=== PATIENT | female | born 1975 | race Caucasian/White ===

== ENCOUNTER 2016-07-18 14:07 | Inpatient (IN) | payer OTHER ==
[2016-07-18] VITALS (21 sets, daily range): BP systolic 71–108; BP diastolic 41–75; PULSE 66–87; TEMP 36.4–36.7; O2SAT 87–97; Ht 154.9 cm; Wt 89.9 kg
[~2016-07-18] VITALS: Ht 154.9 cm; Wt 89.9 kg
[~2016-07-18 14:07] MED LIST: FENTANYL CITRATE INJ 50 MCG/1 ML 2 ML VIAL IV ONE; SODIUM CHLORIDE 0.9% 10ML FLUSH IV ONE; SODIUM CHLORIDE 0.9% 2.5 ML FLUSH IV ONE; SODIUM CHLORIDE 0.9% INJ 10 ML VIAL IV ONE; SUCCINYLCHOLINE CHLORIDE 20 MG/ML 10 ML VIAL IV ONE
[2016-07-18] MEDS ORDERED: FLUP5TAB PO (14:56)
[2016-07-18] MEDS ORDERED: DOCU100C31 PO (14:56)
[2016-07-18] MEDS ORDERED: FURO-85 PO (14:56)
[2016-07-18] MEDS ORDERED: PIPERACILLIN/TAZOBACTAM 4.5 GM/100ML D5W IV STA (14:56)
[2016-07-18] MEDS ORDERED: FLUT1AER5 INH (14:56)
[2016-07-18] MEDS ORDERED: GLC/500 PO (14:56)
[2016-07-18] MEDS ORDERED: LEVO25TA5 PO (14:56)
[2016-07-18] MEDS ORDERED: ATOR-22 PO (14:56)
[2016-07-18] MEDS ORDERED: SODIUM CHLORIDE 0.9% 1000ML 1,000 ML IV ONE ×2 (14:56→17:30)
[2016-07-18] MEDS ORDERED: MELO7.5T5 PO (14:56)
[2016-07-18] MEDS ORDERED: EMOL-19 TOP (14:57)
[2016-07-18] MEDS ORDERED: LORA-741 PO (14:57)
[2016-07-18] MEDS ORDERED: PROP10TA7 PO (14:57)
[2016-07-18] MEDS ORDERED: ALUM-30 PO (14:57)
[2016-07-18] MEDS ORDERED: BNDIS50 IM (14:57)
[2016-07-18] MEDS ORDERED: TRAZ100T29 PO (14:57)
[2016-07-18] MEDS ORDERED: VALP250S16 PO (14:57)
[2016-07-18] MEDS ORDERED: ACET325T96 PO (14:57)
[2016-07-18] MEDS ORDERED: HALO5INJ IM (14:57)
[2016-07-18] MEDS ORDERED: MOML PO (14:57)
[2016-07-18] MEDS ORDERED: ALBUT/IPRATROP 3MG/0.5MG NEB 3 ML VIAL INH ONE (15:15)
[2016-07-18] MEDS ORDERED: PATIENT'S ALLERGY INFO NEEDS ENTERED SCH (15:15)
[2016-07-18 15:17] LABS: URINE APPEARANCE CLOUDY (CLEAR); URINE BILIRUBIN NEG (NEG); URINE COLOR DK YELLOW; URINE EPITHELIAL CELL AUTO >30 /lpf (0-5); URINE NITRITE NEG (NEG); URINE SPECIFIC GRAVITY 1.019 (1.000-1.030); UROBILINOGEN NEG (NEG); ZZURINE CULT IF INDIC CATH NO
[2016-07-18 15:17] LABS: CALCIUM 8.5 mg/dl (8.5-10.1); CREATININE 2.3 mg/dl (0.60-1.20); INR 1.1 (0.9-1.1); PARTIAL THROMBOPLASTIN RATIO 1.1; POTASSIUM 4.8 mmol/L (3.5-5.1); PROTHROMBIN TIME (PATIENT) 11.9 SECONDS (9.0-12.0)
[2016-07-18 15:19] LABS: MANUAL MICROSCOPIC REQUIRED? NO; REVIEW REQ? YES
[2016-07-18 15:27] LABS: URINE MUCUS PRESENT (NONE PRSENT)
[2016-07-18] MEDS ORDERED: SODIUM CHLORIDE 0.9% IV ONE (15:30)
[2016-07-18] MEDS ORDERED: DAPTOMYCIN IV ONE (15:30)
--- NOTE | 2016-07-18 15:31 | DIAGNOSTIC IMAGING REPORT ---
CHEST ONE VIEW PORTABLE CLINICAL HISTORY: Sepsis FEVER SHORTNESS OF BREATH COMPARISON STUDY: No previous studies for comparison. FINDINGS: The heart is enlarged. There are bilateral pulmonary airspace opacities. Diagnostic considerations include a bilateral pneumonia versus asymmetric pulmonary edema. There is no cystic or pleural fluid.[ IMPRESSION: Bilateral pulmonary airspace opacities, consistent with a bilateral pneumonia or asymmetric pulmonary edema. Clinical and radiographic follow-up is recommended. Electronically signed by: Igor Anderson M.D. 07/18/2016 3:30 PM Dictated Date/Time: 07/18/2016 3:28 PM
[2016-07-18 15:55] LABS: HEMATOCRIT 39.7 % (37-47); MEAN CELL VOLUME 93.2 fL (80-100); MEAN CORPUSCULAR HEMOGLOBIN 30.8 pg (25-34); MEAN PLATELET VOLUME 12.2 fL (7.4-10.4); PLATELET COUNT 120 K/uL (130-400); RED BLOOD COUNT 4.26 M/uL (4.2-5.4); WHITE BLOOD COUNT 7.82 K/uL (4.8-10.8)
[2016-07-18 15:57] LABS: BASO % 0.1 %; BASO ABS # 0.01 K/uL (0-0.2); COMPLETE YES; IG% 0.5 %; LYMPH ABS # 1.33 K/uL (1.2-3.4); MONO % 5.9 %; NEUT % 76.5 %; PLT ESTIMATE DECREASED
[2016-07-18] MEDS ORDERED: NOREPINEPHRINE BITARTRATE 1 MG/ML 4 ML VIAL ONE (16:18)
[2016-07-18] MEDS ORDERED: VANCOMYCIN 1GM/270ML NSS IV STA (16:20)
[2016-07-18] MEDS ORDERED: NOREPINEPHRINE BIT INJ 8 MG in DEXTROSE 5% 500ML 500 ML IV STA (16:20)
[2016-07-18] MEDS ORDERED: METHYLPREDNISOLONE 125 MG VIAL IV STA (17:08)
[2016-07-18] MEDS ORDERED: ONDANSETRON INJ 2 MG/ML 2 ML VIAL IV PRN (17:15)
[2016-07-18] MEDS ORDERED: SODIUM CHLORIDE 0.9% 1000ML 1,000 ML IV SCH (17:15)
[2016-07-18] MEDS ORDERED: ACETAMINOPHEN 325 MG TAB PO PRN (17:15)
[2016-07-18] MEDS ORDERED: VANCOMYCIN CONSULT ACTIVE PRN (17:45)
[2016-07-18] MEDS ORDERED: PIPERACILL/TAZOBAC CONSULT ACTIVE PRN (17:45)
[2016-07-18 18:06] LABS: ALLEN TEST POS (POS); ARTERIAL BLD GAS O2 SATURATION 92.4 % (90-95); ARTERIAL BLOOD GAS BASE EXCESS -0.8 mEq/L (-9-1.8); ARTERIAL BLOOD GAS HCO3 28 mmol/L (19-24); ARTERIAL BLOOD GAS PO2 80 mm/Hg (80-95); ARTERIAL BLOOD GAS pH 7.24 (7.35-7.45)
--- NOTE | 2016-07-18 18:21 | Medical Student: [facility] ---
Med Student History & Physical Date & Time of Service: Jul 18, 2016 at 16:43 Chief Complaint: Shortness of breath Primary Care Physician: Griselda, [facility] History of Present Illness Source: clinic records, hospital records 41y/o female, currently at the [facility] on a 304, was brought to the emergency department today from the [facility] due to respiratory distress. The patient was having respiratory problems at the [facility], with sats as low as the 70s. Her temperature was measured at 101.7 and she was given 650mg Tylenol prior to arrival. She was also given a Duoneb treatment prior to arrival. The patient was hypotensive prior to arrival. She is reported to have a history of COPD. Per HPI from the [facility], the patient has a history of schizophrenia, delusions , psychosis, and suicidal thoughts with two previous attempts. She believes that she is with twins and stopped taking her psych meds because of this. Prior to the [facility], she was living by herself in an apartment. Past Medical/Surgical History 1. COPD 2. Diabetes Mellitus 3. Schizophrenia 4. High cholesterol 5. HTN 6. Hypothyroid Surgical History: 1. Appendectomy 2. Family History Unable to obtain due to respiratory distress Social History Smoking Status: Unknown if Ever Smoked Housing status: other (currently lives at the [facility]) Allergies Coded Allergies: No Known Allergies (Unverified , 07/18/16) Medications Acetaminophen Tab (Tylenol), 650 MG PO Q4H Alum & Mag Hydrox-Simethicone (Mylanta), 30 ML PO QID PRN for Constipation Atorvastatin (Lipitor), 20 MG PO HS Diphenhydramine Hcl (Diphenhydramine Hcl), 100 MG IM UD Docusate Sodium (Docusate Sodium), 100 MG PO HS Emollient (Lubriderm), 1 APPLN TOP BID Fluphenazine Hcl (Prolixin), 15 MG PO HS Fluticasone Propionate (Inhala (Flovent Diskus), 1 PUFFS INH BID Furosemide (Lasix), 20 MG PO QAM Haloperidol Lactate (Haldol), 10 MG IM UD Levothyroxine Sodium (Levothyroxine Sodium), 25 MCG PO QAM Lorazepam (Ativan), 0.5 MG PO BID PRN for Anxiety Magnesium Hydroxide (Milk Of Magnesia), 30 ML PO UD PRN for Constipation Meloxicam (Mobic), 15 MG PO QAM Metformin Hcl (Glucophage), 1,000 MG PO BID Propranolol (Inderal), 10 MG PO BID Trazodone Hcl (Trazodone), 100 MG PO HS Valproic Acid Syrup (Depakene), 1,000 MG PO BID Review of Systems Unable to obtain due to respiratory distress Physical Exam Vital Signs (24 Hours) Date Time Temp Pulse Resp B/P Pulse Ox O2 Delivery O2 Flow Rate FiO2 07/18/16 16:32 96 07/18/16 15:14 87/57 07/18/16 15:07 91/49 07/18/16 14:55 79 26 76/48 95 Non-Rebreather 15.0 07/18/16 14:53 76/48 07/18/16 14:29 81 16 69/41 95 Non-Rebreather 15.0 07/18/16 14:25 37.0 83 23 76/46 96 Room Air 07/18/16 14:23 82 07/18/16 14:11 82 22 76/46 95 07/18/16 14:10 96 Non-Rebreather 15.0 General Appearance: + moderate distress, + obese, + pertinent finding (ill- appearing) Head: normocephalic, atraumatic Eyes: normal inspection, EOMI Neck: supple, no adenopathy, trachea midline Cardiovascular: regular rate, rhythm, no edema, no gallop, no murmur Abdomen/GI: normal bowel sounds, non tender, soft Neurologic/Psych: + pertinent finding (eyes open, will respond to some questions, pulling rebreather mask off face) Skin: normal color, warm/dry, no rash Lymphatic: no adenopathy Diagnostics Laboratory Results Results Past 24 Hours Test 07/18/16 14:16 07/18/16 14:27 07/18/16 14:45 07/18/16 15:09 Range/Units Bedside Glucose 119 70-90 mg/dl White Blood Count 7.82 4.8-10.8 K/uL Red Blood Count 4.26 4.2-5.4 M/uL Hemoglobin 13.1 12.0-16.0 g/dL Hematocrit 39.7 37-47 % Mean Corpuscular Volume 93.2 80-100 fL Mean Corpuscular Hemoglobin 30.8 25-34 pg Mean Corpuscular Hemoglobin Concent 33.0 32-36 g/dl Platelet Count 120 130-400 K/uL Mean Platelet Volume 12.2 7.4-10.4 fL Neutrophils (%) (Auto) 76.5 % Lymphocytes (%) (Auto) 17.0 % Monocytes (%) (Auto) 5.9 % Eosinophils (%) (Auto) 0.0 % Basophils (%) (Auto) 0.1 % Neutrophils # (Auto) 5.98 1.4-6.5 K/uL Lymphocytes # (Auto) 1.33 1.2-3.4 K/uL Monocytes # (Auto) 0.46 0.11-0.59 K/uL Eosinophils # (Auto) 0.00 0-0.5 K/uL Basophils # (Auto) 0.01 0-0.2 K/uL RDW Standard Deviation 48.7 36.4-46.3 fL RDW Coefficient of Variation 14.5 11.5-14.5 % Immature Granulocyte % (Auto) 0.5 % Immature Granulocyte # (Auto) 0.04 0.00-0.02 K/uL Platelet Estimate DECREASED Red Blood Cell Morphology Unremarkable Prothrombin Time 11.9 9.0-12.0 SECONDS Prothromb Time International Ratio 1.1 0.9-1.1 Activated Partial Thromboplast Time 28.5 21.0-31.0 SECONDS Partial Thromboplastin Ratio 1.1 Sodium Level 138 136-145 mmol/L Potassium Level 4.8 3.5-5.1 mmol/L Chloride Level 96 98-107 mmol/L Carbon Dioxide Level 29 21-32 mmol/L Anion Gap 13.0 3-11 mmol/L Blood Urea Nitrogen 46 7-18 mg/dl Creatinine 2.30 0.60-1.20 mg/dl Est Creatinine Clear Calc Drug Dose 34.7 ml/min Estimated GFR () 30.0 Estimated GFR (Non- 25.9 BUN/Creatinine Ratio 20.0 10-20 Random Glucose 116 70-99 mg/dl Calcium Level 8.5 8.5-10.1 mg/dl Total Bilirubin 0.4 0.2-1 mg/dl Aspartate Amino Transf (AST/SGOT) 15 15-37 U/L Alanine Aminotransferase (ALT/SGPT) 13 12-78 U/L Alkaline Phosphatase 33 45-117 U/L Total Protein 6.5 6.4-8.2 gm/dl Albumin 3.2 3.4-5.0 gm/dl Globulin 3.3 2.5-4.0 gm/dl Albumin/Globulin Ratio 1.0 0.9-2 Urine Color DK YELLOW Urine Appearance CLOUDY CLEAR Urine pH 5.0 4.5-7.5 Urine Specific [place] 1.019 1.000-1.030 Urine Protein 1+ NEG Urine Glucose (UA) NEG NEG Urine Ketones TRACE NEG Urine Occult Blood NEG NEG Urine Nitrite NEG NEG Urine Bilirubin NEG NEG Urine Urobilinogen NEG NEG Urine Leukocyte Esterase NEG NEG Urine WBC (Auto) 0 0-5 /hpf Urine RBC (Auto) 0-4 0-4 /hpf Urine Hyaline Casts (Auto) >30 0-5 /lpf Urine Epithelial Cells (Auto) >30 0-5 /lpf Urine Bacteria (Auto) NEG NEG Urine Renal Epithelial Cells 0-5 /lpf Urine Crystals AMORPHOUS SEDIMENT NONE PRSENT Urine Pathogenic Casts 0 /lpf Urine Mucus PRESENT NONE PRSENT Bedside Lactic Acid Venous 3.06 0.90-1.70 mmol/L Microbiology Results 07/18/16 Blood Culture, Received Pending 07/18/16 Blood Culture, Received Pending Diagnostic Radiology CXR: IMPRESSION: Bilateral pulmonary airspace opacities, consistent with a bilateral pneumonia or asymmetric pulmonary edema. Clinical and radiographic follow-up is recommended. EKG Left atrial enlargement, Borderline ecg Impression Assessment and Plan 41y/o female with a psych history and a history of COPD presents with respiratory distress from the [facility]. The patient's CXR shows airspace opacities consistent with bilateral PNA. Given this finding, it is likely that the source of the patient's sepsis is from the lung infection. Sepsis/PNA- The patient is currently in acute kidney failure with a BUN of 46 and a creatinine 2.30. On 06/29/16, her creatinine was 0.56. The patient has also been hypotensive, but current BP readings have now reached the normal range following the administration of Norepinephrine. The patient has received 1L of fluid to this point. Will administer another 1L of normal saline to attempt to fluid resuscitate. Continue to monitor vital signs as well as kidney function and other labs. Administer Vancomycin HCl 1000mg IV Q12 and Piperacillin Sod/ Tazobactam Sodium 3.375gm Q8 IV. Blood cultures pending. Obtain MRSA swab in an attempt to rule out MRSA as bacteria involved in infection. Continue to trend lactic acid. Continue with O2 supplementation on a nonbreather. COPD- Continue with Albuterol/Ipratropium 1 puffs INH as needed. Schizophrenia/Psych history- Administer Fluphenazine HCl 15mg PO HS, Haloperidol 10mg IM UD, Trazadone HCl 100mg PO HS, and Valproic Acid 1000mg PO BID. Hypertension- Hold Propranolol HCl 10mg PO BID. Diabetes Mellitus- Hold Metformin. Check BSG and administer as needed. Hypothyroid- Hold Levothyroxine for 48 hours. Consider restarting home dose following 48 hours at 25mcg PO QAM. Edema- Hold Furosemide. High cholesterol- Hold Atorvastatin Calcium. DVT prophylaxis- Administer Heparin 5000 Units SQ12H. Level of Care Med/Surg
[2016-07-18] MEDS: SODIUM CHLORIDE 0.9% 1000ML 1,000 ML IV SCH (19:45)
[2016-07-18] MEDS ORDERED: SODIUM CHLORIDE 0.45% 1000ML 1,000 ML IV SCH (19:45)
[2016-07-18] MEDS ORDERED: VANCOMYCIN INJ 1,400 MG in SODIUM CHLORIDE 0.9% 500ML 500 ML IV ONE (19:45)
[2016-07-18] MEDS ORDERED: SODIUM CHLORIDE 0.9% 500ML 500 ML IV SCH (19:45)
[2016-07-18] MEDS ORDERED: ALBUTEROL 0.5% NEB SOLN 2.5 MG/0.5 ML VIAL INH PRN (19:45)
[2016-07-18] MEDS ORDERED: OSELTAMIVIR PHOSPHATE SUSP 30 MG/5 ML UDP PO SCH (20:00)
[2016-07-18] MEDS ORDERED: AZITHROMYCIN IV 250 MG in DEXTROSE 5% 250ML 250 ML IV ONE (20:00)
[2016-07-18] MEDS ORDERED: GLUCOSE 40% GEL 15 GM TUBE PO PRN (20:00)
[2016-07-18] MEDS ORDERED: GLUCAGON FOR INJ 1 MG VIAL SQ PRN (20:00)
[2016-07-18] MEDS ORDERED: DEXTROSE 50% 50 ML SYR IV PRN (20:00)
[2016-07-18] MEDS ORDERED: GLUCOSE 10 TABS/TUBE PO PRN (20:00)
--- NOTE | 2016-07-18 20:12 | EMERGENCY ROOM VISIT NOTE ---
History Report prepared by Douglasibjensen: Janice Jones Under the Supervision of: Dr. Cecilio Perea M.D. First contact with patient: 14:45 Chief Complaint: RESPIRATORY PROBLEMS Stated Complaint: FEVER, SOB History of Present Illness The patient is a 41 year old female who presents to the Emergency Room via ambulance to be evaluated for respiratory problems that began today. Per nursing staff, the patient is at the [facility] on a 304 and seemed lethargic this morning to staff. Her temperature was 101.7 at that time and she was given 650 mg Tylenol. Her sats were in the 70s on room air. She was put on a nonrebreather at the [facility] and her sats improved by the time EMS arrived. She was noted to be hypotensive. She was given a Duoneb en route to the ED. Currently, the patient states that she is better than she did earlier today. Past medical history includes COPD. History is limited secondary to respiratory distress. Source of History: patient, nursing staff History Limited By: other (respiratory distress) Onset: today Symptom Intensity: sats in 70s on room air Timing: constant Modifying Factors (Relieving): other (NRB) Associated Symptoms: + fevers Review of Systems Limited secondary to respiratory distress. Past Medical & Surgical Medical Problems: (1) COPD (chronic obstructive pulmonary disease) (2) Sepsis Family History Unobtainable secondary to respiratory distress. Social History Marital Status: single Housing Status: other ([place]) Occupation Status: unemployed Current/Historical Medications Scheduled Acetaminophen Tab (Tylenol), 650 MG PO Q4H Atorvastatin (Lipitor), 20 MG PO HS Diphenhydramine Hcl (Diphenhydramine Hcl), 100 MG IM UD Docusate Sodium (Docusate Sodium), 100 MG PO HS Emollient (Lubriderm), 1 APPLN TOP BID Fluphenazine Hcl (Prolixin), 15 MG PO HS Fluticasone Propionate (Inhala (Flovent Diskus), 1 PUFFS INH BID Furosemide (Lasix), 20 MG PO QAM Haloperidol Lactate (Haldol), 10 MG IM UD Levothyroxine Sodium (Levothyroxine Sodium), 25 MCG PO QAM Meloxicam (Mobic), 15 MG PO QAM Metformin Hcl (Glucophage), 1,000 MG PO BID Propranolol (Inderal), 10 MG PO BID Trazodone Hcl (Trazodone), 100 MG PO HS Valproic Acid Syrup (Depakene), 1,000 MG PO BID Scheduled PRN Alum & Mag Hydrox-Simethicone (Mylanta), 30 ML PO QID PRN for Constipation Lorazepam (Ativan), 0.5 MG PO BID PRN for Anxiety Magnesium Hydroxide (Milk Of Magnesia), 30 ML PO UD PRN for Constipation Allergies Coded Allergies: No Known Allergies (Unverified , 07/18/16) Physical Exam Vital Signs Date Time Temp Pulse Resp B/P Pulse Ox O2 Delivery O2 Flow Rate FiO2 07/18/16 17:19 82 90 07/18/16 17:14 84 92 07/18/16 17:13 112/74 07/18/16 17:09 85 91 07/18/16 17:08 116/67 07/18/16 17:04 84 90 07/18/16 16:59 84 98/49 94 07/18/16 16:54 82 94 07/18/16 16:49 80 95 07/18/16 16:45 80 20 112/63 95 Non-Rebreather 07/18/16 16:44 79 93 07/18/16 16:43 112/63 07/18/16 16:39 81 92 07/18/16 16:38 92/62 07/18/16 16:34 80 91 07/18/16 16:32 96 07/18/16 16:30 81 22 97/63 92 Non-Rebreather 07/18/16 16:29 78 90 07/18/16 16:28 97/63 07/18/16 16:24 82 91 07/18/16 16:19 82 94 07/18/16 16:15 81 22 84/55 92 Non-Rebreather 07/18/16 16:14 80 88 07/18/16 16:13 84/55 07/18/16 16:09 81 88 07/18/16 16:04 81 93 07/18/16 16:02 90 Non-Rebreather 15.0 07/18/16 15:59 80 98 07/18/16 15:54 82 89 07/18/16 15:50 89/55 07/18/16 15:49 82 98 07/18/16 15:45 74 22 80/47 Non-Rebreather 07/18/16 15:44 81 93 07/18/16 15:43 80/47 07/18/16 15:39 77 97 07/18/16 15:39 77 24 92/52 97 Non-Rebreather 07/18/16 15:37 92/52 07/18/16 15:34 76 94 07/18/16 15:30 75/58 07/18/16 15:29 78 95 07/18/16 15:27 79/ 07/18/16 15:26 78 22 72/38 90 Non-Rebreather 07/18/16 15:24 79 72/38 88 07/18/16 15:20 76 18 97 Non-Rebreather 15.0 07/18/16 15:19 79 97 07/18/16 15:16 78 22 87/57 96 Non-Rebreather 07/18/16 15:14 87/57 07/18/16 15:08 79 24 91/49 95 Non-Rebreather 07/18/16 15:07 91/49 07/18/16 14:55 79 26 76/48 95 Non-Rebreather 15.0 07/18/16 14:53 76/48 07/18/16 14:30 79 22 69/41 91 Non-Rebreather 07/18/16 14:29 81 16 69/41 95 Non-Rebreather 15.0 07/18/16 14:25 37.0 83 23 76/46 96 Room Air 07/18/16 14:23 82 07/18/16 14:11 82 22 76/46 95 07/18/16 14:10 96 Non-Rebreather 15.0 Physical Exam The patient is in respiratory distress. Constitutional: Vital signs reviewed. She is hypotensive Eyes: Pupils are equal round reactive to light. Conjunctiva are noninjected. ENT: Pharynx is clear without erythema or exudate. Mucous membranes are moist. Neck supple without meningeal signs. Respiratory: Diffuse expiratory wheezing with rhonchi and poor air entry to auscultation bilaterally. Breath sounds are equal bilaterally. Cardiovascular: Regular rate and rhythm. No rubs or gallops. GI: Soft, nondistended and nontender. Bowel sounds are present. Musculoskeletal: No peripheral edema. No lower extremity tenderness. No CVA tenderness. Integumentary: No cyanosis. Neurological: Confused, answers some questions. Psychiatric: Unable to assess. Medical Decision & Procedures ER Provider Diagnostic Interpretation: Radiology results as stated below per my review and the radiologist's interpretation: CHEST ONE VIEW PORTABLE CLINICAL HISTORY: Sepsis FEVER SHORTNESS OF BREATH COMPARISON STUDY: No previous studies for comparison. FINDINGS: The heart is enlarged. There are bilateral pulmonary airspace opacities. Diagnostic considerations include a bilateral pneumonia versus asymmetric pulmonary edema. There is no cystic or pleural fluid.[ IMPRESSION: Bilateral pulmonary airspace opacities, consistent with a bilateral pneumonia or asymmetric pulmonary edema. Clinical and radiographic follow-up is recommended. Electronically signed by: Igor Anderson M.D. 07/18/2016 3:30 PM Dictated Date/Time: 07/18/2016 3:28 PM Laboratory Results 07/18/16 14:27 Red Blood Count 4.26, Mean Corpuscular Volume 93.2, Mean Corpuscular Hemoglobin 30.8, Mean Corpuscular Hemoglobin Concent 33.0, Mean Platelet Volume 12.2, Neutrophils (%) (Auto) 76.5, Lymphocytes (%) (Auto) 17.0, Monocytes (%) (Auto) 5.9, Eosinophils (%) (Auto) 0.0, Basophils (%) (Auto) 0.1, Neutrophils # (Auto) 5.98, Lymphocytes # (Auto) 1.33, Monocytes # (Auto) 0.46, Eosinophils # (Auto) 0.00, Basophils # (Auto) 0.01 Test 07/18/16 14:16 07/18/16 14:27 07/18/16 14:45 07/18/16 15:09 Bedside Glucose 119 mg/dl (70-90) White Blood Count 7.82 K/uL (4.8-10.8) Red Blood Count 4.26 M/uL (4.2-5.4) Hemoglobin 13.1 g/dL (12.0-16.0) Hematocrit 39.7 % (37-47) Mean Corpuscular Volume 93.2 fL (80-100) Mean Corpuscular Hemoglobin 30.8 pg (25-34) Mean Corpuscular Hemoglobin Concent 33.0 g/dl (32-36) Platelet Count 120 K/uL (130-400) Mean Platelet Volume 12.2 fL (7.4-10.4) Neutrophils (%) (Auto) 76.5 % Lymphocytes (%) (Auto) 17.0 % Monocytes (%) (Auto) 5.9 % Eosinophils (%) (Auto) 0.0 % Basophils (%) (Auto) 0.1 % Neutrophils # (Auto) 5.98 K/uL (1.4-6.5) Lymphocytes # (Auto) 1.33 K/uL (1.2-3.4) Monocytes # (Auto) 0.46 K/uL (0.11-0.59) Eosinophils # (Auto) 0.00 K/uL (0-0.5) Basophils # (Auto) 0.01 K/uL (0-0.2) RDW Standard Deviation 48.7 fL (36.4-46.3) RDW Coefficient of Variation 14.5 % (11.5-14.5) Immature Granulocyte % (Auto) 0.5 % Immature Granulocyte # (Auto) 0.04 K/uL (0.00-0.02) Platelet Estimate DECREASED Red Blood Cell Morphology Unremarkable Prothrombin Time 11.9 SECONDS (9.0-12.0) Prothromb Time International Ratio 1.1 (0.9-1.1) Activated Partial Thromboplast Time 28.5 SECONDS (21.0-31.0) Partial Thromboplastin Ratio 1.1 Est Creatinine Clear Calc Drug Dose 34.7 ml/min Total Bilirubin 0.4 mg/dl (0.2-1) Aspartate Amino Transf (AST/SGOT) 15 U/L (15-37) Alanine Aminotransferase (ALT/SGPT) 13 U/L (12-78) Alkaline Phosphatase 33 U/L (45-117) Total Protein 6.5 gm/dl (6.4-8.2) Albumin 3.2 gm/dl (3.4-5.0) Globulin 3.3 gm/dl (2.5-4.0) Albumin/Globulin Ratio 1.0 (0.9-2) Procalcitonin 0.19 ng/mL (0-0.5) Urine Color DK YELLOW Urine Appearance CLOUDY (CLEAR) Urine pH 5.0 (4.5-7.5) Urine Specific [place] 1.019 (1.000-1.030) Urine Protein 1+ (NEG) Urine Glucose (UA) NEG (NEG) Urine Ketones TRACE (NEG) Urine Occult Blood NEG (NEG) Urine Nitrite NEG (NEG) Urine Bilirubin NEG (NEG) Urine Urobilinogen NEG (NEG) Urine Leukocyte Esterase NEG (NEG) Urine WBC (Auto) 0 /hpf (0-5) Urine RBC (Auto) 0-4 /hpf (0-4) Urine Hyaline Casts (Auto) >30 /lpf (0-5) Urine Epithelial Cells (Auto) >30 /lpf (0-5) Urine Bacteria (Auto) NEG (NEG) Urine Renal Epithelial Cells /lpf (0-5) Urine Crystals AMORPHOUS SEDIMENT (NONE Urine Pathogenic Casts /lpf (0) Urine Mucus PRESENT (NONE PRSENT) Bedside Lactic Acid Venous 3.06 mmol/L (0.90-1.70) Test 07/18/16 16:40 Influenza Type A Antigen Neg for Influ A (NEG) Influenza Type B Antigen Neg for Influ B (NEG) Laboratory results as reviewed by me. Medications Administered Medications (Trade) Dose Ordered Sig/Racquel Route Start Time Stop Time Status Last Admin Dose Admin Sodium Chloride (Nss 1000ml) 1,000 ml @ 999 mls/hr Q1H1M ONCE IV 07/18/16 14:56 07/18/16 15:56 DC 07/18/16 15:17 999 MLS/HR Piperacillin Sod/ Tazobactam Sod (Zosyn Iv) 4.5 gm ONE STAT IV 07/18/16 14:56 07/18/16 14:58 DC 07/18/16 15:17 4.5 GM Albuterol/ Ipratropium (Duoneb) 12 ml ONE ONCE INH 07/18/16 15:15 07/18/16 15:16 DC 07/18/16 15:15 12 ML Norepinephrine Bitartrate (Levophed Inj) 4 mg STK-MED ONCE .ROUTE 07/18/16 16:18 07/18/16 16:20 DC 07/18/16 16:28 4 MG Vancomycin HCl (Vancomycin 1gm/ 270ml Nss) 1 gm NOW STAT IV 07/18/16 16:20 07/18/16 16:21 DC 07/18/16 16:57 1 GM Methylprednisolone Sodium Succinate (Solu-Medrol IV) 125 mg NOW STAT IV 07/18/16 17:08 07/18/16 17:09 DC 07/18/16 17:21 125 MG Procedure Central Venous Catheter Indication: Hypotension, need for pressors Catheter type: Triple lumen Location: Right femoral Verbal consent was obtained after the risks and benefits were explained, including but not limited to pneumothorax, hemothorax, vessel injury, bleeding, scarring, infection, pain, and bone/joint/nerve damage. At this time, the risks of the procedure are less than the risks of NOT performing the procedure. A time out was taken and the correct patient and site identified. The patient was placed in the supine position and the skin was prepped in the standard fashion with chlorhexidine and full sterile drapes applied. The proper landmarks were identified with ultrasound, anesthetized with 1% lidocaine without epinephrine, and the needle was inserted through the skin in the standard fashion. The needle was carefully advanced into blood vessel lumen under ultrasound guidance. The artery was initially punctured, verified by ultrasound. A second attempt was successful and verified in the femoral vein. The vessel is dilated and the catheter was placed. It was sutured into position. There was good blood return from all ports. The patient tolerated the procedure well and there were no complications. Direct pressure was held over the femoral artery puncture for 25 minutes by the medical student. No hematoma developed subsequently during her emergency room stay. ECG Indication: SOB/dyspnea Rate (beats per minute): 81 Rhythm: normal sinus Findings: no acute ischemic change, no ectopy ED Course 1447: The patient was evaluated in room A7. A complete history and physical exam was performed. 1456: Ordered Daptomycin/NSS 50 ml @ 100 mls/hr IV, NSS 1000 ml @ 999 mls/hr IV. 1506: A code sepsis was called and the patient was moved to room B1. 1510: I reassessed the patient. Her blood pressure was 91/49. 1515: Ordered Duoneb 12 ml INH. 1518: I discussed the case with Dr. López - [facility] Hospitalist. The patient will be evaluated for further management. 1520: I reassessed the patient. She is getting an hour long nebulizer treatment and fluids are infusing. She is still hypotensive. 1530:Ordered Daptomycin 575 mg/NSS 61.5 ml @ 100 mls/hr IV. 1532: I talked to the patient about the risks of a central line and she consented to the procedure. Her systolic pressure was 75. 1537: I placed a central line - see procedure note above for details. 1620: Ordered Norepinephrine Bitartrate 8 mg/Dextrose 508 ml IV, Vancomycin HCl 1 gm IV. 1700: I reassessed the patient. She is still wheezing significantly. She will be put on Bipap. 170: Ordered Solu-Medrol 125 mg IV. 1740: I reassessed the patient. Her blood pressure was 104/64. She was on Bipap and Levophed. 1816: I reassessed the patient. Her wheezing significantly improved. She was feeling much better and was awake and alert. Her blood pressure was stable. Groin shows no evidence of expanding hematoma. The femoral pulse was strong. Medical Decision This is a 41-year-old female in respiratory distress with fever. Differential diagnosis includes septic shock, pneumonia, pulmonary edema, COPD exacerbation, UTI, ARDS. I did perform a limited focused review of portions of the patient's old chart on the electronic medical record. The patient has had no prior visits to this hospital. I did evaluate the patient as noted above. 3 IVs access was established. The patient was placed on a continuous quality assurance monitor chassis. She was given 3 IV boluses of normal saline 1 L each. She was transferred to the trauma resuscitation bay. She was given an hour-long DuoNeb. A urine specimen was obtained which was extremely malodorous according to the nurse. I did empirically treat the patient with IV daptomycin and Zosyn. I did order and personally review the patient's 12-lead EKG and chest x-ray as described above. Chest x-ray demonstrates bilateral pneumonia. The daptomycin was canceled as the urine analysis was negative. She was given vancomycin IV instead. Blood cultures were obtained. I did order and review the patient's blood work as noted in the electronic medical record. Creatinine and lactic acid are elevated. I did obtain consent for central venous catheter placement. I did place the central line triple-lumen catheter as noted above. She was started on Levophed as she remained hypotensive. Her blood pressure did improve with the IV Levophed drip. She was also placed on BiPAP and given Solu-Medrol IV which improved her breathing significantly. I did discuss the case with the hospitalist. She was admitted to the ICU. I did reassess the patient multiple times as described above. Consults Time Called: 1022 Consulting Physician: Dr. López - [facility] Hospitalist Returned Call: [phone] I discussed the case with him. The patient will be evaluated for further management. Impression Primary Impression: Septic shock Additional Impressions: Bilateral pneumonia COPD exacerbation Acute kidney injury Schizophrenia Critical Care I have personally spent greater than 80 minutes of critical care time in the direct management of this patient. This includes bedside care, interpretation of diagnostic studies, and testing, discussion with consultants, patient, and family members, and other required patient management activities. This 80 minutes is in excess of all separately billable procedures. Scribe Attestation The scribe's documentation has been prepared under my direct and personally reviewed by me in its entirety. I confirm that the note above accurately reflects all work, treatment, procedures, and medical decision making performed by me. Departure Information Dispostion Being Evaluated By Hospitalist Patient Instructions My [facility] Health Problem Qualifiers
[2016-07-18] MEDS: HEPARIN SOD 5000 UNIT/0.5 ML CARP SQ SCH (20:27)
[2016-07-18] MEDS: INSULIN ASPART 100 UNITS/ML 3 ML PEN SC SCH (20:28)
[2016-07-18 20:37] LABS: IPAP 22; ISTAT ALLEN TEST Pass; ISTAT ARTERIAL BLOOD GAS HCO3 26 meq/L (19-24); ISTAT ARTERIAL BLOOD GAS PCO2 57 mmHg (35-46); ISTAT ARTERIAL BLOOD GAS PO2 79 mmHg (80-95); ISTAT ARTERIAL BLOOD GAS pH 7.26 (7.35-7.45); ISTAT CARBON DIOXIDE 28 mEq/l (24-31); ISTAT DELIVERY SYSTEM BIPAP; ISTAT FIO2 55 %; ISTAT RATE 12; ISTAT SITE R Radial
[2016-07-18 20:49] LABS: BUN/CREATININE RATIO 23.7 (10-20); CALCIUM 7.4 mg/dl (8.5-10.1); MAGNESIUM 1.3 mg/dl (1.8-2.4); POTASSIUM 4.7 mmol/L (3.5-5.1)
[2016-07-18 20:53] LABS: PHOSPHORUS 4.9 mg/dl (2.5-4.9)
[2016-07-18] MEDS ORDERED: VANCOMYCIN INJ 1,000 MG in SODIUM CHLORIDE 0.9% 250ML 250 ML IV SCH (21:00)
--- NOTE | 2016-07-18 21:14 | Pharmacy Progress Note ---
Pharmacy Antibiotic Consult Date of Service: Jul 18, 2016. Pharmacy Dosing Scope Pharmacy is consulted to initiate vancomycin and zosyn IV dosing therapy, order appropriate labs and adjust drug dose/frequency. Subjective The patient is a 41 year old female admitted on Jul 18, 2016 at 17:19. Objective Height (Feet): 5 Height (Inches): 1.00 Weight (Kilograms): 95.900 Lab Results (24hrs): Laboratory Tests Test 07/18/16 14:27 07/18/16 20:15 BUN/Creatinine Ratio 20.0 23.7 Blood Urea Nitrogen 46 mg/dl 47 mg/dl Creatinine 2.30 mg/dl 2.00 mg/dl White Blood Count 7.82 K/uL Red Blood Count 4.26 M/uL Hemoglobin 13.1 g/dL Hematocrit 39.7 % Mean Corpuscular Volume 93.2 fL Mean Corpuscular Hemoglobin 30.8 pg Mean Corpuscular Hemoglobin Concent 33.0 g/dl Platelet Count 120 K/uL Mean Platelet Volume 12.2 fL Neutrophils (%) (Auto) 76.5 % Lymphocytes (%) (Auto) 17.0 % Monocytes (%) (Auto) 5.9 % Eosinophils (%) (Auto) 0.0 % Basophils (%) (Auto) 0.1 % Neutrophils # (Auto) 5.98 K/uL Lymphocytes # (Auto) 1.33 K/uL Monocytes # (Auto) 0.46 K/uL Eosinophils # (Auto) 0.00 K/uL Basophils # (Auto) 0.01 K/uL Assessment & Plan Patient started on vancomycin, zosyn and azithromycin (not consult) for possible pneumonia. BC x 2 ordered, MRSA nasal swab pending. Vancomycin: * LD: 1 gm (10mg/kg) given in ED; will give an additional 1400 mg (~15mg/kg) for full loading dose * Patient with DILLON on admission, unsure of baseline Scr at this time * Based on current Scr: estimated t1/2~18 hrs, ke~0.038 hr-1, CrCl~40 ml/min * Will dose by level due to increase in Scr ; will order a random level in the am to assist with further dosing, estimated level tomorrow am still>15 mcg/ml ( goal 15-20 mcg/ml for PNA) Zosyn: * 4.5 gm iv x 1 given; will dose with 4.5 gm iv q 8 hr which is appropriate for CrCl> 20 ml/min; BMI>40 kg/m2 Pharmacy will continue to follow and will adjust dose/frequency as necessary. Thank you
[2016-07-18] MEDS: NOREPINEPHRINE BIT INJ 8 MG in DEXTROSE 5% 500ML 500 ML IV PRN (21:24)
[2016-07-18] MEDS ORDERED: DiphenhydrAMINE INJ 25 MG in SYRINGE 0 ML IV PRN (21:45)
[2016-07-18] MEDS: MAGNESIUM SULFATE 1GM / D5W 1 GM in PREMIXED IN D5W 100 ML IV SCH ×2 (21:53→23:11)
[2016-07-18] MEDS: PIPERACILL/TAZOBAC IV 4.5 GM in DEXTROSE 5% 100ML IV SCH (21:53)
[2016-07-18] MEDS ORDERED: PIPERACILL/TAZOBAC IV 3.375 GM in DEXTROSE 5% 100ML 100 ML IV SCH (22:00)
[2016-07-18 22:26] LABS: THYROID STIMULATING HORMONE 0.506 uIu/ml (0.300-4.500)
[2016-07-18 22:34] LABS: INFLUENZA A PCR Neg for Influ A (NEG)
[2016-07-18 22:35] LABS: INFLUENZA B PCR Neg for Influ B (NEG)
--- NOTE | 2016-07-18 23:24 | CRITICAL CARE CONSULTATION ---
DATE OF CONSULTATION: 07/18/2016 CHIEF COMPLAINT: Shortness of breath. HISTORY OF PRESENT ILLNESS: The patient is a 41-year-old woman, who presented to the Emergency Department today from [facility], where, it appears, she has been residing since April of 2016 when she was 302'd for delusions, psychosis and suicidal ideation. She has a history of schizophrenia and is on multiple psychiatric medications. She was noted to have a temperature of 101.7 at the facility and was given 650 mg Tylenol. Her oxygen saturation is reported to have been in the 70s and she had an altered mental status. EMS was summoned and she received albuterol nebulizer x2, secondary to wheezing. She was brought to the Emergency Department, where she was found to be hypotensive. She was given 3 liters of IV fluid as well as daptomycin, a 1-hour DuoNeb and 125 mg of Solu-Medrol. A right femoral triple lumen catheter was placed and she was started on Levophed for hypotension. She was also placed on BiPAP 18/5 and an arterial blood gas showed hypercapnic respiratory failure. It is exceedingly difficult to get a history from her, as it is very difficult to understand her through the BiPAP mask. She says she has been coughing, but not coughing up any sputum. She reports feeling chilled, but no nausea or vomiting. She denies sore throat or nasal congestion. She denies abdominal pain as well. She denies that she smokes; however, in her records, it appears that she does have a history of smoking. She denies chest pain and overall, feels better than when she came in to the Emergency Department. PAST MEDICAL HISTORY: Hypothyroidism, diabetes mellitus, hypertension, schizophrenia, suicidal thoughts and attempt x2. PAST SURGICAL HISTORY: Appendectomy and section. ALLERGIES: No known drug allergies, but she reports weight gain with DEPAKOTE. SOCIAL HISTORY: She has a history of smoking in the past, unclear if she still smokes. She lives in [place] and she may have 2 sons. FAMILY HISTORY: Noncontributory and there is none listed in our documentation. REVIEW OF SYSTEMS: She denies fevers, diarrhea, abdominal pain. Additional review of systems was not obtainable or questionable due to difficulty with communicating through the BiPAP mask. PHYSICAL EXAMINATION: GENERAL: This is an obese woman looking older than her stated age with BiPAP in place and in no distress. VITAL SIGNS: Temperature 36.4, heart rate 84, respiratory rate 20, blood pressure 108/58, oxygen saturation 96%, BiPAP 22/5, 55%. HEENT: Pupils are equally round and reactive to light. The oral mucosa is difficult to examine through BiPAP. Her tongue appears dry. NECK: Large with a lot of adipose tissue. No adenopathy, trachea midline. LUNGS: With decreased breath sounds throughout, some rales in the left base. No rhonchi or wheezes. HEART: Regular rate and rhythm, distant. ABDOMEN: Obese, soft, nondistended, nontender. Active bowel sounds. EXTREMITIES: Slightly cool with 1+ radial and dorsalis pedis pulses. There is a right femoral triple lumen catheter without hematoma. SKIN: Shows a tattoo over her back and her right leg. LABORATORIES: Sodium 138, potassium 4.8, chloride 96, CO2 29, BUN 46, creatinine 2.3, blood sugar 116, alkaline phosphatase 33, albumin 3.2, AST, ALT and total bilirubin within normal limits. Procalcitonin 0.19. Lactic acid 1.9, magnesium 1.3. White blood cell count 7.82, hemoglobin 13.1, hematocrit 39.7, platelet count 120, PT, PTT, INR within normal limits; pH 7.26, pCO2 of 57, pO2 79 and HCO3 26. Urinalysis with trace ketones. Rapid influenza testing negative for influenza A and B. Blood cultures pending. PRESENT ORDERED MEDICATIONS: Acetaminophen, albuterol, DuoNeb, azithromycin, norepinephrine, Zofran, Tamiflu, Protonix, Zosyn, normal saline, vancomycin, subcutaneous heparin. OUTPATIENT MEDICATIONS: Acetaminophen, Mylanta, Lipitor, Benadryl given with Haldol injection, Colace, Lubriderm, Prolixin, Flovent, Lasix, Haldol, levothyroxine, Ativan p.r.n., milk of magnesia, Mobic, metformin, propranolol, trazodone, valproic acid. IMAGING: Portable chest x-ray was reviewed and shows bilateral interstitial infiltrates, left greater than right. EKG, normal sinus rhythm with nonspecific ST-T wave changes. IMPRESSION: 1. Acute hypoxemic hypercapnic respiratory failure in the setting of fever and hypotension, concerning for pneumonia and septic shock. 2. Acute kidney injury. 3. Altered mental status, which I suspect is multifactorial. 4. History of schizophrenia, on multiple psychiatric medications. 5. History of diabetes mellitus with hyperglycemia. 6. History of hypothyroidism. PLAN: NEUROLOGIC: Due to her altered mental status, I am going to hold her psychiatric medications overnight. Should she need something, I suggest Haldol preceded or given with Benadryl. Presently, she is calm and, from what I can tell, is not having any delusions. PULMONARY: Continue BiPAP and follow her clinical status. Although her CO2 is a bit elevated, it is improved compared to earlier in the day. She awakens very easily and has been getting acceptable tidal volumes on higher inspiratory pressures. Treat broadly for pneumonia and provide bronchodilators, both scheduled and p.r.n. CARDIOVASCULAR: Rule out myocardial infarction with serial troponins. Initial CPK was not elevated. Wean the Levophed and check echocardiogram. RENAL: I suspect she is intravascularly volume depleted and may have acute tubular necrosis, both from her hypotension and dehydration. Continue volume resuscitation. Her creatinine is already beginning to decrease. Consider renal ultrasound tomorrow. INFECTIOUS DISEASE: I have added Tamiflu as well as atypical coverage for pneumonia. Check a legionella urinary antigen. Await blood cultures and try to obtain a sputum culture. Her Procalcitonin is low, follow that up tomorrow. HEMATOLOGY: No acute active issues. ENDOCRINE: Sliding scale insulin and hold metformin. GASTROINTESTINAL: Maintain n.p.o. for now. She certainly does run the risk of needing to be intubated. She is on gastrointestinal prophylaxis. Thank you for asking me to see this patient. Please call me with any questions or concerns. Critical care time, 60 minutes.
--- NOTE | 2016-07-18 23:34 | History and Physical ---
History & Physical Date of Service Jul 18, 2016. History & Physical #[id number]
[2016-07-19] VITALS (94 sets, daily range): BP systolic 43–156; BP diastolic 25–105; PULSE 70–242; TEMP 36.5–39.6; O2SAT 85–99
--- NOTE | 2016-07-19 00:18 | HISTORY & PHYSICAL EXAMINATION ---
DATE OF ADMISSION: 07/18/2016 CHIEF COMPLAINT: Shortness of breath and hypotension. HISTORY OF PRESENT ILLNESS: The patient offers no history; it is hard to tell how much she is not wanting to talk because of her baseline mentation versus how much she is able to talk due to her severity of illness, but in discussion with the ER as well as on review of records, she was at the [facility] on a 304, apparently due to suicidal ideation, where she was found to be in respiratory distress. She was hypoxic with pulse oximetries in the low 70s. Her temperature was up to 101.7 and then she was found to be hypotensive. She was sent urgently to the ER. Here, she was found to have an appearance of septic shock due to an extensive pneumonia. Treatment was initiated and we were asked to further evaluate. HPI and review of systems otherwise unobtainable from the patient. Based on review from the [facility], she apparently has schizophrenia with delusions and psychosis as well as suicidal thoughts. PAST MEDICAL HISTORY: Unable to be verified with the patient, but is listed as COPD, diabetes, schizophrenia, hypertension, hyperlipidemia and hypothyroidism. PAST SURGICAL HISTORY: Appendectomy and a . FAMILY HISTORY: Unobtainable. SOCIAL HISTORY: Uncertain if she is a smoker. She is currently inpatient at the [facility]. ALLERGIES: No known drug allergies. MEDICATIONS: Tylenol 650 q. 4h. p.r.n. pain, Mylanta 30 mL q.i.d. p.r.n. constipation, Lipitor 20 mg at bedtime, Benadryl 100 mg IM as directed, Colace 100 mg at bedtime. Lubriderm b.i.d., Prolixin 15 mg at bedtime, Flovent 1 puff inhaled b.i.d., Lasix 20 mg daily, Haldol 10 mg IM as directed, Synthroid 25 mcg daily, Ativan 0.5 mg b.i.d. p.r.n. anxiety, milk of mag 30 mL as directed p.r.n. constipation, Mobic 15 mg daily, Glucophage 1000 mg b.i.d., propranolol 10 mg b.i.d., trazodone 100 mg at bedtime, Depakote 1000 mg p.o. b.i.d. PHYSICAL EXAMINATION: VITAL SIGNS: Her initial vitals showed a pulse of 82, respiration rate 22, blood pressure of 76/46, 96% on a non-rebreather, her temperature here initially was 37 degrees Celsius, but as noted, she was up to almost 102 degrees Fahrenheit at the [facility]. GENERAL: She awakens to voice, makes some eye contact, but does not really respond much and appears to be in moderate degree of respiratory distress. HEENT: Normocephalic, atraumatic. Mucous membranes are slightly dry. CARDIAC: Distant, but regular without rubs, murmurs, or gallops. LUNGS: Coarse rhonchi and maybe questionable rales and diminished air entry, right is somewhat coarse, but more clear than the left. No accessory muscle use. She is on BiPAP. ABDOMEN: Soft, nondistended, nontender, no masses or organomegaly. EXTREMITIES: Without cyanosis, clubbing or edema. No calf tenderness. SKIN: Shows no rashes, no pallor or icterus. NEUROLOGIC: Shows cranial nerves II-XII to be grossly intact. Gross motor, as best can be assessed, is intact without focal deficits. Sensory appears to be intact, as best can be assessed. SKIN: Shows no rashes, no pallor or icterus. MENTAL STATE: Difficult to assess due to above. LABOATORIES AND DIAGNOSTICS: CBC shows a white count of 7.82, hemoglobin 13.1, platelets 120. ABG shows a pH of 7.24, pCO2 of 68, pO2 80. Complete metabolic panel with sodium 138, potassium 4.8, chloride 96, CO2 29, BUN 46, creatinine 2.3, calcium 8.5, glucose 116, total bili 0.4 with an AST of 15, ALT 13, alkaline phosphatase 33, total protein 6.5, albumin 3.2. Procalcitonin 0.19. PT of 11.9, PTT 28.5. Urinalysis, dark yellow, cloudy, specific gravity 1.019, trace ketones, 1+ protein, greater than 30 hyaline casts, greater than 30 epithelial cells, valproic acid level of 74. Flu is negative. Blood cultures are pending. MRSA nares is negative, done after we initially admitted her. Chest x-ray reviewed by me showed extensive silhouetting, left base, obscuring the left heart border and left hemidiaphragm. Radiology reads it, actually, as bilateral pulmonary airspace opacities, consistent with a bilateral pneumonia versus asymmetric pulmonary edema. EKG was sinus without ischemic changes. ASSESSMENT AND PLAN: 1. Severe sepsis, septic shock related to pneumonia. This appears most consistent with the clinical presentation with fevers, hypoxia, short of breath, hypotension, renal failure. Interestingly, she does not have a white count and does not have a markedly elevated Procalcitonin level, but the rest of her clinical picture certainly fits with this. She was initiated on Zosyn and vancomycin, coming from a healthcare facility, now that the MRSA nares is negative, we should be able to discontinue the vancomycin. In regards to her septic shock, she has been given 3 liters of IV fluids and was still hypotensive and was started on a norepinephrine drip, which we will continue to maintain adequate perfusing pressure. She has central lines as well as peripheral IVs and we will have ongoing supportive care. I discussed the case personally with the legal transcriber as well. 2. Acute renal failure. This appears to be due to septic shock. We will maintain perfusion and follow her creatinine. 3. Hypoxic respiratory failure, appears to be predominantly due to her pneumonia, but the hypercapnic portion of the respiratory failure appears to be due to chronic obstructive pulmonary disease. We will maintain her on the BiPAP as well as utilize nebulizers. She was given a dose of methylprednisolone in the ER and we will follow to see if it needs to be continued. 4. Altered mental status. It is hard to tell how much this relates to her psychosis versus a septic encephalopathy. We will need to continue to follow. 5. Deep venous thrombosis prophylaxis, heparin subQ. 6. Diabetes. Fingersticks and supplemental insulin. Obviously, hold off on the metformin while she is in renal failure. 7. Lasix therapy at home. It is uncertain exactly why she is on this. We will need to follow closely for any evidence of cardiac decompensation. However, I suspect she does not have congestive heart failure. 8. Possible history of chronic obstructive pulmonary disease. See above. 9. Mild thrombocytopenia. Follow. Fortunately, her coags are, otherwise, okay and she is not showing any other signs or symptoms of disseminated intravascular coagulation. 10. Schizophrenia with suicidality. Obviously, after medically she is stable, she will need ongoing psychiatric treatment. 11. Hypothyroidism. Continue Synthroid. 12. Hypertension. Home meds on hold for now. 13. Hyperlipidemia. Continue atorvastatin as possible.
[2016-07-19] MEDS: ALBUT/IPRATROP 3MG/0.5MG NEB 3 ML VIAL INH SCH ×4 (01:50→14:29)
[2016-07-19] MEDS: SODIUM CHLORIDE 0.9% 1000ML 1,000 ML IV SCH ×2 (03:54→16:09)
[2016-07-19] MEDS: PIPERACILL/TAZOBAC IV 4.5 GM in DEXTROSE 5% 100ML IV SCH ×3 (05:30→20:37)
[2016-07-19] MEDS: NOREPINEPHRINE BIT INJ 8 MG in DEXTROSE 5% 500ML 500 ML IV PRN (05:33)
[2016-07-19] MEDS: LEVOTHYROXINE 25 MCG TAB PO SCH ×2 (06:00→06:36)
[2016-07-19 06:40] LABS: BASO % 0.2 %; BASO ABS # 0.02 K/uL (0-0.2); COMPLETE YES; HEMATOCRIT 37.3 % (37-47); LYMPH % 6.8 %; LYMPH ABS # 0.74 K/uL (1.2-3.4); MEAN CELL VOLUME 91.9 fL (80-100); MEAN CORPUSCULAR HEMOGLOBIN 30.3 pg (25-34); MONO % 2.5 %; NEUT % 88.5 %; PLATELET COUNT 101 K/uL (130-400); RED BLOOD COUNT 4.06 M/uL (4.2-5.4); WHITE BLOOD COUNT 10.82 K/uL (4.8-10.8)
[2016-07-19 07:14] LABS: BLOOD UREA NITROGEN 31 mg/dl (7-18); BUN/CREATININE RATIO 28.5 (10-20); C-REACTIVE PROTEIN 2.71 mg/dl (0-0.29); CALCIUM 7.5 mg/dl (8.5-10.1); CARBON DIOXIDE 30 mmol/L (21-32); CHLORIDE 105 mmol/L (98-107); GLUCOSE 174 mg/dl (70-99); MAGNESIUM 2.3 mg/dl (1.8-2.4); POTASSIUM 4.7 mmol/L (3.5-5.1); SODIUM 143 mmol/L (136-145)
[2016-07-19] MEDS: INSULIN ASPART 100 UNITS/ML 3 ML PEN SC SCH ×4 (07:15→20:48)
[2016-07-19] MEDS ORDERED: PERFLUTREN LIPID MICROSPHERE (DEFINITY) IV ONE (07:17)
[2016-07-19 07:20] LABS: PHOSPHORUS 3.9 mg/dl (2.5-4.9)
--- NOTE | 2016-07-19 07:47 | Progress Note ---
Subjective Date of Service: Jul 19, 2016. Subjective pt had variable lethargy, eventually did not ventilate well and required intubation, no phone contacts listed to call Problem List Medical Problems: (1) Acute kidney injury Status: Acute (2) Bilateral pneumonia Status: Acute (3) COPD exacerbation Status: Acute (4) Schizophrenia Status: Acute (5) Septic shock Status: Acute Review of Systems Too ill to perform ROS Objective Vital Signs Date Time Temp Pulse Resp B/P Pulse Ox O2 Delivery O2 Flow Rate FiO2 07/19/16 06:14 78 20 74/46 91 BiPAP 55 07/19/16 04:13 36.5 87 18 110/68 91 BiPAP 55 07/19/16 04:00 92 BiPAP 55 07/19/16 02:45 70 93 55 07/19/16 02:13 88 20 102/65 93 BiPAP 55 07/18/16 23:59 36.7 74 18 108/75 95 BiPAP 55 07/18/16 23:59 92 BiPAP 55 07/18/16 23:17 66 95 55 07/18/16 22:39 85/47 07/18/16 22:36 80 90/52 92 07/18/16 22:30 78 93 07/18/16 22:28 75 87/52 93 07/18/16 22:18 81 78/42 94 07/18/16 22:15 83 93 07/18/16 22:13 82 78/41 94 07/18/16 22:13 82 78/41 94 07/18/16 22:08 84 71/52 93 07/18/16 22:08 84 93 07/18/16 22:00 83 94 07/18/16 22:00 83 94 07/18/16 21:58 82 86/61 96 07/18/16 21:00 86 95 07/18/16 20:58 80 94/63 97 07/18/16 20:20 78 97 55 07/18/16 20:00 36.4 84 20 104/68 96 07/18/16 20:00 36.4 82 20 94/63 96 BiPAP 55 07/18/16 20:00 96 BiPAP 55 07/18/16 20:00 83 90 07/18/16 19:58 81 97/63 94 07/18/16 19:19 36.4 84 20 108/58 96 BiPAP 15.0 55 2/21/17 19:06 82 108/58 87 07/18/16 18:40 37.0 78 20 104/68 92 07/18/16 18:40 78 104/68 92 BiPAP 55 07/18/16 18:17 78 07/18/16 17:40 104/64 07/18/16 17:40 87 94 55 07/18/16 17:37 95/69 BiPAP 07/18/16 17:34 79 95 07/18/16 17:29 80 93 07/18/16 17:24 81 104/70 92 07/18/16 17:19 82 90 07/18/16 17:14 84 92 07/18/16 17:13 112/74 07/18/16 17:09 85 91 07/18/16 17:08 116/67 07/18/16 17:04 84 90 07/18/16 16:59 84 98/49 94 07/18/16 16:54 82 94 07/18/16 16:49 80 95 07/18/16 16:45 80 20 112/63 95 Non-Rebreather 07/18/16 16:44 79 93 07/18/16 16:43 112/63 07/18/16 16:39 81 92 07/18/16 16:38 92/62 07/18/16 16:34 80 91 07/18/16 16:32 96 07/18/16 16:30 81 22 97/63 92 Non-Rebreather 07/18/16 16:29 78 90 07/18/16 16:28 97/63 07/18/16 16:24 82 91 07/18/16 16:19 82 94 07/18/16 16:15 81 22 84/55 92 Non-Rebreather 07/18/16 16:14 80 88 07/18/16 16:13 84/55 07/18/16 16:09 81 88 07/18/16 16:04 81 93 07/18/16 16:02 90 Non-Rebreather 15.0 07/18/16 15:59 80 98 07/18/16 15:54 82 89 07/18/16 15:50 89/55 07/18/16 15:49 82 98 07/18/16 15:45 74 22 80/47 Non-Rebreather 07/18/16 15:44 81 93 07/18/16 15:43 80/47 07/18/16 15:39 77 97 07/18/16 15:39 77 24 92/52 97 Non-Rebreather 07/18/16 15:37 92/52 07/18/16 15:34 76 94 07/18/16 15:30 75/58 07/18/16 15:29 78 95 07/18/16 15:27 79/ 07/18/16 15:26 78 22 72/38 90 Non-Rebreather 07/18/16 15:24 79 72/38 88 07/18/16 15:20 76 18 97 Non-Rebreather 15.0 07/18/16 15:19 79 97 07/18/16 15:16 78 22 87/57 96 Non-Rebreather 07/18/16 15:14 87/57 07/18/16 15:08 79 24 91/49 95 Non-Rebreather 07/18/16 15:07 91/49 07/18/16 14:55 79 26 76/48 95 Non-Rebreather 15.0 07/18/16 14:53 76/48 07/18/16 14:30 79 22 69/41 91 Non-Rebreather 07/18/16 14:29 81 16 69/41 95 Non-Rebreather 15.0 07/18/16 14:25 37.0 83 23 76/46 96 Room Air 07/18/16 14:23 82 07/18/16 14:11 82 22 76/46 95 07/18/16 14:10 96 Non-Rebreather 15.0 Physical Exam General Appearance: + moderate distress, + obese Respiratory/Chest: + decreased breath sounds, + accessory muscle use, + rhonchi Cardiovascular: regular rate, rhythm, no murmur Abdomen: soft, + abnormal bowel sounds, + distended Extremities: normal inspection, no pedal edema Neurologic/Psychiatric: + depressed affect, + disoriented Laboratory Results Last 24 Hours Test 07/18/16 14:16 07/18/16 14:27 07/18/16 14:45 07/18/16 15:09 Bedside Glucose 119 mg/dl White Blood Count 7.82 K/uL Red Blood Count 4.26 M/uL Hemoglobin 13.1 g/dL Hematocrit 39.7 % Mean Corpuscular Volume 93.2 fL Mean Corpuscular Hemoglobin 30.8 pg Mean Corpuscular Hemoglobin Concent 33.0 g/dl Platelet Count 120 K/uL Mean Platelet Volume 12.2 fL Neutrophils (%) (Auto) 76.5 % Lymphocytes (%) (Auto) 17.0 % Monocytes (%) (Auto) 5.9 % Eosinophils (%) (Auto) 0.0 % Basophils (%) (Auto) 0.1 % Neutrophils # (Auto) 5.98 K/uL Lymphocytes # (Auto) 1.33 K/uL Monocytes # (Auto) 0.46 K/uL Eosinophils # (Auto) 0.00 K/uL Basophils # (Auto) 0.01 K/uL RDW Standard Deviation 48.7 fL RDW Coefficient of Variation 14.5 % Immature Granulocyte % (Auto) 0.5 % Immature Granulocyte # (Auto) 0.04 K/uL Platelet Estimate DECREASED Red Blood Cell Morphology Unremarkable Prothrombin Time 11.9 SECONDS Prothromb Time International Ratio 1.1 Activated Partial Thromboplast Time 28.5 SECONDS Partial Thromboplastin Ratio 1.1 Sodium Level 138 mmol/L Potassium Level 4.8 mmol/L Chloride Level 96 mmol/L Carbon Dioxide Level 29 mmol/L Anion Gap 13.0 mmol/L Blood Urea Nitrogen 46 mg/dl Creatinine 2.30 mg/dl Est Creatinine Clear Calc Drug Dose 34.7 ml/min Estimated GFR () 30.0 Estimated GFR (Non- 25.9 BUN/Creatinine Ratio 20.0 Random Glucose 116 mg/dl Calcium Level 8.5 mg/dl Total Bilirubin 0.4 mg/dl Aspartate Amino Transf (AST/SGOT) 15 U/L Alanine Aminotransferase (ALT/SGPT) 13 U/L Alkaline Phosphatase 33 U/L Total Protein 6.5 gm/dl Albumin 3.2 gm/dl Globulin 3.3 gm/dl Albumin/Globulin Ratio 1.0 Procalcitonin 0.19 ng/mL Urine Color DK YELLOW Urine Appearance CLOUDY Urine pH 5.0 Urine Specific [place] 1.019 Urine Protein 1+ Urine Glucose (UA) NEG Urine Ketones TRACE Urine Occult Blood NEG Urine Nitrite NEG Urine Bilirubin NEG Urine Urobilinogen NEG Urine Leukocyte Esterase NEG Urine WBC (Auto) 0 /hpf Urine RBC (Auto) 0-4 /hpf Urine Hyaline Casts (Auto) >30 /lpf Urine Epithelial Cells (Auto) >30 /lpf Urine Bacteria (Auto) NEG Urine Renal Epithelial Cells /lpf Urine Crystals AMORPHOUS SEDIMENT Urine Pathogenic Casts /lpf Urine Mucus PRESENT Bedside Lactic Acid Venous 3.06 mmol/L Test 07/18/16 16:40 07/18/16 17:36 07/18/16 18:26 07/18/16 20:15 Influenza Type A Antigen Neg for Influ A Influenza Type B Antigen Neg for Influ B Arterial Blood pH 7.24 Arterial Blood Partial Pressure CO2 68 mmHg Arterial Blood Partial Pressure O2 80 mm/Hg Arterial Blood HCO3 28 mmol/L Arterial Blood Oxygen Saturation 92.4 % Arterial Blood Base Excess -0.8 mEq/L Arterial Blood Gas Delivery 55% [place] Test POS Lactic Acid Level 1.9 mmol/L Sodium Level 140 mmol/L Potassium Level 4.7 mmol/L Chloride Level 101 mmol/L Carbon Dioxide Level 27 mmol/L Anion Gap 12.0 mmol/L Blood Urea Nitrogen 47 mg/dl Creatinine 2.00 mg/dl Est Creatinine Clear Calc Drug Dose 40.0 ml/min Estimated GFR () 35.6 Estimated GFR (Non- 30.7 BUN/Creatinine Ratio 23.7 Random Glucose 167 mg/dl Calcium Level 7.4 mg/dl Phosphorus Level 4.9 mg/dl Magnesium Level 1.3 mg/dl Total Creatine Kinase 137 U/L Test 07/18/16 20:18 07/18/16 21:51 07/19/16 06:12 Blood Gas Sample Site R Radial Bedside Blood Gas pH (LAB) 7.26 Bedside Blood Gas pCO2 (LAB) 57 mmHg Bedside Blood Gas pO2 (LAB) 79 mmHg Bedside Blood Gas HCO3 (LAB) 26 meq/L Bedside Blood Gas Total CO2 28 mEq/l Bedside Blood Gas Base Excess (LAB) -1.0 meq/L Bedside Blood Gas O2 Saturation 94.0 % [place] Test Pass Oxygen Delivery Device BIPAP Bedside Oxygen Rate (breaths/min) 12 Bedside FiO2 55 % Blood Gas IPAP 22 Bedside Glucose 200 mg/dl 175 mg/dl Troponin I 0.018 ng/ml < 0.015 ng/ml Thyroid Stimulating Hormone (TSH) 0.506 uIu/ml Random Cortisol 29.99 mcg/dl Valproic Acid (Depakene) Level 74 mcg/ml White Blood Count 10.82 K/uL Red Blood Count 4.06 M/uL Hemoglobin 12.3 g/dL Hematocrit 37.3 % Mean Corpuscular Volume 91.9 fL Mean Corpuscular Hemoglobin 30.3 pg Mean Corpuscular Hemoglobin Concent 33.0 g/dl Platelet Count 101 K/uL Mean Platelet Volume 11.0 fL Neutrophils (%) (Auto) 88.5 % Lymphocytes (%) (Auto) 6.8 % Monocytes (%) (Auto) 2.5 % Eosinophils (%) (Auto) 0.0 % Basophils (%) (Auto) 0.2 % Neutrophils # (Auto) 9.57 K/uL Lymphocytes # (Auto) 0.74 K/uL Monocytes # (Auto) 0.27 K/uL Eosinophils # (Auto) 0.00 K/uL Basophils # (Auto) 0.02 K/uL RDW Standard Deviation 48.2 fL RDW Coefficient of Variation 14.3 % Immature Granulocyte % (Auto) 2.0 % Immature Granulocyte # (Auto) 0.22 K/uL Nucleated RBC Absolute Count (auto) 0.02 K/uL Nucleated Red Blood Cells % 0.2 % Sodium Level 143 mmol/L Potassium Level 4.7 mmol/L Chloride Level 105 mmol/L Carbon Dioxide Level 30 mmol/L Anion Gap 8.0 mmol/L Blood Urea Nitrogen 31 mg/dl Creatinine 1.10 mg/dl Est Creatinine Clear Calc Drug Dose 72.6 ml/min Estimated GFR () 73.2 Estimated GFR (Non- 63.2 BUN/Creatinine Ratio 28.5 Random Glucose 174 mg/dl Calcium Level 7.5 mg/dl Phosphorus Level 3.9 mg/dl Magnesium Level 2.3 mg/dl C-Reactive Protein 2.71 mg/dl Procalcitonin 0.05 ng/mL Random Vancomycin Level 14.6 mcg/ml Assessment and Plan 41 F Severe sepsis, septic shock related to pneumonia. SEvere sepsis from pneumonia Vancomycin azithromycin Zosyn norepinephrine drip , Acute renal failure. secondary to to septic shock. fluids and support MAP Acute Hypoxic respiratory failure, chronic obstructive pulmonary disease. BiPAP failed to provide adequate support and endotracheal intubation was performed and nebulizers. methylprednisolone metabolic encephalopathy with baseline psychologic illness of schizophrenia with suicidality, she will need ongoing psychiatric treatment. Deep venous thrombosis prophylaxis, heparin subQ Diabetes. SSI. Hypothyroidism. Continue Synthroid.
--- NOTE | 2016-07-19 08:18 | DIAGNOSTIC IMAGING REPORT ---
CHEST ONE VIEW PORTABLE CLINICAL HISTORY: hypoxia COMPARISON STUDY: 07/18/2016 FINDINGS: The heart is at the upper limits of normal in size. There are persistent bilateral pulmonary airspace opacities, with slight improvement involving the left upper lobe, but slight progression with the right upper lobe. Diagnostic considerations again include a bilateral pneumonia or asymmetric pulmonary edema.[ IMPRESSION: Persistent bilateral pulmonary airspace opacities Electronically signed by: Igor Anderson M.D. 07/19/2016 8:16 AM Dictated Date/Time: 07/19/2016 8:15 AM
[2016-07-19] MEDS ORDERED: PHARMACY GLYCEMIC MGMT CONSULT PRN (08:53)
[2016-07-19] MEDS ORDERED: PANTOprazole SOD 40 MG TAB PO SCH (09:00)
[2016-07-19] MEDS ORDERED: VALPROIC ACID SYRUP 250 MG/5 ML PO SCH (09:00)
[2016-07-19] MEDS: VANCOMYCIN INJ 1,250 MG in SODIUM CHLORIDE 0.9% 250ML 250 ML IV SCH ×2 (09:39→20:37)
[2016-07-19] MEDS ORDERED: FUROSEMIDE 40 MG/4 ML VIAL ONE (11:03)
[2016-07-19] MEDS: CHLORHEXIDINE GLUCONATE 0.12% 480 ML MT SCH ×2 (11:18→20:37)
--- NOTE | 2016-07-19 11:18 | Critical Care Progress Note ---
Critical Care Progress Note Date of Service Jul 19, 2016. Attending Dr Lazo Subjective Unable to talk to me today as she cannot come off BiPAP due to desaturating. She shakes and nods her head to questions. Denies any pain or difficulty in breath. Objective VITAL SIGNS: were reviewed as below GENERAL:no acute distress SKIN: Warm dry and pink HEAD: Normocephalic and atraumatic EYES: extraocular muscles intact, pupils equal and reactive to light NECK: Large circumference, no JVD seen but difficult to assess due to neck size LUNGS: B/l reduced breath sounds with some coarseness, no crackles, rhonchi or wheezing, Using accessory muscles, on BiPAP HEART: Regular rhythm, tachycardia, inaudible heart sounds ABDOMEN: Soft, distended, nontender, bowel sounds normal BACK: no CVA tenderness EXTREMITIES: Warm and well perfused, peripheral cap refill < 2 s, no calf tenderness, Left calf circumference > right calf, trace pedal edema. NEUROLOGICALLY: Awake alert, moving all 4 limbs equally, no apparent sensory deficit. There is no facial droop. Assessment & Plan 41 year old female admission from the [facility] for acute hypoxia and hypotension. 1. Acute hypoxemic hypercapnic respiratory failure 2. Septic shock requiring vasopressor support - chest source 3. Bilateral pneumonia 4. Left leg swelling 5. Acute kidney injury. 6. Altered mental status - multifactorial 7. History of schizophrenia, on multiple psychiatric medications. 8. History of diabetes mellitus with hyperglycemia. 9. History of hypothyroidism. PLAN: Neuro: Altered mental state - sepsis vs. psychiatric disorders. Holding home medications Fluphenazine 15mg HS, Lorazepam 0.5mg BID PRN, Haldol 10 mg IM AR due to altered mental state. Continue Valproic acid 1000mg PO BID. Haldol 5mg IV PRN for psychosis preceded or given with Benadryl. Currently thinks she is which may be a delusion - urine test ordered. Pulmonology: Due to left leg circumference > right leg, negative procalcitonin and not improving despite broad spectrum antibiotics I am concerned she may have a PE however she currently is not stable enough to go to the CT scan. Stat left leg Doppler to rule out DVT. Continue BiPAP 22/5 FiO2 55%. O2 Saturations 88-90%. Will repeat ABG as retaining CO2. Increase FiO2 to 80%. Acetylcysteine 20% INH QID to help with coughing Stop Tamiflu - influenza PCR negative Cardiovascular: Serial troponin negative. Echo report pending Continue to wean the Levophed. Gastrointestinal: Continue NPO Status due to possible need for intubation. Pantoprazole 40 mg IV daily GI prophylaxis /electrolytes: DILLON resolved, Cr 1.1, prerenal Continue NSS 50 MLS/HR Infectious Disease: Stop tamiflu as above Urine legionella pending Blood cultures pending Try to get a sputum culture Continue broad spectrum Abx: Vancomycin + Zosyn + azithromycin. MRSA swab negative however will continue vancomycin until some clinical improvement Heme/Onc: Leukocytosis likely related to steroids +/- pneumonia No acute active issues. Mild thrombocytopenia: likely related to sepsis Endocrine: T2DM, hold metformin due to acute illness. Sliding scale insulin. Glycemic consult. On small dose of levothyroxine, ok to temporarily hold if she cannot come off BiPAP to take this. VTE/GI Prophylaxis - Pantoprazole 40 mg IV daily - Heparin 5000 units Q12H SC - SCDs + TEDs Code - Full Disposition - continue ICU stay due to hypoxia not improving and possible need for intubation Resident Physician Supervision Note: I interviewed and examined the patient. Discussed with Dr. Estes and agree with findings and plan as documented in the note. Any exceptions or clarifications are listed in my dictated note. Documented By: Cecilia Lazo Data Medications: Current Inpatient Medications Medications (Trade) Dose Ordered Sig/Racquel Route Start Time Stop Time Status Last Admin Dose Admin Heparin Sodium (Porcine) (Heparin Sq 5000 Unit/0.5ml) 5,000 unit Q12 SQ 07/18/16 21:00 08/17/16 20:59 07/18/16 20:27 5,000 UNIT Acetaminophen (Tylenol Tab) 650 mg Q4H PRN PO 07/18/16 17:15 08/17/16 17:14 Ondansetron HCl (Zofran Inj) 4 mg Q6H PRN IV 07/18/16 17:15 08/17/16 17:14 Pantoprazole Sodium (Protonix Tab) 40 mg DAILY PO 07/19/16 09:00 08/18/16 08:59 Albuterol/ Ipratropium (Duoneb) 3 ml QIDR INH 07/18/16 20:00 08/17/16 19:59 07/19/16 08:27 3 ML Vancomycin HCl (Consult) 1 ea UD PRN N/A 07/18/16 17:45 08/17/16 17:44 Piperacillin Sod/ Tazobactam Sod (Consult) 1 ea UD PRN N/A 07/18/16 17:45 08/17/16 17:44 Insulin Aspart (novoLOG ASPART) SLIDING SCALE G... ACHS SC 07/18/16 21:00 08/17/16 20:59 07/19/16 07:15 1 UNITS Albuterol Sulfate 2.5 mg 2.5 mg Q2H PRN INH 07/18/16 19:45 08/17/16 19:44 Sodium Chloride 1,000 ml @ 50 mls/hr Q20H IV 07/18/16 19:45 08/17/16 19:44 07/19/16 03:54 125 MLS/HR Azithromycin/ Dextrose (Zithromax IV/D5 250ml) 252.5 ml @ 125 mls/hr Q24H IV 07/19/16 20:00 07/26/16 19:59 Glucose (Glucose 40% Gel) 15-30 GRAMS 15 GRAMS... UD PRN PO 07/18/16 20:00 08/17/16 19:59 Glucose (Glucose Chew Tab) 4-8 Tablets 4 Tabl... UD PRN PO 07/18/16 20:00 08/17/16 19:59 Dextrose (Dextrose 50% 50ML Syringe) 25-50ML OF 50% DW IV FOR... UD PRN IV 07/18/16 20:00 08/17/16 19:59 Glucagon 1 mg 1 mg UD PRN SQ 07/18/16 20:00 08/17/16 19:59 Piperacillin Sod/ Tazobactam Sod 4.5 gm/Dextrose 120 ml @ 30 mls/hr Q8H IV 07/18/16 21:00 07/25/16 20:59 07/19/16 05:30 30 MLS/HR Norepinephrine Bitartrate/ Dextrose (Levophed Inj/ D5W 500ml) 508 ml @ 0 mls/hr Q0M PRN IV 07/18/16 21:05 08/17/16 21:04 07/19/16 05:33 54 MLS/HR Haloperidol Lactate (Haldol Inj) 5 mg Q4H PRN IV 07/18/16 21:45 08/17/16 21:44 Diphenhydramine HCl (Benadryl Inj) 25 mg Q4H PRN IV 07/18/16 21:45 08/17/16 21:44 Fluphenazine HCl (Prolixin Tab) 15 mg HS PO 07/19/16 21:00 08/18/16 20:59 Levothyroxine Sodium (Synthroid Tab) 25 mcg DAILYBB PO 07/19/16 06:00 08/18/16 05:59 Valproic Acid (Depakene Syrup) 1,000 mg BID PO 07/19/16 09:00 08/18/16 08:59 Miscellaneous Information (Order Awaiting Action) 1 ea QS N/A 07/19/16 00:00 08/18/16 00:00 Miscellaneous Information 1 ea 1 ea UD PRN N/A 07/19/16 08:53 08/18/16 08:52 Vancomycin HCl/ Sodium Chloride (Vancomycin Inj/ Nss 250ml) 275 ml @ 125 mls/hr Q12H IV 07/19/16 09:00 07/26/16 08:59 07/19/16 09:39 125 MLS/HR Chlorhexidine Gluconate (Peridex Oral Soln) 15 ml BID MT 07/19/16 09:00 08/18/16 08:59 Acetylcysteine (Mucomyst 20% Inh Soln) 3 ml QIDR INH 07/19/16 12:00 08/18/16 11:59 I & O: 24-Hour Column 07/19/16 07:59 Intake Total 2214 ml Output Total 2175 ml Balance 39 ml Vital Signs: Date Time Temp Pulse Resp B/P Pulse Ox O2 Delivery O2 Flow Rate FiO2 07/19/16 06:14 78 20 74/46 91 BiPAP 55 07/19/16 04:13 36.5 87 18 110/68 91 BiPAP 55 07/19/16 04:00 92 BiPAP 55 07/19/16 02:45 70 93 55 07/19/16 02:13 88 20 102/65 93 BiPAP 55 07/18/16 23:59 36.7 74 18 108/75 95 BiPAP 55 07/18/16 23:59 92 BiPAP 55 07/18/16 23:17 66 95 55 07/18/16 22:39 85/47 07/18/16 22:36 80 90/52 92 07/18/16 22:30 78 93 07/18/16 22:28 75 87/52 93 07/18/16 22:18 81 78/42 94 07/18/16 22:15 83 93 07/18/16 22:13 82 78/41 94 07/18/16 22:13 82 78/41 94 07/18/16 22:08 84 71/52 93 07/18/16 22:08 84 93 07/18/16 22:00 83 94 07/18/16 22:00 83 94 07/18/16 21:58 82 86/61 96 07/18/16 21:00 86 95 07/18/16 20:58 80 94/63 97 07/18/16 20:20 78 97 55 07/18/16 20:00 36.4 84 20 104/68 96 07/18/16 20:00 36.4 82 20 94/63 96 BiPAP 55 07/18/16 20:00 96 BiPAP 55 07/18/16 20:00 83 90 07/18/16 19:58 81 97/63 94 07/18/16 19:19 36.4 84 20 108/58 96 BiPAP 15.0 55 07/18/16 19:06 82 108/58 87 07/18/16 18:40 37.0 78 20 104/68 92 07/18/16 18:40 78 104/68 92 BiPAP 55 07/18/16 18:17 78 07/18/16 17:40 104/64 07/18/16 17:40 87 94 55 07/18/16 17:37 95/69 BiPAP 07/18/16 17:34 79 95 07/18/16 17:29 80 93 07/18/16 17:24 81 104/70 92 07/18/16 17:19 82 90 07/18/16 17:14 84 92 07/18/16 17:13 112/74 07/18/16 17:09 85 91 07/18/16 17:08 116/67 07/18/16 17:04 84 90 07/18/16 16:59 84 98/49 94 07/18/16 16:54 82 94 07/18/16 16:49 80 95 07/18/16 16:45 80 20 112/63 95 Non-Rebreather 07/18/16 16:44 79 93 07/18/16 16:43 112/63 07/18/16 16:39 81 92 07/18/16 16:38 92/62 07/18/16 16:34 80 91 07/18/16 16:32 96 07/18/16 16:30 81 22 97/63 92 Non-Rebreather 07/18/16 16:29 78 90 07/18/16 16:28 97/63 07/18/16 16:24 82 91 07/18/16 16:19 82 94 07/18/16 16:15 81 22 84/55 92 Non-Rebreather 07/18/16 16:14 80 88 07/18/16 16:13 84/55 07/18/16 16:09 81 88 07/18/16 16:04 81 93 07/18/16 16:02 90 Non-Rebreather 15.0 07/18/16 15:59 80 98 07/18/16 15:54 82 89 07/18/16 15:50 89/55 07/18/16 15:49 82 98 07/18/16 15:45 74 22 80/47 Non-Rebreather 07/18/16 15:44 81 93 07/18/16 15:43 80/47 07/18/16 15:39 77 97 07/18/16 15:39 77 24 92/52 97 Non-Rebreather 07/18/16 15:37 92/52 07/18/16 15:34 76 94 07/18/16 15:30 75/58 07/18/16 15:29 78 95 07/18/16 15:27 79/ 07/18/16 15:26 78 22 72/38 90 Non-Rebreather 07/18/16 15:24 79 72/38 88 07/18/16 15:20 76 18 97 Non-Rebreather 15.0 07/18/16 15:19 79 97 07/18/16 15:16 78 22 87/57 96 Non-Rebreather 07/18/16 15:14 87/57 07/18/16 15:08 79 24 91/49 95 Non-Rebreather 07/18/16 15:07 91/49 07/18/16 14:55 79 26 76/48 95 Non-Rebreather 15.0 07/18/16 14:53 76/48 07/18/16 14:30 79 22 69/41 91 Non-Rebreather 07/18/16 14:29 81 16 69/41 95 Non-Rebreather 15.0 07/18/16 14:25 37.0 83 23 76/46 96 Room Air 07/18/16 14:23 82 07/18/16 14:11 82 22 76/46 95 07/18/16 14:10 96 Non-Rebreather 15.0 Laboratory Results: Last 24 Hours Test 07/18/16 14:16 07/18/16 14:27 07/18/16 14:45 07/18/16 15:09 Bedside Glucose 119 mg/dl White Blood Count 7.82 K/uL Red Blood Count 4.26 M/uL Hemoglobin 13.1 g/dL Hematocrit 39.7 % Mean Corpuscular Volume 93.2 fL Mean Corpuscular Hemoglobin 30.8 pg Mean Corpuscular Hemoglobin Concent 33.0 g/dl Platelet Count 120 K/uL Mean Platelet Volume 12.2 fL Neutrophils (%) (Auto) 76.5 % Lymphocytes (%) (Auto) 17.0 % Monocytes (%) (Auto) 5.9 % Eosinophils (%) (Auto) 0.0 % Basophils (%) (Auto) 0.1 % Neutrophils # (Auto) 5.98 K/uL Lymphocytes # (Auto) 1.33 K/uL Monocytes # (Auto) 0.46 K/uL Eosinophils # (Auto) 0.00 K/uL Basophils # (Auto) 0.01 K/uL RDW Standard Deviation 48.7 fL RDW Coefficient of Variation 14.5 % Immature Granulocyte % (Auto) 0.5 % Immature Granulocyte # (Auto) 0.04 K/uL Platelet Estimate DECREASED Red Blood Cell Morphology Unremarkable Prothrombin Time 11.9 SECONDS Prothromb Time International Ratio 1.1 Activated Partial Thromboplast Time 28.5 SECONDS Partial Thromboplastin Ratio 1.1 Sodium Level 138 mmol/L Potassium Level 4.8 mmol/L Chloride Level 96 mmol/L Carbon Dioxide Level 29 mmol/L Anion Gap 13.0 mmol/L Blood Urea Nitrogen 46 mg/dl Creatinine 2.30 mg/dl Est Creatinine Clear Calc Drug Dose 34.7 ml/min Estimated GFR () 30.0 Estimated GFR (Non- 25.9 BUN/Creatinine Ratio 20.0 Random Glucose 116 mg/dl Calcium Level 8.5 mg/dl Total Bilirubin 0.4 mg/dl Aspartate Amino Transf (AST/SGOT) 15 U/L Alanine Aminotransferase (ALT/SGPT) 13 U/L Alkaline Phosphatase 33 U/L Total Protein 6.5 gm/dl Albumin 3.2 gm/dl Globulin 3.3 gm/dl Albumin/Globulin Ratio 1.0 Procalcitonin 0.19 ng/mL Urine Color DK YELLOW Urine Appearance CLOUDY Urine pH 5.0 Urine Specific [place] 1.019 Urine Protein 1+ Urine Glucose (UA) NEG Urine Ketones TRACE Urine Occult Blood NEG Urine Nitrite NEG Urine Bilirubin NEG Urine Urobilinogen NEG Urine Leukocyte Esterase NEG Urine WBC (Auto) 0 /hpf Urine RBC (Auto) 0-4 /hpf Urine Hyaline Casts (Auto) >30 /lpf Urine Epithelial Cells (Auto) >30 /lpf Urine Bacteria (Auto) NEG Urine Renal Epithelial Cells /lpf Urine Crystals AMORPHOUS SEDIMENT Urine Pathogenic Casts /lpf Urine Mucus PRESENT Bedside Lactic Acid Venous 3.06 mmol/L Test 07/18/16 16:40 07/18/16 17:36 07/18/16 18:26 07/18/16 20:15 Influenza Type A Antigen Neg for Influ A Influenza Type B Antigen Neg for Influ B Arterial Blood pH 7.24 Arterial Blood Partial Pressure CO2 68 mmHg Arterial Blood Partial Pressure O2 80 mm/Hg Arterial Blood HCO3 28 mmol/L Arterial Blood Oxygen Saturation 92.4 % Arterial Blood Base Excess -0.8 mEq/L Arterial Blood Gas Delivery 55% Kaiden Test POS Lactic Acid Level 1.9 mmol/L Sodium Level 140 mmol/L Potassium Level 4.7 mmol/L Chloride Level 101 mmol/L Carbon Dioxide Level 27 mmol/L Anion Gap 12.0 mmol/L Blood Urea Nitrogen 47 mg/dl Creatinine 2.00 mg/dl Est Creatinine Clear Calc Drug Dose 40.0 ml/min Estimated GFR () 35.6 Estimated GFR (Non- 30.7 BUN/Creatinine Ratio 23.7 Random Glucose 167 mg/dl Calcium Level 7.4 mg/dl Phosphorus Level 4.9 mg/dl Magnesium Level 1.3 mg/dl Total Creatine Kinase 137 U/L Test 07/18/16 20:18 2/21/17 21:51 07/19/16 06:12 Blood Gas Sample Site R Radial Bedside Blood Gas pH (LAB) 7.26 Bedside Blood Gas pCO2 (LAB) 57 mmHg Bedside Blood Gas pO2 (LAB) 79 mmHg Bedside Blood Gas HCO3 (LAB) 26 meq/L Bedside Blood Gas Total CO2 28 mEq/l Bedside Blood Gas Base Excess (LAB) -1.0 meq/L Bedside Blood Gas O2 Saturation 94.0 % Kaiden Test Pass Oxygen Delivery Device BIPAP Bedside Oxygen Rate (breaths/min) 12 Bedside FiO2 55 % Blood Gas IPAP 22 Bedside Glucose 200 mg/dl 175 mg/dl Troponin I 0.018 ng/ml < 0.015 ng/ml Thyroid Stimulating Hormone (TSH) 0.506 uIu/ml Random Cortisol 29.99 mcg/dl Valproic Acid (Depakene) Level 74 mcg/ml White Blood Count 10.82 K/uL Red Blood Count 4.06 M/uL Hemoglobin 12.3 g/dL Hematocrit 37.3 % Mean Corpuscular Volume 91.9 fL Mean Corpuscular Hemoglobin 30.3 pg Mean Corpuscular Hemoglobin Concent 33.0 g/dl Platelet Count 101 K/uL Mean Platelet Volume 11.0 fL Neutrophils (%) (Auto) 88.5 % Lymphocytes (%) (Auto) 6.8 % Monocytes (%) (Auto) 2.5 % Eosinophils (%) (Auto) 0.0 % Basophils (%) (Auto) 0.2 % Neutrophils # (Auto) 9.57 K/uL Lymphocytes # (Auto) 0.74 K/uL Monocytes # (Auto) 0.27 K/uL Eosinophils # (Auto) 0.00 K/uL Basophils # (Auto) 0.02 K/uL RDW Standard Deviation 48.2 fL RDW Coefficient of Variation 14.3 % Immature Granulocyte % (Auto) 2.0 % Immature Granulocyte # (Auto) 0.22 K/uL Nucleated RBC Absolute Count (auto) 0.02 K/uL Nucleated Red Blood Cells % 0.2 % Sodium Level 143 mmol/L Potassium Level 4.7 mmol/L Chloride Level 105 mmol/L Carbon Dioxide Level 30 mmol/L Anion Gap 8.0 mmol/L Blood Urea Nitrogen 31 mg/dl Creatinine 1.10 mg/dl Est Creatinine Clear Calc Drug Dose 72.6 ml/min Estimated GFR () 73.2 Estimated GFR (Non- 63.2 BUN/Creatinine Ratio 28.5 Random Glucose 174 mg/dl Calcium Level 7.5 mg/dl Phosphorus Level 3.9 mg/dl Magnesium Level 2.3 mg/dl C-Reactive Protein 2.71 mg/dl Procalcitonin 0.05 ng/mL Random Vancomycin Level 14.6 mcg/ml Resident Tracking Resident Involvement: Resident Care Provided Care Provided: Adult Hospital Medicine (ICU)
[2016-07-19] MEDS: HEPARIN SOD 5000 UNIT/0.5 ML CARP SQ SCH ×2 (11:19→21:31)
[2016-07-19] MEDS ORDERED: FUROSEMIDE INJ 20 MG in SYRINGE 0 ML IV ONE (11:30)
[2016-07-19] MEDS ORDERED: PANTOprazole INJ 40 MG in SYRINGE 0 ML IV SCH (11:30)
[2016-07-19] MEDS: ACETYLCYSTEINE 20% INHAL SOLN ***DISPENSED BY RESP. INH SCH ×3 (11:34→23:04)
--- NOTE | 2016-07-19 11:46 | ECHOCARDIOGRAM REPORT ---
*NOTICE TO RECEIVING CONSTITUTION PARTY AGENCY This information is strictly Confidential and protected under [place] law. [place] law prohibits you from making any further disclosure of this information unless further disclosure is expressly permitted by the written consent of the person to whom it pertains or is authorized by law. A general authorization for the release of medical or other information is not sufficient for this purpose. Hospital accepts no responsibility if the information is made available to any other person, INCLUDING THE PATIENT. Interpretation Summary * Name: MALA GENAO Study Date: 07/19/2016 06:36 AM BP: 110/68 mmHg * Patient Location: .MSICU\S\E105\S\1 HR: 87 * : 1975 (M/d/yyyy) Gender: Female Height: 61 in * Age: 41 yrs Ethnicity: CA Weight: 211 lb * Ordering Physician: Cecilia Lazo * Referring Physician: Griselda, [facility] * Performed By: Jossie Benavides * * Reason For Study: hypoxia, sepsis * BSA: 1.9 m2 * -- Conclusions -- * 1. Grossly normal left ventricular size with normal systolic function. EF 60-65%. No regional wall motion abnormalities. No significant left ventricular hypertrophy visualized. No significant diastolic dysfunction. * 2. Right ventricle not well visualized but appears mildly dilated with normal systolic function. * 3. No significant valvular abnormalities visualized, however valves were not well seen. * 4. Poor image quality. * 5. Technically difficult study, enhanced with IV Definity. * 6. No prior study available for comparison. Procedure Details * A complete two-dimensional transthoracic echocardiogram was performed (2D, M-mode, Doppler and color flow Doppler). * The study was technically difficult. * The study was technically limited. * Limited views were obtained. * There were technical limitations due to poor positining, patient laying supine/ leaning to the right side and on bipap and patient's inability to cooperate. * A contrast injection of Definity was performed to improve assessment of LV function. * Contrast was injected into an intravenous site in the left arm. * One vial of Definity ultrasound contrast was diluted in normal saline to a total volume of 10 ml. A total of '3' ml of solution was administered during imaging. * Lot # [id number] of Definity utilized for procedure. * Expiration date 07/15. Left Ventricle * Grossly normal left ventricular size with normal systolic function. EF 60-65%. No regional wall motion abnormalities. No significant left ventricular hypertrophy visualized. No significant diastolic dysfunction. Right Ventricle * Right ventricle not well visualized but appears mildly dilated with normal systolic function. * The right ventricular systolic function is normal as assessed by tricuspid annular plane systolic excursion (TAPSE) (normal >1.5 cm). Atria * The left atrium is not well visualized. * Right atrium not well visualized. * Inter atrial septum not well visualized. Mitral Valve * The mitral valve is not well visualized. * There is no mitral valve stenosis. * Significant mitral regurgitation is absent. Tricuspid Valve * The tricuspid valve is not well visualized. Aortic Valve * The aortic valve is not well visualized. * No hemodynamically significant valvular aortic stenosis. Pulmonic Valve * The pulmonic valve is not well visualized. Great Vessels * The aortic root is not well visualized. * Ascending aorta of normal dimension Pericardium/Pleural * No hemodynamically significant pericardial effusion visualized. Great Vessels * Normal inferior vena cava size and collapsability with sniff indicates a normal right atrial pressure of 3 mmHg MMode 2D Measurements and Calculations ACS 1.1 cm asc Aorta Diam 2.8 cm LVOT diam 2.1 cm LVOT area 3.4 cm\S\2 LVAd ap4 25.6 cm\S\2 LVLd ap4 6.4 cm EDV(MOD-sp4) 83.2 ml EDV(sp4-el) 95.5 ml LVAs ap4 13.3 cm\S\2 LVLs ap4 5.1 cm ESV(MOD-sp4) 28.7 ml ESV(sp4-el) 30.9 ml EF(MOD-sp4) 65.5 % EF(sp4-el) 67.7 % LVAd ap2 20.1 cm\S\2 LVLd ap2 6.2 cm EDV(MOD-sp2) 55.4 ml LVAs ap2 11.1 cm\S\2 LVLs ap2 5.3 cm ESV(MOD-sp2) 19.4 ml EF(MOD-sp2) 65.0 % CO(MOD-sp4) 4.5 l/min CI(MOD-sp4) 2.3 l/min/m\S\2 SV(MOD-sp4) 54.5 ml SI(MOD-sp4) 28.2 ml/m\S\2 CO(MOD-sp2) 3.0 l/min CI(MOD-sp2) 1.5 l/min/m\S\2 SV(MOD-sp2) 36.0 ml SI(MOD-sp2) 18.6 ml/m\S\2 CO(sp4-el) 5.4 l/min CI(sp4-el) 2.8 l/min/m\S\2 SV(sp4-el) 64.6 ml SI(sp4-el) 33.4 ml/m\S\2 Doppler Measurements and Calculations MV E max chasidy 102.3 cm/sec MV A max chasidy 60.1 cm/sec MV E/A 1.7 MV dec time 0.21 sec Ao V2 max 153.4 cm/sec Ao max PG 9.4 mmHg Ao max PG (full) 2.0 mmHg ERLIN(V,A) 3.0 cm\S\2 ERLIN(V,D) 3.0 cm\S\2 LV V1 max PG 7.5 mmHg LV V1 mean PG 3.5 mmHg LV V1 max 136.5 cm/sec LV V1 mean 85.8 cm/sec LV V1 VTI 26.3 cm SV(LVOT) 89.5 ml SI(LVOT) 46.3 ml/m\S\2 TV E max chasidy 74.2 cm/sec PA V2 max 79.5 cm/sec PA max PG 2.5 mmHg RAP systole 3.0 mmHg
[2016-07-19] MEDS ORDERED: PROPOFOL IV EMULSION 10 MG/ML 100 ML VIAL IV ONE (11:48)
[2016-07-19] MEDS ORDERED: PHENYLEPHRINE HCL INJ 10 MG/ML VIAL ONE (11:48)
[2016-07-19] MEDS ORDERED: RAPID SEQUENCE INDUCTION BAG ONE (11:49)
[2016-07-19 12:23] LABS: PREG INTERNAL NEGATIVE QC NEG CLEAR BACKGROUND; PREG INTERNAL POSITIVE QC POS CONTROL LINE
[2016-07-19] MEDS ORDERED: FENTANYL 1250MCG/250ML NSS 250 ML IV PRN (12:45)
[2016-07-19] MEDS ORDERED: NURSING VERBAL MED ORDER ONE (12:45)
[2016-07-19] MEDS: PROPOFOL IV EMULSION 10 MG/ML 100 ML VIAL IV PRN ×3 (12:46→20:26)
--- NOTE | 2016-07-19 12:48 | Procedure Note ---
Procedure Note Date of Service Jul 19, 2016. Procedure Note Rayon Tester: Intubation Patient had increasing O2 requirements midmorning. Fio2 on bipap adjusted, peep increased. Drowsy and not gettting consistently good volumes on bipap. Intubation performed using 4.0 Glidescope blade and 7.5 ETT. Patient was positioned supine, bagged briefly with 100% after oral airway was placed. He was sedated with 100mcg of propofol, 140mg of succinylcholine and 16mcg of levophed. ETT passed easily. + CO2 detector, + BS bilaterally after tube pulled back to 21cm at the lip. Many thanks to Dr. Palmer who managed meds while I performed the intubation. No complications. No family listed to update or inform. Patient did not want to list anyone according to the chart.
--- NOTE | 2016-07-19 13:08 | DIAGNOSTIC IMAGING REPORT ---
CHEST ONE VIEW PORTABLE CLINICAL HISTORY: PT WAS INTUBATED tube position COMPARISON STUDY: Same date 8:05 AM FINDINGS: Endotracheal tube placed 3; the patsy. Bilateral parenchymal infiltrative changes mildly progressive left base. Nasogastric tube within the stomach. IMPRESSION: 1. Endotracheal tube 3 cm below the patsy. 2. Nasogastric tube within the stomach.. 3. Bilateral parenchymal infiltrative changes, progressive left base. Electronically signed by: Harjit Santamaria M.D. 07/19/2016 1:07 PM Dictated Date/Time: 07/19/2016 1:05 PM
--- NOTE | 2016-07-19 13:34 | Pharmacy Progress Note ---
Glycemic Control Intl Consult Date of Service Jul 19, 2016. Scope Glycemic Pharmacist consulted by Dr Lazo on 07/19/16 for glycemic control and to write orders per [facility] inpatient glycemic control protocol Objective Weight (Kilograms): 96.800 Accuchecks BSG (last 24hrs): Test 07/18/16 14:16 07/18/16 14:27 07/18/16 20:15 07/18/16 20:18 Bedside Glucose 119 mg/dl (70-90) 200 mg/dl (70-90) Random Glucose 116 mg/dl (70-99) 167 mg/dl (70-99) Test 07/19/16 06:12 07/19/16 11:21 Bedside Glucose 175 mg/dl (70-90) 109 mg/dl (70-90) Random Glucose 174 mg/dl (70-99) Laboratory Data (last 24hrs) Test 07/18/16 14:27 07/18/16 20:15 07/19/16 06:12 Anion Gap 13.0 mmol/L 12.0 mmol/L 8.0 mmol/L BUN/Creatinine Ratio 20.0 23.7 28.5 Blood Urea Nitrogen 46 mg/dl 47 mg/dl 31 mg/dl Creatinine 2.30 mg/dl 2.00 mg/dl 1.10 mg/dl Potassium Level 4.8 mmol/L 4.7 mmol/L 4.7 mmol/L Sodium Level 138 mmol/L 140 mmol/L 143 mmol/L White Blood Count 7.82 K/uL 10.82 K/uL Red Blood Count 4.26 M/uL 4.06 M/uL Hemoglobin 13.1 g/dL 12.3 g/dL Hematocrit 39.7 % 37.3 % Mean Corpuscular Volume 93.2 fL 91.9 fL Mean Corpuscular Hemoglobin 30.8 pg 30.3 pg Mean Corpuscular Hemoglobin Concent 33.0 g/dl 33.0 g/dl Platelet Count 120 K/uL 101 K/uL Mean Platelet Volume 12.2 fL 11.0 fL Neutrophils (%) (Auto) 76.5 % 88.5 % Lymphocytes (%) (Auto) 17.0 % 6.8 % Monocytes (%) (Auto) 5.9 % 2.5 % Eosinophils (%) (Auto) 0.0 % 0.0 % Basophils (%) (Auto) 0.1 % 0.2 % Neutrophils # (Auto) 5.98 K/uL 9.57 K/uL Lymphocytes # (Auto) 1.33 K/uL 0.74 K/uL Monocytes # (Auto) 0.46 K/uL 0.27 K/uL Eosinophils # (Auto) 0.00 K/uL 0.00 K/uL Basophils # (Auto) 0.01 K/uL 0.02 K/uL Recent Pertinent Medications Outpatient Anti-diabetic Regimen: * Metformin 1gm PO BID * A1c = ? The patient is currently receiving: * Basal insulin: none currently * Correctional Insulin: Novolog Correction per scale ACHS Goal Range: Low 120 mg/dL - High 150 mg/dL Correction Factor: 25 mg/dL/unit * Prandial insulin: Per carb ratio of 1 unit per 20 grams CHO consumed * Oral Agents: None currently Risk Factors for Insulin Resistance: * Steroids: Solu-medrol 125mg x 1 the evening of 07/18/16; now starting 40mg IV Q 6 hrs ATC * Infection: septic shock secondary to PNX; receiving Zosyn + Zithromax + Vancomycin IV * Pressors: Norepi @0.15mcg/kg/min * IVF: NS @50cc/hr; some ABX mixed in D5W * Diet: NPO * Mechanical Ventilation: intubated this afternoon Assessment & Plan ASSESSMENT: * Type 2 diabetic admitted with SOB, temp and hypotension - felt to have sepsis secondary to PNX * Since admission she has required vasopressor support and is now intubated due to desaturation on BiPAP * BSGs did climb yesterday after the administration of Solu-Medrol IV. The BSGs did fall with correctional insulin. However now pt is starting IV steroids again and I anticipate BSGs to climb. * Will initiate a basal / bolus SQ regimen, low dose basal initially as last BSG was 109 and no plans to feed the patient yet. Basal order will have a hold parameter. * Level of glycemic control [employer] unknown, will check A1c w/ labs tomorrow AM PLAN FOR INPATIENT GLYCEMIC CONTROL: * Begin Lantus 5 units SQ BID; hold if BSG less than 120 * Continuing correction factor of 25 mg/dl/unit * Changing carb ratio to 1 unit per 10 grams CHO consumed * Changing goal range to Low 140 mg/dL - High 180 mg/dL * Change BSG frequency to Q 4 hrs and cover with the above Novolog orders as it is unclear how hyperglycemic pt may become with new stressors * BSGs should be checked with iSTAT give pressor requirements and severity of illness * Would have a low threshold for starting an insulin drip in this patient if BSGs > 250 * Please note that the plan above was derived based on current level of insulin resistance and hospital stress. These recommendations are appropriate for inpatient admission only. Plan of care upon discharge will need to be reassessed to avoid potential outpatient hypo/hyperglycemia. Thank you.
[2016-07-19] MEDS: METHYLPREDNISOLONE IV 40 MG in SYRINGE 0 ML IV SCH ×2 (13:39→17:45)
--- NOTE | 2016-07-19 13:46 | Pharmacy Progress Note ---
Pharmacy Antibiotic Prog Note Date of Service: Jul 19, 2016. Subjective: The patient is currently receiving VANCOMYCIN and ZOSYN IV - dosing per pharmacy consult The patient is currently on day # 2 of IV ABX therapy for sepsis presumed to be secondary to pulmonary source Objective: Height (Feet): 5 Height (Inches): 1.00 Weight (Kilograms): 96.800 Levels: Item Value Date Time Random Vancomycin Level 14.6 mcg/ml 07/19/16 0612 Lab Results (24hrs): Laboratory Tests Test 07/18/16 14:27 07/18/16 20:15 07/19/16 06:12 BUN/Creatinine Ratio 20.0 23.7 28.5 Blood Urea Nitrogen 46 mg/dl 47 mg/dl 31 mg/dl Creatinine 2.30 mg/dl 2.00 mg/dl 1.10 mg/dl White Blood Count 7.82 K/uL 10.82 K/uL Red Blood Count 4.26 M/uL 4.06 M/uL Hemoglobin 13.1 g/dL 12.3 g/dL Hematocrit 39.7 % 37.3 % Mean Corpuscular Volume 93.2 fL 91.9 fL Mean Corpuscular Hemoglobin 30.8 pg 30.3 pg Mean Corpuscular Hemoglobin Concent 33.0 g/dl 33.0 g/dl Platelet Count 120 K/uL 101 K/uL Mean Platelet Volume 12.2 fL 11.0 fL Neutrophils (%) (Auto) 76.5 % 88.5 % Lymphocytes (%) (Auto) 17.0 % 6.8 % Monocytes (%) (Auto) 5.9 % 2.5 % Eosinophils (%) (Auto) 0.0 % 0.0 % Basophils (%) (Auto) 0.1 % 0.2 % Neutrophils # (Auto) 5.98 K/uL 9.57 K/uL Lymphocytes # (Auto) 1.33 K/uL 0.74 K/uL Monocytes # (Auto) 0.46 K/uL 0.27 K/uL Eosinophils # (Auto) 0.00 K/uL 0.00 K/uL Basophils # (Auto) 0.01 K/uL 0.02 K/uL Micro Results: 07/18 nasal MRSA screening was negative 07/18 BLCX's x 2 drawn 07/18 Influenza A + B PCR negative 07/18 Urine Legionella pending Recent Pertinent Medications: Vancomycin 1gm x 1 @16507/18 Vancomycin 1400mg x 1 @ 07/18 Zosyn 4.5gm IV (over 4 hours) Q 8 hours Azithromycin 250mg IV Q 24 hours Assessment & Plan: VANCOMYCIN * Random level this AM indicates need for redosing * Patient's renal fxn improved, SCr 2.0-->1.1; BP's improved overnight however is now back on vasopressor support and is now intubated; will need to monitor VS , U.O. and labs closely * Will begin a maintenance dose of 1250mg (~13mg/kg) IV Q 12 hours * Goal trough = 15-20mcg/mL for sepsis / pulm infxn * Will check trough level prior to 4th maint dose - or sooner if renal fxn appears to decline * P'kinetic estimates: Vd 0.6L/kg (due to body habitus), Raza ~0.065 hr-1; half- life ~11 hours ZOSYN * eCrCl > 20cc/min, BMI 40.3, continue 4.5gm IV (over 4 hrs) Q 8 hours Pharmacy will continue to follow and will adjust dose/frequency as necessary. Thank you
[2016-07-19] MEDS: ALBUTEROL HFA 8 GM INHALER INH SCH ×3 (14:30→23:04)
[2016-07-19] MEDS: IPRATROPIUM BROMIDE HFA INHALER INH SCH ×3 (14:30→23:04)
--- NOTE | 2016-07-19 14:35 | DIAGNOSTIC IMAGING REPORT ---
ULTRASOUND LEFT VENOUS DOPP LOWER EXT UNILAT CLINICAL HISTORY: Left calf swelling and shortness of breath COMPARISON STUDY: No previous studies for comparison. FINDINGS: Real-time and color flow Doppler imaging were performed. Flow was seen within the femoral, popliteal and calf veins with no intraluminal thrombus demonstrated. The saphenous vein is patent. IMPRESSION: No evidence of left lower extremity DVT. Electronically signed by: Igor Anderson M.D. 07/19/2016 2:34 PM Dictated Date/Time: 07/19/2016 2:33 PM
[2016-07-19] MEDS ORDERED: ACETAMINOPHEN SOLN 325 MG/10.15 ML UDC ONE ×2 (14:43→14:44)
[2016-07-19] MEDS ORDERED: NURSING DECISION MEDICATION ORDER SCH (14:45)
[2016-07-19 15:05] LABS: ISTAT ALLEN TEST Pass; ISTAT ARTERIAL BLOOD GAS HCO3 31 meq/L (19-24); ISTAT ARTERIAL BLOOD GAS PCO2 49 mmHg (35-46); ISTAT ARTERIAL BLOOD GAS PO2 83 mmHg (80-95); ISTAT ARTERIAL BLOOD GAS pH 7.42 (7.35-7.45); ISTAT CARBON DIOXIDE 32 mEq/l (24-31); ISTAT DELIVERY SYSTEM Ventilator; ISTAT FIO2 100 %; ISTAT PEEP 12; ISTAT RATE 20; ISTAT SITE R Radial; VE 6.7; Vt 500
[2016-07-19 15:05] LABS: IPAP 22; ISTAT ALLEN TEST Pass; ISTAT ARTERIAL BLOOD GAS HCO3 30 meq/L (19-24); ISTAT ARTERIAL BLOOD GAS PCO2 59 mmHg (35-46); ISTAT ARTERIAL BLOOD GAS PO2 64 mmHg (80-95); ISTAT ARTERIAL BLOOD GAS pH 7.31 (7.35-7.45); ISTAT CARBON DIOXIDE 31 mEq/l (24-31); ISTAT DELIVERY SYSTEM BIPAP; ISTAT FIO2 55 %; ISTAT RATE 12; ISTAT SITE L Radial
[2016-07-19] MEDS ORDERED: INSULIN GLARGINE SOLOSTAR 100 UNITS/ML 3 ML PEN SC ONE (16:00)
[2016-07-19 16:15] LABS: BUN/CREATININE RATIO 19.3 (10-20); CALCIUM 7.7 mg/dl (8.5-10.1); MAGNESIUM 1.8 mg/dl (1.8-2.4); POTASSIUM 4.2 mmol/L (3.5-5.1)
[2016-07-19 16:16] LABS: PHOSPHORUS 0.9 mg/dl (2.5-4.9)
[2016-07-19] MEDS ORDERED: SODIUM PHOSPHATE 3 MMOL/1 ML INFUSION IV STA (16:17)
[2016-07-19] MEDS ORDERED: SODIUM PHOSPHATE INJ 30 MMOL in SODIUM CHLORIDE 0.9% 500ML 500 ML IV SCH (16:30)
[2016-07-19] MEDS: NYSTATIN SUSP 500,000 U/5 ML UDC PO SCH ×2 (16:56→20:38)
[2016-07-19] MEDS ORDERED: ACETAMINOPHEN SOLN 650MG/20.3 ML UDC OG PRN (17:00)
[2016-07-19 17:29] LABS: PREG INTERNAL NEGATIVE QC NEG CLEAR BACKGROUND; PREG INTERNAL POSITIVE QC POS CONTROL LINE
[2016-07-19] MEDS ORDERED: MAGNESIUM SULFATE 1GM / D5W 1 GM in PREMIXED IN D5W 100 ML IV ONE (18:00)
--- NOTE | 2016-07-19 18:40 | CRITICAL CARE PROGRESS NOTE ---
DATE: 07/19/2016 Please accept this as an addendum to the critical care progress note done today by Dr. Estes. SUBJECTIVE: The patient's care was discussed in detail on multidisciplinary rounds. The patient was on BiPAP 22/5 55% overnight last night with an acceptable mental status. Mid morning today, she started to desaturate and required intubation. She started the day on Levophed 0.15 and it was initially able to be discontinued; however, after intubation, she is back on it. She is not having many endotracheal tube secretions now. Vital signs, laboratory data, medications, infusions and imaging have been reviewed. Pertinent were notable data includes a temperature today of 39.6; heart rate in the low 100s, now improving. I's and O's minus 344 mL yesterday. She is on azithromycin, Zosyn and vancomycin. NOTABLE LABORATORY DATA: White blood cell count 10.82 with a left shift. BUN down to 19, creatinine 1.0, phosphorus this afternoon 0.9. Arterial blood gas status post intubation noted. Chest x-ray status post intubation shows tube to be in satisfactory position. Microbiology data unrevealing at this point. Sputum culture pending. IMPRESSION: 1. Acute hypoxemic respiratory failure likely secondary to pneumonia. She developed a cough and responded to Lasix without any improvement in her oxygenation. Curiously, her procalcitonin is low. 2. History of chronic obstructive pulmonary disease. 3. Probable acute respiratory distress syndrome. She meets criteria by PF ratio and her diffuse infiltrates. 4. Septic shock, improved. 5. Acute kidney injury, resolved. 6. History of schizophrenia. 7. Diabetes mellitus with hyperglycemia. 8. History of hypothyroidism. PLAN: Well outlined in Dr. Estes's note. Presently, she is getting low volumes on the ventilator, but the ventilator is not alarming. It is unclear to me whether or not it is functioning correctly, so we are going to switch out. After that, reevaluate lung-protective strategy with low tidal volume high PEEP. Steroids were started today and some of her psychiatric medications were also started, particularly her Prolixin. Continue broad spectrum antibiotics and consider discontinuing the vancomycin tomorrow. Sputum culture is still pending. She may benefit from triple-lumen catheter or PICC line. Unfortunately, I tried to call her family but there is no one listed in her chart. I will talk to delinquency prevention social worker tomorrow regarding getting in touch was someone. Critical care time excluding intubation 60 minutes. MTDD
[2016-07-19] MEDS: AZITHROMYCIN IV 250 MG in DEXTROSE 5% 250ML 250 ML IV SCH (20:23)
[2016-07-19] MEDS: DOCUSATE SODIUM 100 MG/10 ML UDC PO SCH (20:38)
[2016-07-19] MEDS: VALPROIC ACID SYRUP 250 MG/5 ML PO SCH (20:38)
[2016-07-19] MEDS: INSULIN GLARGINE SOLOSTAR 100 UNITS/ML 3 ML PEN SC SCH (20:47)
--- NOTE | 2016-07-19 20:59 | DIAGNOSTIC IMAGING REPORT ---
CHEST ONE VIEW PORTABLE HISTORY: Check tube placement r/o leak COMPARISON: Chest 07/19/2016. FINDINGS: Nasogastric tube terminates in the stomach. Endotracheal tube terminates approximately 4.9 cm from the patsy. No pneumothorax. Bilateral airspace opacities most pronounced within the left lower lobe persists. There may be an associated small left pleural effusion. The heart remains borderline enlarged. IMPRESSION: 1. The endotracheal tube terminates 4.9 cm from the patsy. This could be advanced by 1 to 2 cm. 2. The nasogastric tube terminus in the stomach. 3. No change in the bilateral airspace opacities, left greater than right. This favors a pneumonia. Electronically signed by: Micehl Umanzor M.D. 07/19/2016 8:58 PM Dictated Date/Time: 07/19/2016 8:55 PM
[2016-07-19] MEDS ORDERED: VALPROIC ACID 500 MG/10 ML UDP PO SCH (21:00)
[2016-07-19] MEDS ORDERED: FLUPHENAZINE HCL 5 MG/ML PO SCH (21:00)
[2016-07-19] MEDS: FLUPHENAZINE HCL 2.5 MG TAB PO SCH (21:28)
[2016-07-20] VITALS (13 sets, daily range): BP systolic 96–123; BP diastolic 56–83; PULSE 50–75; TEMP 36.9–37.7; O2SAT 89–100
[2016-07-20] MEDS: INSULIN ASPART 100 UNITS/ML 3 ML PEN SC SCH ×6 (00:02→19:36)
[2016-07-20 02:23] LABS: BUN/CREATININE RATIO 16.1 (10-20); CALCIUM 7.4 mg/dl (8.5-10.1); CREATININE 0.99 mg/dl (0.60-1.20); POTASSIUM 3.9 mmol/L (3.5-5.1)
[2016-07-20 02:32] LABS: PHOSPHORUS 2.5 mg/dl (2.5-4.9)
[2016-07-20] MEDS: PROPOFOL IV EMULSION 10 MG/ML 100 ML VIAL IV PRN ×4 (03:35→21:04)
[2016-07-20] MEDS: ALBUTEROL HFA 8 GM INHALER INH SCH ×6 (03:53→23:05)
[2016-07-20] MEDS: IPRATROPIUM BROMIDE HFA INHALER INH SCH ×6 (03:53→23:05)
[2016-07-20] MEDS: PIPERACILL/TAZOBAC IV 4.5 GM in DEXTROSE 5% 100ML IV SCH ×3 (05:00→20:37)
[2016-07-20 06:07] LABS: HEMATOCRIT 32.5 % (37-47); MEAN CELL VOLUME 90.5 fL (80-100); MEAN CORPUSCULAR HEMOGLOBIN 30.1 pg (25-34); MEAN CORPUSCULAR HGB CONC 33.2 g/dl (32-36); RED BLOOD COUNT 3.59 M/uL (4.2-5.4); WHITE BLOOD COUNT 7.25 K/uL (4.8-10.8)
[2016-07-20] MEDS: LEVOTHYROXINE 25 MCG TAB PO SCH (06:13)
[2016-07-20] MEDS: METHYLPREDNISOLONE IV 40 MG in SYRINGE 0 ML IV SCH ×5 (06:13→19:19)
[2016-07-20 06:25] LABS: ESTIMATED AVERAGE GLUCOSE 148 mg/dl; HA1C FLAG Normal (Normal)
[2016-07-20 06:32] LABS: BASO % 0.1 %; BASO ABS # 0.01 K/uL (0-0.2); COMPLETE YES; HYPOSEGMENTED POLYS 1+; IG% 0.8 %; LYMPH % 8.6 %; LYMPH ABS # 0.62 K/uL (1.2-3.4); MEAN PLATELET VOLUME 11.8 fL (7.4-10.4); MONO % 2.1 %; NEUT % 88.4 %; PLATELET COUNT 98 K/uL (130-400); PLT ESTIMATE DECREASED
[2016-07-20 06:44] LABS: BUN/CREATININE RATIO 17.4 (10-20); CALCIUM 7.5 mg/dl (8.5-10.1); CREATININE 0.8 mg/dl (0.60-1.20); MAGNESIUM 2.1 mg/dl (1.8-2.4); POTASSIUM 3.8 mmol/L (3.5-5.1)
[2016-07-20 06:53] LABS: PHOSPHORUS 1.7 mg/dl (2.5-4.9)
[2016-07-20] MEDS: ACETYLCYSTEINE 20% INHAL SOLN ***DISPENSED BY RESP. INH SCH ×4 (07:20→20:00)
--- NOTE | 2016-07-20 07:23 | DIAGNOSTIC IMAGING REPORT ---
CHEST ONE VIEW PORTABLE CLINICAL HISTORY: Pneumonia. COMPARISON STUDY: Chest radiograph July 19, 2016. FINDINGS: The tip of the endotracheal tube is 4.1 cm above the patsy. The tip of the nasogastric tube is below the lower aspect of this image but at least within the body of the stomach. There is no pneumothorax. Bilateral airspace opacities, left greater than right, are unchanged. Cardiac size is at the upper limits of normal. IMPRESSION: 1. Satisfactory positioning of endotracheal and nasogastric tubes. 2. Persistent bilateral airspace opacities, left greater than right. The findings favor pneumonia. Electronically signed by: Fernie Galindo M.D. 07/20/2016 7:21 AM Dictated Date/Time: 07/20/2016 7:18 AM
[2016-07-20] MEDS ORDERED: POTASSIUM PHOS 3 MMOL/1 ML INFUSION IV STA (07:30)
[2016-07-20] MEDS ORDERED: POTASSIUM PHOSPHATE INJ 30 MMOL in SODIUM CHLORIDE 0.9% 500ML 500 ML IV SCH (08:00)
[2016-07-20] MEDS ORDERED: DOCUSATE SODIUM 100 MG/10 ML UDC PO SCH (09:00)
[2016-07-20] MEDS: VALPROIC ACID SYRUP 250 MG/5 ML PO SCH ×2 (09:36→20:39)
[2016-07-20] MEDS: DOCUSATE SODIUM 100 MG/10 ML UDC PO SCH ×2 (09:36→20:38)
[2016-07-20] MEDS: CHLORHEXIDINE GLUCONATE 0.12% 480 ML MT SCH ×2 (09:37→20:37)
[2016-07-20] MEDS: NYSTATIN SUSP 500,000 U/5 ML UDC PO SCH ×4 (09:37→20:38)
[2016-07-20] MEDS: INSULIN GLARGINE SOLOSTAR 100 UNITS/ML 3 ML PEN SC SCH ×2 (09:39→20:41)
[2016-07-20] MEDS: HEPARIN SOD 5000 UNIT/0.5 ML CARP SQ SCH (09:39)
[2016-07-20] MEDS: VANCOMYCIN INJ 1,250 MG in SODIUM CHLORIDE 0.9% 250ML 250 ML IV SCH (09:40)
--- NOTE | 2016-07-20 09:51 | DIAGNOSTIC IMAGING REPORT ---
KUB CLINICAL HISTORY: ?obstruction pain COMPARISON STUDY: No previous studies for comparison. FINDINGS: Nonobstructive bowel pattern. Nasogastric tube mid stomach. Right femoral catheter in position. IMPRESSION: Nonobstructive bowel pattern. Electronically signed by: Harjit Santamaria M.D. 07/20/2016 9:50 AM Dictated Date/Time: 07/20/2016 9:49 AM
[2016-07-20 09:54] LABS: GASTRIC OCCULT BLOOD POS (NEG); GASTRIC OCCULT BLOOD PH 2
--- NOTE | 2016-07-20 11:02 | Pharmacy Progress Note ---
Glycemic Control: Progress Nt Date of Service Jul 20, 2016. Scope Glycemic Pharmacist consulted by Dr Lazo on 07/19/16 for glycemic control and to write orders per [facility] inpatient glycemic control protocol. Objective Accuchecks BSG (last 24hrs): Test 07/19/16 11:21 07/19/16 15:34 07/19/16 16:12 07/19/16 20:32 Bedside Glucose 109 mg/dl (70-90) 179 mg/dl (70-90) 194 mg/dl (70-90) Random Glucose 222 mg/dl (70-99) Test 07/19/16 23:56 07/20/16 01:14 07/20/16 03:25 07/20/16 05:54 Bedside Glucose 225 mg/dl (70-90) 184 mg/dl (70-90) Random Glucose 222 mg/dl (70-99) 175 mg/dl (70-99) Laboratory Data (last 24hrs) Test 07/19/16 15:34 07/20/16 01:14 07/20/16 05:54 Anion Gap 11.0 mmol/L 11.0 mmol/L 8.0 mmol/L BUN/Creatinine Ratio 19.3 16.1 17.4 Blood Urea Nitrogen 19 mg/dl 16 mg/dl 14 mg/dl Creatinine 1.00 mg/dl 0.99 mg/dl 0.80 mg/dl Potassium Level 4.2 mmol/L 3.9 mmol/L 3.8 mmol/L Sodium Level 139 mmol/L 142 mmol/L 140 mmol/L Hemoglobin A1c 6.8 % White Blood Count 7.25 K/uL Red Blood Count 3.59 M/uL Hemoglobin 10.8 g/dL Hematocrit 32.5 % Mean Corpuscular Volume 90.5 fL Mean Corpuscular Hemoglobin 30.1 pg Mean Corpuscular Hemoglobin Concent 33.2 g/dl Platelet Count 98 K/uL Mean Platelet Volume 11.8 fL Neutrophils (%) (Auto) 88.4 % Lymphocytes (%) (Auto) 8.6 % Monocytes (%) (Auto) 2.1 % Eosinophils (%) (Auto) 0.0 % Basophils (%) (Auto) 0.1 % Neutrophils # (Auto) 6.41 K/uL Lymphocytes # (Auto) 0.62 K/uL Monocytes # (Auto) 0.15 K/uL Eosinophils # (Auto) 0.00 K/uL Basophils # (Auto) 0.01 K/uL HbA1c: Test 07/20/16 05:54 Hemoglobin A1c 6.8 % (4.5-5.6) H Recent Pertinent Medications Outpatient Anti-diabetic Regimen: * Metformin 1gm PO BID * A1c = ? The patient is currently receiving: * Basal insulin: Lantus 5 units SQ BID; hold if BSG less than 120 * Correctional Insulin: Novolog Correction per scale Q 4 hours Goal Range: Low 140 mg/dL - High 180 mg/dL Correction Factor: 25 mg/dL/unit * Prandial insulin: Per carb ratio of 1 unit per 10 grams CHO consumed * Oral Agents: None currently Risk Factors for Insulin Resistance: * Steroids: Solu-medrol 40mg IV Q 6 hrs ATC * Infection: septic shock secondary to PNX; receiving Zosyn + Zithromax ( Vancomycin has been d/c'd) * Pressors: Norepi @0.15mcg/kg/min weaned off yesterday * IVF: NS @50cc/hr; some ABX mixed in D5W; starting Pantoprazole infusion mixed in D5W * Diet: NPO * Mechanical Ventilation: intubated 07/19/16 Assessment & Plan ASSESSMENT: 07/19/16 * Type 2 diabetic admitted with SOB, temp and hypotension - felt to have sepsis secondary to PNX * Since admission she has required vasopressor support and is now intubated due to desaturation on BiPAP * BSGs did climb yesterday after the administration of Solu-Medrol IV. The BSGs did fall with correctional insulin. However now pt is starting IV steroids again and I anticipate BSGs to climb. * Will initiate a basal / bolus SQ regimen, low dose basal initially as last BSG was 109 and no plans to feed the patient yet. Basal order will have a hold parameter. * Level of glycemic control [employer] PIL[employer] unknown, will check A1c w/ labs tomorrow AM 07/20/16 * Glycemic control acceptable at this time, a few BSGs above 180 over the last 24 hours, but overall control appears to be improving * Patient remains on vent, however Norepi was weaned off yesterday. IV Solu- Medrol continues at same dose. * Current BSGs are reflective of fasting state. Over the last 24 hrs patient received 17 units of SQ insulin (10 units basal + 7 units correction). There may be room to go up on the basal insulin dose with current stressors, however there are no plans to begin enteral feeds yet. BSGs may begin to drop the longer the patient is NPO due to depletion of glycogen stores. She is however receiving dextrose in multiple IV medications. Will continue the current Lantus dose for now and Q 4 hr Novolog coverage which help if the basal dose inadequate. PLAN FOR INPATIENT GLYCEMIC CONTROL: * Continue Lantus 5 units SQ BID; hold if BSG less than 120 * Continuing correction factor of 25 mg/dl/unit * Continue carb ratio of 1 unit per 10 grams CHO consumed * Continue goal range of Low 140 mg/dL - High 180 mg/dL * Continue BSG frequency Q 4 hrs and cover with the above Novolog orders for another 24 hrs; may convert to Q 6 hrs tomorrow if well controlled * BSGs should be checked with iSTAT give pressor requirements and severity of illness * Would have a low threshold for starting an insulin drip in this patient if BSGs > 250 * Please note that the plan above was derived based on current level of insulin resistance and hospital stress. These recommendations are appropriate for inpatient admission only. Plan of care upon discharge will need to be reassessed to avoid potential outpatient hypo/hyperglycemia. Thank you.
--- NOTE | 2016-07-20 11:26 | Critical Care Progress Note ---
Critical Care Progress Note Date of Service Jul 20, 2016. Attending Dr Violet Gómez Continued to desaturate with BiPAP yesterday despite FiO2 of 100%. Therefore decision was to intubated around midday yesterday. Initial desaturation with intubation and needing FiO2 100%. This has been weaned overnight down to 70% and she is maintaining saturation around 94% when not trying to cough. Copious OG fluid on suctioning which appear green and coffee ground in nature. Urine output much improved after IV lasix 20mg given yesterday. No contact details for her family could be gained yesterday. [facility] and they gave me number for her Jose Maria Bustillo ([phone]). Called but no answer on this phone number at this time. Objective VITAL SIGNS: were reviewed as below GENERAL: sedated (propofol) and intubated (7.5 ETT) SKIN: Warm dry and pink HEAD: Normocephalic and atraumatic EYES: extraocular muscles intact, pupils equal NECK: Large circumference, no JVD seen but difficult to assess due to neck size LUNGS: B/l coarse breath sounds, reduced at bases, no crackles, rhonchi or wheezing, Sedated and intubated on Assist control rate 20, Fi02 90%, TV 500 ml, PEEP12 HEART: Regular rate and rhythm, quiet heart soundsm no murmurs audible ABDOMEN: Soft, distended, nontender, bowel sounds present EXTREMITIES: Warm and well perfused, peripheral cap refill < 2 s, no calf tenderness, Left calf circumference > right calf (Doppler negative for DVT 07/19) , trace pedal edema. NEUROLOGICALLY: Sedated but wakes to voice, tries to pull out lines and tubes when awakes, moving upper limbs equally. There is no facial droop. Assessment & Plan 41 year old female admission [facility] for acute hypoxia and hypotension. 1. Acute hypoxemic hypercapnic respiratory failure 2. Acute respiratory distress syndrome 3. Septic shock with previous vasopressor support - source b/l pneumonia 4. Coffee ground OG fluid suctioned 5. Bilateral pneumonia 6. Altered mental status - multifactorial 7. History of schizophrenia, on multiple psychiatric medications. 8. History of type 2 diabetes mellitus 9. History of hypothyroidism. PLAN: Neuro: Altered mental state - sepsis vs. psychiatric disorders. Unable to assess off Restarted Fluphenazine 15mg HS, Lorazepam 0.5mg BID (switched to Q4H PRN) as AMS most likely relate to sepsis and having delusions of . Continue Valproic acid 1000mg PO BID. Haldol 5mg IV PRN for psychosis preceded or given with Benadryl. test negative and confirmed by Griselda that part of her psychiatric delusions is that she is with twins. Pulmonology: Doppler on L leg was negative for DVT therefore PE less likely Will continue to try to wean off FiO2 and have sedation vacations to assess continuing need for invasive ventilation. Hx of COPD, possible exacerbation: on albuterol INH, ipratropium INH, methylprednisone 40 mg Q6H Acetylcysteine 20% INH QID to help with coughing. Chest percussion in bed. Cardiovascular: Serial troponin negative. Echo grossly normal 60-65% EF without regional wall abnormalities. Blood pressure just about maintaining off norepinephrine. Continue to closely monitor. Gastrointestinal: NPO with OG on suction, admission for septic shock. Recommend against parental nutrition for 7 days, unable to have enteral nutrition at present. Coffee ground on suction - gastric occult blood ordered. Distended abdomen without a BM and now bile on suction ?obstruction. Will evaluate with AXR /electrolytes: DILLON resolved, Cr 0.8, prerenal Continue NSS 50 MLS/HR Hypophosphatemia - 1.7 after 30 mmol yesterday, will replace with K Phos 30 mmol again today. Repeat Phosphorus in the afternoon Infectious Disease: Urine legionella pending Blood cultures negative Sputum culture pending Continue broad spectrum Abx: Zosyn + azithromycin. MRSA swab negative so will stop vancomycin Heme/Onc: Leukocytosis likely related to steroids +/- pneumonia No acute active issues. Mild thrombocytopenia: trending down, related to sepsis, too early for HIT, therefore will continue heparin, stop if Plt <50. Endocrine: T2DM, hold metformin due to acute illness. Sliding scale insulin. Glycemic consult. Hold levothyroxine 25 mcg due to NPO. Lines and tubes: Right femoral line (placed in ER 07/18). Will get consent for a PICC from her mother and d/c the femoral line. Prince cath (07/18) 7.5ETT (07/19) OG tube (07/19) VTE/GI Prophylaxis - Pantoprazole 40 mg IV daily if gastric occult blood positive will switch to Q12H - Heparin 5000 units Q12H SC - SCDs + TEDs Code - Full Disposition - continue ICU stay due to intubation Resident Physician Supervision Note: I interviewed and examined the patient. Discussed with Dr. Estes and agree with findings and plan as documented in the note. Any exceptions or clarifications can be found in my dictated addendum. Documented By: Cecilia Lazo Data Medications: Current Inpatient Medications Medications (Trade) Dose Ordered Sig/Racquel Route Start Time Stop Time Status Last Admin Dose Admin Heparin Sodium (Porcine) (Heparin Sq 5000 Unit/0.5ml) 5,000 unit Q12 SQ 07/18/16 21:00 08/17/16 20:59 07/20/16 09:39 5,000 UNIT Ondansetron HCl (Zofran Inj) 4 mg Q6H PRN IV 07/18/16 17:15 08/17/16 17:14 Piperacillin Sod/ Tazobactam Sod (Consult) 1 ea UD PRN N/A 07/18/16 17:45 08/17/16 17:44 Albuterol Sulfate 2.5 mg 2.5 mg Q2H PRN INH 07/18/16 19:45 08/17/16 19:44 Sodium Chloride 1,000 ml @ 50 mls/hr Q20H IV 07/18/16 19:45 08/17/16 19:44 07/19/16 16:09 50 MLS/HR Azithromycin/ Dextrose (Zithromax IV/D5 250ml) 252.5 ml @ 125 mls/hr Q24H IV 07/19/16 20:00 07/26/16 19:59 07/19/16 20:23 125 MLS/HR Glucose (Glucose 40% Gel) 15-30 GRAMS 15 GRAMS... UD PRN PO 07/18/16 20:00 08/17/16 19:59 Glucose (Glucose Chew Tab) 4-8 Tablets 4 Tabl... UD PRN PO 07/18/16 20:00 08/17/16 19:59 Dextrose (Dextrose 50% 50ML Syringe) 25-50ML OF 50% DW IV FOR... UD PRN IV 07/18/16 20:00 08/17/16 19:59 Glucagon 1 mg 1 mg UD PRN SQ 07/18/16 20:00 08/17/16 19:59 Piperacillin Sod/ Tazobactam Sod 4.5 gm/Dextrose 120 ml @ 30 mls/hr Q8H IV 07/18/16 21:00 07/25/16 20:59 07/20/16 05:00 30 MLS/HR Norepinephrine Bitartrate/ Dextrose (Levophed Inj/ D5W 500ml) 508 ml @ 0 mls/hr Q0M PRN IV 07/18/16 21:05 08/17/16 21:04 07/19/16 05:33 54 MLS/HR Haloperidol Lactate (Haldol Inj) 5 mg Q4H PRN IV 07/18/16 21:45 08/17/16 21:44 Diphenhydramine HCl (Benadryl Inj) 25 mg Q4H PRN IV 07/18/16 21:45 08/17/16 21:44 Fluphenazine HCl (Prolixin Tab) 15 mg HS PO 07/19/16 21:00 08/18/16 20:59 07/19/16 21:28 15 MG Levothyroxine Sodium (Synthroid Tab) 25 mcg DAILYBB PO 07/19/16 06:00 08/18/16 05:59 07/20/16 06:13 25 MCG Miscellaneous Information (Order Awaiting Action) 1 ea QS N/A 07/19/16 00:00 08/18/16 00:00 Miscellaneous Information 1 ea 1 ea UD PRN N/A 07/19/16 08:53 08/18/16 08:52 Vancomycin HCl/ Sodium Chloride (Vancomycin Inj/ Nss 250ml) 275 ml @ 125 mls/hr Q12H IV 07/19/16 09:00 07/26/16 08:59 07/20/16 09:40 125 MLS/HR Chlorhexidine Gluconate (Peridex Oral Soln) 15 ml BID MT 07/19/16 09:00 08/18/16 08:59 07/20/16 09:37 15 ML Acetylcysteine 3 ml 3 ml QIDR INH 07/19/16 12:00 08/18/16 11:59 07/19/16 23:04 3 ML Pantoprazole Sodium/Syringe (Protonix Inj/ Syringe) 10 ml @ 5 mls/min DAILY@11 IV 07/19/16 11:30 08/18/16 11:29 07/19/16 11:23 5 MLS/MIN Propofol 1 dose 1 dose UD PRN IV 07/19/16 12:45 07/22/16 12:44 07/20/16 06:26 1 DOSE Fentanyl Citrate 250 ml @ 0 mls/hr Q0M PRN IV 07/19/16 12:45 08/02/16 12:44 Methylprednisolone Sodium Succinate/ Syringe (Solu-Medrol IV/ Syringe) 0.64 ml @ 1.5 mls/min Q6H IV 07/19/16 12:45 08/18/16 12:44 07/20/16 06:13 1.5 MLS/MIN Docusate Sodium (coLACE SYRUP) 100 mg BID PO 07/19/16 21:00 08/18/16 20:59 07/20/16 09:36 100 MG Insulin Aspart (novoLOG ASPART) SLIDING SCALE G... Q4 SC 07/19/16 16:00 08/18/16 15:59 07/20/16 03:36 1 UNITS Insulin Glargine (Lantus Solostar Pen) 5 unit Q12 SC 07/19/16 21:00 08/18/16 20:59 07/20/16 09:39 5 UNIT Valproic Acid (Depakene Syrup) 1,000 mg BID PO 07/19/16 21:00 08/18/16 20:59 07/20/16 09:36 1,000 MG Ipratropium [place] (Atrovent Hfa Inhaler) 6 puffs Q4R INH 07/19/16 16:00 08/18/16 15:59 07/20/16 03:53 6 PUFFS Albuterol (Ventolin Hfa Inhaler) 6 puffs Q4R INH 07/19/16 16:00 08/18/16 15:59 07/20/16 03:53 6 PUFFS Nystatin (Mycostatin Susp) 5 ml QID PO 07/19/16 17:00 07/29/16 16:59 07/20/16 09:37 5 ML Acetaminophen (Tylenol Soln) 650 mg Q4H PRN OG 07/19/16 17:00 08/18/16 16:59 Docusate Sodium 100 mg 100 mg BID PO 07/20/16 09:00 08/19/16 08:59 Potassium Phosphate/Sodium Chloride (Potassium Phosphate Inj/Nss 500ml) 510 ml @ 88 mls/hr TODAY@0800 IV 07/20/16 08:00 07/20/16 14:00 07/20/16 09:36 88 MLS/HR Lorazepam (Ativan Inj) 0.5 mg Q4H PRN IV 07/20/16 09:30 08/19/16 09:29 I & O: 24-Hour Column 07/20/16 07:59 Intake Total 2716 ml Output Total 3650 ml Balance -934 ml Vital Signs: Date Time Temp Pulse Resp B/P Pulse Ox O2 Delivery O2 Flow Rate FiO2 07/20/16 08:00 Mechanical Ventilator 70 07/20/16 08:00 70 07/20/16 06:19 64 20 96/60 94 70 07/20/16 05:20 70 07/20/16 04:00 95 Mechanical Ventilator 70 07/20/16 04:00 70 07/20/16 04:00 37.1 72 20 113/64 94 70 07/20/16 02:12 80 07/20/16 02:00 75 20 120/77 96 80 07/20/16 00:00 37.2 75 20 97/58 95 80 07/19/16 23:59 100 07/19/16 23:59 95 Mechanical Ventilator 80 07/19/16 23:03 90 07/19/16 22:00 74 107/64 96 100 07/19/16 20:00 100 07/19/16 20:00 95 Mechanical Ventilator 100 07/19/16 20:00 37.8 90 20 112/70 96 100 07/19/16 19:23 100 07/19/16 18:00 37.7 87 109/68 93 Mechanical Ventilator 100 07/19/16 17:55 100 07/19/16 17:15 94 115/69 92 07/19/16 17:08 37.8 97 115/69 93 Mechanical Ventilator 100 07/19/16 17:00 98 93 07/19/16 16:59 99 115/69 93 07/19/16 16:45 100 92 07/19/16 16:30 103 94 07/19/16 16:29 104 110/68 94 07/19/16 16:15 106 94 07/19/16 16:00 37.9 108 93 2/22/17 16:00 93 Mechanical Ventilator 100 07/19/16 15:59 107 103/66 94 07/19/16 15:59 107 103/66 94 07/19/16 15:45 109 93 07/19/16 15:45 109 93 07/19/16 15:30 107 92 07/19/16 15:30 107 92 07/19/16 15:29 111 109/66 92 07/19/16 15:29 111 109/66 92 07/19/16 15:16 127 111/69 93 07/19/16 15:16 127 111/69 93 07/19/16 15:15 242 93 07/19/16 15:15 242 93 07/19/16 15:00 119 93 07/19/16 15:00 119 93 07/19/16 14:59 120 110/73 93 07/19/16 14:45 122 93 07/19/16 14:30 100 07/19/16 14:30 123 93 07/19/16 14:29 124 112/68 93 07/19/16 14:15 119 94 07/19/16 14:14 118 110/74 95 07/19/16 14:00 116 95 07/19/16 13:14 106 129/79 97 07/19/16 13:00 111 95 07/19/16 12:59 124 130/105 95 07/19/16 12:45 104 93 07/19/16 12:44 104 111/68 92 07/19/16 12:34 109 110/64 89 07/19/16 12:31 111 110/64 87 07/19/16 12:30 110 88 07/19/16 12:29 112 93/64 86 07/19/16 12:26 111 112/64 86 07/19/16 12:24 113 90/46 85 07/19/16 12:22 115 118/57 87 07/19/16 12:17 127 43/25 86 07/19/16 12:15 120 87 07/19/16 12:15 100 07/19/16 12:14 122 131/89 87 07/19/16 12:12 124 156/95 85 07/19/16 12:09 113 121/62 92 07/19/16 12:03 113 138/82 97 07/19/16 12:02 108 138/82 93 07/19/16 12:00 92 BiPAP 100 07/19/16 12:00 109 118/59 07/19/16 11:51 39.6 111 118/59 97 07/19/16 11:50 113 118/59 97 07/19/16 11:49 113 118/59 97 07/19/16 11:48 112 118/59 98 07/19/16 11:45 113 118/59 95 07/19/16 11:30 110 89 07/19/16 11:29 116 123/71 87 07/19/16 11:26 109 93 100 07/19/16 11:26 109 22 93 BiPAP/CPAP 55 07/19/16 11:15 105 94 07/19/16 11:14 106 116/74 91 07/19/16 11:13 106 116/74 92 07/19/16 11:12 109 127/79 95 07/19/16 11:00 111 87 07/19/16 10:58 111 108/76 90 07/19/16 10:45 109 86 07/19/16 10:38 91 92 55 07/19/16 10:30 91 07/19/16 10:29 138/78 93 Laboratory Results: Last 24 Hours Test 07/19/16 11:21 07/19/16 12:55 07/19/16 14:51 07/19/16 15:34 Bedside Glucose 109 mg/dl Urine Test NEG Blood Gas Sample Site R Radial Bedside Blood Gas pH (LAB) 7.42 Bedside Blood Gas pCO2 (LAB) 49 mmHg Bedside Blood Gas pO2 (LAB) 83 mmHg Bedside Blood Gas HCO3 (LAB) 31 meq/L Bedside Blood Gas Total CO2 32 mEq/l Bedside Blood Gas Base Excess (LAB) 7.0 meq/L Bedside Blood Gas O2 Saturation 94.0 % [place] Test Pass Oxygen Delivery Device Ventilator Bedside Oxygen Rate (breaths/min) 20 Blood Gas Minute Ventilation 6.7 Bedside FiO2 100 % Blood Gas Tidal Volume 500 Blood Gas PEEP 12 Sodium Level 139 mmol/L Potassium Level 4.2 mmol/L Chloride Level 98 mmol/L Carbon Dioxide Level 30 mmol/L Anion Gap 11.0 mmol/L Blood Urea Nitrogen 19 mg/dl Creatinine 1.00 mg/dl Est Creatinine Clear Calc Drug Dose 80.3 ml/min Estimated GFR () 82.2 Estimated GFR (Non- 70.9 BUN/Creatinine Ratio 19.3 Random Glucose 222 mg/dl Calcium Level 7.7 mg/dl Phosphorus Level 0.9 mg/dl Magnesium Level 1.8 mg/dl Test 07/19/16 16:12 07/19/16 20:32 07/19/16 23:56 07/20/16 01:14 Bedside Glucose 179 mg/dl 194 mg/dl 225 mg/dl Sodium Level 142 mmol/L Potassium Level 3.9 mmol/L Chloride Level 101 mmol/L Carbon Dioxide Level 30 mmol/L Anion Gap 11.0 mmol/L Blood Urea Nitrogen 16 mg/dl Creatinine 0.99 mg/dl Est Creatinine Clear Calc Drug Dose 81.1 ml/min Estimated GFR () 83.2 Estimated GFR (Non- 71.8 BUN/Creatinine Ratio 16.1 Random Glucose 222 mg/dl Calcium Level 7.4 mg/dl Phosphorus Level 2.5 mg/dl Test 07/20/16 03:25 07/20/16 05:54 07/20/16 09:30 Bedside Glucose 184 mg/dl White Blood Count 7.25 K/uL Red Blood Count 3.59 M/uL Hemoglobin 10.8 g/dL Hematocrit 32.5 % Mean Corpuscular Volume 90.5 fL Mean Corpuscular Hemoglobin 30.1 pg Mean Corpuscular Hemoglobin Concent 33.2 g/dl Platelet Count 98 K/uL Mean Platelet Volume 11.8 fL Neutrophils (%) (Auto) 88.4 % Lymphocytes (%) (Auto) 8.6 % Monocytes (%) (Auto) 2.1 % Eosinophils (%) (Auto) 0.0 % Basophils (%) (Auto) 0.1 % Neutrophils # (Auto) 6.41 K/uL Lymphocytes # (Auto) 0.62 K/uL Monocytes # (Auto) 0.15 K/uL Eosinophils # (Auto) 0.00 K/uL Basophils # (Auto) 0.01 K/uL RDW Standard Deviation 47.9 fL RDW Coefficient of Variation 14.4 % Immature Granulocyte % (Auto) 0.8 % Immature Granulocyte # (Auto) 0.06 K/uL Hyposegmented Neutrophils 1+ Platelet Estimate DECREASED Sodium Level 140 mmol/L Potassium Level 3.8 mmol/L Chloride Level 102 mmol/L Carbon Dioxide Level 30 mmol/L Anion Gap 8.0 mmol/L Blood Urea Nitrogen 14 mg/dl Creatinine 0.80 mg/dl Est Creatinine Clear Calc Drug Dose 100.5 ml/min Estimated GFR () 107.6 Estimated GFR (Non- 92.9 BUN/Creatinine Ratio 17.4 Random Glucose 175 mg/dl Estimated Average Glucose 148 mg/dl Hemoglobin A1c 6.8 % Calcium Level 7.5 mg/dl Phosphorus Level 1.7 mg/dl Magnesium Level 2.1 mg/dl Gastric Fluid pH 2 Gastric Fluid Occult Blood POS Resident Tracking Resident Involvement: Resident Care Provided Care Provided: Adult Hospital Medicine (ICU)
[2016-07-20 11:28] LABS: LEGIONELLA ANTIGEN NOT DETECTED
[2016-07-20] MEDS: SODIUM CHLORIDE 0.9% 1000ML 1,000 ML IV SCH (11:36)
[2016-07-20] MEDS ORDERED: PANTOprazole INJ 80 MG in DEXTROSE 5% 100ML IV ONE (11:45)
[2016-07-20] MEDS: PANTOprazole INJ 40 MG in DEXTROSE 5% 100ML IV SCH ×3 (11:50→20:37)
[2016-07-20 12:00] LABS: HEMATOCRIT 32.2 % (37-47)
--- NOTE | 2016-07-20 14:55 | Progress Note ---
Subjective Date of Service: Jul 20, 2016. Subjective this pt is now intubated, she is moving at times but is sedate Problem List Medical Problems: (1) Acute kidney injury Status: Acute (2) Bilateral pneumonia Status: Acute (3) COPD exacerbation Status: Acute (4) Schizophrenia Status: Acute (5) Septic shock Status: Acute Review of Systems cannot obtain due to intubation Objective Vital Signs Date Time Temp Pulse Resp B/P Pulse Ox O2 Delivery O2 Flow Rate FiO2 07/20/16 12:00 Mechanical Ventilator 70 07/20/16 12:00 70 07/20/16 12:00 37.4 60 20 102/56 89 Mechanical Ventilator 70 07/20/16 11:05 70 07/20/16 10:00 66 20 110/68 92 Mechanical Ventilator 70 07/20/16 08:00 Mechanical Ventilator 70 07/20/16 08:00 70 07/20/16 08:00 37.7 68 20 123/83 98 Mechanical Ventilator 70 07/20/16 07:20 70 07/20/16 06:19 64 20 96/60 94 70 07/20/16 05:20 70 07/20/16 04:00 95 Mechanical Ventilator 70 07/20/16 04:00 70 07/20/16 04:00 37.1 72 20 113/64 94 70 07/20/16 02:12 80 07/20/16 02:00 75 20 120/77 96 80 07/20/16 00:00 37.2 75 20 97/58 95 80 07/19/16 23:59 100 07/19/16 23:59 95 Mechanical Ventilator 80 07/19/16 23:03 90 07/19/16 22:00 74 107/64 96 100 07/19/16 20:00 100 07/19/16 20:00 95 Mechanical Ventilator 100 07/19/16 20:00 37.8 90 20 112/70 96 100 07/19/16 19:23 100 07/19/16 18:00 37.7 87 109/68 93 Mechanical Ventilator 100 07/19/16 17:55 100 07/19/16 17:15 94 115/69 92 07/19/16 17:08 37.8 97 115/69 93 Mechanical Ventilator 100 07/19/16 17:00 98 93 07/19/16 16:59 99 115/69 93 07/19/16 16:45 100 92 07/19/16 16:30 103 94 07/19/16 16:29 104 110/68 94 07/19/16 16:15 106 94 07/19/16 16:00 37.9 108 93 07/19/16 16:00 93 Mechanical Ventilator 100 07/19/16 15:59 107 103/66 94 07/19/16 15:59 107 103/66 94 07/19/16 15:45 109 93 07/19/16 15:45 109 93 07/19/16 15:30 107 92 07/19/16 15:30 107 92 07/19/16 15:29 111 109/66 92 07/19/16 15:29 111 109/66 92 07/19/16 15:16 127 111/69 93 07/19/16 15:16 127 111/69 93 07/19/16 15:15 242 93 07/19/16 15:15 242 93 07/19/16 15:00 119 93 07/19/16 15:00 119 93 07/19/16 14:59 120 110/73 93 Physical Exam General Appearance: + moderate distress, + obese Neck: no JVD, trachea midline Respiratory/Chest: + respiratory distress, + rhonchi Cardiovascular: regular rate, rhythm, no murmur Abdomen: normal bowel sounds, soft Extremities: no pedal edema, no calf tenderness Laboratory Results Last 24 Hours Test 07/19/16 15:34 07/19/16 16:12 07/19/16 20:32 07/19/16 23:56 Sodium Level 139 mmol/L Potassium Level 4.2 mmol/L Chloride Level 98 mmol/L Carbon Dioxide Level 30 mmol/L Anion Gap 11.0 mmol/L Blood Urea Nitrogen 19 mg/dl Creatinine 1.00 mg/dl Est Creatinine Clear Calc Drug Dose 80.3 ml/min Estimated GFR () 82.2 Estimated GFR (Non- 70.9 BUN/Creatinine Ratio 19.3 Random Glucose 222 mg/dl Calcium Level 7.7 mg/dl Phosphorus Level 0.9 mg/dl Magnesium Level 1.8 mg/dl Bedside Glucose 179 mg/dl 194 mg/dl 225 mg/dl Test 07/20/16 01:14 07/20/16 03:25 07/20/16 05:54 07/20/16 09:30 Sodium Level 142 mmol/L 140 mmol/L Potassium Level 3.9 mmol/L 3.8 mmol/L Chloride Level 101 mmol/L 102 mmol/L Carbon Dioxide Level 30 mmol/L 30 mmol/L Anion Gap 11.0 mmol/L 8.0 mmol/L Blood Urea Nitrogen 16 mg/dl 14 mg/dl Creatinine 0.99 mg/dl 0.80 mg/dl Est Creatinine Clear Calc Drug Dose 81.1 ml/min 100.5 ml/min Estimated GFR () 83.2 107.6 Estimated GFR (Non- 71.8 92.9 BUN/Creatinine Ratio 16.1 17.4 Random Glucose 222 mg/dl 175 mg/dl Calcium Level 7.4 mg/dl 7.5 mg/dl Phosphorus Level 2.5 mg/dl 1.7 mg/dl Bedside Glucose 184 mg/dl White Blood Count 7.25 K/uL Red Blood Count 3.59 M/uL Hemoglobin 10.8 g/dL Hematocrit 32.5 % Mean Corpuscular Volume 90.5 fL Mean Corpuscular Hemoglobin 30.1 pg Mean Corpuscular Hemoglobin Concent 33.2 g/dl Platelet Count 98 K/uL Mean Platelet Volume 11.8 fL Neutrophils (%) (Auto) 88.4 % Lymphocytes (%) (Auto) 8.6 % Monocytes (%) (Auto) 2.1 % Eosinophils (%) (Auto) 0.0 % Basophils (%) (Auto) 0.1 % Neutrophils # (Auto) 6.41 K/uL Lymphocytes # (Auto) 0.62 K/uL Monocytes # (Auto) 0.15 K/uL Eosinophils # (Auto) 0.00 K/uL Basophils # (Auto) 0.01 K/uL RDW Standard Deviation 47.9 fL RDW Coefficient of Variation 14.4 % Immature Granulocyte % (Auto) 0.8 % Immature Granulocyte # (Auto) 0.06 K/uL Hyposegmented Neutrophils 1+ Platelet Estimate DECREASED Estimated Average Glucose 148 mg/dl Hemoglobin A1c 6.8 % Magnesium Level 2.1 mg/dl Gastric Fluid pH 2 Gastric Fluid Occult Blood POS Test 07/20/16 11:23 07/20/16 11:54 Bedside Glucose 193 mg/dl Hemoglobin 10.7 g/dL Hematocrit 32.2 % Assessment and Plan 41 F Severe sepsis, septic shock related to pneumonia. SEvere sepsis from pneumonia azithromycin Zosyn Acute renal failure. secondary to to septic shock. fluids and support MAP Acute Hypoxic respiratory failure, chronic obstructive pulmonary disease. BiPAP failed to provide adequate support and endotracheal intubation was performed and nebulizers. methylprednisolone, has significant disease seen on cxr and hypoxia requiring 70 % fio2 metabolic encephalopathy with baseline psychologic illness of schizophrenia with suicidality, she will need ongoing psychiatric treatment. Deep venous thrombosis prophylaxis, heparin subQ Diabetes. SSI. Hypothyroidism. Continue Synthroid.
[2016-07-20 16:10] LABS: ISTAT ARTERIAL BLOOD GAS HCO3 30 meq/L (19-24); ISTAT ARTERIAL BLOOD GAS PCO2 38 mmHg (35-46); ISTAT ARTERIAL BLOOD GAS PO2 90 mmHg (80-95); ISTAT ARTERIAL BLOOD GAS pH 7.51 (7.35-7.45); ISTAT CARBON DIOXIDE 32 mEq/l (24-31); ISTAT DELIVERY SYSTEM Ventilator; ISTAT FIO2 70 %; ISTAT PEEP 15; ISTAT RATE 22; ISTAT SITE R Radial; VE 10.9; Vt 450
--- NOTE | 2016-07-20 18:11 | CRITICAL CARE PROGRESS NOTE ---
DATE: 07/20/2016 Please accept this as an addendum to the critical care progress note done by Dr. Estes, earlier today. SUBJECTIVE: The patient's care was discussed in detail on multidisciplinary rounds. I personally interviewed and examined her and have discussed her care with Dr. Estes. The assessment and plan is well documented in his note. She remains sedated on propofol and appears comfortable on the ventilator. Her Levophed has been off since yesterday. She is not having many endotracheal tube secretions and she has not had a bowel movement yet. She was febrile to 39.6 yesterday; however, her temperature has improved. She is now having a bit of coffee ground material from her NG tube and blood counts are being trended. This afternoon, I took her PEEP up to 15 and dropped her tidal volume due to some increasing airway pressures. Follow up arterial blood gas was reviewed. Additionally, today, she had a PICC line placed in the femoral triple lumen catheter was removed. Her chest x-ray today continues to show bilateral pneumonia and is not very much changed compared to yesterday. Abdominal x-ray is unremarkable. I added Colace today and have decreased her Solu-Medrol. She may benefit from bronchoscopy. She remains on azithromycin, Zosyn and vancomycin for pneumonia. Note that the vital signs, medications, labs and images were reviewed. I was able to speak to her mother today to update her on Chelsey's condition. She is willing to give consent, if needed. The patient has a 10-year-old son who lives with her mother and is but has been estranged from her for 18 years. Please call me with any questions or concerns. Critical care time 40 minutes.
[2016-07-20 18:26] LABS: HEMATOCRIT 33.2 % (37-47)
[2016-07-20] MEDS: AZITHROMYCIN IV 250 MG in DEXTROSE 5% 250ML 250 ML IV SCH (19:19)
[2016-07-20] MEDS ORDERED: VANCOMYCIN TROUGH SCH (20:30)
[2016-07-20] MEDS: FLUPHENAZINE HCL 2.5 MG TAB PO SCH (20:38)
[2016-07-20] MEDS ORDERED: PANTOprazole INJ 40 MG in SYRINGE 0 ML IV SCH (21:00)
[2016-07-20] MEDS: LORAZEPAM 2 MG/ML 1 ML VIAL IV PRN (22:34)
[2016-07-20 23:50] LABS: HEMATOCRIT 31.7 % (37-47)
[2016-07-21] VITALS (14 sets, daily range): BP systolic 97–123; BP diastolic 60–85; PULSE 45–66; TEMP 36.7–37.7; O2SAT 95–100
[2016-07-21] MEDS: INSULIN ASPART 100 UNITS/ML 3 ML PEN SC SCH ×7 (00:31→23:35)
[2016-07-21] MEDS: PROPOFOL IV EMULSION 10 MG/ML 100 ML VIAL IV PRN ×6 (01:48→22:44)
[2016-07-21] MEDS: PANTOprazole INJ 40 MG in DEXTROSE 5% 100ML IV SCH ×2 (02:05→07:46)
[2016-07-21] MEDS: IPRATROPIUM BROMIDE HFA INHALER INH SCH ×6 (03:00→23:57)
[2016-07-21] MEDS: ALBUTEROL HFA 8 GM INHALER INH SCH ×6 (03:00→23:57)
[2016-07-21] MEDS: METHYLPREDNISOLONE IV 40 MG in SYRINGE 0 ML IV SCH ×2 (04:24→19:28)
[2016-07-21] MEDS: PIPERACILL/TAZOBAC IV 4.5 GM in DEXTROSE 5% 100ML IV SCH ×3 (05:15→20:32)
[2016-07-21] MEDS: LEVOTHYROXINE 25 MCG TAB PO SCH (05:42)
[2016-07-21 06:20] LABS: BASO % 0.3 %; BASO ABS # 0.02 K/uL (0-0.2); COMPLETE YES; HEMATOCRIT 32.9 % (37-47); IG% 1.7 %; LYMPH % 15.6 %; LYMPH ABS # 1.02 K/uL (1.2-3.4); MEAN CELL VOLUME 92.9 fL (80-100); MEAN CORPUSCULAR HEMOGLOBIN 29.7 pg (25-34); MEAN CORPUSCULAR HGB CONC 31.9 g/dl (32-36); MEAN PLATELET VOLUME 11.5 fL (7.4-10.4); MONO % 4.1 %; NEUT % 78.3 %; PLATELET COUNT 128 K/uL (130-400); RED BLOOD COUNT 3.54 M/uL (4.2-5.4); WHITE BLOOD COUNT 6.53 K/uL (4.8-10.8)
[2016-07-21 06:52] LABS: BUN/CREATININE RATIO 18.3 (10-20); CALCIUM 8.2 mg/dl (8.5-10.1); CREATININE 0.66 mg/dl (0.60-1.20); MAGNESIUM 2.2 mg/dl (1.8-2.4); PHOSPHORUS 2.2 mg/dl (2.5-4.9); POTASSIUM 4.2 mmol/L (3.5-5.1)
[2016-07-21] MEDS: ACETYLCYSTEINE 20% INHAL SOLN ***DISPENSED BY RESP. INH SCH ×4 (07:15→20:00)
[2016-07-21] MEDS: CHLORHEXIDINE GLUCONATE 0.12% 480 ML MT SCH ×2 (07:56→20:32)
[2016-07-21] MEDS: SODIUM CHLORIDE 0.9% 1000ML 1,000 ML IV SCH (07:56)
[2016-07-21] MEDS: DOCUSATE SODIUM 100 MG/10 ML UDC PO SCH (07:59)
[2016-07-21] MEDS: NYSTATIN SUSP 500,000 U/5 ML UDC PO SCH ×4 (07:59→20:34)
[2016-07-21] MEDS: VALPROIC ACID SYRUP 250 MG/5 ML PO SCH ×2 (08:00→20:34)
[2016-07-21] MEDS: INSULIN GLARGINE SOLOSTAR 100 UNITS/ML 3 ML PEN SC SCH ×2 (08:02→19:29)
--- NOTE | 2016-07-21 08:24 | DIAGNOSTIC IMAGING REPORT ---
CHEST ONE VIEW PORTABLE HISTORY: Short of breath. pneumonia COMPARISON: Chest 07/20/2016. FINDINGS: Endotracheal tube terminates 3 cm from the ptasy. Nasogastric tube terminates below the diaphragm. The tip is not included on this study. Right PICC terminates in the SVC. The heart remains mildly enlarged. No pneumothorax. Trace left pleural effusion persist. Left greater than right lower lobe airspace opacities are again noted. There is mild perihilar interstitial thickening, unchanged. IMPRESSION: 1. Satisfactory support line placement. 2. No change in the bilateral airspace opacities, left greater than right. This favors a pneumonia. Electronically signed by: Michel Umanzor M.D. 07/21/2016 8:22 AM Dictated Date/Time: 07/21/2016 8:21 AM
[2016-07-21 09:10] LABS: PROTHROMBIN TIME (PATIENT) 10.3 SECONDS (9.0-12.0)
[2016-07-21 10:10] LABS: ISTAT ARTERIAL BLOOD GAS HCO3 28 meq/L (19-24); ISTAT ARTERIAL BLOOD GAS PCO2 35 mmHg (35-46); ISTAT ARTERIAL BLOOD GAS PO2 128 mmHg (80-95); ISTAT ARTERIAL BLOOD GAS pH 7.52 (7.35-7.45); ISTAT CARBON DIOXIDE 29 mEq/l (24-31); ISTAT DELIVERY SYSTEM Ventilator; ISTAT FIO2 60 %; ISTAT PEEP 15; ISTAT RATE 20; ISTAT SITE R Radial; VE 12.2; Vt 45
[2016-07-21] MEDS ORDERED: POLYETHYLENE (MIRALAX) 17 GM PACK NG ONE ×2 (10:15→11:23)
--- NOTE | 2016-07-21 11:27 | Critical Care Progress Note ---
Critical Care Progress Note Date of Service Jul 21, 2016. ICU Day ICU Day Number: [address] Lazo Subjective Patient sedated and intubated. No acute events overnight. OG tube drainage much reduced. Objective VITAL SIGNS: were reviewed as below GENERAL: sedated (propofol) and intubated (7.5 ETT) SKIN: Warm dry and pink HEAD: Normocephalic and atraumatic EYES: extraocular muscles intact, pupils equal NECK: Large circumference,unable to assess JVD due to neck size LUNGS: B/l coarse breath sounds, reduced at bases, increased in breath sounds compared to previous day, no crackles, rhonchi or wheezing, Sedated and intubated on Assist control rate 20, Fi02 60%, TV 500 ml, PEEP15 HEART: Regular rate and rhythm, quiet heart sounds, no murmurs audible ABDOMEN: Soft, distended (similar to previous day), nontender, bowel sounds present EXTREMITIES: Warm and well perfused, peripheral cap refill < 2 s, no calf tenderness, Left calf circumference > right calf (Doppler negative for DVT 07/19) , trace pedal edema stable. NEUROLOGICALLY: Sedated and does not wake to voice or trapezius squeeze. There is no facial droop. Assessment & Plan 41 year old female admission from the [facility] for acute hypoxia and hypotension. Assessment: 1. Acute hypoxemic hypercapnic respiratory failure 2. Acute respiratory distress syndrome 3. Septic shock with previous vasopressor support (now d/c) - source b/l pneumonia 4. GI bleed - occult blood positive 5. Bilateral pneumonia 6. Altered mental status - multifactorial 7. History of schizophrenia, on multiple psychiatric medications. 8. History of type 2 diabetes mellitus 9. History of hypothyroidism. PLAN: Neuro: Altered mental state - most likely related to sepsis Continue home dose Fluphenazine 15mg HS, Valproic acid 1000mg PO BID, Lorazepam 0.5mg BID (switched to Q4H PRN) Haldol 5mg IV PRN for psychosis preceded or given with Benadryl. test negative and confirmed by [facility] that part of her psychiatric delusions is that she is with twins. Pulmonology: Doppler on L leg was negative for DVT therefore PE less likely Appears to be slowly improving on ventilator. Most likely ARDS. Hx of COPD, possible exacerbation: on albuterol INH, ipratropium INH, switch methylprednisone 40 mg Q8H to Q12H. Acetylcysteine 20% INH QID to help with coughing. Chest percussion in bed. Will consider CT chest and bronchoscopy today as etiology still not completely clear and no organism has been identified as long as she remains stable enough for these tests. Cardiovascular: Serial troponin negative. Echo grossly normal 60-65% EF without regional wall abnormalities. Blood pressure stable off vasopressors Gastrointestinal: NPO with OG on suction, admission for septic shock. Recommend against parental nutrition for 7 days, unable to have enteral nutrition at present but if OG drainage stops can consider restarting this later today or tomorrow. GI bleed. Appears to be settling. Likely due to steroids and stress. Will decrease pantoprazole IV from continuous drip to BID today. AXR - no obstruction, will add MiraLAX to bowel regimen. /electrolytes: DILLON resolved, Cr 0.66, prerenal Stop NSS 50 MLS/HR Hypophosphatemia - 2.2 after large replacements, will get ABG to assess for respiratory alkalosis and correct this first before replacing again since total body Phophate likely normal. Repeat Phosphorus in the afternoon Infectious Disease: Urine legionella negative Blood cultures negative Sputum culture negative Continue broad spectrum Abx: Zosyn + azithromycin (day 3-4). MRSA swab negative so vancomycin stopped Heme/Onc: Leukocytosis likely related to steroids +/- pneumonia. Mild thrombocytopenia: related to sepsis, too early for HIT, now appears to be improving PTINR and PTT now to assess for DIC or other potential causes for bleeding. Endocrine: T2DM, hold metformin due to acute illness. 7 units lantus BID, continue sliding scale insulin. Glycemic consult. Levothyroxine 25 mcg down OG. Lines and tubes: PICC Line (07/20) Prince cath (07/18) 7.5ETT (07/19) OG tube (07/19) VTE/GI Prophylaxis - Pantoprazole 40 mg IV BID - Holding heparin due to bleeding from PICC line insertion and GI. PTINR and PTT ordered as above to assess for DIC, Plt 128 (improving) - SCDs + TEDs Code - Full Disposition - continue ICU stay due to intubation Resident Physician Supervision Note: I interviewed and examined the patient. Discussed with Dr. Estes and agree with findings and plan as documented in the note. Any exceptions or clarifications are listed here: The patient's care was discussed on multidisciplinary rounds today. Data, VS, radiographs, meds, labs reviewed. Assessment and plan are well documented above. She remains critically ill and on the vent. The coffee ground-emily NG drainage has improved and H/H has been stable. Thrush improved. Less ETT secretions. Peep being decreased today. Chest CT without PE, bibasilar infiltrates and consolidation. Remains on propofol and is able to slowly follow commands and move all 4 extremities on it. Coags normal. IVF discontinued - consider lasix. Continue supportive therapy for ARDS and PNA. Consider bronch prior to extubation. Critical care time 50 min. Documented By: Cecilia Lazo Consults & Procedures Consultants: Under Primary care of Dr Gonzalez Data Medications: Current Inpatient Medications Medications (Trade) Dose Ordered Sig/Racquel Route Start Time Stop Time Status Last Admin Dose Admin Ondansetron HCl (Zofran Inj) 4 mg Q6H PRN IV 07/18/16 17:15 08/17/16 17:14 Piperacillin Sod/ Tazobactam Sod (Consult) 1 ea UD PRN N/A 07/18/16 17:45 08/17/16 17:44 Albuterol Sulfate 2.5 mg 2.5 mg Q2H PRN INH 07/18/16 19:45 08/17/16 19:44 Sodium Chloride 1,000 ml @ 50 mls/hr Q20H IV 07/18/16 19:45 08/17/16 19:44 07/21/16 07:56 50 MLS/HR Azithromycin/ Dextrose (Zithromax IV/D5 250ml) 252.5 ml @ 125 mls/hr Q24H IV 07/19/16 20:00 07/26/16 19:59 07/20/16 19:19 125 MLS/HR Glucose (Glucose 40% Gel) 15-30 GRAMS 15 GRAMS... UD PRN PO 07/18/16 20:00 08/17/16 19:59 Glucose (Glucose Chew Tab) 4-8 Tablets 4 Tabl... UD PRN PO 07/18/16 20:00 08/17/16 19:59 Dextrose (Dextrose 50% 50ML Syringe) 25-50ML OF 50% DW IV FOR... UD PRN IV 07/18/16 20:00 08/17/16 19:59 Glucagon 1 mg 1 mg UD PRN SQ 07/18/16 20:00 08/17/16 19:59 Piperacillin Sod/ Tazobactam Sod/ Dextrose (Zosyn Iv/D5 100ml) 120 ml @ 30 mls/hr Q8H IV 07/18/16 21:00 07/25/16 20:59 07/21/16 05:15 30 MLS/HR Haloperidol Lactate (Haldol Inj) 5 mg Q4H PRN IV 07/18/16 21:45 08/17/16 21:44 Diphenhydramine HCl (Benadryl Inj) 25 mg Q4H PRN IV 07/18/16 21:45 08/17/16 21:44 Fluphenazine HCl (Prolixin Tab) 15 mg HS PO 07/19/16 21:00 08/18/16 20:59 07/20/16 20:38 15 MG Levothyroxine Sodium (Synthroid Tab) 25 mcg DAILYBB PO 07/19/16 06:00 08/18/16 05:59 07/21/16 05:42 25 MCG Miscellaneous Information (Order Awaiting Action) 1 ea QS N/A 07/19/16 00:00 08/18/16 00:00 Miscellaneous Information (Consult Glycemic Management Pharmacy) 1 ea UD PRN N/A 07/19/16 08:53 08/18/16 08:52 Chlorhexidine Gluconate (Peridex Oral Soln) 15 ml BID MT 07/19/16 09:00 08/18/16 08:59 07/21/16 07:56 15 ML Acetylcysteine (Mucomyst 20% Inh Soln) 3 ml QIDR INH 07/19/16 12:00 08/18/16 11:59 07/20/16 20:00 3 ML Propofol (Diprivan Iv Emulsion 100ml Vial) 1 dose UD PRN IV 07/19/16 12:45 07/22/16 12:44 07/21/16 07:55 1 DOSE Docusate Sodium (coLACE SYRUP) 100 mg BID PO 07/19/16 21:00 08/18/16 20:59 07/21/16 07:59 100 MG Insulin Aspart (novoLOG ASPART) SLIDING SCALE G... Q4 SC 07/19/16 16:00 08/18/16 15:59 07/21/16 08:01 1 UNITS Valproic Acid (Depakene Syrup) 1,000 mg BID PO 07/19/16 21:00 08/18/16 20:59 07/21/16 08:00 1,000 MG Ipratropium [place] (Atrovent Hfa Inhaler) 6 puffs Q4R INH 07/19/16 16:00 08/18/16 15:59 07/21/16 03:00 6 PUFFS Albuterol (Ventolin Hfa Inhaler) 6 puffs Q4R INH 07/19/16 16:00 08/18/16 15:59 07/21/16 03:00 6 PUFFS Nystatin (Mycostatin Susp) 5 ml QID PO 07/19/16 17:00 07/29/16 16:59 07/21/16 07:59 5 ML Acetaminophen (Tylenol Soln) 650 mg Q4H PRN OG 07/19/16 17:00 08/18/16 16:59 Lorazepam (Ativan Inj) 0.5 mg Q4H PRN IV 07/20/16 09:30 08/19/16 09:29 07/20/16 22:34 0.5 MG Fentanyl Citrate 50 mcg 50 mcg Q2H PRN IV 07/20/16 11:30 08/03/16 11:29 Pantoprazole Sodium 40 mg/ Dextrose 100 ml @ 20 mls/hr Q5H IV 07/20/16 12:00 08/19/16 11:59 07/21/16 07:46 20 MLS/HR Methylprednisolone Sodium Succinate/ Syringe (Solu-Medrol IV/ Syringe) 0.64 ml @ 1.5 mls/min Q8H IV 07/20/16 20:00 08/19/16 19:59 07/21/16 04:24 1.5 MLS/MIN Insulin Glargine (Lantus Solostar Pen) 7 unit Q12 SC 07/21/16 09:00 08/20/16 08:59 07/21/16 08:02 7 UNIT I & O: 24-Hour Column 07/21/16 07:59 Intake Total 3488 ml Output Total 1575 ml Balance 1913 ml Vital Signs: Date Time Temp Pulse Resp B/P Pulse Ox O2 Delivery O2 Flow Rate FiO2 07/21/16 06:00 36.7 45 22 110/63 98 Mechanical Ventilator 60 07/21/16 05:35 70 07/21/16 04:00 70 07/21/16 04:00 100 70 07/21/16 04:00 36.8 47 20 104/65 98 Mechanical Ventilator 70 07/21/16 03:59 36.8 47 20 104/65 98 Mechanical Ventilator 70 07/21/16 03:00 70 07/21/16 01:59 36.7 51 115/69 100 Mechanical Ventilator 70 07/20/16 23:59 100 70 07/20/16 23:59 37.0 50 20 99/58 100 Mechanical Ventilator 70 07/20/16 23:59 70 07/20/16 23:05 70 07/20/16 22:00 36.9 58 24 98/63 94 Mechanical Ventilator 70 07/20/16 20:05 70 07/20/16 20:00 70 07/20/16 20:00 37.1 50 107/69 94 Mechanical Ventilator 70 07/20/16 20:00 Mechanical Ventilator 70 07/20/16 18:00 37.5 60 20 105/67 94 Mechanical Ventilator 70 07/20/16 17:50 70 07/20/16 16:11 70 07/20/16 16:00 Mechanical Ventilator 70 07/20/16 16:00 70 07/20/16 16:00 37.6 64 20 112/72 95 Mechanical Ventilator 70 07/20/16 14:00 37.3 71 20 112/71 95 Mechanical Ventilator 80 07/20/16 12:00 Mechanical Ventilator 70 07/20/16 12:00 70 07/20/16 12:00 37.4 60 20 102/56 89 Mechanical Ventilator 70 07/20/16 11:05 70 07/20/16 10:00 66 20 110/68 92 Mechanical Ventilator 70 Laboratory Results: Last 24 Hours Test 07/20/16 11:23 07/20/16 11:54 07/20/16 15:57 07/20/16 16:21 Bedside Glucose 193 mg/dl 164 mg/dl Hemoglobin 10.7 g/dL Hematocrit 32.2 % Blood Gas Sample Site R Radial Bedside Blood Gas pH (LAB) 7.51 Bedside Blood Gas pCO2 (LAB) 38 mmHg Bedside Blood Gas pO2 (LAB) 90 mmHg Bedside Blood Gas HCO3 (LAB) 30 meq/L Bedside Blood Gas Total CO2 32 mEq/l Bedside Blood Gas Base Excess (LAB) 8.0 meq/L Bedside Blood Gas O2 Saturation 98.0 % Kaiden Test NA Oxygen Delivery Device Ventilator Bedside Oxygen Rate (breaths/min) 22 Blood Gas Minute Ventilation 10.9 Bedside FiO2 70 % Blood Gas Tidal Volume 450 Blood Gas PEEP 15 Test 07/20/16 17:45 07/20/16 19:21 07/20/16 23:38 07/21/16 00:25 Hemoglobin 10.8 g/dL 10.6 g/dL Hematocrit 33.2 % 31.7 % Phosphorus Level 2.7 mg/dl Bedside Glucose 170 mg/dl 213 mg/dl Test 07/21/16 04:15 07/21/16 05:20 07/21/16 07:57 07/21/16 08:50 Bedside Glucose 171 mg/dl 181 mg/dl White Blood Count 6.53 K/uL Red Blood Count 3.54 M/uL Hemoglobin 10.5 g/dL Hematocrit 32.9 % Mean Corpuscular Volume 92.9 fL Mean Corpuscular Hemoglobin 29.7 pg Mean Corpuscular Hemoglobin Concent 31.9 g/dl Platelet Count 128 K/uL Mean Platelet Volume 11.5 fL Neutrophils (%) (Auto) 78.3 % Lymphocytes (%) (Auto) 15.6 % Monocytes (%) (Auto) 4.1 % Eosinophils (%) (Auto) 0.0 % Basophils (%) (Auto) 0.3 % Neutrophils # (Auto) 5.11 K/uL Lymphocytes # (Auto) 1.02 K/uL Monocytes # (Auto) 0.27 K/uL Eosinophils # (Auto) 0.00 K/uL Basophils # (Auto) 0.02 K/uL RDW Standard Deviation 49.8 fL RDW Coefficient of Variation 14.6 % Immature Granulocyte % (Auto) 1.7 % Immature Granulocyte # (Auto) 0.11 K/uL Nucleated RBC Absolute Count (auto) 0.04 K/uL Nucleated Red Blood Cells % 0.5 % Sodium Level 143 mmol/L Potassium Level 4.2 mmol/L Chloride Level 105 mmol/L Carbon Dioxide Level 31 mmol/L Anion Gap 7.0 mmol/L Blood Urea Nitrogen 12 mg/dl Creatinine 0.66 mg/dl Est Creatinine Clear Calc Drug Dose 128.2 ml/min Estimated GFR () 129.0 Estimated GFR (Non- 111.3 BUN/Creatinine Ratio 18.3 Random Glucose 164 mg/dl Calcium Level 8.2 mg/dl Phosphorus Level 2.2 mg/dl Magnesium Level 2.2 mg/dl Prothrombin Time 10.3 SECONDS Prothromb Time International Ratio 1.0 Activated Partial Thromboplast Time 25.9 SECONDS Partial Thromboplastin Ratio 1.0 Resident Tracking Resident Involvement: Resident Care Provided Care Provided: Adult Hospital Medicine (ICU)
[2016-07-21] MEDS ORDERED: OPTIRAY 320 IV PRN (12:15)
--- NOTE | 2016-07-21 12:42 | Pharmacy Progress Note ---
Glycemic Control: Progress Nt Date of Service Jul 21, 2016. Scope Glycemic Pharmacist consulted by Dr Lazo on 07/19/16 for glycemic control and to write orders per [facility] inpatient glycemic control protocol. Objective Accuchecks BSG (last 24hrs): Test 07/20/16 16:21 07/20/16 19:21 07/21/16 00:25 07/21/16 04:15 Bedside Glucose 164 mg/dl (70-90) 170 mg/dl (70-90) 213 mg/dl (70-90) 171 mg/dl (70-90) Test 07/21/16 05:20 07/21/16 07:57 Random Glucose 164 mg/dl (70-99) Bedside Glucose 181 mg/dl (70-90) Laboratory Data (last 24hrs) Test 07/21/16 05:20 Anion Gap 7.0 mmol/L BUN/Creatinine Ratio 18.3 Blood Urea Nitrogen 12 mg/dl Creatinine 0.66 mg/dl Potassium Level 4.2 mmol/L Sodium Level 143 mmol/L White Blood Count 6.53 K/uL Red Blood Count 3.54 M/uL Hemoglobin 10.5 g/dL Hematocrit 32.9 % Mean Corpuscular Volume 92.9 fL Mean Corpuscular Hemoglobin 29.7 pg Mean Corpuscular Hemoglobin Concent 31.9 g/dl Platelet Count 128 K/uL Mean Platelet Volume 11.5 fL Neutrophils (%) (Auto) 78.3 % Lymphocytes (%) (Auto) 15.6 % Monocytes (%) (Auto) 4.1 % Eosinophils (%) (Auto) 0.0 % Basophils (%) (Auto) 0.3 % Neutrophils # (Auto) 5.11 K/uL Lymphocytes # (Auto) 1.02 K/uL Monocytes # (Auto) 0.27 K/uL Eosinophils # (Auto) 0.00 K/uL Basophils # (Auto) 0.02 K/uL HbA1c: Test 07/20/16 05:54 Hemoglobin A1c 6.8 % (4.5-5.6) H Recent Pertinent Medications Outpatient Anti-diabetic Regimen: * Metformin 1gm PO BID * A1c = 6.8% 07/20/16 The patient is currently receiving: * Basal insulin: Lantus 5 units SQ BID; hold if BSG less than 120 * Correctional Insulin: Novolog Correction per scale Q 4 hours Goal Range: Low 140 mg/dL - High 180 mg/dL Correction Factor: 25 mg/dL/unit * Prandial insulin: Per carb ratio of 1 unit per 10 grams CHO consumed * Oral Agents: None currently Risk Factors for Insulin Resistance: * Steroids: Solu-medrol 40mg IV Q 6 hrs ---> changed to 40mg IV Q 8 hours yesterday * Infection: septic shock secondary to PNX; receiving Zosyn + Zithromax ( Vancomycin has been d/c'd) * IVF: ABX mixed in D5W; Pantoprazole infusion mixed in D5W * Diet: NPO * Mechanical Ventilation: intubated 07/19/16 and remains on vent Assessment & Plan ASSESSMENT: 07/19/16 * Type 2 diabetic admitted with SOB, temp and hypotension - felt to have sepsis secondary to PNX * Since admission she has required vasopressor support and is now intubated due to desaturation on BiPAP * BSGs did climb yesterday after the administration of Solu-Medrol IV. The BSGs did fall with correctional insulin. However now pt is starting IV steroids again and I anticipate BSGs to climb. * Will initiate a basal / bolus SQ regimen, low dose basal initially as last BSG was 109 and no plans to feed the patient yet. Basal order will have a hold parameter. * Level of glycemic control BIN FILLER unknown, will check A1c w/ labs tomorrow AM 07/20/16 * Glycemic control acceptable at this time, a few BSGs above 180 over the last 24 hours, but overall control appears to be improving * Patient remains on vent, however Norepi was weaned off yesterday. IV Solu- Medrol continues at same dose. * Current BSGs are reflective of fasting state. Over the last 24 hrs patient received 17 units of SQ insulin (10 units basal + 7 units correction). There may be room to go up on the basal insulin dose with current stressors, however there are no plans to begin enteral feeds yet. BSGs may begin to drop the longer the patient is NPO due to depletion of glycogen stores. She is however receiving dextrose in multiple IV medications. Will continue the current Lantus dose for now and Q 4 hr Novolog coverage which help if the basal dose inadequate. 07/21/16 * Majority of BSGs have been at or near goal over the last 24 hrs; BSGs have ranged 148-213 (only 1 BSG over 200) * Current BSGs are reflect of a fasting state as she remains NPO. There is room to increase her basal insulin dose. * Will continue Q 4 hrs BSG checks and coverage to allow for better control. Will lower the goal range slightly to allow for an additional unit or two when elevated. PLAN FOR INPATIENT GLYCEMIC CONTROL: * Increase to Lantus 7 units SQ BID; hold if BSG less than 120 * Continuing correction factor of 25 mg/dl/unit * Continue carb ratio of 1 unit per 10 grams CHO consumed * Change goal range to Low 140 mg/dL - High 160 mg/dL * Continue BSG frequency Q 4 hrs and cover with the above Novolog orders * Please note that the plan above was derived based on current level of insulin resistance and hospital stress. These recommendations are appropriate for inpatient admission only. Plan of care upon discharge will need to be reassessed to avoid potential outpatient hypo/hyperglycemia. Thank you.
--- NOTE | 2016-07-21 13:35 | DIAGNOSTIC IMAGING REPORT ---
CHEST CTA for PULMONARY ARTERIES CT DOSE: 741.61 mGy.cm HISTORY: Respiratory failure. Hypoxia. TECHNIQUE: Multiaxial CT images of the chest were performed following the intravenous administration of contrast to evaluate the pulmonary arteries. Maximal intensity projection images were also obtained. COMPARISON STUDY: None. FINDINGS: Thoracic aorta is normal in course and caliber. Pulmonary vasculature enhances appropriately. There are no significant filling defects. Central pulmonary vasculature is unremarkable. There is an endotracheal tube 3 cm both patsy. There is nasogastric tube within the stomach. Patient has bibasilar parenchymal infiltrative changes. Visualized mild degree of consolidative change. There are small bilateral pleural effusions. Additional parenchymal infiltrative changes identified in the right mid lung and to a lesser extent upper lung regions bilaterally. IMPRESSION: 1. Study is negative for pulmonary embolus. 2. Diffuse bilateral parenchymal infiltrative changes considered most prominent in the lung bases. 3. In The lung bases there is a component of consolidative change. 4. Tube and line positions in satisfactory position as described Electronically signed by: Harjit Santamaria M.D. 07/21/2016 1:34 PM Dictated Date/Time: 07/21/2016 1:30 PM
--- NOTE | 2016-07-21 14:48 | Progress Note ---
Subjective Date of Service: Jul 21, 2016. Subjective this pt is still having hypoxic issues, not able to wean vent at this point despite ppi still with dark ng drainage but hgb stable Problem List Medical Problems: (1) Acute kidney injury Status: Acute (2) Bilateral pneumonia Status: Acute (3) COPD exacerbation Status: Acute (4) Schizophrenia Status: Acute (5) Septic shock Status: Acute Review of Systems Constitutional: + problem reported (overall sedation does not permit ROS), No chills, No fever Objective Vital Signs Date Time Temp Pulse Resp B/P Pulse Ox O2 Delivery O2 Flow Rate FiO2 07/21/16 06:00 36.7 45 22 110/63 98 Mechanical Ventilator 60 07/21/16 05:35 70 07/21/16 04:00 70 07/21/16 04:00 100 70 07/21/16 04:00 36.8 47 20 104/65 98 Mechanical Ventilator 70 07/21/16 03:59 36.8 47 20 104/65 98 Mechanical Ventilator 70 07/21/16 03:00 70 07/21/16 01:59 36.7 51 115/69 100 Mechanical Ventilator 70 07/20/16 23:59 100 70 07/20/16 23:59 37.0 50 20 99/58 100 Mechanical Ventilator 70 07/20/16 23:59 70 07/20/16 23:05 70 07/20/16 22:00 36.9 58 24 98/63 94 Mechanical Ventilator 70 07/20/16 20:05 70 07/20/16 20:00 70 07/20/16 20:00 37.1 50 107/69 94 Mechanical Ventilator 70 07/20/16 20:00 Mechanical Ventilator 70 07/20/16 18:00 37.5 60 20 105/67 94 Mechanical Ventilator 70 07/20/16 17:50 70 07/20/16 16:11 70 07/20/16 16:00 Mechanical Ventilator 70 07/20/16 16:00 70 07/20/16 16:00 37.6 64 20 112/72 95 Mechanical Ventilator 70 07/20/16 14:00 37.3 71 20 112/71 95 Mechanical Ventilator 80 07/20/16 12:00 Mechanical Ventilator 70 07/20/16 12:00 70 07/20/16 12:00 37.4 60 20 102/56 89 Mechanical Ventilator 70 07/20/16 11:05 70 07/20/16 10:00 66 20 110/68 92 Mechanical Ventilator 70 Physical Exam General Appearance: + moderate distress, + obese Neck: supple, trachea midline Respiratory/Chest: + decreased breath sounds, + rhonchi Cardiovascular: regular rate, rhythm, no murmur Abdomen: normal bowel sounds, non tender, soft Extremities: no pedal edema, no calf tenderness Laboratory Results Last 24 Hours Test 07/20/16 09:30 07/20/16 11:23 07/20/16 11:54 07/20/16 15:57 Gastric Fluid pH 2 Gastric Fluid Occult Blood POS Bedside Glucose 193 mg/dl Hemoglobin 10.7 g/dL Hematocrit 32.2 % Blood Gas Sample Site R Radial Bedside Blood Gas pH (LAB) 7.51 Bedside Blood Gas pCO2 (LAB) 38 mmHg Bedside Blood Gas pO2 (LAB) 90 mmHg Bedside Blood Gas HCO3 (LAB) 30 meq/L Bedside Blood Gas Total CO2 32 mEq/l Bedside Blood Gas Base Excess (LAB) 8.0 meq/L Bedside Blood Gas O2 Saturation 98.0 % Kaiden Test NA Oxygen Delivery Device Ventilator Bedside Oxygen Rate (breaths/min) 22 Blood Gas Minute Ventilation 10.9 Bedside FiO2 70 % Blood Gas Tidal Volume 450 Blood Gas PEEP 15 Test 07/20/16 16:21 07/20/16 17:45 07/20/16 19:21 07/20/16 23:38 Bedside Glucose 164 mg/dl 170 mg/dl Hemoglobin 10.8 g/dL 10.6 g/dL Hematocrit 33.2 % 31.7 % Phosphorus Level 2.7 mg/dl Test 07/21/16 00:25 07/21/16 04:15 07/21/16 05:20 Bedside Glucose 213 mg/dl 171 mg/dl White Blood Count 6.53 K/uL Red Blood Count 3.54 M/uL Hemoglobin 10.5 g/dL Hematocrit 32.9 % Mean Corpuscular Volume 92.9 fL Mean Corpuscular Hemoglobin 29.7 pg Mean Corpuscular Hemoglobin Concent 31.9 g/dl Platelet Count 128 K/uL Mean Platelet Volume 11.5 fL Neutrophils (%) (Auto) 78.3 % Lymphocytes (%) (Auto) 15.6 % Monocytes (%) (Auto) 4.1 % Eosinophils (%) (Auto) 0.0 % Basophils (%) (Auto) 0.3 % Neutrophils # (Auto) 5.11 K/uL Lymphocytes # (Auto) 1.02 K/uL Monocytes # (Auto) 0.27 K/uL Eosinophils # (Auto) 0.00 K/uL Basophils # (Auto) 0.02 K/uL RDW Standard Deviation 49.8 fL RDW Coefficient of Variation 14.6 % Immature Granulocyte % (Auto) 1.7 % Immature Granulocyte # (Auto) 0.11 K/uL Nucleated RBC Absolute Count (auto) 0.04 K/uL Nucleated Red Blood Cells % 0.5 % Sodium Level 143 mmol/L Potassium Level 4.2 mmol/L Chloride Level 105 mmol/L Carbon Dioxide Level 31 mmol/L Anion Gap 7.0 mmol/L Blood Urea Nitrogen 12 mg/dl Creatinine 0.66 mg/dl Est Creatinine Clear Calc Drug Dose 128.2 ml/min Estimated GFR () 129.0 Estimated GFR (Non- 111.3 BUN/Creatinine Ratio 18.3 Random Glucose 164 mg/dl Calcium Level 8.2 mg/dl Phosphorus Level 2.2 mg/dl Magnesium Level 2.2 mg/dl Assessment and Plan 41 F Severe sepsis, septic shock related to pneumonia, developed acute hypoxic respiratory failure and was intubated and mechanically ventilated 07/19 I personally reviewed vital signs and labs, pt is bradycardic overnight, and hgb is stable despite coffee ground ng drainage SEvere sepsis from pneumonia azithromycin Zosyn Acute renal failure. secondary to to septic shock. improved with improved perfusion Acute Hypoxic respiratory failure, chronic obstructive pulmonary disease. BiPAP failed to provide adequate support and endotracheal intubation was performed and nebulizers. methylprednisolone, still fairly hypoxic requiring 60% fio2 metabolic encephalopathy with baseline psychologic illness of schizophrenia with suicidality, she will need ongoing psychiatric treatment. cannot tell as is on diprovan dark brown ng drainage, if not comming off vent soon(as suggested by increased oxygen need) tube feeds will also help if stress gastritis, protonix also Deep venous thrombosis prophylaxis, heparin subQ Diabetes. SSI. Hypothyroidism. Continue Synthroid.
[2016-07-21] MEDS ORDERED: PNEUMOCOCCAL ADMINISTRATION CHARGE ONE (15:00)
[2016-07-21] MEDS ORDERED: PNEUMOCOCCAL POLYSACCHARIDES 25 MCG/0.5 ML VIAL/SYR IM. ONE (15:00)
[2016-07-21] MEDS: FENTANYL CITRATE INJ 50 MCG/1 ML 2 ML VIAL IV PRN ×3 (15:22→22:42)
[2016-07-21 15:34] LABS: ISTAT ARTERIAL BLOOD GAS HCO3 30 meq/L (19-24); ISTAT ARTERIAL BLOOD GAS PCO2 43 mmHg (35-46); ISTAT ARTERIAL BLOOD GAS PO2 109 mmHg (80-95); ISTAT ARTERIAL BLOOD GAS pH 7.46 (7.35-7.45); ISTAT CARBON DIOXIDE 31 mEq/l (24-31); ISTAT DELIVERY SYSTEM Ventilator; ISTAT FIO2 60 %; ISTAT PEEP 13; ISTAT RATE 18; ISTAT SITE R Radial; VE 10.4; Vt 450
[2016-07-21] MEDS: AZITHROMYCIN IV 250 MG in DEXTROSE 5% 250ML 250 ML IV SCH (19:28)
[2016-07-21] MEDS: PANTOprazole INJ 40 MG in SYRINGE 0 ML IV SCH (20:32)
[2016-07-21] MEDS: DOCUSATE SODIUM 100 MG/10 ML UDC NG SCH (20:33)
[2016-07-21] MEDS: FLUPHENAZINE HCL 2.5 MG TAB PO SCH (20:34)
[2016-07-22] VITALS (12 sets, daily range): BP systolic 91–136; BP diastolic 59–86; PULSE 50–74; TEMP 37.2–37.7; O2SAT 91–99
[2016-07-22] MEDS: FENTANYL CITRATE INJ 50 MCG/1 ML 2 ML VIAL IV PRN ×2 (01:45→09:19)
[2016-07-22] MEDS: PROPOFOL IV EMULSION 10 MG/ML 100 ML VIAL IV PRN ×6 (02:43→21:26)
[2016-07-22] MEDS: INSULIN ASPART 100 UNITS/ML 3 ML PEN SC SCH ×5 (04:00→23:49)
[2016-07-22] MEDS: ALBUTEROL HFA 8 GM INHALER INH SCH ×6 (04:00→23:25)
[2016-07-22] MEDS: IPRATROPIUM BROMIDE HFA INHALER INH SCH ×6 (04:00→23:25)
[2016-07-22] MEDS: PIPERACILL/TAZOBAC IV 4.5 GM in DEXTROSE 5% 100ML IV SCH ×3 (04:37→21:33)
[2016-07-22] MEDS: LEVOTHYROXINE 25 MCG TAB PO SCH (05:35)
[2016-07-22 06:33] LABS: BASO % 0.3 %; BASO ABS # 0.03 K/uL (0-0.2); COMPLETE YES; EOS % 0.1 %; HEMATOCRIT 32.3 % (37-47); IG% 2.8 %; LYMPH % 20.6 %; LYMPH ABS # 1.81 K/uL (1.2-3.4); MEAN CORPUSCULAR HEMOGLOBIN 30.4 pg (25-34); MEAN CORPUSCULAR HGB CONC 33.4 g/dl (32-36); MEAN PLATELET VOLUME 10.5 fL (7.4-10.4); MONO % 3.8 %; NEUT % 72.4 %; PLATELET COUNT 158 K/uL (130-400); RED BLOOD COUNT 3.55 M/uL (4.2-5.4); WHITE BLOOD COUNT 8.78 K/uL (4.8-10.8)
[2016-07-22 07:03] LABS: BUN/CREATININE RATIO 24.8 (10-20); CALCIUM 8.1 mg/dl (8.5-10.1); CREATININE 0.6 mg/dl (0.60-1.20); MAGNESIUM 1.7 mg/dl (1.8-2.4); POTASSIUM 4.4 mmol/L (3.5-5.1)
[2016-07-22 07:20] LABS: PHOSPHORUS 3.2 mg/dl (2.5-4.9)
--- NOTE | 2016-07-22 07:30 | DIAGNOSTIC IMAGING REPORT ---
CHEST ONE VIEW PORTABLE CLINICAL HISTORY: respiratory failure COMPARISON STUDY: 07/21/2016 FINDINGS: There is a right-sided PICC catheter. There is an endotracheal tube 3.4 cm above the patsy. There is a nasogastric tube within the stomach. There are persistent bilateral pulmonary airspace opacities, most pronounced within the left lower lobe there is a persistent left pleural effusion. IMPRESSION: Persistent bilateral pulmonary airspace opacities most pronounced in the left lower lobe. Left pleural effusion. Satisfactory positioning of the lines and tubes Electronically signed by: Igor Anderson M.D. 07/22/2016 7:28 AM Dictated Date/Time: 07/22/2016 7:26 AM
[2016-07-22] MEDS: DOCUSATE SODIUM 100 MG/10 ML UDC NG SCH ×2 (07:43→21:30)
[2016-07-22] MEDS: VALPROIC ACID SYRUP 250 MG/5 ML PO SCH ×2 (07:44→21:29)
[2016-07-22] MEDS: PANTOprazole INJ 40 MG in SYRINGE 0 ML IV SCH ×2 (07:44→21:33)
[2016-07-22] MEDS: NYSTATIN SUSP 500,000 U/5 ML UDC PO SCH ×4 (07:44→21:29)
[2016-07-22] MEDS: METHYLPREDNISOLONE IV 40 MG in SYRINGE 0 ML IV SCH (07:44)
[2016-07-22] MEDS: INSULIN GLARGINE SOLOSTAR 100 UNITS/ML 3 ML PEN SC SCH ×2 (07:45→21:00)
[2016-07-22] MEDS: CHLORHEXIDINE GLUCONATE 0.12% 480 ML MT SCH ×2 (07:45→21:00)
[2016-07-22] MEDS ORDERED: MAGNESIUM SULFATE 1GM / D5W 1 GM in PREMIXED IN D5W 100 ML IV ONE ×2 (08:00→09:30)
[2016-07-22] MEDS ORDERED: FUROSEMIDE 40 MG/4 ML VIAL IV ONE (09:00)
[2016-07-22] MEDS ORDERED: POLYETHYLENE (MIRALAX) 17 GM PACK NG SCH (09:00)
[2016-07-22] MEDS ORDERED: SENNA 17.6 MG/10 ML UDP PO SCH (09:00)
--- NOTE | 2016-07-22 10:09 | CRITICAL CARE PROGRESS NOTE ---
DATE: 07/22/2016 DATE: 07/22/2016. SUBJECTIVE: There were no acute events overnight. The patient remains critically ill and on the ventilator. Her care was discussed in detail with her bedside nurse, Meera. She is having a small amount of white secretions from her endotracheal tube and is sedated with propofol. Her sedation was held while I was in the room. She has not had a bowel movement since admission. Her NG tube has been clamped since yesterday afternoon. PHYSICAL EXAMINATION: VITAL SIGNS: Maximum temperature 37.7, heart rate 50s, respiratory rate 23-28, blood pressure 91-120/60s to 70s, oxygen saturation 97%. Ventilator settings are assist control rate 18, tidal volume 450, FiO2 60%, PEEP 8. 24-hour fluid balance positive 846 mL. NEUROLOGIC: She will awaken off sedation and move all 4 extremities. Her upper extremity strength is 5/5. It is somewhat difficult to assess lower extremity strength, but distally she seems to be 5/5. Her right eye was deviated medially when she was comatose on her sedation. This resolved after the sedation was stopped. Pupils react bilaterally. LUNGS: Bronchial breath sounds in the left base and decreased breath sounds throughout. No wheezes or rales. HEART: Regular rate and rhythm. CHEST: Symmetric expansion. ABDOMEN: Obese, very soft, nondistended, nontender. Active bowel sounds. EXTREMITIES: Warm with trace to 1+ edema of the hands and no edema in the feet. SCDs are in place on bilateral lower extremities. LABORATORY DATA: White blood cell count 8.78, hemoglobin 10.8, hematocrit 32.3, platelets 158. Sodium 140, potassium 4.4, chloride 102, CO2 29, BUN 15, creatinine 0.6, calcium 8.1, phosphorus 3.2, magnesium 1.7. MEDICATIONS: Acetaminophen, albuterol, Mucomyst, azithromycin day 5, chlorhexidine, Benadryl, Colace, fentanyl, Prolixin, Haldol, NovoLog sliding scale, levothyroxine, Ativan, magnesium, Solu-Medrol, nystatin, Zofran, Protonix, Zosyn day 4, MiraLax, propofol, valproic acid. MICROBIOLOGY DATA: Sputum Gram stain moderate polys, no organisms. Sputum culture, no growth. Blood cultures 07/18/2016 no growth. IMAGING: Chest CT angiogram done yesterday negative for PE, diffuse bilateral parenchymal infiltrative changes most prominent in the lung bases with a component of consolidative change in the bases. Chest x-ray from today, persistent bilateral pulmonary airspace opacities most pronounced in the left lower lobe, left pleural effusion. IMPRESSION: 1. Acute hypoxemic hypercapnic respiratory failure secondary to pneumonia and septic shock. 2. Pneumonia, being treated with azithromycin and Zosyn and without an organism identified. Her CT scan is not particularly impressive. 3. Possible gastrointestinal bleed, she was on Protonix infusion 2 days ago, H\H was stable and the coffee ground material from her NG tube had significantly decreased. NG tube is clamped. I suspect this was secondary to stress and trauma. 4. Schizophrenia and on a 304 commitment at the [facility] presently. 5. Metabolic encephalopathy. 6. Acute kidney injury, resolved. 7. Diabetes mellitus with acceptable blood sugars. 8. History of hypothyroidism. PLAN: NEUROLOGIC: Continue propofol. I am going to begin a fentanyl infusion at 25 mcg per hour to see if we can begin to wean off the propofol. Continue Prolixin as well as valproic acid and check valproic acid level in the morning. P.R.N. Haldol with Benadryl which was the combination used as an outpatient p.r.n. She also has p.r.n. Ativan, but I would like to avoid that. PULMONARY: Her history suggests that she has COPD, steroids are being weaned. Discontinue Mucomyst and continue bronchodilators. We have already made a decrease in her PEEP today and she may be ready for spontaneous breathing trial later today. CARDIOVASCULAR: No active issues. She is off vasopressors and her echocardiogram shows a preserved ejection fraction. I will try to diurese her today. INFECTIOUS DISEASE: No organism identified on sputum culture. Urine legionella antigen is negative as are blood cultures. Her last dose of azithromycin will be this evening. Continue Zosyn for a total of 7 days. GASTROINTESTINAL: Unclamp NG tube. If there is still a suggestion of GI bleed hold off on tube feeds or consider trickle feeds today. Otherwise, begin tube feeds. Continue GI prophylaxis. She is constipated -- MiraLax will be increased to b.i.d. and I have added senna. RENAL: No acute issues. I will however, try to diurese her today and her electrolytes are being repleted and rechecked this afternoon. HEMATOLOGY: No acute issues. Decreased platelets are rebounding. Resume subcutaneous heparin, which was held yesterday secondary to some bleeding from the PICC line insertion. ENDOCRINE: Continue present glycemic management per pharmacy and continue levothyroxine. MISCELLANEOUS: I would like to see her sitting up in bed. PICC line was placed on 07/20/2016. Overall, she is slowly improving. She had ARDS several days ago, but her PF ratio has significantly improved. Hopefully we will be able to get her extubated today or tomorrow. CRITICAL CARE TIME: 50 minutes. MTDD
[2016-07-22] MEDS: FENTANYL 1250MCG/250ML NSS 250 ML IV PRN (10:27)
[2016-07-22] MEDS: PEPTAMEN INTENSE VHP 1000ML BAG OG SCH (10:52)
[2016-07-22] MEDS: MULTIVITAMINS W/MINERALS 15ML UDP PO SCH (11:49)
[2016-07-22] MEDS ORDERED: ENOXAPARIN 30 MG/0.3 ML SYR SQ ONE (14:30)
--- NOTE | 2016-07-22 15:13 | Pharmacy Progress Note ---
Glycemic Control: Progress Nt Date of Service Jul 22, 2016. Scope Glycemic Pharmacist consulted by Dr Lazo on 07/19/16 for glycemic control and to write orders per [facility] inpatient glycemic control protocol. Objective Accuchecks BSG (last 24hrs): Test 07/21/16 15:55 07/21/16 19:21 07/21/16 23:32 07/22/16 03:41 Bedside Glucose 99 mg/dl (70-90) 88 mg/dl (70-90) 132 mg/dl (70-90) 111 mg/dl (70-90) Test 07/22/16 04:44 07/22/16 07:30 07/22/16 11:55 07/22/16 15:00 Random Glucose 103 mg/dl (70-99) Bedside Glucose 101 mg/dl (70-90) 133 mg/dl (70-90) Laboratory Data (last 24hrs) Test 07/22/16 04:44 07/22/16 15:00 Anion Gap 9.0 mmol/L BUN/Creatinine Ratio 24.8 Blood Urea Nitrogen 15 mg/dl Creatinine 0.60 mg/dl Potassium Level 4.4 mmol/L Sodium Level 140 mmol/L White Blood Count 8.78 K/uL Red Blood Count 3.55 M/uL Hemoglobin 10.8 g/dL Hematocrit 32.3 % Mean Corpuscular Volume 91.0 fL Mean Corpuscular Hemoglobin 30.4 pg Mean Corpuscular Hemoglobin Concent 33.4 g/dl Platelet Count 158 K/uL Mean Platelet Volume 10.5 fL Neutrophils (%) (Auto) 72.4 % Lymphocytes (%) (Auto) 20.6 % Monocytes (%) (Auto) 3.8 % Eosinophils (%) (Auto) 0.1 % Basophils (%) (Auto) 0.3 % Neutrophils # (Auto) 6.35 K/uL Lymphocytes # (Auto) 1.81 K/uL Monocytes # (Auto) 0.33 K/uL Eosinophils # (Auto) 0.01 K/uL Basophils # (Auto) 0.03 K/uL HbA1c: Test 07/20/16 05:54 Hemoglobin A1c 6.8 % (4.5-5.6) H Recent Pertinent Medications Outpatient Anti-diabetic Regimen: * Metformin 1gm PO BID * A1c = 6.8% 07/20/16 The patient is currently receiving: * Basal insulin: Lantus 7 units SQ BID; hold if BSG less than 120 * Correctional Insulin: Novolog Correction per scale Q 4 hours Goal Range: Low 140 mg/dL - High 180 mg/dL Correction Factor: 25 mg/dL/unit * Prandial insulin: Per carb ratio of 1 unit per 10 grams CHO consumed * Oral Agents: None currently Risk Factors for Insulin Resistance: * Steroids: Solu-medrol 40mg IV Q 12 hrs--> changed to 20 mg IV Q12 starting tonight * Infection: septic shock secondary to PNX; receiving Zosyn + Zithromax ( Vancomycin has been d/c'd) * IVF: ABX mixed in D5W * Diet: NPO--> Peptamen Bariatric tube feeds to be initiated today * Mechanical Ventilation: intubated 07/19/16 and remains on vent Assessment & Plan ASSESSMENT: 07/22/16 * Majority of BSGs have been at or below goal over the last 24 hrs; BSGs have ranged 88-181 * Many factors effecting insulin resistance are changing over the next 24 hours * Steroids further tapered down starting tonight * Tube feeds to be initiated at trickle rate (10 cc/hr) then progress to goal ( 50 cc/hr) * Protonix drip (continuous dextrose) no longer a factor * Patient remains ventilated * Given good glycemic control, nursing requested change from Q 4 to Q 6 hrs BSG checks. I do not see a problem in making this change * Continue to monitor closely as insulin resistance changes and reassess in AM PLAN FOR INPATIENT GLYCEMIC CONTROL: * Change Lantus to 5 units only if BSG >140 mg/dL * Continue correction factor of 25 mg/dl/unit * Change carb ratio to set dosing for each step-up in tube feeds * Peptamen bariatric is low carb (76g CHO/1 L) * Give 0 units until rate is >30 mLs/hr- at that point, give 1 unit of insulin * When at goal (50 cc/hr), give 2 units of insulin * Continue goal range of Low 140 mg/dL - High 160 mg/dL * Change BSG frequency to Q 6 hrs and cover with the above Novolog orders * Please note that the plan above was derived based on current level of insulin resistance and hospital stress. These recommendations are appropriate for inpatient admission only. Plan of care upon discharge will need to be reassessed to avoid potential outpatient hypo/hyperglycemia. Thank you.
--- NOTE | 2016-07-22 15:15 | Progress Note ---
Subjective Date of Service: Jul 22, 2016. Subjective pt still with high fio2 requirement but peep is coming down, did have drug holiday this am with propofol and did well but resedated as we continue to adjust vent settings down to more appropriate level to wean Problem List Medical Problems: (1) Acute kidney injury Status: Acute (2) Bilateral pneumonia Status: Acute (3) COPD exacerbation Status: Acute (4) Schizophrenia Status: Acute (5) Septic shock Status: Acute Review of Systems Constitutional: + fatigue, + problem reported (cannot have full ROS due to sedation), + weakness, No chills, No fever Respiratory: + shortness of breath, No cough, No sputum, No wheezing Objective Vital Signs Date Time Temp Pulse Resp B/P Pulse Ox O2 Delivery O2 Flow Rate FiO2 07/22/16 14:00 37.3 65 31 112/72 94 Mechanical Ventilator 50 07/22/16 12:00 37.6 55 20 100/67 97 Mechanical Ventilator 50 07/22/16 12:00 50 07/22/16 12:00 Mechanical Ventilator 50 07/22/16 11:25 50 07/22/16 10:00 37.6 60 32 104/63 97 Mechanical Ventilator 60 07/22/16 08:00 60 07/22/16 08:00 37.4 59 23 103/70 97 Mechanical Ventilator 60 07/22/16 08:00 Mechanical Ventilator 60 07/22/16 07:52 70 07/22/16 06:00 37.3 65 27 109/63 99 Mechanical Ventilator 60 07/22/16 05:44 70 07/22/16 04:00 60 07/22/16 04:00 37.2 56 25 120/73 96 Mechanical Ventilator 60 07/22/16 04:00 Mechanical Ventilator 60 07/22/16 02:30 70 07/22/16 02:00 37.4 50 21 91/59 97 Mechanical Ventilator 60 07/22/16 00:00 37.5 61 28 117/77 96 Mechanical Ventilator 60 07/21/16 23:59 Mechanical Ventilator 60 07/21/16 23:59 60 07/21/16 23:45 70 07/21/16 22:00 37.7 57 24 109/72 98 Mechanical Ventilator 60 07/21/16 20:35 70 07/21/16 20:00 60 07/21/16 20:00 37.3 66 27 113/76 96 Mechanical Ventilator 60 07/21/16 20:00 Mechanical Ventilator 60 07/21/16 18:00 37.3 49 18 97/60 99 Mechanical Ventilator 60 07/21/16 16:26 70 07/21/16 16:00 60 07/21/16 16:00 37.4 53 18 98/61 97 Mechanical Ventilator 60 07/21/16 16:00 Mechanical Ventilator 60 Physical Exam General Appearance: + moderate distress, + obese Neck: supple, trachea midline Respiratory/Chest: + decreased breath sounds, + rhonchi Cardiovascular: regular rate, rhythm, no murmur Abdomen: normal bowel sounds, soft Extremities: normal inspection, + pedal edema Laboratory Results Last 24 Hours Test 07/21/16 15:22 07/21/16 15:55 07/21/16 19:21 07/21/16 23:32 Blood Gas Sample Site R Radial Bedside Blood Gas pH (LAB) 7.46 Bedside Blood Gas pCO2 (LAB) 43 mmHg Bedside Blood Gas pO2 (LAB) 109 mmHg Bedside Blood Gas HCO3 (LAB) 30 meq/L Bedside Blood Gas Total CO2 31 mEq/l Bedside Blood Gas Base Excess (LAB) 6.0 meq/L Bedside Blood Gas O2 Saturation 98.0 % Kaiden Test NA Oxygen Delivery Device Ventilator Bedside Oxygen Rate (breaths/min) 18 Blood Gas Minute Ventilation 10.4 Bedside FiO2 60 % Blood Gas Tidal Volume 450 Blood Gas PEEP 13 Bedside Glucose 99 mg/dl 88 mg/dl 132 mg/dl Test 07/22/16 03:41 07/22/16 04:44 07/22/16 07:30 07/22/16 11:55 Bedside Glucose 111 mg/dl 101 mg/dl 133 mg/dl White Blood Count 8.78 K/uL Red Blood Count 3.55 M/uL Hemoglobin 10.8 g/dL Hematocrit 32.3 % Mean Corpuscular Volume 91.0 fL Mean Corpuscular Hemoglobin 30.4 pg Mean Corpuscular Hemoglobin Concent 33.4 g/dl Platelet Count 158 K/uL Mean Platelet Volume 10.5 fL Neutrophils (%) (Auto) 72.4 % Lymphocytes (%) (Auto) 20.6 % Monocytes (%) (Auto) 3.8 % Eosinophils (%) (Auto) 0.1 % Basophils (%) (Auto) 0.3 % Neutrophils # (Auto) 6.35 K/uL Lymphocytes # (Auto) 1.81 K/uL Monocytes # (Auto) 0.33 K/uL Eosinophils # (Auto) 0.01 K/uL Basophils # (Auto) 0.03 K/uL RDW Standard Deviation 50.2 fL RDW Coefficient of Variation 14.8 % Immature Granulocyte % (Auto) 2.8 % Immature Granulocyte # (Auto) 0.25 K/uL Sodium Level 140 mmol/L Potassium Level 4.4 mmol/L Chloride Level 102 mmol/L Carbon Dioxide Level 29 mmol/L Anion Gap 9.0 mmol/L Blood Urea Nitrogen 15 mg/dl Creatinine 0.60 mg/dl Est Creatinine Clear Calc Drug Dose 137.1 ml/min Estimated GFR () 133.1 Estimated GFR (Non- 114.8 BUN/Creatinine Ratio 24.8 Random Glucose 103 mg/dl Calcium Level 8.1 mg/dl Phosphorus Level 3.2 mg/dl Magnesium Level 1.7 mg/dl Test 07/22/16 15:00 Assessment and Plan 41 F Severe sepsis, septic shock related to pneumonia, developed acute hypoxic respiratory failure and was intubated and mechanically ventilated 07/19 I personally reviewed vital signs and labs 07/22, SEvere sepsis from pneumonia resolved continue azithromycin Zosyn Acute renal failure. resolved Acute Hypoxic respiratory failure, chronic obstructive pulmonary disease. BiPAP failed to provide adequate support and endotracheal intubation was performed nebulizers. methylprednisolone continue , still fairly hypoxic attempting to reduce Fio2 requirement metabolic encephalopathy with baseline psychologic illness of schizophrenia with suicidality, she will need ongoing psychiatric treatment. has a 304 from the [facility] and will return there once improved dark brown ng drainage,hgb has been stable beginning tube feeds and continue ppi Deep venous thrombosis prophylaxis, heparin subQ Diabetes. stable on SSI but may need to adjust once feeding starts Hypothyroidism. stable Continue Synthroid.
[2016-07-22 16:35] LABS: BUN/CREATININE RATIO 20.8 (10-20); CALCIUM 8.8 mg/dl (8.5-10.1); CREATININE 0.7 mg/dl (0.60-1.20); MAGNESIUM 1.8 mg/dl (1.8-2.4); PHOSPHORUS 3.6 mg/dl (2.5-4.9); POTASSIUM 4.2 mmol/L (3.5-5.1)
[2016-07-22] MEDS ORDERED: MAGNESIUM SULFATE 1GM / D5W 1 GM in PREMIXED IN D5W 100 ML IV SCH (17:45)
[2016-07-22] MEDS: AZITHROMYCIN IV 250 MG in DEXTROSE 5% 250ML 250 ML IV SCH (19:38)
[2016-07-22] MEDS: METHYLPREDNISOLONE IV 20 MG in SYRINGE 0 ML IV SCH (19:38)
[2016-07-22] MEDS: FLUPHENAZINE HCL 2.5 MG TAB PO SCH (21:00)
[2016-07-22] MEDS: POLYETHYLENE (MIRALAX) 17 GM PACK NG SCH (21:30)
[2016-07-23] VITALS (12 sets, daily range): BP systolic 97–154; BP diastolic 59–91; PULSE 62–109; TEMP 37.4–38.1; O2SAT 91–99
[2016-07-23] MEDS: PROPOFOL IV EMULSION 10 MG/ML 100 ML VIAL IV PRN ×7 (01:08→22:06)
[2016-07-23] MEDS: FENTANYL 1250MCG/250ML NSS 250 ML IV PRN ×2 (01:12→20:42)
[2016-07-23] MEDS: IPRATROPIUM BROMIDE HFA INHALER INH SCH ×6 (03:28→23:10)
[2016-07-23] MEDS: ALBUTEROL HFA 8 GM INHALER INH SCH ×6 (03:28→23:10)
[2016-07-23] MEDS: LORAZEPAM 2 MG/ML 1 ML VIAL IV PRN (04:07)
[2016-07-23] MEDS: PIPERACILL/TAZOBAC IV 4.5 GM in DEXTROSE 5% 100ML IV SCH ×3 (05:22→20:13)
[2016-07-23] MEDS: LEVOTHYROXINE 25 MCG TAB PO SCH (05:23)
[2016-07-23 06:00] LABS: HEMATOCRIT 32.4 % (37-47); MEAN CELL VOLUME 90.8 fL (80-100); MEAN PLATELET VOLUME 10.5 fL (7.4-10.4); PLATELET COUNT 188 K/uL (130-400); RED BLOOD COUNT 3.57 M/uL (4.2-5.4); WHITE BLOOD COUNT 8.24 K/uL (4.8-10.8)
[2016-07-23] MEDS: INSULIN ASPART 100 UNITS/ML 3 ML PEN SC SCH ×4 (06:00→23:53)
[2016-07-23 06:33] LABS: BUN/CREATININE RATIO 24.6 (10-20); CALCIUM 8.4 mg/dl (8.5-10.1); CREATININE 0.6 mg/dl (0.60-1.20); MAGNESIUM 1.7 mg/dl (1.8-2.4)
[2016-07-23 06:55] LABS: BASO % 0.6 %; BASO ABS # 0.05 K/uL (0-0.2); COMPLETE YES; EOS % 0.4 %; IG% 5.8 %; LYMPH % 21.7 %; LYMPH ABS # 1.79 K/uL (1.2-3.4); MONO % 3.4 %; NEUT % 68.1 %; VACUOLIZATION 1+
[2016-07-23] MEDS: DOCUSATE SODIUM 100 MG/10 ML UDC NG SCH (07:21)
[2016-07-23] MEDS: ENOXAPARIN 40 MG/0.4 ML SYR SQ SCH (07:21)
[2016-07-23] MEDS: VALPROIC ACID SYRUP 250 MG/5 ML PO SCH ×2 (07:22→20:13)
[2016-07-23] MEDS: POLYETHYLENE (MIRALAX) 17 GM PACK NG SCH (07:22)
[2016-07-23] MEDS: MULTIVITAMINS W/MINERALS 15ML UDP PO SCH (07:22)
[2016-07-23] MEDS: INSULIN GLARGINE SOLOSTAR 100 UNITS/ML 3 ML PEN SC SCH (07:23)
[2016-07-23] MEDS: NYSTATIN SUSP 500,000 U/5 ML UDC PO SCH ×4 (07:23→20:13)
[2016-07-23] MEDS: METHYLPREDNISOLONE IV 20 MG in SYRINGE 0 ML IV SCH ×2 (07:23→20:12)
[2016-07-23] MEDS: CHLORHEXIDINE GLUCONATE 0.12% 480 ML MT SCH ×2 (07:23→20:15)
[2016-07-23] MEDS ORDERED: BISACODYL 10 MG SUPP PR STA (07:36)
[2016-07-23] MEDS ORDERED: MAGNESIUM SULFATE 1GM / D5W 1 GM BAG IV STA (07:36)
[2016-07-23] MEDS ORDERED: BISACODYL 10 MG SUPP PR PRN (07:45)
[2016-07-23] MEDS: PANTOprazole INJ 40 MG in SYRINGE 0 ML IV SCH ×2 (07:54→20:13)
[2016-07-23] MEDS: MAGNESIUM SULFATE 1GM / D5W 1 GM in PREMIXED IN D5W 100 ML IV SCH ×2 (08:17→09:01)
[2016-07-23] MEDS ORDERED: SENNA 17.6 MG/10 ML UDP PO SCH (09:00)
[2016-07-23] MEDS ORDERED: FUROSEMIDE 40 MG/4 ML VIAL IV STA (09:32)
--- NOTE | 2016-07-23 09:46 | DIAGNOSTIC IMAGING REPORT ---
CHEST ONE VIEW PORTABLE HISTORY: hypoxia COMPARISON: Chest 07/22/2016. FINDINGS: Endotracheal tube terminates 2.7 cm from the patsy. Nasogastric tube terminates in the stomach. Right PICC terminates in the SVC. No pneumothorax. The heart remains enlarged. Left lower lobe/effusion persists. Also patchy densities within the right lung base. IMPRESSION: Satisfactory support line placement. Bibasilar densities persist. Electronically signed by: Michel Umanzor M.D. 07/23/2016 9:45 AM Dictated Date/Time: 07/23/2016 9:43 AM
--- NOTE | 2016-07-23 13:38 | Progress Note ---
Subjective Date of Service: Jul 23, 2016. Subjective while pt was on a weaning trial her sedation was less and she was able to nod her head y/n, states was not in pain, did feel short of breath, otherwise fell easily to sleep Problem List Medical Problems: (1) Acute kidney injury Status: Acute (2) Bilateral pneumonia Status: Acute (3) COPD exacerbation Status: Acute (4) Schizophrenia Status: Acute (5) Septic shock Status: Acute Review of Systems sedation prevents ROS Objective Vital Signs Date Time Temp Pulse Resp B/P Pulse Ox O2 Delivery O2 Flow Rate FiO2 07/23/16 12:00 Mechanical Ventilator 50 07/23/16 12:00 37.9 96 25 111/72 96 Mechanical Ventilator 50 07/23/16 12:00 50 07/23/16 11:29 60 07/23/16 10:00 38.0 79 27 135/83 94 Mechanical Ventilator 50 07/23/16 08:16 40 07/23/16 08:00 Mechanical Ventilator 40 07/23/16 08:00 40 07/23/16 08:00 38.1 109 38 154/91 91 Mechanical Ventilator 40 07/23/16 06:00 37.7 62 18 97/62 93 Mechanical Ventilator 40 07/23/16 05:40 50 07/23/16 04:00 Mechanical Ventilator 40 07/23/16 04:00 40 07/23/16 04:00 37.6 87 26 136/79 95 Mechanical Ventilator 40 07/23/16 02:31 50 07/23/16 02:00 37.6 88 32 154/71 97 Mechanical Ventilator 40 07/23/16 00:22 Mechanical Ventilator 40 07/23/16 00:22 40 07/23/16 00:01 37.4 64 20 108/71 94 Mechanical Ventilator 40 07/22/16 23:16 50 07/22/16 22:00 37.6 69 19 102/66 96 Mechanical Ventilator 45 07/22/16 20:20 50 07/22/16 20:00 50 07/22/16 20:00 37.5 54 18 106/69 96 Mechanical Ventilator 50 07/22/16 20:00 Mechanical Ventilator 50 07/22/16 19:29 50 07/22/16 18:00 37.7 71 28 132/86 91 Mechanical Ventilator 50 07/22/16 16:00 Mechanical Ventilator 50 07/22/16 16:00 37.5 74 25 136/86 93 Mechanical Ventilator 50 07/22/16 16:00 50 07/22/16 15:25 50 07/22/16 14:00 37.3 65 31 112/72 94 Mechanical Ventilator 50 Physical Exam General Appearance: + moderate distress, + obese Neck: no JVD, trachea midline Respiratory/Chest: + decreased breath sounds, + rhonchi Cardiovascular: regular rate, rhythm, no murmur Abdomen: normal bowel sounds, soft Extremities: no pedal edema, no calf tenderness Laboratory Results Last 24 Hours Test 07/22/16 15:56 07/22/16 17:06 07/22/16 23:31 07/23/16 05:26 Sodium Level 141 mmol/L Potassium Level 4.2 mmol/L Chloride Level 100 mmol/L Carbon Dioxide Level 31 mmol/L Anion Gap 10.0 mmol/L Blood Urea Nitrogen 15 mg/dl Creatinine 0.70 mg/dl Est Creatinine Clear Calc Drug Dose 117.5 ml/min Estimated GFR () 126.5 Estimated GFR (Non- 109.1 BUN/Creatinine Ratio 20.8 Random Glucose 123 mg/dl Calcium Level 8.8 mg/dl Phosphorus Level 3.6 mg/dl Magnesium Level 1.8 mg/dl Bedside Glucose 104 mg/dl 155 mg/dl 103 mg/dl Test 07/23/16 05:48 07/23/16 11:35 White Blood Count 8.24 K/uL Red Blood Count 3.57 M/uL Hemoglobin 10.7 g/dL Hematocrit 32.4 % Mean Corpuscular Volume 90.8 fL Mean Corpuscular Hemoglobin 30.0 pg Mean Corpuscular Hemoglobin Concent 33.0 g/dl Platelet Count 188 K/uL Mean Platelet Volume 10.5 fL Neutrophils (%) (Auto) 68.1 % Lymphocytes (%) (Auto) 21.7 % Monocytes (%) (Auto) 3.4 % Eosinophils (%) (Auto) 0.4 % Basophils (%) (Auto) 0.6 % Neutrophils # (Auto) 5.61 K/uL Lymphocytes # (Auto) 1.79 K/uL Monocytes # (Auto) 0.28 K/uL Eosinophils # (Auto) 0.03 K/uL Basophils # (Auto) 0.05 K/uL RDW Standard Deviation 48.1 fL RDW Coefficient of Variation 14.4 % Immature Granulocyte % (Auto) 5.8 % Immature Granulocyte # (Auto) 0.48 K/uL Nucleated RBC Absolute Count (auto) 0.02 K/uL Nucleated Red Blood Cells % 0.2 % Toxic Vacuolation 1+ Sodium Level 140 mmol/L Potassium Level 4.0 mmol/L Chloride Level 100 mmol/L Carbon Dioxide Level 31 mmol/L Anion Gap 9.0 mmol/L Blood Urea Nitrogen 15 mg/dl Creatinine 0.60 mg/dl Est Creatinine Clear Calc Drug Dose 134.2 ml/min Estimated GFR () 133.1 Estimated GFR (Non- 114.8 BUN/Creatinine Ratio 24.6 Random Glucose 119 mg/dl Calcium Level 8.4 mg/dl Magnesium Level 1.7 mg/dl Valproic Acid (Depakene) Level 52 mcg/ml Bedside Glucose 154 mg/dl Assessment and Plan 41 F Severe sepsis, septic shock related to pneumonia, developed acute hypoxic respiratory failure and was intubated and mechanically ventilated 07/19, is improving with needing less support but did fail weaning trial 07/23 I personally reviewed vital signs and labs 07/23, remains low on mag, Severe sepsis from pneumonia, shock resolved, continue azithromycin Zosyn started 07/18 Acute renal failure. resolved Acute Hypoxic respiratory failure, chronic obstructive pulmonary disease. BiPAP failed to provide adequate support and endotracheal intubation was performed nebulizers. methylprednisolone continues at low dose , hypoxic support and need for higher peep are reducing metabolic encephalopathy with baseline psychologic illness of schizophrenia with suicidality, she will need ongoing psychiatric treatment. has a 304 from the [facility] and will return there once improved FEN tube feeds and continue ppi Deep venous thrombosis prophylaxis, heparin subQ Diabetes. stable on SSI but may need to adjust once feeding starts Hypothyroidism. stable Continue Synthroid.
--- NOTE | 2016-07-23 14:13 | CRITICAL CARE PROGRESS NOTE ---
DATE: 07/23/2016 GENERAL INFORMATION: This is a 41-year-old woman with a history of schizophrenia who presented to the hospital on July 18 with fever, shortness of breath and hypotension. She has been treated for severe sepsis and pneumonia and required endotracheal intubation less than 24 hours into her hospitalization. She has been intubated since July 19 and has been treated with Zosyn as well as azithromycin. She also received at least 1 dose of vancomycin. Initially, she had acute kidney injury which since resolved and she did not require vasopressors for a very long period. She underwent CT scan of her chest to rule out PE on July 21 which was negative for pulmonary embolus but showed diffuse bilateral parenchymal infiltrative changes considered most prominent in the bases with a component of consolidative change. Initially after intubation, she required a PEEP of 15 and a 100% FIO2 with a PF ratio that was consistent with ARDS. She has improved over the past several days, but has not been producing sputum. We do not have an organism for her pneumonia. She has been diuresed as well. There were no acute events overnight. Her propofol was stopped this morning and she remains on a fentanyl infusion. She had a spontaneous breathing trial of CPAP 8/8 40% and she became tachypneic and oxygen saturations dropped to 88%. She was placed back on assist control and her PEEP was increased to 10, FIO2 to 50%. She is now on propofol 50 mcg per kilogram per minute and fentanyl 100 mcg per hour. She is not producing any sputum and she had, what her nurse describes as an explosive bowel movement this morning. She is tolerating her Peptamen at 50 mL per hour and her goal rate is 80 mL per hour, if she is not on propofol. PHYSICAL EXAMINATION: VITAL SIGNS: Maximum temperature 37.6, heart rate 52-87, respiratory rate 18-32, blood pressure 197-154/60s-80s, oxygen saturation 93%. VENTILATOR SETTINGS: Assist control - rate 18, tidal volume 450, FiO2 50%, and PEEP 10. A 24-hour fluid balance is minus 1.9 liters. GENERAL: She will awaken and move all 4 extremities to command. Her CAM assessment is positive. LUNGS: Coarse bilaterally. No rales, rhonchi or wheezes. HEART: Regular rate and rhythm. ABDOMEN: Obese, soft, nondistended, nontender. EXTREMITIES: Warm with trace edema of the hands. LABORATORY DATA: White blood cell count 8.24, hemoglobin 10.7, hematocrit 32.4, platelets 188. Sodium 140, potassium 4, chloride 100, CO2 31, BUN 15, creatinine 0.6. Blood sugar 119, magnesium 1.7, calcium 8.4. No change and culture data. IMAGING DATA: Portable chest x-ray was reviewed and shows bibasilar infiltrates. Endotracheal tube is in satisfactory position. MEDICATIONS: Acetaminophen, albuterol, azithromycin day 5, chlorhexidine, Benadryl, Lovenox, Peptamen, fentanyl, Prolixin, Haldol, Synthroid, Ativan, Solu-Medrol, multivitamin, nystatin, Zofran, Protonix, Zosyn day 5, propofol and valproic acid. IMPRESSION: 1. Acute hypoxemic respiratory failure secondary to pneumonia after presenting with severe sepsis, bordering on septic shock. No organism identified. 2. Acute respiratory distress syndrome, improved. 3. Acute kidney injury, resolved. 4. Coffee ground NG drainage, resolved. Hemoglobin and hematocrit stable. 5. Metabolic encephalopathy. 6. Schizophrenia with a 304 commitment at the [facility]. The documentation is also on her chart. 7. Diabetes mellitus with acceptable blood sugars. 8. History of hypothyroidism. 9. Possible chronic obstructive pulmonary disease. 10. Hypomagnesemia. PLAN: NEUROLOGIC: Continue fentanyl and propofol for sedation. She has p.r.n. Haldol ordered as well as Ativan, which were on her and DEIDRA from the [facility]. PULMONARY: Attempt to decrease PEEP later today. Continue bronchodilators as well as steroids and antibiotics. Attempt spontaneous breathing trial again tomorrow with sedation vacation. CARDIOVASCULAR: No active or acute issues. Hemodynamics have been acceptable. Continue to follow. Echocardiogram showed preserved ejection fraction. RENAL: Replete electrolytes and diurese with Lasix 40 mg IV x1 today. GASTROINTESTINAL: Continue to increase tube feeds to goal rate of 55 mL per hour while she is on the propofol. Discontinue senna, Colace and MiraLax. Continue Dulcolax p.r.n. Continue proton pump inhibitor for GI prophylaxis. HEME: Follow counts and continue Lovenox for DVT prophylaxis. INFECTIOUS DISEASE: Discontinue azithromycin after today's dose. Continue Zosyn for a total of 7 days. PSYCHIATRY: Continue Prolixin as well as valproic acid; p.r.n. Haldol and Ativan. ENDOCRINE: Sliding scale insulin. I discussed her care with her family who was at the bedside today. She will need to eventually go back to the [facility] on her 304 commitment. Paperwork is in the chart. Questions were answered. CRITICAL CARE TIME: 50 minutes. ALDAIR
--- NOTE | 2016-07-23 14:51 | Pharmacy Progress Note ---
Glycemic Control: Progress Nt Date of Service Jul 23, 2016. Scope Glycemic Pharmacist consulted by Dr Lazo on 07/19/16 for glycemic control and to write orders per [facility] inpatient glycemic control protocol. Objective Accuchecks BSG (last 24hrs): Test 07/22/16 15:56 07/22/16 17:06 07/22/16 23:31 07/23/16 05:26 Random Glucose 123 mg/dl (70-99) Bedside Glucose 104 mg/dl (70-90) 155 mg/dl (70-90) 103 mg/dl (70-90) Test 07/23/16 05:48 07/23/16 11:35 Random Glucose 119 mg/dl (70-99) Bedside Glucose 154 mg/dl (70-90) Laboratory Data (last 24hrs) Test 07/22/16 15:56 07/23/16 05:48 Anion Gap 10.0 mmol/L 9.0 mmol/L BUN/Creatinine Ratio 20.8 24.6 Blood Urea Nitrogen 15 mg/dl 15 mg/dl Creatinine 0.70 mg/dl 0.60 mg/dl Potassium Level 4.2 mmol/L 4.0 mmol/L Sodium Level 141 mmol/L 140 mmol/L White Blood Count 8.24 K/uL Red Blood Count 3.57 M/uL Hemoglobin 10.7 g/dL Hematocrit 32.4 % Mean Corpuscular Volume 90.8 fL Mean Corpuscular Hemoglobin 30.0 pg Mean Corpuscular Hemoglobin Concent 33.0 g/dl Platelet Count 188 K/uL Mean Platelet Volume 10.5 fL Neutrophils (%) (Auto) 68.1 % Lymphocytes (%) (Auto) 21.7 % Monocytes (%) (Auto) 3.4 % Eosinophils (%) (Auto) 0.4 % Basophils (%) (Auto) 0.6 % Neutrophils # (Auto) 5.61 K/uL Lymphocytes # (Auto) 1.79 K/uL Monocytes # (Auto) 0.28 K/uL Eosinophils # (Auto) 0.03 K/uL Basophils # (Auto) 0.05 K/uL HbA1c: Test 07/20/16 05:54 Hemoglobin A1c 6.8 % (4.5-5.6) H Recent Pertinent Medications Outpatient Anti-diabetic Regimen: * Metformin 1gm PO BID * A1c = 6.8% 07/20/16 Risk Factors for Insulin Resistance: * Steroids: Solu-medrol 20 mg IV Q12 * Infection: septic shock secondary to PNX; receiving Zosyn + Zithromax * IVF: ABX mixed in D5W * Diet: Peptamen Bariatric tube feeds * Mechanical Ventilation: intubated 07/19/16 and remains on vent Assessment & Plan ASSESSMENT: 07/22/16 * Majority of BSGs have been at or below goal over the last 24 hrs; BSGs have ranged 88-181 * Many factors effecting insulin resistance are changing over the next 24 hours * Steroids further tapered down starting tonight * Tube feeds to be initiated at trickle rate (10 cc/hr) then progress to goal ( 50 cc/hr) * Protonix drip (continuous dextrose) no longer a factor * Patient remains ventilated * Given good glycemic control, nursing requested change from Q 4 to Q 6 hrs BSG checks. I do not see a problem in making this change * Continue to monitor closely as insulin resistance changes and reassess in AM 07/23/16 * BSGs remain stable, 101-155 mg/dL * Patient has receive 0 units of basal insulin and 1 unit of Novolog over the past 24 hours * D/C basal insulin at this point and add back if BSGs >180 mg/dL * Continue current Novolog X 24 hours and reassess in the AM PLAN FOR INPATIENT GLYCEMIC CONTROL: * Discontinue Lantus * Continue correction factor of 25 mg/dl/unit * Continue set carb coverage for each step-up in tube feeds * Peptamen bariatric is low carb (76g CHO/1 L) * Give 0 units until rate is >30 mLs/hr- at that point, give 1 unit of insulin * When at goal (50 cc/hr), give 2 units of insulin * Continue goal range of Low 140 mg/dL - High 180 mg/dL * Continue BSG frequency to Q 6 hrs and cover with the above Novolog orders * Please note that the plan above was derived based on current level of insulin resistance and hospital stress. These recommendations are appropriate for inpatient admission only. Plan of care upon discharge will need to be reassessed to avoid potential outpatient hypo/hyperglycemia. Thank you.
[2016-07-23] MEDS: AZITHROMYCIN IV 250 MG in DEXTROSE 5% 250ML 250 ML IV SCH (20:12)
[2016-07-23] MEDS: FLUPHENAZINE HCL 2.5 MG TAB PO SCH (20:14)
[2016-07-23] MEDS: PEPTAMEN INTENSE VHP 1000ML BAG OG SCH (21:23)
[2016-07-24] VITALS (26 sets, daily range): BP systolic 100–144; BP diastolic 56–89; PULSE 68–104; TEMP 37.2–37.9; O2SAT 91–100
[2016-07-24] MEDS: PROPOFOL IV EMULSION 10 MG/ML 100 ML VIAL IV PRN ×2 (00:35→04:08)
[2016-07-24] MEDS: IPRATROPIUM BROMIDE HFA INHALER INH SCH ×5 (03:21→18:07)
[2016-07-24] MEDS: ALBUTEROL HFA 8 GM INHALER INH SCH ×5 (03:21→18:07)
[2016-07-24] MEDS: PIPERACILL/TAZOBAC IV 4.5 GM in DEXTROSE 5% 100ML IV SCH ×3 (05:26→20:36)
[2016-07-24] MEDS: LEVOTHYROXINE 25 MCG TAB PO SCH (05:26)
[2016-07-24] MEDS: INSULIN ASPART 100 UNITS/ML 3 ML PEN SC SCH ×4 (05:35→23:45)
[2016-07-24 05:43] LABS: MEAN CELL VOLUME 90.2 fL (80-100); MEAN CORPUSCULAR HEMOGLOBIN 30.1 pg (25-34); MEAN CORPUSCULAR HGB CONC 33.3 g/dl (32-36); MEAN PLATELET VOLUME 10.8 fL (7.4-10.4); PLATELET COUNT 265 K/uL (130-400); RED BLOOD COUNT 3.99 M/uL (4.2-5.4); WHITE BLOOD COUNT 11.37 K/uL (4.8-10.8)
[2016-07-24 06:10] LABS: BUN/CREATININE RATIO 24.9 (10-20); CALCIUM 9.1 mg/dl (8.5-10.1); CREATININE 0.66 mg/dl (0.60-1.20); MAGNESIUM 1.6 mg/dl (1.8-2.4); PHOSPHORUS 4.1 mg/dl (2.5-4.9); POTASSIUM 4.1 mmol/L (3.5-5.1)
[2016-07-24 07:04] LABS: COMPLETE YES; LYMPHOCYTE % 16.7 %; METAMYELOCYTE % 0.9 %; MYELOCYTE % 9.6 %; NEUTROPHILS % 70.2 %
[2016-07-24] MEDS: MULTIVITAMINS W/MINERALS 15ML UDP PO SCH (07:59)
[2016-07-24] MEDS: ENOXAPARIN 40 MG/0.4 ML SYR SQ SCH (08:01)
[2016-07-24] MEDS: VALPROIC ACID SYRUP 250 MG/5 ML PO SCH ×2 (08:01→20:36)
[2016-07-24] MEDS: NYSTATIN SUSP 500,000 U/5 ML UDC PO SCH ×4 (08:01→20:38)
[2016-07-24] MEDS: CHLORHEXIDINE GLUCONATE 0.12% 480 ML MT SCH ×2 (08:03→20:36)
[2016-07-24] MEDS: PANTOprazole INJ 40 MG in SYRINGE 0 ML IV SCH ×2 (08:04→20:35)
[2016-07-24] MEDS: METHYLPREDNISOLONE IV 20 MG in SYRINGE 0 ML IV SCH ×2 (08:04→19:41)
--- NOTE | 2016-07-24 08:29 | DIAGNOSTIC IMAGING REPORT ---
SINGLE VIEW CHEST CLINICAL HISTORY: Hypoxia. Respiratory failure FINDINGS: An AP, portable, upright chest radiograph is compared to study dated 07/23/2016 and correlated with chest CT dated 07/21/16. The examination is severely degraded by portable technique, large body habitus, and patient rotation. Endotracheal tube, and enteric tube, and a right-sided PICC line are unchanged in position. The cardiomediastinal silhouette is unremarkable. There are small pleural effusions and bibasilar consolidation, left greater than right. No pneumothorax is seen. The bony thorax is grossly intact. IMPRESSION: 1. Stable lines and tubes. 2. Bilateral pleural effusions with associated bibasilar consolidation, left greater than right is similar to previous. Electronically signed by: Paul Núñez M.D. 07/24/2016 8:28 AM Dictated Date/Time: 07/24/2016 8:26 AM
[2016-07-24] MEDS: MAGNESIUM SULFATE 1GM / D5W 1 GM in PREMIXED IN D5W 100 ML IV SCH ×2 (09:15→10:19)
[2016-07-24] MEDS: FENTANYL 1250MCG/250ML NSS 250 ML IV PRN (09:24)
[2016-07-24] MEDS: DexMEDEtomidine HCL INJ 200 MCG in SODIUM CHLORIDE 0.9% 50ML 48 ML IV PRN ×2 (09:34→12:18)
--- NOTE | 2016-07-24 10:14 | Critical Care Progress Note ---
Critical Care Progress Note Date of Service Jul 24, 2016. Attending Subjective Continues on vent. She is sedated. She is able to follow simple commands. Meds and Vent setting reviewed. Image noted. Tube feeding tolerated. Remains clinically ill. Objective VITAL SIGNS: were reviewed as below GENERAL: sedated (propofol) and intubated (7.5 ETT) SKIN: Warm dry and pink HEAD: Normocephalic and atraumatic EYES: extraocular muscles intact, pupils equal NECK: Large circumference,unable to assess JVD due to neck size LUNGS: Exchange is acceptable. No wheezing. Diminished in the base HEART: Regular rate and rhythm, quiet heart sounds, no murmurs audible ABDOMEN: Soft, distended (similar to previous day), nontender, bowel sounds present EXTREMITIES: perfusion is acceptable. . NEUROLOGICALLY: Sedated. Assessment & Plan Pneumonia and respiratory failure. I wonder if element of obesity/ hypoventilation. Completing the seven days of antibiotics. 1. Respiratory--will reduce the PEEP and FiO2. Mobilize. 2. Cardio--Consider some additional gentle diuresis 3. GI--continues to do well with feeding. 4. F/E/N--will track appropriates 5. Neuro--will wean sedation and mobilize. 6. Heme--WBC's noted. Will track 7. Musculo--PT/OT involved Critical Care Time 65 minutes Consults & Procedures Consultants: Under Primary care of Dr Gonzalez Data Medications: Current Inpatient Medications Medications (Trade) Dose Ordered Sig/Racquel Route Start Time Stop Time Status Last Admin Dose Admin Ondansetron HCl (Zofran Inj) 4 mg Q6H PRN IV 07/18/16 17:15 08/17/16 17:14 Piperacillin Sod/ Tazobactam Sod (Consult) 1 ea UD PRN N/A 07/18/16 17:45 08/17/16 17:44 Albuterol Sulfate 2.5 mg 2.5 mg Q2H PRN INH 07/18/16 19:45 08/17/16 19:44 Azithromycin/ Dextrose (Zithromax IV/D5 250ml) 252.5 ml @ 125 mls/hr Q24H IV 07/19/16 20:00 07/24/16 23:59 07/23/16 20:12 125 MLS/HR Glucose (Glucose 40% Gel) 15-30 GRAMS 15 GRAMS... UD PRN PO 07/18/16 20:00 08/17/16 19:59 Glucose (Glucose Chew Tab) 4-8 Tablets 4 Tabl... UD PRN PO 07/18/16 20:00 08/17/16 19:59 Dextrose (Dextrose 50% 50ML Syringe) 25-50ML OF 50% DW IV FOR... UD PRN IV 07/18/16 20:00 08/17/16 19:59 Glucagon 1 mg 1 mg UD PRN SQ 07/18/16 20:00 08/17/16 19:59 Piperacillin Sod/ Tazobactam Sod/ Dextrose (Zosyn Iv/D5 100ml) 120 ml @ 30 mls/hr Q8H IV 07/18/16 21:00 07/25/16 20:59 07/24/16 05:26 30 MLS/HR Haloperidol Lactate (Haldol Inj) 5 mg Q4H PRN IV 07/18/16 21:45 08/17/16 21:44 Diphenhydramine HCl (Benadryl Inj) 25 mg Q4H PRN IV 07/18/16 21:45 08/17/16 21:44 Fluphenazine HCl (Prolixin Tab) 15 mg HS PO 07/19/16 21:00 08/18/16 20:59 07/23/16 20:14 15 MG Levothyroxine Sodium (Synthroid Tab) 25 mcg DAILYBB PO 07/19/16 06:00 08/18/16 05:59 07/24/16 05:26 25 MCG Miscellaneous Information (Order Awaiting Action) 1 ea QS N/A 07/19/16 00:00 08/18/16 00:00 Miscellaneous Information (Consult Glycemic Management Pharmacy) 1 ea UD PRN N/A 07/19/16 08:53 08/18/16 08:52 Chlorhexidine Gluconate (Peridex Oral Soln) 15 ml BID MT 07/19/16 09:00 08/18/16 08:59 07/24/16 08:03 15 ML Valproic Acid (Depakene Syrup) 1,000 mg BID PO 07/19/16 21:00 08/18/16 20:59 07/24/16 08:01 1,000 MG Ipratropium Hodgen (Atrovent Hfa Inhaler) 6 puffs Q4R INH 07/19/16 16:00 08/18/16 15:59 07/24/16 08:01 6 PUFFS Albuterol (Ventolin Hfa Inhaler) 6 puffs Q4R INH 07/19/16 16:00 08/18/16 15:59 07/24/16 08:01 6 PUFFS Nystatin (Mycostatin Susp) 5 ml QID PO 07/19/16 17:00 07/29/16 16:59 07/24/16 08:01 5 ML Acetaminophen (Tylenol Soln) 650 mg Q4H PRN OG 07/19/16 17:00 08/18/16 16:59 07/23/16 23:50 650 MG Lorazepam (Ativan Inj) 0.5 mg Q4H PRN IV 07/20/16 09:30 08/19/16 09:29 07/23/16 04:07 0.5 MG Fentanyl Citrate 50 mcg 50 mcg Q2H PRN IV 07/20/16 11:30 08/03/16 11:29 07/22/16 09:19 50 MCG Pantoprazole Sodium/Syringe (Protonix Inj/ Syringe) 10 ml @ 5 mls/min BID@0900,2100 IV 07/21/16 21:00 08/20/16 20:59 07/24/16 08:04 5 MLS/MIN Ioversol 125 ml 125 ml UD PRN IV 07/21/16 12:15 07/25/16 12:14 Methylprednisolone Sodium Succinate/ Syringe (Solu-Medrol IV/ Syringe) 0.32 ml @ 1.5 mls/min Q12H IV 07/22/16 20:00 08/21/16 19:59 07/24/16 08:04 1.5 MLS/MIN Propofol (Diprivan Iv Emulsion 100ml Vial) 1 dose UD PRN IV 07/22/16 08:45 07/25/16 08:44 07/24/16 04:08 1 DOSE Multivitamins Therapeutic (Cerovite Liquid) 15 ml QAM PO 07/22/16 09:00 08/21/16 08:59 07/24/16 07:59 15 ML Enteral Nutritional Formula 1000 ml 1,000 ml UD OG 07/22/16 09:15 08/21/16 09:14 07/23/16 21:23 1,000 ML Fentanyl Citrate (Fentanyl Drip 1250MCG/250 Nss) 250 ml @ 0 mls/hr Q0M PRN IV 07/22/16 09:45 08/05/16 09:44 07/23/16 20:42 20 MLS/HR Insulin Aspart (novoLOG ASPART) PLEASE USE CORRECTION FACTOR... Q6 SC 07/22/16 12:00 08/21/16 11:59 07/24/16 05:35 2 UNITS Enoxaparin Sodium (Lovenox Inj) 40 mg QAM SQ 07/23/16 09:00 08/22/16 08:59 07/24/16 08:01 40 MG Bisacodyl 10 mg 10 mg DAILY PRN MT 07/23/16 07:45 08/22/16 07:44 Dexmedetomidine HCl 200 mcg/ Sodium Chloride 50 ml @ 0 mls/hr Q0M PRN IV 07/24/16 08:30 07/28/16 08:29 Magnesium Sulfate/ Prmx (Magnesium Sulfate/Premixed D5W) 100 ml @ 100 mls/hr Q1H IV 07/24/16 09:00 07/24/16 10:59 Ketoconazole (Nizoral 2% Crm) 1 appln BID EXT 07/24/16 09:15 08/03/16 09:14 I & O: 24-Hour Column 07/24/16 08:00 Intake Total 2917 ml Output Total 4050 ml Balance -1133 ml Vital Signs: Date Time Temp Pulse Resp B/P Pulse Ox O2 Delivery O2 Flow Rate FiO2 07/24/16 09:58 Mechanical Ventilator 50 07/24/16 09:00 94 22 92 07/24/16 08:59 93 23 116/68 92 07/24/16 08:56 50 07/24/16 08:00 90 22 94 07/24/16 07:59 37.7 90 21 122/74 95 Mechanical Ventilator 50 07/24/16 07:00 70 18 95 07/24/16 06:00 90 19 108/63 95 Mechanical Ventilator 60 07/24/16 05:34 60 07/24/16 04:00 Mechanical Ventilator 60 07/24/16 04:00 37.2 86 24 122/86 95 Mechanical Ventilator 60 07/24/16 04:00 60 07/24/16 02:16 60 07/24/16 02:00 68 18 100/56 96 Mechanical Ventilator 60 07/24/16 00:01 37.9 87 20 115/66 95 Mechanical Ventilator 60 07/23/16 23:59 Mechanical Ventilator 60 07/23/16 23:59 60 07/23/16 23:10 60 07/23/16 22:00 100 20 131/76 93 Mechanical Ventilator 60 07/23/16 20:00 50 07/23/16 20:00 Mechanical Ventilator 50 07/23/16 20:00 37.5 96 26 115/79 95 Mechanical Ventilator 50 07/23/16 19:36 60 07/23/16 18:00 37.7 83 18 105/59 99 Mechanical Ventilator 50 07/23/16 16:00 50 07/23/16 16:00 37.9 87 27 107/67 96 Mechanical Ventilator 50 07/23/16 16:00 Mechanical Ventilator 50 07/23/16 14:52 60 07/23/16 14:00 37.6 92 23 115/60 93 Mechanical Ventilator 50 07/23/16 12:00 Mechanical Ventilator 50 07/23/16 12:00 37.9 96 25 111/72 96 Mechanical Ventilator 50 07/23/16 12:00 50 07/23/16 11:29 60 Laboratory Results: Last 24 Hours Test 07/23/16 11:35 07/23/16 16:47 07/23/16 23:27 07/24/16 05:16 Bedside Glucose 154 mg/dl 116 mg/dl 169 mg/dl White Blood Count 11.37 K/uL Red Blood Count 3.99 M/uL Hemoglobin 12.0 g/dL Hematocrit 36.0 % Mean Corpuscular Volume 90.2 fL Mean Corpuscular Hemoglobin 30.1 pg Mean Corpuscular Hemoglobin Concent 33.3 g/dl Platelet Count 265 K/uL Mean Platelet Volume 10.8 fL RDW Standard Deviation 47.6 fL RDW Coefficient of Variation 14.3 % Nucleated RBC Absolute Count (auto) 0.02 K/uL Neutrophils % (Manual) 70.2 % Lymphocytes % (Manual) 16.7 % Monocytes % (Manual) 2.6 % Metamyelocytes % 0.9 % Myelocytes % 9.6 % Nucleated Red Blood Cells % 0.2 % Neutrophils # (Manual) 7.98 K/uL Total Absolute Neutrophils 7.98 K/uL Lymphocytes # (Manual) 1.90 K/uL Total Absolute Lymphocytes 1.90 K/uL Monocytes # (Manual) 0.30 K/uL Metamyelocytes # 0.10 K/uL Myelocytes # 1.09 K/uL Red Blood Cell Morphology Unremarkable Sodium Level 137 mmol/L Potassium Level 4.1 mmol/L Chloride Level 96 mmol/L Carbon Dioxide Level 33 mmol/L Anion Gap 8.0 mmol/L Blood Urea Nitrogen 16 mg/dl Creatinine 0.66 mg/dl Est Creatinine Clear Calc Drug Dose 122.0 ml/min Estimated GFR () 129.0 Estimated GFR (Non- 111.3 BUN/Creatinine Ratio 24.9 Random Glucose 114 mg/dl Calcium Level 9.1 mg/dl Phosphorus Level 4.1 mg/dl Magnesium Level 1.6 mg/dl Test 07/24/16 05:24 Bedside Glucose 114 mg/dl
[2016-07-24] MEDS: KETOCONAZOLE 2% CR 15 GM TUBE EXT SCH ×2 (10:19→20:35)
--- NOTE | 2016-07-24 10:47 | Pharmacy Progress Note ---
Glycemic Control: Progress Nt Date of Service Jul 24, 2016. Scope Glycemic Pharmacist consulted by Dr Lazo on 07/19/16 for glycemic control and to write orders per [facility] inpatient glycemic control protocol. Objective Accuchecks BSG (last 24hrs): Test 07/23/16 11:35 07/23/16 16:47 07/23/16 23:27 07/24/16 05:16 Bedside Glucose 154 mg/dl (70-90) 116 mg/dl (70-90) 169 mg/dl (70-90) Random Glucose 114 mg/dl (70-99) Test 07/24/16 05:24 Bedside Glucose 114 mg/dl (70-90) Laboratory Data (last 24hrs) Test 07/24/16 05:16 Anion Gap 8.0 mmol/L BUN/Creatinine Ratio 24.9 Blood Urea Nitrogen 16 mg/dl Creatinine 0.66 mg/dl Potassium Level 4.1 mmol/L Sodium Level 137 mmol/L White Blood Count 11.37 K/uL Red Blood Count 3.99 M/uL Hemoglobin 12.0 g/dL Hematocrit 36.0 % Mean Corpuscular Volume 90.2 fL Mean Corpuscular Hemoglobin 30.1 pg Mean Corpuscular Hemoglobin Concent 33.3 g/dl Platelet Count 265 K/uL Mean Platelet Volume 10.8 fL HbA1c: Test 07/20/16 05:54 Hemoglobin A1c 6.8 % (4.5-5.6) H Recent Pertinent Medications Outpatient Anti-diabetic Regimen: * Metformin 1gm PO BID * A1c = 6.8% 07/20/16 The patient is currently receiving: * Basal insulin: none * Correctional Insulin: Novolog Correction per scale Q 6 hours Goal Range: Low 140 mg/dL - High 180 mg/dL Correction Factor: 25 mg/dL/unit * Prandial insulin: 1 unit for Peptamen VHP @ 30-40cc/hr; 2 units for Peptamen VHP @ 50cc/hr * Oral Agents: None currently Risk Factors for Insulin Resistance: * Steroids: Solu-medrol 20mg IV Q 12 hrs * Infection: septic shock secondary to PNX; receiving Zosyn + Zithromax (Day # 7) * IVF: ABX mixed in D5W * Diet: Peptamen VHP running at goal 50cc/hr * Mechanical Ventilation: intubated 07/19/16 and remains on vent Assessment & Plan ASSESSMENT: 07/24/16 * Glycemic control adequate over the last 24 hours * Glycemic control has improved since steroids have been weaned down to current dose * Will continue with correctional and prandial insulin in the current doses * No basal insulin required PLAN FOR INPATIENT GLYCEMIC CONTROL: * No basal at this time * Continuing correction factor of 25 mg/dl/unit * Continue current prandial coverage: * 1 unit for Peptamen VHP @ 30-40cc/hr; 2 units for Peptamen VHP @ 50cc/hr * Continue goal range of Low 140 mg/dL - High 180 mg/dL * Please note that the plan above was derived based on current level of insulin resistance and hospital stress. These recommendations are appropriate for inpatient admission only. Plan of care upon discharge will need to be reassessed to avoid potential outpatient hypo/hyperglycemia. Thank you.
[2016-07-24] MEDS ORDERED: FUROSEMIDE INJ 40 MG in SYRINGE 0 ML IV ONE (11:30)
--- NOTE | 2016-07-24 14:04 | Hospitalist Progress Note ---
Hospitalist Progress Note Date of Service Jul 24, 2016. (Rosalie Ritchie PA-C) Subjective Pt evaluation today including: conversation w/ family, physical exam, chart review, lab review, review of studies, review of inpatient medication list pt intubated and drowsy Additional Comments: unable to obtain (Rosalie Ritchie PA-C) Objective Vital Signs Date Time Temp Pulse Resp B/P Pulse Ox O2 Delivery O2 Flow Rate FiO2 07/24/16 11:30 Mechanical Ventilator 50 07/24/16 11:30 50 07/24/16 11:00 50 07/24/16 09:58 Mechanical Ventilator 50 07/24/16 09:00 94 22 92 07/24/16 08:59 93 23 116/68 92 07/24/16 08:56 50 07/24/16 08:15 50 07/24/16 08:15 Mechanical Ventilator 50 07/24/16 08:00 50 07/24/16 08:00 90 22 94 07/24/16 07:59 37.7 90 21 122/74 95 Mechanical Ventilator 50 07/24/16 07:00 70 18 95 07/24/16 06:00 90 19 108/63 95 Mechanical Ventilator 60 07/24/16 05:34 60 07/24/16 04:00 Mechanical Ventilator 60 07/24/16 04:00 37.2 86 24 122/86 95 Mechanical Ventilator 60 07/24/16 04:00 60 07/24/16 02:16 60 07/24/16 02:00 68 18 100/56 96 Mechanical Ventilator 60 07/24/16 00:01 37.9 87 20 115/66 95 Mechanical Ventilator 60 07/23/16 23:59 Mechanical Ventilator 60 07/23/16 23:59 60 07/23/16 23:10 60 07/23/16 22:00 100 20 131/76 93 Mechanical Ventilator 60 07/23/16 20:00 50 07/23/16 20:00 Mechanical Ventilator 50 07/23/16 20:00 37.5 96 26 115/79 95 Mechanical Ventilator 50 07/23/16 19:36 60 07/23/16 18:00 37.7 83 18 105/59 99 Mechanical Ventilator 50 07/23/16 16:00 50 07/23/16 16:00 37.9 87 27 107/67 96 Mechanical Ventilator 50 07/23/16 16:00 Mechanical Ventilator 50 07/23/16 14:52 60 07/23/16 14:00 37.6 92 23 115/60 93 Mechanical Ventilator 50 (Rosalie Ritchie PA-C) Physical Exam General Appearance: + mild distress (mild distress/agitation) Eyes: EOMI Neck: no JVD Respiratory/Chest: + pertinent finding (coarse BS throughout. No crackles. intubated) Cardiovascular: regular rate, rhythm, + tachycardia Abdomen: non tender, soft, + pertinent finding Extremities: non-tender, no pedal edema Neurologic/Psychiatric: alert Skin: warm/dry (Rosalie Ritchie PA-C) Laboratory Results 07/24/16 05:16 Red Blood Count 3.99, Mean Corpuscular Volume 90.2, Mean Corpuscular Hemoglobin 30.1, Mean Corpuscular Hemoglobin Concent 33.3, Mean Platelet Volume 10.8 07/24/16 05:16 Test 07/24/16 05:16 07/24/16 11:40 White Blood Count 11.37 K/uL (4.8-10.8) Red Blood Count 3.99 M/uL (4.2-5.4) Hemoglobin 12.0 g/dL (12.0-16.0) Hematocrit 36.0 % (37-47) Mean Corpuscular Volume 90.2 fL (80-100) Mean Corpuscular Hemoglobin 30.1 pg (25-34) Mean Corpuscular Hemoglobin Concent 33.3 g/dl (32-36) Platelet Count 265 K/uL (130-400) Mean Platelet Volume 10.8 fL (7.4-10.4) RDW Standard Deviation 47.6 fL (36.4-46.3) RDW Coefficient of Variation 14.3 % (11.5-14.5) Nucleated RBC Absolute Count (auto) 0.02 K/uL (0-0) Neutrophils % (Manual) 70.2 % Lymphocytes % (Manual) 16.7 % Monocytes % (Manual) 2.6 % Metamyelocytes % 0.9 % Myelocytes % 9.6 % Nucleated Red Blood Cells % 0.2 % Neutrophils # (Manual) 7.98 K/uL (1.4-6.5) Total Absolute Neutrophils 7.98 K/uL (1.4-6.5) Lymphocytes # (Manual) 1.90 K/uL (1.2-3.4) Total Absolute Lymphocytes 1.90 K/uL (1.2-3.4) Monocytes # (Manual) 0.30 K/uL (0.11-0.59) Metamyelocytes # 0.10 K/uL (0-0) Myelocytes # 1.09 K/uL (0-0) Red Blood Cell Morphology Unremarkable Anion Gap 8.0 mmol/L (3-11) Est Creatinine Clear Calc Drug Dose 122.0 ml/min Estimated GFR () 129.0 Estimated GFR (Non- 111.3 BUN/Creatinine Ratio 24.9 (10-20) Calcium Level 9.1 mg/dl (8.5-10.1) Phosphorus Level 4.1 mg/dl (2.5-4.9) Magnesium Level 1.6 mg/dl (1.8-2.4) Bedside Glucose 186 mg/dl (70-90) Last 24 Hours Test 07/23/16 16:47 07/23/16 23:27 07/24/16 05:16 07/24/16 05:24 Bedside Glucose 116 mg/dl 169 mg/dl 114 mg/dl White Blood Count 11.37 K/uL Red Blood Count 3.99 M/uL Hemoglobin 12.0 g/dL Hematocrit 36.0 % Mean Corpuscular Volume 90.2 fL Mean Corpuscular Hemoglobin 30.1 pg Mean Corpuscular Hemoglobin Concent 33.3 g/dl Platelet Count 265 K/uL Mean Platelet Volume 10.8 fL RDW Standard Deviation 47.6 fL RDW Coefficient of Variation 14.3 % Nucleated RBC Absolute Count (auto) 0.02 K/uL Neutrophils % (Manual) 70.2 % Lymphocytes % (Manual) 16.7 % Monocytes % (Manual) 2.6 % Metamyelocytes % 0.9 % Myelocytes % 9.6 % Nucleated Red Blood Cells % 0.2 % Neutrophils # (Manual) 7.98 K/uL Total Absolute Neutrophils 7.98 K/uL Lymphocytes # (Manual) 1.90 K/uL Total Absolute Lymphocytes 1.90 K/uL Monocytes # (Manual) 0.30 K/uL Metamyelocytes # 0.10 K/uL Myelocytes # 1.09 K/uL Red Blood Cell Morphology Unremarkable Sodium Level 137 mmol/L Potassium Level 4.1 mmol/L Chloride Level 96 mmol/L Carbon Dioxide Level 33 mmol/L Anion Gap 8.0 mmol/L Blood Urea Nitrogen 16 mg/dl Creatinine 0.66 mg/dl Est Creatinine Clear Calc Drug Dose 122.0 ml/min Estimated GFR () 129.0 Estimated GFR (Non- 111.3 BUN/Creatinine Ratio 24.9 Random Glucose 114 mg/dl Calcium Level 9.1 mg/dl Phosphorus Level 4.1 mg/dl Magnesium Level 1.6 mg/dl Test 07/24/16 11:40 Bedside Glucose 186 mg/dl (Rosalie Ritchie, PA-C) Assessment and Plan 41 F Severe sepsis, septic shock related to pneumonia, developed acute hypoxic respiratory failure and was intubated and mechanically ventilated 07/19-failed weaning trial yesterday. Severe sepsis/acute respiratory failure with hypoxia from pneumonia -Continue Zosyn and azithromycin-last day of azithromycin today -Continue Solu-Medrol 20 mg IV BID, duonebs -failed weaning -Plan is for patient to get consent for a trach/PEG today Acute renal failure secondary to shock-resolved schizophrenia with suicidality -304 from the [facility] and will return there once improved -Ativan and haldol prn FEN -tube feeds -Lasix 40 mg IV x 1 dose per critical care Diabetes -Novolog sliding scale Hypothyroidism -Synthroid 50 mcg daily Deep venous thrombosis prophylaxis -Lovenox subQ CODE STATUS -LEVEL I FULL CODE (Rosalie Ritchie, PA-C) Attending Attestation: Pt seen/examined, chart reviewed, care plan d/w TIERA Ritchie. I agree w/ the barton components of her documentation. Pt is awake and following commands during my visit although does so inconsistently. Noted that she did poorly on SBT yesterday. VSS, Tm 38 I/O neg 600cc gen - intubated, eyes open neck - no JVD heart - RRR, s1, s2 lungs - course BS b/l, decreased BS bases, occasional crackles abd - soft ext - no edema skin - severe xerosis/tinea on feet labs - mag 1.6 Cr nl CBC w/ WBC 11.3 A/P: 1. severe sepsis 2nd to pneumonia - stable, modest improvement since admission 2. acute hypoxic/hypercarbic resp failure 2nd to #1 s/p intubation/mech vent 3. acute kidney injury - resolved 4. hypomagnesemia - replacing 5. schizophrenia at baseline 6. COPD with exacerbation 7. hypothyroidism 8. tinea pedis/xerosis - ketoconazole BID Tommy GALVAN MD (Phuc Galvan MD)
[2016-07-24] MEDS: DexMEDEtomidine HCL INJ 400 MCG in SODIUM CHLORIDE 0.9% 100ML 96 ML IV PRN ×2 (15:53→22:57)
[2016-07-24] MEDS: PEPTAMEN INTENSE VHP 1000ML BAG OG SCH (17:08)
[2016-07-24] MEDS: AZITHROMYCIN IV 250 MG in DEXTROSE 5% 250ML 250 ML IV SCH (19:41)
[2016-07-24] MEDS: FLUPHENAZINE HCL 2.5 MG TAB PO SCH (20:39)
[2016-07-24] MEDS: DiphenhydrAMINE HCL 50 MG/ML VIAL IV PRN (20:42)
[2016-07-24] MEDS: HALOPERIDOL LACTATE 5 MG/ML 1 ML VIAL IV PRN (20:42)
[2016-07-24] MEDS ORDERED: HALOPERIDOL LACTATE 5 MG/ML 1 ML VIAL IM PRN (22:30)
[2016-07-24] MEDS: ALBUT/IPRATROP 3MG/0.5MG NEB 3 ML VIAL INH SCH (23:35)
[2016-07-25] VITALS (34 sets, daily range): BP systolic 89–130; BP diastolic 37–98; PULSE 78–150; TEMP 36.8–37.2; O2SAT 89–100
[2016-07-25] MEDS ORDERED: DiphenhydrAMINE INJ 25 MG in SYRINGE 0 ML IV SCH
[2016-07-25] MEDS ORDERED: IPRATROPIUM BROMIDE NEB SOLN 0.02% 2.5 ML VIAL INH SCH ×2
--- NOTE | 2016-07-25 00:44 | Progress Note ---
Progress Note Date of Service Jul 25, 2016. Progress Note Subjective: I received a phone call from the nurses station around 2120 stating that patient had auto-extubated. I arrived to the room to find the patient in the high 80's - low 90% O2 saturations and in no acute distress. Pt was anxious and speaking about nurses "making fun of her" and "forcing meds , I don't want" . I encouraged pt to calm down and breath or she would need to be reintubated. She immediately calmed down. Patient was placed on Oxy-Mask @ 10L, intubation tackle box placed in the room, and BiPAP ready. Patient able to converse and state that she had had enough of the tube. She denied shortness of breath or trouble breathing. Pt was asked to cough and she followed commands. Saturations remained in the low to mid 90s. Objective: General - NAD, moderately anxious Neck - No stridor noted Lungs - No paradoxical chest wall movement, coarse to diminished to auscultation bilaterally, no wheezes, rales, or rhonchi Heart - Reg rate and rhythm, No murmur, rubs, clicks, or gallops appreciated Abdomen - BS present, no bruits noted, tympanic to percussion, soft, nontender, nondistended, no organomegaly Extremities - No edema, pedal pulses intact Neuro - A&O X 2 Strength Moves all extremities equally Assessment/Plan: Respiratory: Acute Respiratory Failure * Keep intubation box & BiPap in room for emergency * Titrate off Precedex * Replace with Haldol 5mg IV q4hrs * Switch Inhalers to Duoneb q4hrs * Continue to monitor closely for need to reintubate * Wean down Oxy-Mask Level as tolerated * Ask Psych to reengage in AM Update: Added BiPap to pt at 0545, for increasing numbers of saturations < 90% and tachycardia in the one-teens. Pt placed on BiPap of 12/5 & 50% with Saturation of 92%. Pt assured that there was no tube in her throat or any change in medications. Pt tolerating well. Continue to monitor.
[2016-07-25] MEDS: HALOPERIDOL LACTATE 5 MG/ML 1 ML VIAL IV PRN ×3 (01:51→15:06)
[2016-07-25] MEDS: DiphenhydrAMINE HCL 50 MG/ML VIAL IV PRN (01:51)
[2016-07-25] MEDS: ALBUT/IPRATROP 3MG/0.5MG NEB 3 ML VIAL INH SCH ×2 (03:25→07:36)
[2016-07-25] MEDS: LEVOTHYROXINE 25 MCG TAB PO SCH (05:27)
[2016-07-25] MEDS: INSULIN ASPART 100 UNITS/ML 3 ML PEN SC SCH ×4 (05:27→20:30)
[2016-07-25] MEDS: PIPERACILL/TAZOBAC IV 4.5 GM in DEXTROSE 5% 100ML IV SCH ×2 (05:27→12:46)
[2016-07-25 05:55] LABS: MEAN CELL VOLUME 91.1 fL (80-100); MEAN CORPUSCULAR HEMOGLOBIN 30.9 pg (25-34); MEAN CORPUSCULAR HGB CONC 33.9 g/dl (32-36); MEAN PLATELET VOLUME 10.9 fL (7.4-10.4); PLATELET COUNT 313 K/uL (130-400); RED BLOOD COUNT 3.95 M/uL (4.2-5.4); WHITE BLOOD COUNT 10.82 K/uL (4.8-10.8)
[2016-07-25] MEDS ORDERED: HALOPERIDOL LACTATE 5 MG/ML 1 ML VIAL IV SCH (06:00)
[2016-07-25] MEDS ORDERED: DiphenhydrAMINE HCL 50 MG/ML VIAL IV SCH (06:00)
[2016-07-25 06:17] LABS: COMPLETE YES; EOSINOPHIL % 3.5 %; LYMPH ABS # 0.95 K/uL (1.2-3.4); LYMPHOCYTE % 8.8 %; META ABS # 0.38 K/uL (0-0); METAMYELOCYTE % 3.5 %; MYELOCYTE % 9.6 %; NEUTROPHILS % 67.6 %
[2016-07-25 06:25] LABS: CALCIUM 9.4 mg/dl (8.5-10.1); CREATININE 0.54 mg/dl (0.60-1.20); MAGNESIUM 1.4 mg/dl (1.8-2.4); POTASSIUM 3.5 mmol/L (3.5-5.1)
[2016-07-25] MEDS: KETOCONAZOLE 2% CR 15 GM TUBE EXT SCH ×2 (07:42→20:26)
[2016-07-25] MEDS: NYSTATIN SUSP 500,000 U/5 ML UDC PO SCH ×4 (07:43→20:28)
[2016-07-25] MEDS: MULTIVITAMINS W/MINERALS 15ML UDP PO SCH (07:43)
--- NOTE | 2016-07-25 07:43 | Critical Care Progress Note ---
Critical Care Progress Note Date of Service Jul 25, 2016. Attending Subjective Self extubation last night. Was transitioned to BiPAP. She is alert and cooperative. Appears comfortable. No target pain. No cough or sputum of significance. She does require 1:1 oversight and care with regard to psychiatric issues. On the BiPAP she is saturating in the 90 range with 50%. Objective VITAL SIGNS: were reviewed as below GENERAL: sedated (propofol) and intubated (7.5 ETT) SKIN: Warm dry and pink HEAD: Normocephalic and atraumatic EYES: extraocular muscles intact, pupils equal NECK: Large circumference,unable to assess JVD due to neck size LUNGS: Exchange is fair. No wheezing. Diminished in the base. No wheezing and no substantial rhonchi HEART: Regular rate and rhythm, quiet heart sounds, no murmurs audible ABDOMEN: Soft, distended (similar to previous day), nontender, bowel sounds present --Prince to gravity with clear urine EXTREMITIES: perfusion is acceptable. . NEUROLOGICALLY: awake and alert, following commands. 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 Pulmonary--continue to optimize volume and pulmonary toilette. Mobilize. Complete the antibiotics. Hopefully will be able to wean off BiPAP during day. ? if KAUR/Hypovent and will require sleep/night support 2. Cardio--additional dose of lasix AM today. 3. GI--Will start normal oral intake if continues to do well AM today 4. Neuro/Psych--will try and restart oral meds. Psychiatry to assist 5. F/E/N--replace mag 6. Musculoskeletal--PT/OT--[facility] consult/[facility] Consult Critical Care Time:90min Consults & Procedures Consultants: Under Primary care of Dr Gonzalez Data Medications: Current Inpatient Medications Medications (Trade) Dose Ordered Sig/Racquel Route Start Time Stop Time Status Last Admin Dose Admin Ondansetron HCl (Zofran Inj) 4 mg Q6H PRN IV 07/18/16 17:15 08/17/16 17:14 Piperacillin Sod/ Tazobactam Sod (Consult) 1 ea UD PRN N/A 07/18/16 17:45 07/25/16 20:59 Albuterol Sulfate (Ventolin 0.5% 2.5MG/0.5ML Neb) 2.5 mg Q2H PRN INH 07/18/16 19:45 08/17/16 19:44 Glucose (Glucose 40% Gel) 15-30 GRAMS 15 GRAMS... UD PRN PO 07/18/16 20:00 08/17/16 19:59 Glucose (Glucose Chew Tab) 4-8 Tablets 4 Tabl... UD PRN PO 07/18/16 20:00 08/17/16 19:59 Dextrose (Dextrose 50% 50ML Syringe) 25-50ML OF 50% DW IV FOR... UD PRN IV 07/18/16 20:00 08/17/16 19:59 Glucagon 1 mg 1 mg UD PRN SQ 07/18/16 20:00 08/17/16 19:59 Piperacillin Sod/ Tazobactam Sod/ Dextrose (Zosyn Iv/D5 100ml) 120 ml @ 30 mls/hr Q8H IV 07/18/16 21:00 07/25/16 20:59 07/25/16 05:27 30 MLS/HR Haloperidol Lactate (Haldol Inj) 5 mg Q4H PRN IV 07/18/16 21:45 08/17/16 21:44 07/25/16 01:51 5 MG Diphenhydramine HCl (Benadryl Inj) 25 mg Q4H PRN IV 07/18/16 21:45 08/17/16 21:44 07/25/16 01:51 25 MG Fluphenazine HCl (Prolixin Tab) 15 mg HS PO 07/19/16 21:00 08/18/16 20:59 07/24/16 20:39 15 MG Levothyroxine Sodium (Synthroid Tab) 25 mcg DAILYBB PO 07/19/16 06:00 08/18/16 05:59 07/24/16 05:26 25 MCG Miscellaneous Information (Order Awaiting Action) 1 ea QS N/A 07/19/16 00:00 08/18/16 00:00 Miscellaneous Information (Consult Glycemic Management Pharmacy) 1 ea UD PRN N/A 07/19/16 08:53 08/18/16 08:52 Valproic Acid (Depakene Syrup) 1,000 mg BID PO 07/19/16 21:00 08/18/16 20:59 07/24/16 20:36 1,000 MG Nystatin (Mycostatin Susp) 5 ml QID PO 07/19/16 17:00 07/29/16 16:59 07/24/16 20:38 5 ML Acetaminophen (Tylenol Soln) 650 mg Q4H PRN OG 07/19/16 17:00 08/18/16 16:59 07/23/16 23:50 650 MG Lorazepam (Ativan Inj) 0.5 mg Q4H PRN IV 07/20/16 09:30 08/19/16 09:29 07/23/16 04:07 0.5 MG Fentanyl Citrate 50 mcg 50 mcg Q2H PRN IV 07/20/16 11:30 08/03/16 11:29 07/22/16 09:19 50 MCG Pantoprazole Sodium/Syringe (Protonix Inj/ Syringe) 10 ml @ 5 mls/min BID@0900,2100 IV 07/21/16 21:00 08/20/16 20:59 07/24/16 20:35 5 MLS/MIN Ioversol 125 ml 125 ml UD PRN IV 07/21/16 12:15 07/25/16 12:14 Methylprednisolone Sodium Succinate/ Syringe (Solu-Medrol IV/ Syringe) 0.32 ml @ 1.5 mls/min Q12H IV 07/22/16 20:00 08/21/16 19:59 07/24/16 19:41 1.5 MLS/MIN Multivitamins Therapeutic (Cerovite Liquid) 15 ml QAM PO 07/22/16 09:00 08/21/16 08:59 07/24/16 07:59 15 ML Insulin Aspart (novoLOG ASPART) PLEASE USE CORRECTION FACTOR... Q6 SC 07/22/16 12:00 08/21/16 11:59 07/24/16 23:45 1 UNITS Enoxaparin Sodium (Lovenox Inj) 40 mg QAM SQ 07/23/16 09:00 08/22/16 08:59 07/24/16 08:01 40 MG Bisacodyl (Dulcolax Supp) 10 mg DAILY PRN AK 07/23/16 07:45 08/22/16 07:44 Ketoconazole (Nizoral 2% Crm) 1 appln BID EXT 07/24/16 09:15 08/03/16 09:14 07/24/16 20:35 1 APPLN Haloperidol Lactate (Haldol Inj) 10 mg ONE PRN IM 07/24/16 22:30 08/23/16 22:29 Albuterol/ Ipratropium (Duoneb) 3 ml Q4R INH 07/25/16 00:00 08/24/16 00:00 07/25/16 03:25 3 ML Haloperidol Lactate (Haldol Inj) 5 mg Q4H IV 07/25/16 06:00 08/24/16 05:59 07/25/16 05:31 5 MG Diphenhydramine HCl (Benadryl Inj) 25 mg Q4H IV 07/25/16 06:00 08/24/16 05:59 07/25/16 05:31 25 MG I & O: 24-Hour Column 07/25/16 07:59 Intake Total 1535 ml Output Total 2750 ml Balance -1215 ml Vital Signs: Date Time Temp Pulse Resp B/P Pulse Ox O2 Delivery O2 Flow Rate FiO2 07/25/16 06:00 102 24 130/89 91 BiPAP 50 07/25/16 05:46 111 36 96 BiPAP 50 07/25/16 05:46 111 96 50 07/25/16 04:29 95 Mask 15.0 07/25/16 04:00 95 Mask 07/25/16 04:00 96 26 104/68 89 Mask 4.0 07/25/16 03:25 85 20 100 Mask 4.0 07/25/16 02:00 79 24 111/67 98 Mask 4.0 07/25/16 01:59 79 111/67 98 07/25/16 01:00 79 95 07/25/16 00:01 37.2 26 117/79 95 Mask 07/25/16 00:00 78 95 07/24/16 23:59 81 117/79 95 07/24/16 23:59 95 Mask 07/24/16 23:35 85 24 96 Mask 10.0 07/24/16 22:00 78 22 144/89 91 Mask 100 07/24/16 20:07 60 07/24/16 20:00 60 07/24/16 20:00 37.7 74 26 125/86 92 Mechanical Ventilator 60 07/24/16 20:00 93 Mechanical Ventilator 60 07/24/16 18:08 40 07/24/16 16:59 83 110/76 99 07/24/16 16:30 40 07/24/16 16:30 93 Mechanical Ventilator 40 07/24/16 16:00 37.4 96 119/69 93 Mechanical Ventilator 40 07/24/16 15:23 81 111/68 95 07/24/16 15:00 80 07/24/16 14:59 80 111/68 96 07/24/16 14:12 40 07/24/16 14:00 83 07/24/16 13:59 83 114/67 Mechanical Ventilator 50 07/24/16 13:00 94 100 07/24/16 12:59 94 120/77 93 07/24/16 12:00 104 95 07/24/16 11:59 91 126/78 96 07/24/16 11:30 Mechanical Ventilator 50 07/24/16 11:30 50 07/24/16 11:00 50 07/24/16 11:00 86 21 94 07/24/16 09:58 Mechanical Ventilator 50 07/24/16 09:00 94 22 92 07/24/16 08:59 93 23 116/68 92 07/24/16 08:56 50 07/24/16 08:15 50 07/24/16 08:15 Mechanical Ventilator 50 07/24/16 08:00 50 07/24/16 08:00 90 22 94 07/24/16 07:59 37.7 90 21 122/74 95 Mechanical Ventilator 50 Laboratory Results: Last 24 Hours Test 07/24/16 11:40 07/24/16 17:00 07/24/16 23:37 07/25/16 05:18 Bedside Glucose 186 mg/dl 167 mg/dl 187 mg/dl White Blood Count 10.82 K/uL Red Blood Count 3.95 M/uL Hemoglobin 12.2 g/dL Hematocrit 36.0 % Mean Corpuscular Volume 91.1 fL Mean Corpuscular Hemoglobin 30.9 pg Mean Corpuscular Hemoglobin Concent 33.9 g/dl Platelet Count 313 K/uL Mean Platelet Volume 10.9 fL RDW Standard Deviation 47.3 fL RDW Coefficient of Variation 14.1 % Neutrophils % (Manual) 67.6 % Lymphocytes % (Manual) 8.8 % Monocytes % (Manual) 7.0 % Eosinophils % (Manual) 3.5 % Metamyelocytes % 3.5 % Myelocytes % 9.6 % Neutrophils # (Manual) 7.31 K/uL Total Absolute Neutrophils 7.31 K/uL Lymphocytes # (Manual) 0.95 K/uL Total Absolute Lymphocytes 0.95 K/uL Monocytes # (Manual) 0.76 K/uL Eosinophils # (Manual) 0.38 K/uL Metamyelocytes # 0.38 K/uL Myelocytes # 1.04 K/uL Red Blood Cell Morphology Unremarkable Sodium Level 139 mmol/L Potassium Level 3.5 mmol/L Chloride Level 99 mmol/L Carbon Dioxide Level 31 mmol/L Anion Gap 9.0 mmol/L Blood Urea Nitrogen 16 mg/dl Creatinine 0.54 mg/dl Est Creatinine Clear Calc Drug Dose 147.1 ml/min Estimated GFR () 137.8 Estimated GFR (Non- 118.9 BUN/Creatinine Ratio 29.0 Random Glucose 136 mg/dl Calcium Level 9.4 mg/dl Magnesium Level 1.4 mg/dl Test 07/25/16 05:22 Bedside Glucose 135 mg/dl
[2016-07-25] MEDS: ENOXAPARIN 40 MG/0.4 ML SYR SQ SCH (07:44)
[2016-07-25] MEDS: VALPROIC ACID SYRUP 250 MG/5 ML PO SCH ×2 (07:44→20:27)
[2016-07-25] MEDS: PANTOprazole INJ 40 MG in SYRINGE 0 ML IV SCH (07:51)
[2016-07-25] MEDS ORDERED: ALBUTEROL 0.083% NEBU SOLN 3 ML VIAL INH PRN (08:45)
[2016-07-25] MEDS ORDERED: FUROSEMIDE INJ 40 MG in SYRINGE 0 ML IV ONE (09:00)
[2016-07-25] MEDS: ALBUTEROL 0.083% NEBU SOLN 3 ML VIAL INH SCH ×3 (09:00→19:03)
[2016-07-25] MEDS: MAGNESIUM OXIDE 400 MG TAB PO SCH ×2 (09:09→20:28)
[2016-07-25] MEDS: POTASSIUM CHLORIDE 10 MEQ TABCR PO SCH ×4 (09:09→19:44)
--- NOTE | 2016-07-25 09:37 | Critical Care Progress Note ---
Critical Care Progress Note Date of Service Jul 25, 2016. ICU Day ICU Day Number: [address] taylor Subjective Patient self extubated overnight, tolerated no O2 for some time however because Sat was staying in low 80s she was placed on bipap. Doing well on the Bipap No complaints of any pain or SOB She does not that she is hungry Mentions auditory hallucinations but no command hallucinations and mentions repeatedly that she is scared A full 10 system ROS was completed and negative aside from above Objective VITAL SIGNS: were reviewed as below GENERAL: sedated (propofol) and intubated (7.5 ETT) SKIN: Warm dry and pink HEAD: Normocephalic and atraumatic EYES: extraocular muscles intact, pupils equal NECK: Large circumference,unable to assess JVD due to neck size LUNGS: Exchange is fair. No wheezing. Diminished in the base. No wheezing and no substantial rhonchi HEART: Regular rate and rhythm, quiet heart sounds, no murmurs audible ABDOMEN: Soft, distended (similar to previous day), nontender, bowel sounds present --Prince to gravity with clear urine EXTREMITIES: perfusion is acceptable. . NEUROLOGICALLY: awake and alert, following commands. Assessment & Plan 1.Acute hypoxemic respiratory failure after arriving with severe sepsis, possibly secondary to PNA however no organism identified - improving 2. ARDS - improving 3. DILLON- resolved 4. Metabolic encephalopathy 5. Schizophrenia with 304 commitment at the [facility] 6. DMII 7. Hypothyroidism 8. Possible sleep apnea vs obesity hypoventilation? 9. Hypomagnesemia NVS - mentating well but confused about where she is, states she is scared - 1:1 is available in the room - Schizophrenia - cont trazodone, Fluphenazine, Valproate - Haloperidol IV for agitation CVS - Propranolol has been continued - may improve her sinus tachycardia - continue to monitor RVS - Bipap 12/5 - continue to wean slowly - albuterol q 6 and q2 prn ENDO - ISS - BSG AC/HS - continue to monitor for S&S of hypoglycemia - continue Synthroid FEN - continue to follow BMP, no hyponat/ hypokal - cont KCL and Mg OX GI - advance diet as tolerated - protonix 40 mg daily - doculax for bowel regimen RENAL - DILLON has resolved - continue to monitor her BMP ID - continue zosyn - continue nystatin and ketoconazole - leukocytosis once again improving Heme - follow CBC - DVT prophylaxis is enoxaparin Consults & Procedures Consultants: Under Primary care of Dr Gonzalez Data Medications: Current Inpatient Medications Medications (Trade) Dose Ordered Sig/Racquel Route Start Time Stop Time Status Last Admin Dose Admin Ondansetron HCl (Zofran Inj) 4 mg Q6H PRN IV 07/18/16 17:15 08/17/16 17:14 Piperacillin Sod/ Tazobactam Sod (Consult) 1 ea UD PRN N/A 07/18/16 17:45 07/25/16 20:59 Glucose (Glucose 40% Gel) 15-30 GRAMS 15 GRAMS... UD PRN PO 07/18/16 20:00 08/17/16 19:59 Glucose (Glucose Chew Tab) 4-8 Tablets 4 Tabl... UD PRN PO 07/18/16 20:00 08/17/16 19:59 Dextrose (Dextrose 50% 50ML Syringe) 25-50ML OF 50% DW IV FOR... UD PRN IV 07/18/16 20:00 08/17/16 19:59 Glucagon 1 mg 1 mg UD PRN SQ 07/18/16 20:00 08/17/16 19:59 Piperacillin Sod/ Tazobactam Sod/ Dextrose (Zosyn Iv/D5 100ml) 120 ml @ 30 mls/hr Q8H IV 07/18/16 21:00 07/25/16 20:59 07/25/16 05:27 30 MLS/HR Haloperidol Lactate (Haldol Inj) 5 mg Q4H PRN IV 07/18/16 21:45 08/17/16 21:44 07/25/16 01:51 5 MG Diphenhydramine HCl (Benadryl Inj) 25 mg Q4H PRN IV 07/18/16 21:45 08/17/16 21:44 07/25/16 01:51 25 MG Fluphenazine HCl (Prolixin Tab) 15 mg HS PO 07/19/16 21:00 08/18/16 20:59 07/24/16 20:39 15 MG Levothyroxine Sodium (Synthroid Tab) 25 mcg DAILYBB PO 07/19/16 06:00 08/18/16 05:59 07/24/16 05:26 25 MCG Miscellaneous Information (Order Awaiting Action) 1 ea QS N/A 07/19/16 00:00 08/18/16 00:00 Miscellaneous Information (Consult Glycemic Management Pharmacy) 1 ea UD PRN N/A 07/19/16 08:53 08/18/16 08:52 Valproic Acid (Depakene Syrup) 1,000 mg BID PO 07/19/16 21:00 08/18/16 20:59 07/25/16 07:44 1,000 MG Nystatin (Mycostatin Susp) 5 ml QID PO 07/19/16 17:00 07/29/16 16:59 07/25/16 07:43 5 ML Acetaminophen (Tylenol Soln) 650 mg Q4H PRN OG 07/19/16 17:00 08/18/16 16:59 07/23/16 23:50 650 MG Lorazepam (Ativan Inj) 0.5 mg Q4H PRN IV 07/20/16 09:30 08/19/16 09:29 07/23/16 04:07 0.5 MG Ioversol (Optiray 320) 125 ml UD PRN IV 07/21/16 12:15 07/25/16 12:14 Multivitamins Therapeutic (Cerovite Liquid) 15 ml QAM PO 07/22/16 09:00 08/21/16 08:59 07/25/16 07:43 15 ML Insulin Aspart (novoLOG ASPART) PLEASE USE CORRECTION FACTOR... Q6 SC 07/22/16 12:00 08/21/16 11:59 07/24/16 23:45 1 UNITS Enoxaparin Sodium (Lovenox Inj) 40 mg QAM SQ 07/23/16 09:00 08/22/16 08:59 07/25/16 07:44 40 MG Bisacodyl (Dulcolax Supp) 10 mg DAILY PRN MI 07/23/16 07:45 08/22/16 07:44 Ketoconazole (Nizoral 2% Crm) 1 appln BID EXT 07/24/16 09:15 08/03/16 09:14 07/25/16 07:42 1 APPLN Haloperidol Lactate (Haldol Inj) 10 mg ONE PRN IM 07/24/16 22:30 08/23/16 22:29 Potassium Chloride (Klor-Con M10) 10 meq QIDM PO 07/25/16 09:00 08/24/16 08:59 Magnesium Oxide (Mag-Ox Tab) 400 mg BID PO 07/25/16 09:00 08/24/16 08:59 Trazodone HCl (Desyrel Tab) 100 mg HS PO 07/25/16 21:00 08/24/16 20:59 Albuterol Sulfate (Ventolin 0.083% 2.5MG/3ML Neb) 2.5 mg Q6R INH 07/25/16 09:00 08/24/16 08:59 Albuterol Sulfate (Ventolin 0.083% 2.5MG/3ML Neb) 2.5 mg Q2H PRN INH 07/25/16 08:45 08/24/16 08:44 Propranolol HCl (Inderal Tab) 10 mg BID PO 07/25/16 21:00 08/24/16 20:59 Pantoprazole Sodium (Protonix Tab) 40 mg QAM PO 07/26/16 09:00 08/25/16 08:59 I & O: 24-Hour Column 07/25/16 07:59 Intake Total 1535 ml Output Total 2750 ml Balance -1215 ml Vital Signs: Date Time Temp Pulse Resp B/P Pulse Ox O2 Delivery O2 Flow Rate FiO2 07/25/16 07:37 112 96 50 07/25/16 07:37 112 31 96 BiPAP/CPAP 50 07/25/16 06:00 102 24 130/89 91 BiPAP 50 07/25/16 05:46 111 36 96 BiPAP 50 07/25/16 05:46 111 96 50 07/25/16 04:29 95 Mask 15.0 07/25/16 04:00 95 Mask 07/25/16 04:00 96 26 104/68 89 Mask 4.0 07/25/16 03:25 85 20 100 Mask 4.0 07/25/16 02:00 79 24 111/67 98 Mask 4.0 07/25/16 01:59 79 111/67 98 07/25/16 01:00 79 95 07/25/16 00:01 37.2 26 117/79 95 Mask 07/25/16 00:00 78 95 07/24/16 23:59 81 117/79 95 07/24/16 23:59 95 Mask 07/24/16 23:35 85 24 96 Mask 10.0 07/24/16 22:00 78 22 144/89 91 Mask 100 07/24/16 20:07 60 07/24/16 20:00 60 07/24/16 20:00 37.7 74 26 125/86 92 Mechanical Ventilator 60 07/24/16 20:00 93 Mechanical Ventilator 60 07/24/16 18:08 40 07/24/16 16:59 83 110/76 99 07/24/16 16:30 40 07/24/16 16:30 93 Mechanical Ventilator 40 07/24/16 16:00 37.4 96 119/69 93 Mechanical Ventilator 40 07/24/16 15:23 81 111/68 95 07/24/16 15:00 80 07/24/16 14:59 80 111/68 96 07/24/16 14:12 40 07/24/16 14:00 83 07/24/16 13:59 83 114/67 Mechanical Ventilator 50 07/24/16 13:00 94 100 07/24/16 12:59 94 120/77 93 07/24/16 12:00 104 95 07/24/16 11:59 91 126/78 96 07/24/16 11:30 Mechanical Ventilator 50 07/24/16 11:30 50 07/24/16 11:00 50 07/24/16 11:00 86 21 94 07/24/16 09:58 Mechanical Ventilator 50 Laboratory Results: Last 24 Hours Test 07/24/16 11:40 07/24/16 17:00 07/24/16 23:37 07/25/16 05:18 Bedside Glucose 186 mg/dl 167 mg/dl 187 mg/dl White Blood Count 10.82 K/uL Red Blood Count 3.95 M/uL Hemoglobin 12.2 g/dL Hematocrit 36.0 % Mean Corpuscular Volume 91.1 fL Mean Corpuscular Hemoglobin 30.9 pg Mean Corpuscular Hemoglobin Concent 33.9 g/dl Platelet Count 313 K/uL Mean Platelet Volume 10.9 fL RDW Standard Deviation 47.3 fL RDW Coefficient of Variation 14.1 % Neutrophils % (Manual) 67.6 % Lymphocytes % (Manual) 8.8 % Monocytes % (Manual) 7.0 % Eosinophils % (Manual) 3.5 % Metamyelocytes % 3.5 % Myelocytes % 9.6 % Neutrophils # (Manual) 7.31 K/uL Total Absolute Neutrophils 7.31 K/uL Lymphocytes # (Manual) 0.95 K/uL Total Absolute Lymphocytes 0.95 K/uL Monocytes # (Manual) 0.76 K/uL Eosinophils # (Manual) 0.38 K/uL Metamyelocytes # 0.38 K/uL Myelocytes # 1.04 K/uL Red Blood Cell Morphology Unremarkable Sodium Level 139 mmol/L Potassium Level 3.5 mmol/L Chloride Level 99 mmol/L Carbon Dioxide Level 31 mmol/L Anion Gap 9.0 mmol/L Blood Urea Nitrogen 16 mg/dl Creatinine 0.54 mg/dl Est Creatinine Clear Calc Drug Dose 147.1 ml/min Estimated GFR () 137.8 Estimated GFR (Non- 118.9 BUN/Creatinine Ratio 29.0 Random Glucose 136 mg/dl Calcium Level 9.4 mg/dl Magnesium Level 1.4 mg/dl Test 07/25/16 05:22 Bedside Glucose 135 mg/dl
[2016-07-25] MEDS: PROPRANOLOL HCL 10 MG TAB PO SCH ×2 (09:45→20:28)
[2016-07-25] MEDS ORDERED: METOPROLOL TARTRATE 1 MG/ML VIAL ONE (10:39)
[2016-07-25] MEDS ORDERED: METOPROLOL TARTRATE 1 MG/ML VIAL IV ONE (11:00)
--- NOTE | 2016-07-25 11:25 | Pharmacy Progress Note ---
Glycemic Control: Progress Nt Date of Service Jul 25, 2016. Scope Glycemic Pharmacist consulted by Dr Lazo on 07/19/16 for glycemic control and to write orders per [facility] inpatient glycemic control protocol. Objective Accuchecks BSG (last 24hrs): Test 07/24/16 11:40 07/24/16 17:00 07/24/16 23:37 07/25/16 05:18 Bedside Glucose 186 mg/dl (70-90) 167 mg/dl (70-90) 187 mg/dl (70-90) Random Glucose 136 mg/dl (70-99) Test 07/25/16 05:22 Bedside Glucose 135 mg/dl (70-90) Laboratory Data (last 24hrs) Test 07/25/16 05:18 Anion Gap 9.0 mmol/L BUN/Creatinine Ratio 29.0 Blood Urea Nitrogen 16 mg/dl Creatinine 0.54 mg/dl Potassium Level 3.5 mmol/L Sodium Level 139 mmol/L White Blood Count 10.82 K/uL Red Blood Count 3.95 M/uL Hemoglobin 12.2 g/dL Hematocrit 36.0 % Mean Corpuscular Volume 91.1 fL Mean Corpuscular Hemoglobin 30.9 pg Mean Corpuscular Hemoglobin Concent 33.9 g/dl Platelet Count 313 K/uL Mean Platelet Volume 10.9 fL HbA1c: Test 07/20/16 05:54 Hemoglobin A1c 6.8 % (4.5-5.6) H Recent Pertinent Medications Outpatient Anti-diabetic Regimen: * Metformin 1gm PO BID * A1c = 6.8% 07/20/16 The patient is currently receiving: * Basal insulin: none * Correctional Insulin: Novolog Correction per scale Q 6 hours Goal Range: Low 140 mg/dL - High 180 mg/dL Correction Factor: 25 mg/dL/unit * Prandial insulin: 1 unit for Peptamen VHP @ 30-40cc/hr; 2 units for Peptamen VHP @ 50cc/hr * Oral Agents: None currently Risk Factors for Insulin Resistance: * Steroids: Solu-medrol 20mg IV Q 12 hrs --> d/c'd this AM, last dose given PM * Infection: septic shock secondary to PNX; today is last dose of Zosyn + Zithromax * IVF: ABX mixed in D5W * Diet: ordered T2DM diet * Mechanical Ventilation: intubated 07/19/16, self-extubated 07/24 PM Assessment & Plan ASSESSMENT: 07/24/16 * Glycemic control adequate over the last 24 hours * Glycemic control has improved since steroids have been weaned down to current dose * Will continue with correctional and prandial insulin in the current doses * No basal insulin required 07/25/16 * Glycemic control acceptable over last 24 hrs, evening BSGs in the 180's however pt was anxious and self extubated at that time - this could explain hyperglycemia * Fasting BSG 135 this AM with no basal on board - refrain from ordering basal * Type 2 DM diet has been ordered and per RN pt has been tolerating fluids by mouth; will adjust Novolog CF and CR now that tube feeds off PLAN FOR INPATIENT GLYCEMIC CONTROL: * No basal at this time * Changing correction factor to 30 mg/dl/unit * Changing carb ratio to 1 unit per 20gm CHO consumed * Changing goal range to Low 120 mg/dL - High 160 mg/dL * Please note that the plan above was derived based on current level of insulin resistance and hospital stress. These recommendations are appropriate for inpatient admission only. Plan of care upon discharge will need to be reassessed to avoid potential outpatient hypo/hyperglycemia. Thank you.
[2016-07-25] MEDS ORDERED: FLUPHENAZINE HCL 2.5 MG TAB PO ONE (12:38)
--- NOTE | 2016-07-25 12:53 | Hospitalist Progress Note ---
Hospitalist Progress Note Date of Service Jul 25, 2016. (Rosalie Ritchie PA-C) Subjective Pt evaluation today including: conversation w/ patient, physical exam, chart review, lab review, conversation w/ security system sales consultant, review of inpatient medication list pt fearful, does not like all the different people coming and going in her room. No specific c/o SOB, cough, fever or chest pain. Additional Comments: 6 system review negative. Please see pertinent positives in the history of present illness section. (Rosalie Ritchie PA-C) Objective Vital Signs Date Time Temp Pulse Resp B/P Pulse Ox O2 Delivery O2 Flow Rate FiO2 07/25/16 12:00 95 Nasal Cannula 4.0 07/25/16 11:59 36.9 100 124/80 96 Nasal Cannula 4.0 07/25/16 11:03 119 116/80 98 07/25/16 11:00 121 95 07/25/16 10:46 133 123/78 07/25/16 10:00 150 94 10.0 07/25/16 09:59 149 95 07/25/16 09:45 146 128/82 97 10.0 07/25/16 09:00 147 96 07/25/16 08:00 37.2 121 07/25/16 08:00 95 Mask 07/25/16 08:00 Mask 07/25/16 07:37 112 96 50 07/25/16 07:37 112 31 96 BiPAP/CPAP 50 07/25/16 07:00 107 94 07/25/16 06:00 102 24 130/89 91 BiPAP 50 07/25/16 05:46 111 36 96 BiPAP 50 07/25/16 05:46 111 96 50 07/25/16 04:29 95 Mask 15.0 07/25/16 04:00 95 Mask 07/25/16 04:00 96 26 104/68 89 Mask 4.0 07/25/16 03:25 85 20 100 Mask 4.0 07/25/16 02:00 79 24 111/67 98 Mask 4.0 07/25/16 01:59 79 111/67 98 07/25/16 01:00 79 95 07/25/16 00:01 37.2 26 117/79 95 Mask 07/25/16 00:00 78 95 07/24/16 23:59 81 117/79 95 07/24/16 23:59 95 Mask 07/24/16 23:35 85 24 96 Mask 10.0 07/24/16 22:00 78 22 144/89 91 Mask 100 07/24/16 20:07 60 07/24/16 20:00 60 07/24/16 20:00 37.7 74 26 125/86 92 Mechanical Ventilator 60 07/24/16 20:00 93 Mechanical Ventilator 60 07/24/16 18:08 40 07/24/16 16:59 83 110/76 99 07/24/16 16:30 40 07/24/16 16:30 93 Mechanical Ventilator 40 07/24/16 16:00 37.4 96 119/69 93 Mechanical Ventilator 40 07/24/16 15:23 81 111/68 95 07/24/16 15:00 80 07/24/16 14:59 80 111/68 96 07/24/16 14:12 40 07/24/16 14:00 83 07/24/16 13:59 83 114/67 Mechanical Ventilator 50 07/24/16 13:00 94 100 07/24/16 12:59 94 120/77 93 (Rosalie Ritchie, PA-C) Physical Exam General Appearance: + mild distress (fearful, mildly agitated) Eyes: EOMI Neck: no JVD Extremities: no pedal edema Neurologic/Psychiatric: alert, + pertinent finding (paranoid affect) (Rosalie Ritchie, PA-C) Laboratory Results 07/25/16 05:18 Red Blood Count 3.95, Mean Corpuscular Volume 91.1, Mean Corpuscular Hemoglobin 30.9, Mean Corpuscular Hemoglobin Concent 33.9, Mean Platelet Volume 10.9 07/25/16 05:18 Test 07/25/16 05:18 07/25/16 11:18 White Blood Count 10.82 K/uL (4.8-10.8) Red Blood Count 3.95 M/uL (4.2-5.4) Hemoglobin 12.2 g/dL (12.0-16.0) Hematocrit 36.0 % (37-47) Mean Corpuscular Volume 91.1 fL (80-100) Mean Corpuscular Hemoglobin 30.9 pg (25-34) Mean Corpuscular Hemoglobin Concent 33.9 g/dl (32-36) Platelet Count 313 K/uL (130-400) Mean Platelet Volume 10.9 fL (7.4-10.4) RDW Standard Deviation 47.3 fL (36.4-46.3) RDW Coefficient of Variation 14.1 % (11.5-14.5) Neutrophils % (Manual) 67.6 % Lymphocytes % (Manual) 8.8 % Monocytes % (Manual) 7.0 % Eosinophils % (Manual) 3.5 % Metamyelocytes % 3.5 % Myelocytes % 9.6 % Neutrophils # (Manual) 7.31 K/uL (1.4-6.5) Total Absolute Neutrophils 7.31 K/uL (1.4-6.5) Lymphocytes # (Manual) 0.95 K/uL (1.2-3.4) Total Absolute Lymphocytes 0.95 K/uL (1.2-3.4) Monocytes # (Manual) 0.76 K/uL (0.11-0.59) Eosinophils # (Manual) 0.38 K/uL (0-0.5) Metamyelocytes # 0.38 K/uL (0-0) Myelocytes # 1.04 K/uL (0-0) Red Blood Cell Morphology Unremarkable Anion Gap 9.0 mmol/L (3-11) Est Creatinine Clear Calc Drug Dose 147.1 ml/min Estimated GFR () 137.8 Estimated GFR (Non- 118.9 BUN/Creatinine Ratio 29.0 (10-20) Calcium Level 9.4 mg/dl (8.5-10.1) Magnesium Level 1.4 mg/dl (1.8-2.4) Bedside Glucose 229 mg/dl (70-90) Last 24 Hours Test 07/24/16 17:00 07/24/16 23:37 07/25/16 05:18 07/25/16 05:22 Bedside Glucose 167 mg/dl 187 mg/dl 135 mg/dl White Blood Count 10.82 K/uL Red Blood Count 3.95 M/uL Hemoglobin 12.2 g/dL Hematocrit 36.0 % Mean Corpuscular Volume 91.1 fL Mean Corpuscular Hemoglobin 30.9 pg Mean Corpuscular Hemoglobin Concent 33.9 g/dl Platelet Count 313 K/uL Mean Platelet Volume 10.9 fL RDW Standard Deviation 47.3 fL RDW Coefficient of Variation 14.1 % Neutrophils % (Manual) 67.6 % Lymphocytes % (Manual) 8.8 % Monocytes % (Manual) 7.0 % Eosinophils % (Manual) 3.5 % Metamyelocytes % 3.5 % Myelocytes % 9.6 % Neutrophils # (Manual) 7.31 K/uL Total Absolute Neutrophils 7.31 K/uL Lymphocytes # (Manual) 0.95 K/uL Total Absolute Lymphocytes 0.95 K/uL Monocytes # (Manual) 0.76 K/uL Eosinophils # (Manual) 0.38 K/uL Metamyelocytes # 0.38 K/uL Myelocytes # 1.04 K/uL Red Blood Cell Morphology Unremarkable Sodium Level 139 mmol/L Potassium Level 3.5 mmol/L Chloride Level 99 mmol/L Carbon Dioxide Level 31 mmol/L Anion Gap 9.0 mmol/L Blood Urea Nitrogen 16 mg/dl Creatinine 0.54 mg/dl Est Creatinine Clear Calc Drug Dose 147.1 ml/min Estimated GFR () 137.8 Estimated GFR (Non- 118.9 BUN/Creatinine Ratio 29.0 Random Glucose 136 mg/dl Calcium Level 9.4 mg/dl Magnesium Level 1.4 mg/dl Test 07/25/16 11:18 Bedside Glucose 229 mg/dl (Rosalie Ritchie, PAMairaC) Assessment and Plan 41 F Severe sepsis, septic shock related to pneumonia, developed acute hypoxic respiratory failure and was intubated and mechanically ventilated 07/19-self extubated last night Severe sepsis/acute respiratory failure with hypoxia from pneumonia-now extubated. Was tolerating fairly well but got tachycardic and hypoxic-->put on bipap this am -Continue Zosyn -course of azithromycin completed -Continue Solu-Medrol 20 mg IV BID, duonebs Tachycardia-? etiology-could be slightly dry mixed with hypoxa. Doubt benzo withdrawal-has been getting ativan here -Continue propranolol and prn metoprolol Acute renal failure secondary to shock-resolved schizophrenia with suicidality-paranoia noted on exam -brandie consulted -304 from the [facility] and will return there once improved -continue valproic acid, Prolixin -haldol prn FEN -diet ordered Diabetes -Novolog sliding scale -accuchecks with meals, AC, HS Hypothyroidism -Synthroid 50 mcg daily Deep venous thrombosis prophylaxis -Lovenox subQ CODE STATUS -LEVEL I FULL CODE DISPO -continue ICU monitoring-still tachycardic/hypoxic-difficult intubation -back to [facility] when medically stable then possibly to a assisted psychiatric hospital (Rosalie Ritchie, INDIGO) Attending Attestation: Pt seen/examined, chart reviewed, care plan d/w TIERA Ritchie during bedside rounds. I agree w/ the barton components of her documentation. Pt self-extubated overnight. Required NC O2, then BIPAP transiently early this AM, now back to NC O2. During my visit she reports how she doesn't like to see male providers and has, at times, illogical and tangential speech. Denies cp, sob, abd pain. VSS, HR tachy net neg 230cc gen - awake, alert, no distress neck - no JVD mouth - MMM, no thrush heart - RR, tachy, s1, s2 lungs - continued decreased BS bases, occasional crackles bases, no wheeze abd - soft ext - no edema labs - mag 1.4 Cr nl A/P: 1. severe sepsis 2nd to pneumonia - resolved 2. acute hypoxic/hypercarbic resp failure 2nd to #1 s/p intubation/mech vent and self-extubation last pm - largely resolved 3. acute kidney injury - resolved 4. hypomagnesemia - ongoing, replace 5. schizophrenia at baseline with active psychosis and paranoia 6. COPD with exacerbation 7. hypothyroidism 8. tinea pedis/xerosis has completed 7+ days of IV abx; to be stopped defer steroid management to critical care pulmonary toilet appreciate psychiatric consultation and recommendations repeat labs in AM replace mag PT, JENNY GALVAN MD (Phuc Galvan MD)
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
[2016-07-25] MEDS: TRAZODONE HCL 100 MG TAB PO SCH (20:27)
[2016-07-25] MEDS: FLUPHENAZINE HCL 2.5 MG TAB PO SCH (20:28)
[2016-07-26] VITALS (17 sets, daily range): BP systolic 111–146; BP diastolic 74–101; PULSE 91–106; TEMP 36.3–37.2; O2SAT 87–97
[2016-07-26] MEDS: ALBUTEROL 0.083% NEBU SOLN 3 ML VIAL INH SCH (01:45)
[2016-07-26] MEDS: LEVOTHYROXINE 25 MCG TAB PO SCH (05:42)
[2016-07-26 05:58] LABS: MEAN CELL VOLUME 89.6 fL (80-100); MEAN CORPUSCULAR HGB CONC 33.5 g/dl (32-36); MEAN PLATELET VOLUME 10.6 fL (7.4-10.4); PLATELET COUNT 386 K/uL (130-400); RED BLOOD COUNT 4.13 M/uL (4.2-5.4); WHITE BLOOD COUNT 13.43 K/uL (4.8-10.8)
[2016-07-26 06:32] LABS: BUN/CREATININE RATIO 27.1 (10-20); CALCIUM 9.5 mg/dl (8.5-10.1); CREATININE 0.62 mg/dl (0.60-1.20); MAGNESIUM 1.5 mg/dl (1.8-2.4); POTASSIUM 3.8 mmol/L (3.5-5.1)
[2016-07-26] MEDS: POTASSIUM CHLORIDE 10 MEQ TABCR PO SCH ×4 (07:46→23:39)
[2016-07-26] MEDS: FLUPHENAZINE HCL 2.5 MG TAB PO SCH ×2 (07:46→23:41)
[2016-07-26] MEDS: PROPRANOLOL HCL 10 MG TAB PO SCH ×3 (07:47→23:40)
[2016-07-26] MEDS: MAGNESIUM OXIDE 400 MG TAB PO SCH ×2 (07:47→23:40)
[2016-07-26] MEDS: NYSTATIN SUSP 500,000 U/5 ML UDC PO SCH (07:47)
[2016-07-26] MEDS: ENOXAPARIN 40 MG/0.4 ML SYR SQ SCH (07:48)
[2016-07-26] MEDS: MULTIVITAMINS W/MINERALS 15ML UDP PO SCH (07:48)
[2016-07-26] MEDS: VALPROIC ACID SYRUP 250 MG/5 ML PO SCH ×2 (07:48→23:39)
[2016-07-26] MEDS: INSULIN ASPART 100 UNITS/ML 3 ML PEN SC SCH ×4 (07:55→21:00)
[2016-07-26] MEDS ORDERED: LEVALBUTEROL/IPRATROPIUM NEB INH PRN (08:00)
[2016-07-26] MEDS ORDERED: LEVALBUTEROL/IPRATROPIUM NEB INH SCH (08:00)
[2016-07-26] MEDS: KETOCONAZOLE 2% CR 15 GM TUBE EXT SCH ×2 (08:00→23:42)
[2016-07-26] MEDS: MAGNESIUM SULFATE 1GM / D5W 1 GM in PREMIXED IN D5W 100 ML IV SCH ×2 (08:10→09:13)
--- NOTE | 2016-07-26 08:41 | Critical Care Progress Note ---
Critical Care Progress Note Date of Service Jul 26, 2016. ICU Day ICU Day Number: [address] Garcia Subjective Patient is up and around today c/o of only some mild back pain, minimal SOB with walking tolerating meals A full 10 system review of symptoms was completed and negative aside from above Objective VITAL SIGNS: were reviewed as below GENERAL: sedated (propofol) and intubated (7.5 ETT) SKIN: Warm dry and pink HEAD: Normocephalic and atraumatic EYES: extraocular muscles intact, pupils equal NECK: Large circumference,unable to assess JVD due to neck size LUNGS: Exchange is fair. No wheezing. Diminished in the base. No wheezing and no substantial rhonchi HEART: Regular rate and rhythm, quiet heart sounds, no murmurs audible ABDOMEN: Soft, distended (similar to previous day), nontender, bowel sounds present --Prince to gravity with clear urine EXTREMITIES: perfusion is acceptable. . NEUROLOGICALLY: awake and alert, following commands. Assessment & Plan 1.Acute hypoxemic respiratory failure after arriving with severe sepsis, possibly secondary to PNA however no organism identified - improving 2. ARDS - improving 3. DILLON- resolved 4. Metabolic encephalopathy 5. Schizophrenia with 304 commitment at the [facility] 6. DMII 7. Hypothyroidism 8. Possible sleep apnea vs obesity hypoventilation? 9. Hypomagnesemia NVS - mentating well but confused about where she is, states she is scared - 1:1 is available in the room - Schizophrenia - cont trazodone, Fluphenazine, Valproate - Haloperidol for agitation - fluphenazine additionally added in am CVS - Propranolol has been continued - may improve her sinus tachycardia - consider increasing dose - continue to monitor - consider titrating lasix RVS - 4 L o2 on NC - continue to wean slowly - albuterol q 6 and q2 prn ENDO - ISS - BSG AC/HS - continue to monitor for S&S of hypoglycemia - continue Synthroid FEN - continue to follow BMP, no hyponat/ hypokal - cont KCL and Mg OX GI - advance diet as tolerated - protonix 40 mg daily - doculax for bowel regimen RENAL - DILLON has resolved - continue to monitor her BMP ID - abx course completed - ketoconazole Heme - follow CBC - DVT prophylaxis is enoxaparin Appropriate to downgrade from ICU at this time Consults & Procedures Consultants: Under Primary care of Dr Gonzalez Data Medications: Current Inpatient Medications Medications (Trade) Dose Ordered Sig/Racquel Route Start Time Stop Time Status Last Admin Dose Admin Ondansetron HCl (Zofran Inj) 4 mg Q6H PRN IV 07/18/16 17:15 08/17/16 17:14 Glucose (Glucose 40% Gel) 15-30 GRAMS 15 GRAMS... UD PRN PO 07/18/16 20:00 08/17/16 19:59 Glucose (Glucose Chew Tab) 4-8 Tablets 4 Tabl... UD PRN PO 07/18/16 20:00 08/17/16 19:59 Dextrose (Dextrose 50% 50ML Syringe) 25-50ML OF 50% DW IV FOR... UD PRN IV 07/18/16 20:00 08/17/16 19:59 Glucagon (Glucagon Inj) 1 mg UD PRN SQ 07/18/16 20:00 08/17/16 19:59 Fluphenazine HCl (Prolixin Tab) 15 mg HS PO 07/19/16 21:00 08/18/16 20:59 07/25/16 20:28 15 MG Levothyroxine Sodium (Synthroid Tab) 25 mcg DAILYBB PO 07/19/16 06:00 08/18/16 05:59 07/26/16 05:42 25 MCG Miscellaneous Information (Order Awaiting Action) 1 ea QS N/A 07/19/16 00:00 08/18/16 00:00 07/26/16 00:00 1 EA Miscellaneous Information (Consult Glycemic Management Pharmacy) 1 ea UD PRN N/A 07/19/16 08:53 08/18/16 08:52 Valproic Acid (Depakene Syrup) 1,000 mg BID PO 07/19/16 21:00 08/18/16 20:59 07/26/16 07:48 1,000 MG Acetaminophen (Tylenol Soln) 650 mg Q4H PRN OG 07/19/16 17:00 08/18/16 16:59 07/23/16 23:50 650 MG Lorazepam (Ativan Inj) 0.5 mg Q4H PRN IV 07/20/16 09:30 08/19/16 09:29 07/23/16 04:07 0.5 MG Enoxaparin Sodium (Lovenox Inj) 40 mg QAM SQ 07/23/16 09:00 08/22/16 08:59 07/26/16 07:48 40 MG Bisacodyl (Dulcolax Supp) 10 mg DAILY PRN FL 07/23/16 07:45 08/22/16 07:44 Ketoconazole (Nizoral 2% Crm) 1 appln BID EXT 07/24/16 09:15 08/03/16 09:14 07/26/16 08:00 1 APPLN Haloperidol Lactate (Haldol Inj) 10 mg ONE PRN IM 07/24/16 22:30 08/23/16 22:29 Potassium Chloride (Klor-Con M10) 10 meq QIDM PO 07/25/16 09:00 08/24/16 08:59 07/26/16 07:46 10 MEQ Magnesium Oxide (Mag-Ox Tab) 400 mg BID PO 07/25/16 09:00 08/24/16 08:59 07/26/16 07:47 400 MG Trazodone HCl (Desyrel Tab) 100 mg HS PO 07/25/16 21:00 08/24/16 20:59 07/25/16 20:27 100 MG Propranolol HCl (Inderal Tab) 10 mg BID PO 07/25/16 21:00 08/24/16 20:59 07/26/16 07:47 10 MG Fluphenazine HCl (Prolixin Tab) 5 mg QAM PO 07/26/16 09:00 08/25/16 08:59 07/26/16 07:46 5 MG Insulin Aspart SLIDING SCALE ACHS SC 07/25/16 16:00 08/24/16 15:59 07/26/16 07:55 4 UNITS Magnesium Sulfate/ Prmx (Magnesium Sulfate/Premixed D5W) 100 ml @ 100 mls/hr Q1H IV 07/26/16 08:00 07/26/16 09:59 07/26/16 08:10 100 MLS/HR Miscellaneous (Xopenex/ Atrovent Neb) 1 ea Q6H INH 07/26/16 08:00 08/25/16 07:59 UNV Miscellaneous (Xopenex/ Atrovent Neb) 1 ea Q4H PRN INH 07/26/16 08:00 08/25/16 07:59 UNV Multivitamins (Multivitamin Tab) 1 tab QAM PO 07/27/16 09:00 08/26/16 08:59 I & O: 24-Hour Column 07/26/16 08:00 Intake Total 2740 ml Output Total 3350 ml Balance -610 ml Vital Signs: Date Time Temp Pulse Resp B/P Pulse Ox O2 Delivery O2 Flow Rate FiO2 07/26/16 07:25 37.2 106 20 118/76 90 Nasal Cannula 4.0 07/26/16 07:25 90 Nasal Cannula 4.0 07/26/16 06:00 36.6 101 20 120/93 94 Nasal Cannula 2.0 07/26/16 03:30 91 Nasal Cannula 4.0 07/26/16 03:29 36.6 106 20 133/77 91 Nasal Cannula 2.0 07/26/16 02:00 93 16 97 Nasal Cannula 3.0 07/26/16 01:45 92 18 93 Nasal Cannula 4.0 07/26/16 00:00 95 Nasal Cannula 3.0 07/26/16 00:00 36.7 98 20 126/101 96 Nasal Cannula 2.0 07/25/16 22:00 96 18 121/91 96 Nasal Cannula 3.0 07/25/16 20:00 93 Nasal Cannula 3.0 07/25/16 20:00 36.9 115 20 124/94 93 Nasal Cannula 3.0 07/25/16 19:04 118 20 94 Nasal Cannula 3.0 07/25/16 16:59 115 122/98 07/25/16 16:03 115 120/83 07/25/16 16:00 93 Nasal Cannula 3.0 07/25/16 16:00 36.8 113 89/77 91 Nasal Cannula 3.0 07/25/16 15:00 132 07/25/16 14:57 130 128/37 07/25/16 14:21 113 93 Nasal Cannula 3.0 07/25/16 14:00 103 91 07/25/16 13:35 102 114/73 93 07/25/16 13:00 108 91 07/25/16 12:00 95 Nasal Cannula 4.0 07/25/16 11:59 36.9 100 124/80 96 Nasal Cannula 4.0 07/25/16 11:47 112 24 96 Nasal Cannula 4.0 07/25/16 11:03 119 116/80 98 07/25/16 11:00 121 95 07/25/16 10:46 133 123/78 07/25/16 10:00 150 94 10.0 07/25/16 09:59 149 95 07/25/16 09:45 146 128/82 97 10.0 07/25/16 09:00 147 96 Laboratory Results: Last 24 Hours Test 07/25/16 11:18 07/25/16 16:09 07/25/16 20:26 07/26/16 05:23 Bedside Glucose 229 mg/dl 158 mg/dl 233 mg/dl White Blood Count 13.43 K/uL Red Blood Count 4.13 M/uL Hemoglobin 12.4 g/dL Hematocrit 37.0 % Mean Corpuscular Volume 89.6 fL Mean Corpuscular Hemoglobin 30.0 pg Mean Corpuscular Hemoglobin Concent 33.5 g/dl RDW Standard Deviation 46.7 fL RDW Coefficient of Variation 14.4 % Platelet Count 386 K/uL Mean Platelet Volume 10.6 fL Sodium Level 138 mmol/L Potassium Level 3.8 mmol/L Chloride Level 97 mmol/L Carbon Dioxide Level 31 mmol/L Anion Gap 10.0 mmol/L Blood Urea Nitrogen 17 mg/dl Creatinine 0.62 mg/dl Est Creatinine Clear Calc Drug Dose 128.6 ml/min Estimated GFR () 131.6 Estimated GFR (Non- 113.6 BUN/Creatinine Ratio 27.1 Random Glucose 148 mg/dl Calcium Level 9.5 mg/dl Magnesium Level 1.5 mg/dl Test 07/26/16 07:01 Bedside Glucose 172 mg/dl
--- NOTE | 2016-07-26 08:48 | Critical Care Progress Note ---
Critical Care Progress Note Date of Service Jul 26, 2016. Attending Subjective Had a good night. A-a gradient improved. More active and appropriate but still with episodes of agitation. Psychiatry consult noted. PO intake is good. The Lorenzo and PIC line out today. She has no clear complaints reported to me today. Nursing the primary source of information. No c.diff like stools. Minimal sputum. Urine is clear. Objective VITAL SIGNS: were reviewed as below GENERAL: interactive, alert, sitting in chair. No observable cardiopulmonary distress SKIN: Warm dry and pink HEAD: no targets now EYES: extraocular muscles intact, pupils equal NECK: Large circumference,unable to assess JVD due to neck size LUNGS: exchange is adequate. Continues to be somewhat diminished in the bases. HEART: Regular rate and rhythm, quiet heart sounds, no murmurs audible--gets tachy when up and moving and/or agitated ABDOMEN: Soft, distended (similar to previous day), nontender, bowel sounds present --Lorenzo to gravity with clear urine EXTREMITIES: perfusion is acceptable. . NEUROLOGICALLY: awake and alert, following commands, watching TV, talking on the phone. Assessment & Plan Severe neuropsychiatric disease admitted to the ICU with pneumonia and respiratory failure: 6 days+/- on vent 1. Pulmonary--toilette and mobilize. Wean oxygen as tolerated. Continue Beta2 agonist. She has completed the course of antibiotics 2. Cardio--will require titration of the beta sissy--Loop diuretic PO to be titrated. Tachycardia is multifactorial 3. GI--normalized PO intake-- 4. --lorenzo out 5. F/E/N--acceptable 6. Musculoskeletal--PT.OT involved 7. Psych--simplified med profile 8. Gen ICU--PIC out, can leave to med floor 9. Dispo--patient case manager involved--complex issues both psychiatric and medical. Critical Care TIme--45 minutes Consults & Procedures Consultants: Under Primary care of Dr Gonzalez Data Medications: Current Inpatient Medications Medications (Trade) Dose Ordered Sig/Racquel Route Start Time Stop Time Status Last Admin Dose Admin Ondansetron HCl (Zofran Inj) 4 mg Q6H PRN IV 07/18/16 17:15 08/17/16 17:14 Glucose (Glucose 40% Gel) 15-30 GRAMS 15 GRAMS... UD PRN PO 07/18/16 20:00 08/17/16 19:59 Glucose (Glucose Chew Tab) 4-8 Tablets 4 Tabl... UD PRN PO 07/18/16 20:00 08/17/16 19:59 Dextrose (Dextrose 50% 50ML Syringe) 25-50ML OF 50% DW IV FOR... UD PRN IV 07/18/16 20:00 08/17/16 19:59 Glucagon (Glucagon Inj) 1 mg UD PRN SQ 07/18/16 20:00 08/17/16 19:59 Fluphenazine HCl (Prolixin Tab) 15 mg HS PO 07/19/16 21:00 08/18/16 20:59 07/25/16 20:28 15 MG Levothyroxine Sodium (Synthroid Tab) 25 mcg DAILYBB PO 07/19/16 06:00 08/18/16 05:59 07/26/16 05:42 25 MCG Miscellaneous Information (Order Awaiting Action) 1 ea QS N/A 07/19/16 00:00 08/18/16 00:00 07/26/16 00:00 1 EA Miscellaneous Information (Consult Glycemic Management Pharmacy) 1 ea UD PRN N/A 07/19/16 08:53 08/18/16 08:52 Valproic Acid (Depakene Syrup) 1,000 mg BID PO 07/19/16 21:00 08/18/16 20:59 07/26/16 07:48 1,000 MG Acetaminophen (Tylenol Soln) 650 mg Q4H PRN OG 07/19/16 17:00 08/18/16 16:59 07/23/16 23:50 650 MG Lorazepam (Ativan Inj) 0.5 mg Q4H PRN IV 07/20/16 09:30 08/19/16 09:29 07/23/16 04:07 0.5 MG Enoxaparin Sodium (Lovenox Inj) 40 mg QAM SQ 07/23/16 09:00 08/22/16 08:59 07/26/16 07:48 40 MG Bisacodyl (Dulcolax Supp) 10 mg DAILY PRN FL 07/23/16 07:45 08/22/16 07:44 Ketoconazole (Nizoral 2% Crm) 1 appln BID EXT 07/24/16 09:15 08/03/16 09:14 07/26/16 08:00 1 APPLN Haloperidol Lactate (Haldol Inj) 10 mg ONE PRN IM 07/24/16 22:30 08/23/16 22:29 Potassium Chloride (Klor-Con M10) 10 meq QIDM PO 07/25/16 09:00 08/24/16 08:59 07/26/16 07:46 10 MEQ Magnesium Oxide (Mag-Ox Tab) 400 mg BID PO 07/25/16 09:00 08/24/16 08:59 07/26/16 07:47 400 MG Trazodone HCl (Desyrel Tab) 100 mg HS PO 07/25/16 21:00 08/24/16 20:59 07/25/16 20:27 100 MG Propranolol HCl (Inderal Tab) 10 mg BID PO 07/25/16 21:00 08/24/16 20:59 07/26/16 07:47 10 MG Fluphenazine HCl (Prolixin Tab) 5 mg QAM PO 07/26/16 09:00 08/25/16 08:59 07/26/16 07:46 5 MG Insulin Aspart SLIDING SCALE ACHS SC 07/25/16 16:00 08/24/16 15:59 07/26/16 07:55 4 UNITS Magnesium Sulfate/ Prmx (Magnesium Sulfate/Premixed D5W) 100 ml @ 100 mls/hr Q1H IV 07/26/16 08:00 07/26/16 09:59 07/26/16 08:10 100 MLS/HR Miscellaneous (Xopenex/ Atrovent Neb) 1 ea Q6H INH 07/26/16 08:00 08/25/16 07:59 UNV Miscellaneous (Xopenex/ Atrovent Neb) 1 ea Q4H PRN INH 07/26/16 08:00 08/25/16 07:59 UNV Multivitamins (Multivitamin Tab) 1 tab QAM PO 07/27/16 09:00 08/26/16 08:59 I & O: 24-Hour Column 07/26/16 08:00 Intake Total 2740 ml Output Total 3350 ml Balance -610 ml Vital Signs: Date Time Temp Pulse Resp B/P Pulse Ox O2 Delivery O2 Flow Rate FiO2 07/26/16 07:25 37.2 106 20 118/76 90 Nasal Cannula 4.0 07/26/16 07:25 90 Nasal Cannula 4.0 07/26/16 06:00 36.6 101 20 120/93 94 Nasal Cannula 2.0 07/26/16 03:30 91 Nasal Cannula 4.0 07/26/16 03:29 36.6 106 20 133/77 91 Nasal Cannula 2.0 07/26/16 02:00 93 16 97 Nasal Cannula 3.0 07/26/16 01:45 92 18 93 Nasal Cannula 4.0 07/26/16 00:00 95 Nasal Cannula 3.0 07/26/16 00:00 36.7 98 20 126/101 96 Nasal Cannula 2.0 07/25/16 22:00 96 18 121/91 96 Nasal Cannula 3.0 07/25/16 20:00 93 Nasal Cannula 3.0 07/25/16 20:00 36.9 115 20 124/94 93 Nasal Cannula 3.0 07/25/16 19:04 118 20 94 Nasal Cannula 3.0 07/25/16 16:59 115 122/98 07/25/16 16:03 115 120/83 07/25/16 16:00 93 Nasal Cannula 3.0 07/25/16 16:00 36.8 113 89/77 91 Nasal Cannula 3.0 07/25/16 15:00 132 07/25/16 14:57 130 128/37 07/25/16 14:21 113 93 Nasal Cannula 3.0 07/25/16 14:00 103 91 07/25/16 13:35 102 114/73 93 07/25/16 13:00 108 91 07/25/16 12:00 95 Nasal Cannula 4.0 07/25/16 11:59 36.9 100 124/80 96 Nasal Cannula 4.0 07/25/16 11:47 112 24 96 Nasal Cannula 4.0 07/25/16 11:03 119 116/80 98 07/25/16 11:00 121 95 07/25/16 10:46 133 123/78 07/25/16 10:00 150 94 10.0 07/25/16 09:59 149 95 07/25/16 09:45 146 128/82 97 10.0 07/25/16 09:00 147 96 Laboratory Results: Last 24 Hours Test 07/25/16 11:18 07/25/16 16:09 07/25/16 20:26 07/26/16 05:23 Bedside Glucose 229 mg/dl 158 mg/dl 233 mg/dl White Blood Count 13.43 K/uL Red Blood Count 4.13 M/uL Hemoglobin 12.4 g/dL Hematocrit 37.0 % Mean Corpuscular Volume 89.6 fL Mean Corpuscular Hemoglobin 30.0 pg Mean Corpuscular Hemoglobin Concent 33.5 g/dl RDW Standard Deviation 46.7 fL RDW Coefficient of Variation 14.4 % Platelet Count 386 K/uL Mean Platelet Volume 10.6 fL Sodium Level 138 mmol/L Potassium Level 3.8 mmol/L Chloride Level 97 mmol/L Carbon Dioxide Level 31 mmol/L Anion Gap 10.0 mmol/L Blood Urea Nitrogen 17 mg/dl Creatinine 0.62 mg/dl Est Creatinine Clear Calc Drug Dose 128.6 ml/min Estimated GFR () 131.6 Estimated GFR (Non- 113.6 BUN/Creatinine Ratio 27.1 Random Glucose 148 mg/dl Calcium Level 9.5 mg/dl Magnesium Level 1.5 mg/dl Test 07/26/16 07:01 Bedside Glucose 172 mg/dl
[2016-07-26] MEDS ORDERED: PANTOprazole SOD 40 MG TAB PO SCH (09:00)
[2016-07-26] MEDS: IPRATROPIUM BROMIDE NEB SOLN 0.02% 2.5 ML VIAL INH SCH ×3 (09:08→19:41)
[2016-07-26] MEDS: LEVALBUTEROL 1.25MG/0.5ML NEB INH SCH ×3 (09:08→19:41)
--- NOTE | 2016-07-26 11:51 | Pharmacy Progress Note ---
Glycemic Control: Progress Nt Date of Service Jul 26, 2016. Scope Glycemic Pharmacist consulted by Dr Lazo on 07/19/16 for glycemic control and to write orders per [facility] inpatient glycemic control protocol. Objective Accuchecks BSG (last 24hrs): Test 07/25/16 16:09 07/25/16 20:26 07/26/16 05:23 07/26/16 07:01 Bedside Glucose 158 mg/dl (70-90) 233 mg/dl (70-90) 172 mg/dl (70-90) Random Glucose 148 mg/dl (70-99) Test 07/26/16 10:50 Bedside Glucose 206 mg/dl (70-90) Laboratory Data (last 24hrs) Test 07/26/16 05:23 Anion Gap 10.0 mmol/L BUN/Creatinine Ratio 27.1 Blood Urea Nitrogen 17 mg/dl Creatinine 0.62 mg/dl Potassium Level 3.8 mmol/L Sodium Level 138 mmol/L White Blood Count 13.43 K/uL HbA1c: Test 07/20/16 05:54 Hemoglobin A1c 6.8 % (4.5-5.6) H Recent Pertinent Medications Outpatient Anti-diabetic Regimen: * Metformin 1gm PO BID * A1c = 6.8% 07/20/16 The patient is currently receiving: * Basal insulin: none * Correctional Insulin: Novolog Correction per scale ACHS Goal Range: Low 120 mg/dL - High 160 mg/dL Correction Factor: 30 mg/dL/unit * Prandial insulin: 1 unit for 20gm CHO consumed w/ meals * Oral Agents: None currently Risk Factors for Insulin Resistance: * Diet: ordered T2DM diet; patient appears to be tolerating PO intake Assessment & Plan ASSESSMENT: 07/24/16 * Glycemic control adequate over the last 24 hours * Glycemic control has improved since steroids have been weaned down to current dose * Will continue with correctional and prandial insulin in the current doses * No basal insulin required 07/25/16 * Glycemic control acceptable over last 24 hrs, evening BSGs in the 180's however pt was anxious and self extubated at that time - this could explain hyperglycemia * Fasting BSG 135 this AM with no basal on board - refrain from ordering basal * Type 2 DM diet has been ordered and per RN pt has been tolerating fluids by mouth; will adjust Novolog CF and CR now that tube feeds off 07/26/16 * 2 of 3 post-prandial BSGs elevated yesterday; may have been due to lack of carb coverage w/ breakfast and dinner. When CR was used with lunch the following pre-dinner BSG was at goal. Will make a small increase in prandial insulin dose given uncertainty * Fasting BSG higher today than prior days. She has no basal insulin on board. Will continue to monitor, however if elevated tomorrow might consider adding basal insulin. PLAN FOR INPATIENT GLYCEMIC CONTROL: * No basal at this time - reeval tomorrow AM * Changing correction factor to 25 mg/dl/unit * Changing carb ratio to 1 unit per 15gm CHO consumed * Continue goal range of Low 120 mg/dL - High 160 mg/dL * Please note that the plan above was derived based on current level of insulin resistance and hospital stress. These recommendations are appropriate for inpatient admission only. Plan of care upon discharge will need to be reassessed to avoid potential outpatient hypo/hyperglycemia. Thank you.
[2016-07-26] MEDS: GUAIFENESIN 600 MG TABCR PO SCH ×2 (12:43→23:40)
--- NOTE | 2016-07-26 13:29 | Medical Student: [facility] ---
Medical Student Progress Note Date of Service Jul 26, 2016. Progress Note DATE OF SERVICE: 07/26/2016 INTERVAL HISTORY: Chelsey Bernal is a 41 yo woman from [place] who was transferred to the [facility] ICU from the [facility] Unit on 07/18/16 for sepsis secondary to healthcare associated pneumonia. Psychiatry was consulted to assess her underlying schizophrenia, paranoid. Information was collected from the patient and her EMR. She is on a 304 extended involuntary commitment at [facility] and there are plans to transfer her to [facility]. CC: "I do not want anyone to say I hurt my kids" SUBJECTIVE: Chelsey Bernal is a 41 yo woman with a history of schizophrenia treated by a psychiatrist through [facility] who presented with symptoms of sepsis including shortness of breath, fever, low oxygen saturation, and hypotension. She was intubated on 07/19/16 and self extubated on 07/25/16. Per nursing, she has been paranoid, fearful, and occasionally agitated since extubation. Psychiatry was consulted on 07/25/16 and she was seen by Mary Florez NP. According to her records from [facility], she was admitted on with multiple delusions including (1) she was with twins, (2) someone was coming into her apartment at night and exposing her, and (3) people were calling her derogatory names over the radio. Her medications during her hospitalization at [facility] included Prolixin, Depakene, and Ativan. She was no longer on Seroquel or Risperdal. Today, she is seated in her bedside chair. She was cooperative with the conversation. She reports that overall she feels "good," and understands that she had been quite ill. She feels that she is feeling better and is not fearful of anything today. She denies any suicidal or homicidal ideations. She denies any visual or auditory hallucinations today. However, she was noted to see a man outside her window yesterday per her nurse. She became tearful when discussing her 10 year old son who is currently being raised by his grandmother (the patient's mother). She worries that "people say bad things about my family all the time" and that people think she is hurting her son. Her older son, who she stated that she had at 16 yo, lives with the child's father. Per her nurse, there are plans to transfer to telemetry today once a bed becomes available, and further plans to move to [facility] on the 304. When asked about where she will go after discharge, Chelsey states that she did not know. She did not remark on [facility]. ROS: Positive for cough, shortness of breath, and otherwise negative 10-point ROS. MSE: Appearance: 41 year old obese female with brown unkempt hair that she repeatedly brushed during the interview. She is on nasal canula, sitting comfortably in her chair. Awake, alert, and oriented x3. Generally cooperative. Eye Contact:Good. Has 15-30 second lapses in which she looses eye contact. Motor: Stood with the assistance of a walker, denied loss of balance or dizziness. Speech: Occasionally garbled speech that is sometimes difficult to understand. Affect: Flat. Occasional short episodes of tearfulness Mood: "better." moments of agitation per nursing although not observed in this interview Thought Process: Easily distracted Perception:Currently denies visual or auditory hallucinations. Cognition: Memory intact, with some lapses for example, could not recall plan to transfer to [facility]. Intelligence: at or below average Insight: impaired. Lacks insight into her disease. Judgement: impaired VITAL SIGNS: Date Time Temp Pulse Resp B/P Pulse Ox O2 Delivery O2 Flow Rate FiO2 07/26/16 09:08 96 18 94 Nasal Cannula 3.0 07/26/16 07:25 37.2 106 20 118/76 90 Nasal Cannula 4.0 07/26/16 07:25 90 Nasal Cannula 4.0 07/26/16 06:00 36.6 101 20 120/93 94 Nasal Cannula 2.0 07/26/16 03:30 91 Nasal Cannula 4.0 07/26/16 03:29 36.6 106 20 133/77 91 Nasal Cannula 2.0 07/26/16 02:00 93 16 97 Nasal Cannula 3.0 07/26/16 01:45 92 18 93 Nasal Cannula 4.0 07/26/16 00:00 95 Nasal Cannula 3.0 07/26/16 00:00 36.7 98 20 126/101 96 Nasal Cannula 2.0 07/25/16 22:00 96 18 121/91 96 Nasal Cannula 3.0 07/25/16 20:00 93 Nasal Cannula 3.0 2/28/17 20:00 36.9 115 20 124/94 93 Nasal Cannula 3.0 07/25/16 19:04 118 20 94 Nasal Cannula 3.0 07/25/16 16:59 115 122/98 07/25/16 16:03 115 120/83 07/25/16 16:00 93 Nasal Cannula 3.0 07/25/16 16:00 36.8 113 89/77 91 Nasal Cannula 3.0 07/25/16 15:00 132 07/25/16 14:57 130 128/37 07/25/16 14:21 113 93 Nasal Cannula 3.0 07/25/16 14:00 103 91 07/25/16 13:35 102 114/73 93 07/25/16 13:00 108 91 07/25/16 12:00 95 Nasal Cannula 4.0 07/25/16 11:59 36.9 100 124/80 96 Nasal Cannula 4.0 07/25/16 11:47 112 24 96 Nasal Cannula 4.0 07/25/16 11:03 119 116/80 98 07/25/16 11:00 121 95 07/25/16 10:46 133 123/78 MEDICATIONS ADMINISTERED LAST 24 HOURS: Medications (Trade) Dose Ordered Sig/Racquel Route Start Time Stop Time Status Last Admin Dose Admin Trazodone HCl (Desyrel Tab) 100 mg HS PO 07/25/16 21:00 08/24/16 20:59 07/25/16 20:27 100 MG Propranolol HCl (Inderal Tab) 10 mg BID PO 07/25/16 21:00 07/26/16 10:11 DC 07/26/16 07:47 10 MG Pantoprazole Sodium (Protonix Tab) 40 mg QAM PO 07/26/16 09:00 07/26/16 09:00 DC 07/26/16 07:47 40 MG Metoprolol Tartrate (Lopressor Iv) 5 mg STK-MED ONCE .ROUTE 07/25/16 10:39 07/25/16 10:42 DC 07/25/16 10:46 1 MG Fluphenazine HCl (Prolixin Tab) 5 mg QAM PO 07/26/16 09:00 08/25/16 08:59 07/26/16 07:46 5 MG Fluphenazine HCl (Prolixin Tab) 5 mg 1238 ONCE PO 07/25/16 12:38 07/25/16 12:46 DC 07/25/16 14:12 5 MG Insulin Aspart (novoLOG ASPART) SLIDING SCALE ACHS SC 07/25/16 16:00 08/24/16 15:59 07/26/16 07:55 4 UNITS Heparin Sodium (Porcine) 10 ml 10 ml STK-MED ONCE .ROUTE 07/25/16 17:19 07/25/16 17:22 DC 07/25/16 17:19 10 ML Magnesium Sulfate/ Prmx (Magnesium Sulfate/Premixed D5W) 100 ml @ 100 mls/hr Q1H IV 07/26/16 08:00 07/26/16 09:59 DC 07/26/16 09:13 100 MLS/HR Ipratropium [place] (Atrovent 0.02% 0.5MG/2.5ML Neb) 0.5 mg Q6R INH 07/26/16 09:00 08/25/16 08:59 07/26/16 09:08 0.5 MG Levalbuterol (Xopenex 1.25MG/ 0.5ML Neb) 1.25 mg Q6R INH 07/26/16 09:00 08/25/16 08:59 07/26/16 09:08 1.25 MG IMPRESSION: Ms. Chelsey Bernal is a 41 yo woman with an acute exacerbation of paranoid schizophrenia who was admitted from the [facility]. Since extubation, she continues to be paranoid and tearful. She appears fearful of male providers, and should be assigned female nurses when possible. She appears to be improving since extubation and currently denies any visual or auditory hallucinations. PLAN: (1) Paranoid schizophrenia, acute exacerbation -Continue Prolixin 5 mg q AM and 15 mg qHS -Continue Haldol 5 mg q 4h PRN for agitation or Haldol 10 mg IM PRN for combativeness -Continue valproic acid 1000mg po BID -Discourage use of Ativan given paranoia -Consider female nurses only given her concern (delusion) that she could be abused. -Coordinate with [facility] about disposition when medically statble -Psychiatry will continue to follow (2) Severe sepsis/acute respiratory failure with hypoxia from pneumonia -Continue Zosyn -Continue Solu-Medrol 20 mg IV BID, duonebs (3) Hypothyroidism -Continue Synthroid 50 mcg daily (4) Diabetes type II -Continue Novolog sliding scale -Continue accuchecks with meals, AC, HS (5) Obesity, BMI 39.5
--- NOTE | 2016-07-26 13:41 | Psychiatric Progress Notes ---
Psychiatric Progress Note Date of Service Jul 26, 2016. Notes 41-year-old female with schizophrenia and intellectual disability who was transferred from the [facility], where she is on an involuntary 304 commitment, to our hospital for treatment of sepsis. Psychiatry is following for psychosis. Chief complaint "I do have psychiatrist in [place]." Patient was seen and assessed, her records reviewed, and the case discussed with Dr. Cinseros. She was seen by TYSON Morales, yesterday for the initial psychiatric consultation. At that time, she was paranoid and fearful that people were harassing her, and her Prolixin was increased. This morning, nursing staff contacted [facility], where she was scheduled to be transferred on her involuntary commitment, as they have a bed available tomorrow. It was not felt that she would be medically stable enough to be transferred at that time. On my assessment today, the patient states she is "feeling a lot better." She reports good mood, and denies current hallucinations. She does endorse some paranoia, stating "I thin hurt a lot in my life, I'm trying to feel safe, but it's kind of hard." No delusions are expressed. She denies thoughts of harming herself or anyone else. She states "I'm kind of slow, you might want my mom to answer questions." She talks about her 10-year-old son who lives with her mother in [place], and says she would not want to hurt herself, as she "wants to see him graduate." She reports good appetite, but disrupted sleep, which she states is chronic. Review of systems: Denies anxiety, OCD, HI Overweight white female appearing stated age. Dressed in a hospital gown with limited grooming. O2 nasal cannula in place. Calm and cooperative. Seated in NAD, with fair eye contact and no abnormal movements. Speech is normal rate, volume, and tone. Mood is "good," and affect is stable and blunted. Thoughts are linear and concrete. The patient denied suicidal and homicidal ideation. She does endorse some nonspecific paranoia. No delusions or hallucinations, and did not appear to be responding to internal stimuli. Cognition is impaired. Alert and oriented to person, place and time. Intelligence is estimated to be below average. Insight and and judgment are impaired. Diagnosis: Schizophrenia Suspect intellectual disability Recommendations: 1. Continue increased dose of Prolixin, 5 mg every morning and 15 mg daily at bedtime. 2. Continue trazodone 100 mg daily at bedtime. 3. Continue Ativan as needed for anxiety. 4. Patient is improving medically, and is being transferred to the floor. She will return to the [facility] on her involuntary commitment once medically stabilized.
--- NOTE | 2016-07-26 14:28 | Hospitalist Progress Note ---
Hospitalist Progress Note Date of Service Jul 26, 2016. (Rosalie Ritchie PA-C) Subjective Pt evaluation today including: conversation w/ patient, physical exam, chart review, lab review, conversation w/ reimbursement consultant, review of inpatient medication list Patient reports feeling well this morning. Denies any shortness of breath. Occasional cough. No chest pain. No fever or chills. No abdominal pain. Had a bowel movement in the last 24 hours. No nausea. It is slightly uncomfortable with her surroundings. Additional Comments: 6 system review negative. Please see pertinent positives in the history of present illness section. (Rosalie Ritchie PA-C) Objective Vital Signs Date Time Temp Pulse Resp B/P Pulse Ox O2 Delivery O2 Flow Rate FiO2 07/26/16 14:07 96 18 87 Room Air 07/26/16 13:02 36.5 103 20 115/86 94 Nasal Cannula 2.0 07/26/16 12:07 37.0 105 18 140/88 93 Nasal Cannula 1.5 07/26/16 12:02 93 Nasal Cannula 1.5 07/26/16 09:45 104 18 111/74 94 Nasal Cannula 4.0 07/26/16 09:08 96 18 94 Nasal Cannula 3.0 07/26/16 08:00 Nasal Cannula 07/26/16 07:25 37.2 106 20 118/76 90 Nasal Cannula 4.0 07/26/16 07:25 90 Nasal Cannula 4.0 07/26/16 06:00 36.6 101 20 120/93 94 Nasal Cannula 2.0 07/26/16 03:30 91 Nasal Cannula 4.0 07/26/16 03:29 36.6 106 20 133/77 91 Nasal Cannula 2.0 07/26/16 02:00 93 16 97 Nasal Cannula 3.0 07/26/16 01:45 92 18 93 Nasal Cannula 4.0 07/26/16 00:00 95 Nasal Cannula 3.0 07/26/16 00:00 36.7 98 20 126/101 96 Nasal Cannula 2.0 07/25/16 22:00 96 18 121/91 96 Nasal Cannula 3.0 07/25/16 20:00 93 Nasal Cannula 3.0 07/25/16 20:00 36.9 115 20 124/94 93 Nasal Cannula 3.0 07/25/16 19:04 118 20 94 Nasal Cannula 3.0 07/25/16 16:59 115 122/98 07/25/16 16:03 115 120/83 07/25/16 16:00 93 Nasal Cannula 3.0 07/25/16 16:00 36.8 113 89/77 91 Nasal Cannula 3.0 07/25/16 15:00 132 07/25/16 14:57 130 128/37 07/25/16 14:21 113 93 Nasal Cannula 3.0 (Rosalie Ritchie PA-C) Physical Exam General Appearance: + mild distress (mild paranoia noted) Eyes: EOMI ENT: + pertinent finding (oral mucosa fairly moist. No exceeded noted.) Neck: no JVD Respiratory/Chest: lungs clear Cardiovascular: no murmur, + tachycardia Abdomen: normal bowel sounds, non tender, soft Extremities: non-tender, no pedal edema Neurologic/Psychiatric: alert (alert and answering questions appropriately.), + pertinent finding (paranoia appears to be improved today.) Skin: warm/dry (Rosalie Ritchie PA-C) Laboratory Results 07/26/16 05:23 07/26/16 05:23 Test 07/26/16 05:23 07/26/16 10:50 Red Blood Count 4.13 M/uL (4.2-5.4) Mean Corpuscular Volume 89.6 fL (80-100) Mean Corpuscular Hemoglobin 30.0 pg (25-34) Mean Corpuscular Hemoglobin Concent 33.5 g/dl (32-36) RDW Standard Deviation 46.7 fL (36.4-46.3) RDW Coefficient of Variation 14.4 % (11.5-14.5) Mean Platelet Volume 10.6 fL (7.4-10.4) Anion Gap 10.0 mmol/L (3-11) Est Creatinine Clear Calc Drug Dose 128.6 ml/min Estimated GFR () 131.6 Estimated GFR (Non- 113.6 BUN/Creatinine Ratio 27.1 (10-20) Calcium Level 9.5 mg/dl (8.5-10.1) Magnesium Level 1.5 mg/dl (1.8-2.4) Bedside Glucose 206 mg/dl (70-90) Last 24 Hours Test 07/25/16 16:09 07/25/16 20:26 07/26/16 05:23 07/26/16 07:01 Bedside Glucose 158 mg/dl 233 mg/dl 172 mg/dl White Blood Count 13.43 K/uL Red Blood Count 4.13 M/uL Hemoglobin 12.4 g/dL Hematocrit 37.0 % Mean Corpuscular Volume 89.6 fL Mean Corpuscular Hemoglobin 30.0 pg Mean Corpuscular Hemoglobin Concent 33.5 g/dl RDW Standard Deviation 46.7 fL RDW Coefficient of Variation 14.4 % Platelet Count 386 K/uL Mean Platelet Volume 10.6 fL Sodium Level 138 mmol/L Potassium Level 3.8 mmol/L Chloride Level 97 mmol/L Carbon Dioxide Level 31 mmol/L Anion Gap 10.0 mmol/L Blood Urea Nitrogen 17 mg/dl Creatinine 0.62 mg/dl Est Creatinine Clear Calc Drug Dose 128.6 ml/min Estimated GFR () 131.6 Estimated GFR (Non- 113.6 BUN/Creatinine Ratio 27.1 Random Glucose 148 mg/dl Calcium Level 9.5 mg/dl Magnesium Level 1.5 mg/dl Test 07/26/16 10:50 Bedside Glucose 206 mg/dl (Rosalie Ritchie, PAMairaC) Assessment and Plan 41 F Severe sepsis, septic shock related to pneumonia, developed acute hypoxic respiratory failure and was intubated and mechanically ventilated 07/19-self extubated last night Severe sepsis/acute respiratory failure with hypoxia from pneumonia-self extubated on 07/25. Tolerating -put on broad spectrum ABX-course completed -Continue Solu-Medrol 20 mg IV BID, duonebs changed to xopenex -Change solumedrol to PO steroids tomorrow if tolerating -Stable for transfer to [facility] Sinus Tachycardia-? etiology-could be slightly dry mixed with hypoxa. Slow improvement -increased propranolol to 10 mg TID Hypomagnesia -Mag sulfate 2 g IV -cont PO mag oxide -check in AM Acute renal failure secondary to shock-resolved schizophrenia with suicidality-paranoia improved today -psych following -continue valproic acid -Prolixin increased per psych 5 mg QAM 15 mg QHS -haldol prn -304 from [facility] and will return there once improved FEN -Tolerating diet Diabetes -Novolog sliding scale -accuchecks with meals, AC, HS Hypothyroidism -Synthroid 50 mcg daily Deep venous thrombosis prophylaxis -Lovenox subQ CODE STATUS -LEVEL I FULL CODE DISPO -transfer to tele -back to [facility] once medically stable (Rosalie Ritchie, PAMairaC) Attending Attestation: Pt seen/examined, chart reviewed, care plan d/w TIERA Ritchie. I agree w/ the barton components of her documentation. no events overnight tachycardia improved with inderal by mouth denies dyspnea still with cough eating well lorenzo removed and voiding ok VSS, HR tachy but improved gen - awake, alert, no distress neck - no JVD mouth - MMM, no thrush heart - RR, tachy, s1, s2 lungs - continued decreased BS bases, occasional crackles bases, mild end-exp wheeze b/l abd - soft ext - no edema labs - mag 1.5 wbc count 13,000 Cr nl A/P: 1. severe sepsis 2nd to pneumonia - resolved; off abx 2. acute hypoxic/hypercarbic resp failure 2nd to #1 s/p intubation/mech vent - resolving 3. acute kidney injury - resolved 4. hypomagnesemia - ongoing, replace IV + PO; repeat level in am 5. schizophrenia at baseline with active psychosis and paranoia - psych following, they are adjusting medications; appreciate their help 6. COPD with exacerbation - improving; cont nebs; agree w/ changing to xopenex to help with tachycardia; she is off steroids 7. hypothyroidism - compensated 8. tinea pedis/xerosis repeat labs in AM PT, OT tx to telemetry unit Tommy LEBRON MD (Phuc Lebron MD)
[2016-07-26] MEDS: TRAZODONE HCL 100 MG TAB PO SCH (23:39)
[2016-07-27] VITALS (15 sets, daily range): BP systolic 108–122; BP diastolic 74–82; PULSE 80–107; TEMP 36.6–36.9; O2SAT 87–94
[2016-07-27] MEDS: LEVALBUTEROL 1.25MG/0.5ML NEB INH SCH ×4 (01:49→19:01)
[2016-07-27] MEDS: IPRATROPIUM BROMIDE NEB SOLN 0.02% 2.5 ML VIAL INH SCH ×4 (01:49→19:01)
[2016-07-27 06:22] LABS: BUN/CREATININE RATIO 26.2 (10-20); CALCIUM 9.5 mg/dl (8.5-10.1); CREATININE 0.61 mg/dl (0.60-1.20); POTASSIUM 4.1 mmol/L (3.5-5.1)
[2016-07-27] MEDS: LEVOTHYROXINE 25 MCG TAB PO SCH (06:36)
[2016-07-27 06:46] LABS: HEMATOCRIT 34.8 % (37-47); MEAN CELL VOLUME 89.5 fL (80-100); MEAN CORPUSCULAR HEMOGLOBIN 29.3 pg (25-34); MEAN CORPUSCULAR HGB CONC 32.8 g/dl (32-36); MEAN PLATELET VOLUME 10.8 fL (7.4-10.4); PLATELET COUNT 406 K/uL (130-400); RED BLOOD COUNT 3.89 M/uL (4.2-5.4); WHITE BLOOD COUNT 14.26 K/uL (4.8-10.8)
[2016-07-27] MEDS: KETOCONAZOLE 2% CR 15 GM TUBE EXT SCH ×2 (08:56→18:39)
[2016-07-27] MEDS: VALPROIC ACID SYRUP 250 MG/5 ML PO SCH ×2 (08:56→19:55)
[2016-07-27] MEDS: POTASSIUM CHLORIDE 10 MEQ TABCR PO SCH ×4 (08:56→19:51)
[2016-07-27] MEDS: MAGNESIUM OXIDE 400 MG TAB PO SCH ×2 (08:57→19:50)
[2016-07-27] MEDS: MULTIVITAMIN TAB PO SCH (08:57)
[2016-07-27] MEDS: FLUPHENAZINE HCL 2.5 MG TAB PO SCH ×2 (08:57→21:40)
[2016-07-27] MEDS: GUAIFENESIN 600 MG TABCR PO SCH ×2 (08:57→19:52)
[2016-07-27] MEDS: PROPRANOLOL HCL 10 MG TAB PO SCH ×3 (08:57→19:51)
[2016-07-27] MEDS: ENOXAPARIN 40 MG/0.4 ML SYR SQ SCH (08:58)
[2016-07-27] MEDS: INSULIN ASPART 100 UNITS/ML 3 ML PEN SC SCH ×4 (08:59→21:38)
--- NOTE | 2016-07-27 10:36 | Pharmacy Progress Note ---
Glycemic Control: Progress Nt Date of Service Jul 27, 2016. Scope Glycemic Pharmacist consulted by Dr Lazo on 07/19/16 for glycemic control and to write orders per [facility] inpatient glycemic control protocol. Objective Accuchecks BSG (last 24hrs): Test 07/26/16 10:50 07/26/16 16:30 07/26/16 20:04 07/27/16 05:10 Bedside Glucose 206 mg/dl (70-90) 149 mg/dl (70-90) 146 mg/dl (70-90) Random Glucose 151 mg/dl (70-99) Test 07/27/16 06:47 Bedside Glucose 154 mg/dl (70-90) Laboratory Data (last 24hrs) Test 07/27/16 05:10 Anion Gap 10.0 mmol/L BUN/Creatinine Ratio 26.2 Blood Urea Nitrogen 16 mg/dl Creatinine 0.61 mg/dl Potassium Level 4.1 mmol/L Sodium Level 137 mmol/L White Blood Count 14.26 K/uL HbA1c: Test 07/20/16 05:54 Hemoglobin A1c 6.8 % (4.5-5.6) H Recent Pertinent Medications Outpatient Anti-diabetic Regimen: * Metformin 1gm PO BID * A1c = 6.8% 07/20/16 The patient is currently receiving: * Basal insulin: none * Correctional Insulin: Novolog Correction per scale ACHS Goal Range: Low 120 mg/dL - High 160 mg/dL Correction Factor: 25 mg/dL/unit * Prandial insulin: 1 unit for 15gm CHO consumed w/ meals * Oral Agents: None currently Risk Factors for Insulin Resistance: * Diet: ordered T2DM diet; patient appears to be tolerating PO intake well Assessment & Plan ASSESSMENT: 07/24/16 * Glycemic control adequate over the last 24 hours * Glycemic control has improved since steroids have been weaned down to current dose * Will continue with correctional and prandial insulin in the current doses * No basal insulin required 07/25/16 * Glycemic control acceptable over last 24 hrs, evening BSGs in the 180's however pt was anxious and self extubated at that time - this could explain hyperglycemia * Fasting BSG 135 this AM with no basal on board - refrain from ordering basal * Type 2 DM diet has been ordered and per RN pt has been tolerating fluids by mouth; will adjust Novolog CF and CR now that tube feeds off 07/26/16 * 2 of 3 post-prandial BSGs elevated yesterday; may have been due to lack of carb coverage w/ breakfast and dinner. When CR was used with lunch the following pre-dinner BSG was at goal. Will make a small increase in prandial insulin dose given uncertainty * Fasting BSG higher today than prior days. She has no basal insulin on board. Will continue to monitor, however if elevated tomorrow might consider adding basal insulin. 07/27/16 * Patient continues to improve clinically each day * Glycemic control remains quite good, only 1 BSG above goal yesterday ( prelunch BSG 206) * Fasting BSG a little lower today (FBS 154) with no basal on board * Will restart the patient's home metformin as there are no contraindications to restarting at this time. Hopefully in a few days we can eliminate carb coverage w/ meals and continue correctional insulin alone. PLAN FOR INPATIENT GLYCEMIC CONTROL: * No basal at this time - reeval tomorrow AM * Continue correction factor of 25 mg/dl/unit * Continue carb ratio of 1 unit per 15gm CHO consumed * Continue goal range of Low 120 mg/dL - High 160 mg/dL * Restart home metformin 1gm PO BID w/ meals * Please note that the plan above was derived based on current level of insulin resistance and hospital stress. These recommendations are appropriate for inpatient admission only. Plan of care upon discharge will need to be reassessed to avoid potential outpatient hypo/hyperglycemia. Thank you.
[2016-07-27] MEDS ORDERED: FUROSEMIDE 40 MG/4 ML VIAL IV STA (10:56)
[2016-07-27] MEDS ORDERED: FUROSEMIDE INJ 20 MG in SYRINGE 0 ML IV ONE (11:15)
--- NOTE | 2016-07-27 12:42 | Hospitalist Progress Note ---
Hospitalist Progress Note Date of Service Jul 27, 2016. (Rosalie Ritchie PA-C) Subjective Pt evaluation today including: conversation w/ patient, physical exam, chart review, lab review, review of inpatient medication list breathing is good. No SOB, CP, dizziness, heart palpitations, f/c/s. Denies any significant anxiety. Additional Comments: 6 system review negative. Please see pertinent positives in the history of present illness section. (Rosalie Ritchie PA-C) Objective Vital Signs Date Time Temp Pulse Resp B/P Pulse Ox O2 Delivery O2 Flow Rate FiO2 07/27/16 11:20 36.8 94 22 117/82 92 Nasal Cannula 2.0 07/27/16 10:55 90 Nasal Cannula 2.0 50 07/27/16 10:08 36.9 99 18 90 2.0 07/27/16 09:00 99 07/27/16 08:51 36.9 107 108/78 90 2.0 07/27/16 08:00 106 07/27/16 08:00 90 Nasal Cannula 2.0 07/27/16 07:03 104 18 93 Nasal Cannula 2.0 07/27/16 07:00 103 07/27/16 04:00 92 Nasal Cannula 2.0 07/27/16 01:49 80 18 87 Nasal Cannula 1.0 07/27/16 00:00 36.7 88 112/74 92 Nasal Cannula 2.0 07/27/16 00:00 93 Nasal Cannula 2.0 07/26/16 20:00 92 Nasal Cannula 2.0 07/26/16 20:00 36.3 99 18 146/85 92 Nasal Cannula 2.0 07/26/16 19:46 91 18 87 Nasal Cannula 2.0 07/26/16 16:00 95 Nasal Cannula 1.5 07/26/16 16:00 37.1 91 18 111/76 94 Room Air 07/26/16 14:07 96 18 87 Room Air 07/26/16 14:00 94 Nasal Cannula 1.5 07/26/16 13:02 36.5 103 20 115/86 94 Nasal Cannula 2.0 (Rosalie Ritchie PA-C) Physical Exam General Appearance: + mild distress (mildly anxious in appearance) Eyes: EOMI ENT: + pertinent finding (oral mucosa slightly dry. No exited noted.) Neck: no JVD Respiratory/Chest: + pertinent finding (few crackles noted at the right base. No wheezing or rhonchi.) Cardiovascular: + tachycardia (mildly tachycardic in the high 90s/low 100s. No murmurs.) Abdomen: non tender, soft, + pertinent finding (bowel sounds present, but hypoactive.) Extremities: non-tender, no pedal edema Neurologic/Psychiatric: alert (alert and answered questions appropriately. No focal motor deficits noted. Mildly anxious, overall improvement noted.) Skin: warm/dry (Rosalie Ritchie, INDIGO) Laboratory Results 07/27/16 05:10 07/27/16 05:10 Test 07/27/16 05:10 07/27/16 11:35 Red Blood Count 3.89 M/uL (4.2-5.4) Mean Corpuscular Volume 89.5 fL (80-100) Mean Corpuscular Hemoglobin 29.3 pg (25-34) Mean Corpuscular Hemoglobin Concent 32.8 g/dl (32-36) RDW Standard Deviation 47.2 fL (36.4-46.3) RDW Coefficient of Variation 14.3 % (11.5-14.5) Mean Platelet Volume 10.8 fL (7.4-10.4) Anion Gap 10.0 mmol/L (3-11) Est Creatinine Clear Calc Drug Dose 130.7 ml/min Estimated GFR () 132.4 Estimated GFR (Non- 114.2 BUN/Creatinine Ratio 26.2 (10-20) Calcium Level 9.5 mg/dl (8.5-10.1) Bedside Glucose 152 mg/dl (70-90) Last 24 Hours Test 07/26/16 16:30 07/26/16 20:04 07/27/16 05:10 07/27/16 06:47 Bedside Glucose 149 mg/dl 146 mg/dl 154 mg/dl White Blood Count 14.26 K/uL Red Blood Count 3.89 M/uL Hemoglobin 11.4 g/dL Hematocrit 34.8 % Mean Corpuscular Volume 89.5 fL Mean Corpuscular Hemoglobin 29.3 pg Mean Corpuscular Hemoglobin Concent 32.8 g/dl RDW Standard Deviation 47.2 fL RDW Coefficient of Variation 14.3 % Platelet Count 406 K/uL Mean Platelet Volume 10.8 fL Sodium Level 137 mmol/L Potassium Level 4.1 mmol/L Chloride Level 98 mmol/L Carbon Dioxide Level 29 mmol/L Anion Gap 10.0 mmol/L Blood Urea Nitrogen 16 mg/dl Creatinine 0.61 mg/dl Est Creatinine Clear Calc Drug Dose 130.7 ml/min Estimated GFR () 132.4 Estimated GFR (Non- 114.2 BUN/Creatinine Ratio 26.2 Random Glucose 151 mg/dl Calcium Level 9.5 mg/dl Test 07/27/16 11:35 Bedside Glucose 152 mg/dl (Rosalie Ritchie PA-C) Assessment and Plan 41 F Severe sepsis, septic shock related to pneumonia, developed acute hypoxic respiratory failure and was intubated and mechanically ventilated 07/19-self extubated 07/25 Severe sepsis/acute respiratory failure with hypoxia from pneumonia-self extubated on 07/25. Tolerating well. O2 stable on 2 liter O2 per NC -put on broad spectrum ABX-course completed -Initially on Solu-Medrol IV--> weaned off steroids -May continue Xopenex/Atrovent nebs every 6 hours as needed -Stable for transfer to to med/surg Sinus Tachycardia-? etiology. Could be anxiety-continues to improve -Propranolol increased to 10 mg TID on 07/26 Hypomagnesia -Recheck mag in AM -cont PO mag oxide Acute renal failure secondary to shock-resolved schizophrenia with suicidality-paranoia improved today -psych following -continue valproic acid, trazodone -Prolixin increased per psych to 5 mg QAM 15 mg QHS-improvement in symptoms -Ativan PRN -304 from the [facility] and will return there once improved FEN -Tolerating diet Diabetes -metformin 1000 mg BID restarted today -Novolog sliding scale -accuchecks with meals, AC, HS Hypothyroidism -Synthroid 50 mcg daily Deep venous thrombosis prophylaxis -Lovenox subQ CODE STATUS -LEVEL I FULL CODE DISPO -transfer to med/surg -AMBULATE IN [place]WAY -would suspect pt will be medically stable for d/c back to [facility] possibly 07/28 (Rosalie Ritchie PA-C) Attending Attestation: Pt seen/examined, chart reviewed, care plan d/w TIERA Ritchie. I agree w/ the barton components of her documentation. no events overnight tachycardia stable/improved she c/o right calf pain - she cannot recall when it started continues with sitter in the room VSS afebrile gen - awake, alert, no distress; sitting in chair comfortably neck - no JVD mouth - MMM, no thrush heart - RR, tachy, s1, s2 lungs - continued decreased BS bases, occasional crackles bases; no wheeze today abd - soft ext - no edema, although left calf is bigger than right calf A/P: 1. severe sepsis 2nd to pneumonia - resolved; off abx 2. acute hypoxic/hypercarbic resp failure 2nd to #1 s/p intubation/mech vent - resolving; wean O2 as tolerated 3. acute kidney injury - resolved 4. hypomagnesemia - replacing orally; check mag level AM 5. schizophrenia at baseline with active psychosis and paranoia - psych following, they are adjusting medications; appreciate their help; continue the sitter in room 6. COPD with exacerbation - improved 7. hypothyroidism - compensated 8. tinea pedis/xerosis 9. calf discomfort - check dopplers b/l LEs to r/o DVT (although she remains on DVT proph) PT, OT evals will dictate whether she needs physical rehab before returning to the [facility] Phuc Lebron MD (Phuc Lebron MD)
--- NOTE | 2016-07-27 13:33 | Psychiatric Progress Notes ---
Progress Note Date of Service Jul 27, 2016. Interval History 41 yo female admitted from the [facility] with sepsis. is on a 304 involuntary commitment with plans to go to [facility]. Chief Complaint "I'm OK". Subjective Patient was seen & assessed interval progress reviewed with Treatment Team. The patient is seated in the bedside chair. She is calm and cooperative. She says that she is feeling much better, and has been walking in her room with a walker. She denies aud/vis hallucinations, and says that her fearfulness that people are out to harm her are less, but not completely gone. She is oriented to hospital, town, event, year, but struggles to remember that its the beginning of July, not the beginning of August. She says that everyone here "has been so nice", and feels comforted by having a 1:1 attendant in the room. She says that she would like some activities to do and so will have staff bring her some coloring sheets. She denies SI/HI. Review of Systems Constitutional: + fatigue ENT: No dental problems, No hearing loss, No nasal symptoms, No problem reported, No sore throat, No tinnitus, No trouble swallowing, No unusual epistaxis Respiratory: + shortness of breath (on continuous O2) Cardiovascular: No PND, No chest pain, No claudication, No edema, No orthopnea , No palpitations, No problem reported Abdomen: No GI bleeding, No constipation, No diarrhea, No nausea, No pain, No problem reported, No vomiting Musculoskeletal: + problem reported (weakness, ambulating with a walker) Neurologic: No balance problems, No memory loss, No numbness/tingling, No paralysis, No problem reported, No vertigo, No weakness Psychiatric: + anxiety Mental Status Exam During interview pt is: alert and oriented, cooperative Appearance: appropriately groomed Eye contact is: good Motor behavior is: no abnormal motor movements Speech: normal in rate, rhythm & volume (some hesitancy) Affect: blunted Mood is: other ("OK") Thought process: goal directed Thought content: paranoid Suicidal thought are: denied Homicidal thoughts are: denied Hallucinations: denies auditory, denies visual Cognition: memory grossly intact, attention grossly intact Intelligence estimated to be: below average Insight: impaired Judgement: impaired Impression the patient appears to be improving medically and psychiatrically. Is less paranoid, is cooperative. Medicine thinks that she could be ready for return to [place] as early as tomorrow, and so will have the attending call the [facility] psychiatrist, Dr. Horace Gonzalez, to update. Visit Code E&M Code: 99836 Data Vital Signs Last 24 Hrs: Date Time Temp Pulse Resp B/P Pulse Ox O2 Delivery O2 Flow Rate FiO2 07/27/16 11:20 36.8 94 22 117/82 92 Nasal Cannula 2.0 07/27/16 10:55 90 Nasal Cannula 2.0 50 07/27/16 10:08 36.9 99 18 90 2.0 07/27/16 09:00 99 07/27/16 08:51 36.9 107 108/78 90 2.0 07/27/16 08:00 106 07/27/16 08:00 90 Nasal Cannula 2.0 07/27/16 07:03 104 18 93 Nasal Cannula 2.0 07/27/16 07:00 103 07/27/16 04:00 92 Nasal Cannula 2.0 07/27/16 01:49 80 18 87 Nasal Cannula 1.0 07/27/16 00:00 36.7 88 112/74 92 Nasal Cannula 2.0 07/27/16 00:00 93 Nasal Cannula 2.0 07/26/16 20:00 92 Nasal Cannula 2.0 07/26/16 20:00 36.3 99 18 146/85 92 Nasal Cannula 2.0 07/26/16 19:46 91 18 87 Nasal Cannula 2.0 07/26/16 16:00 95 Nasal Cannula 1.5 07/26/16 16:00 37.1 91 18 111/76 94 Room Air 07/26/16 14:07 96 18 87 Room Air 07/26/16 14:00 94 Nasal Cannula 1.5 Meds Administered Last 24 Hrs: Meds Administered (Past 24Hrs) Medications (Trade) Dose Ordered Sig/Racquel Route Start Time Stop Time Status Last Admin Dose Admin Trazodone HCl (Desyrel Tab) 100 mg HS PO 07/25/16 21:00 08/24/16 20:59 07/26/16 23:39 100 MG Propranolol HCl (Inderal Tab) 10 mg BID PO 07/25/16 21:00 07/26/16 10:11 DC 07/26/16 07:47 10 MG Pantoprazole Sodium (Protonix Tab) 40 mg QAM PO 07/26/16 09:00 07/26/16 09:00 DC 07/26/16 07:47 40 MG Fluphenazine HCl (Prolixin Tab) 5 mg QAM PO 07/26/16 09:00 08/25/16 08:59 07/27/16 08:57 5 MG Insulin Aspart (novoLOG ASPART) SLIDING SCALE ACHS SC 07/25/16 16:00 08/24/16 15:59 07/27/16 12:48 4 UNITS Heparin Sodium (Porcine) 10 ml 10 ml STK-MED ONCE .ROUTE 07/25/16 17:19 07/25/16 17:22 DC 07/25/16 17:19 10 ML Magnesium Sulfate/ Prmx (Magnesium Sulfate/Premixed D5W) 100 ml @ 100 mls/hr Q1H IV 07/26/16 08:00 07/26/16 09:59 DC 07/26/16 09:13 100 MLS/HR Multivitamins (Multivitamin Tab) 1 tab QAM PO 07/27/16 09:00 08/26/16 08:59 07/27/16 08:57 1 TAB Ipratropium Alexander (Atrovent 0.02% 0.5MG/2.5ML Neb) 0.5 mg Q6R INH 07/26/16 09:00 08/25/16 08:59 07/27/16 07:03 0.5 MG Levalbuterol (Xopenex 1.25MG/ 0.5ML Neb) 1.25 mg Q6R INH 07/26/16 09:00 08/25/16 08:59 07/27/16 07:03 1.25 MG Guaifenesin (Mucinex Contr Rel Tab) 1,200 mg Q12 PO 07/26/16 10:30 08/25/16 10:29 07/27/16 08:57 1,200 MG Propranolol HCl 10 mg 10 mg TID PO 07/26/16 14:00 08/25/16 13:59 07/27/16 12:52 10 MG Furosemide/Syringe (Lasix Inj/ Syringe) 2 ml @ 4 mls/min NOW ONCE IV 07/27/16 11:15 07/27/16 11:16 DC 07/27/16 12:42 4 MLS/MIN Lab Results Last 24 Hrs: Last 24 Hours Test 07/26/16 16:30 07/26/16 20:04 07/27/16 05:10 07/27/16 06:47 Bedside Glucose 149 mg/dl 146 mg/dl 154 mg/dl White Blood Count 14.26 K/uL Red Blood Count 3.89 M/uL Hemoglobin 11.4 g/dL Hematocrit 34.8 % Mean Corpuscular Volume 89.5 fL Mean Corpuscular Hemoglobin 29.3 pg Mean Corpuscular Hemoglobin Concent 32.8 g/dl RDW Standard Deviation 47.2 fL RDW Coefficient of Variation 14.3 % Platelet Count 406 K/uL Mean Platelet Volume 10.8 fL Sodium Level 137 mmol/L Potassium Level 4.1 mmol/L Chloride Level 98 mmol/L Carbon Dioxide Level 29 mmol/L Anion Gap 10.0 mmol/L Blood Urea Nitrogen 16 mg/dl Creatinine 0.61 mg/dl Est Creatinine Clear Calc Drug Dose 130.7 ml/min Estimated GFR () 132.4 Estimated GFR (Non- 114.2 BUN/Creatinine Ratio 26.2 Random Glucose 151 mg/dl Calcium Level 9.5 mg/dl Test 07/27/16 11:35 Bedside Glucose 152 mg/dl
[2016-07-27] MEDS: METFORMIN HCL 500 MG TAB PO SCH (17:50)
--- NOTE | 2016-07-27 19:26 | DIAGNOSTIC IMAGING REPORT ---
ULTRASOUND BILATERAL LOWER EXTREMITY VENOUS CLINICAL HISTORY: Bilateral calf pain. COMPARISON STUDY: Left lower extremity venous ultrasound dated 07/19/16. TECHNIQUE: Real-time, grayscale, and color Doppler sonography of the deep veins of the right and left lower extremity was performed from the inguinal crease to the calf. Compression and augmentation were utilized. FINDINGS: There is no sonographic evidence of deep venous thrombosis identified in the right or left lower extremity. The common femoral, superficial femoral, and popliteal veins are patent and normally compressible bilaterally. The greater saphenous vein and the profunda femoris vein at the junction with the common femoral vein are clear in both legs. The visualized calf veins are patent bilaterally. IMPRESSION: There is no sonographic evidence of deep venous thrombosis identified in the right or left lower extremity. Electronically signed by: Paul Núñez M.D. 07/27/2016 7:25 PM Dictated Date/Time: 07/27/2016 7:24 PM
--- NOTE | 2016-07-27 21:07 | Progress Note ---
Post ICU Progress Note Date & Time Jul 27, 2016 at 21:00 Vital Signs Vital Signs Past 12 Hours Date Time Temp Pulse Resp B/P Pulse Ox O2 Delivery O2 Flow Rate FiO2 07/27/16 16:00 93 Nasal Cannula 1.5 07/27/16 15:06 36.6 85 18 122/75 92 Nasal Cannula 2.0 07/27/16 14:10 99 18 94 Nasal Cannula 2.0 07/27/16 11:20 36.8 94 22 117/82 92 Nasal Cannula 2.0 07/27/16 10:55 90 Nasal Cannula 2.0 50 07/27/16 10:08 36.9 99 18 90 2.0 Notes Mental Status: alert / awake (on the phone with her sister. Pleasant and cooperative. No paranoia at the time of my visit) Nausea / Vomiting: adequately controlled Pain: adequately controlled Airway Patency, RR, SpO2: stable & adequate BP & HR: stable & adequate Patient has no complaints. Denies SOB. No fever or chills. One on One sitter at bedside. Oxygenating well on room air. Reviewed progress notes, labs, and inpatient medication list Continue current management No further critical care needs identified. Critical care services will sign off at this time. Please feel free to reconsult as needed. Thank you for including us in the care of this patient. Consults & Procedures Consultants: Under Primary care of Dr Gonzalez and Dr. Lebron Procedures: PICC line in place IJ Triple lumen catheter discontinued Patient intubated 07/19/16 Self extubated 07/24/16
[2016-07-27] MEDS: TRAZODONE HCL 100 MG TAB PO SCH (21:40)
[2016-07-28] VITALS (9 sets, daily range): BP systolic 111–126; BP diastolic 70–88; PULSE 77–112; TEMP 36.6–37.5; O2SAT 90–97
[2016-07-28] MEDS: LEVALBUTEROL 1.25MG/0.5ML NEB INH SCH ×4 (01:53→19:58)
[2016-07-28] MEDS: IPRATROPIUM BROMIDE NEB SOLN 0.02% 2.5 ML VIAL INH SCH ×4 (01:53→19:58)
[2016-07-28 05:26] LABS: HEMATOCRIT 35.1 % (37-47); MEAN CELL VOLUME 90.5 fL (80-100); MEAN CORPUSCULAR HEMOGLOBIN 29.9 pg (25-34); MEAN PLATELET VOLUME 10.1 fL (7.4-10.4); PLATELET COUNT 364 K/uL (130-400); RED BLOOD COUNT 3.88 M/uL (4.2-5.4); WHITE BLOOD COUNT 12.18 K/uL (4.8-10.8)
[2016-07-28] MEDS: LEVOTHYROXINE 25 MCG TAB PO SCH (05:44)
[2016-07-28 05:50] LABS: BUN/CREATININE RATIO 25.8 (10-20); CALCIUM 9.5 mg/dl (8.5-10.1); CREATININE 0.6 mg/dl (0.60-1.20); MAGNESIUM 1.4 mg/dl (1.8-2.4); POTASSIUM 4.2 mmol/L (3.5-5.1)
[2016-07-28] MEDS: VALPROIC ACID SYRUP 250 MG/5 ML PO SCH ×2 (08:00→20:48)
[2016-07-28] MEDS: FLUPHENAZINE HCL 2.5 MG TAB PO SCH ×2 (08:38→20:51)
[2016-07-28] MEDS: MULTIVITAMIN TAB PO SCH (08:38)
[2016-07-28] MEDS: MAGNESIUM OXIDE 400 MG TAB PO SCH ×3 (08:38→20:48)
[2016-07-28] MEDS: PROPRANOLOL HCL 10 MG TAB PO SCH ×3 (08:39→20:49)
[2016-07-28] MEDS: GUAIFENESIN 600 MG TABCR PO SCH ×2 (08:40→20:46)
[2016-07-28] MEDS: ENOXAPARIN 40 MG/0.4 ML SYR SQ SCH (08:41)
[2016-07-28] MEDS: POTASSIUM CHLORIDE 10 MEQ TABCR PO SCH ×4 (08:42→20:47)
[2016-07-28] MEDS: METFORMIN HCL 500 MG TAB PO SCH ×2 (08:43→17:04)
[2016-07-28] MEDS: KETOCONAZOLE 2% CR 15 GM TUBE EXT SCH ×2 (08:44→20:46)
[2016-07-28] MEDS: INSULIN ASPART 100 UNITS/ML 3 ML PEN SC SCH ×4 (08:48→20:51)
--- NOTE | 2016-07-28 11:58 | Psychiatric Progress Notes ---
Psychiatric Progress Note Date of Service Jul 28, 2016. Notes 41-year-old female with schizophrenia and intellectual disability who was transferred from the [facility], where she is on an involuntary 304 commitment, to our hospital for treatment of sepsis. Psychiatry is following for psychosis. Chief complaint "something scary happened last night" HPI: tolerating increased Prolixin, tired this am as nursing confirms that her 1 -on-1 aide (for monitoring while in hospital as on 304 instead of locked psych unit at [facility]) had a medical emergency as was actually admitted to ICU. Patient denies paranoia currently. Review of systems: still denies anxiety, OCD, HI Overweight white female appearing stated age. Dressed in a hospital gown with limited grooming. O2 nasal cannula in place. Calm and cooperative. Seated in NAD, with limited eye contact and no abnormal movements. Speech is quiet. affect is stable and blunted. Thoughts are linear and concrete. The patient denied suicidal and homicidal ideation. No delusions or hallucinations, and did not appear to be responding to internal stimuli. Cognition is impaired. Alert and oriented to person, place and time. Intelligence is estimated to be below average. Insight and and judgment are impaired. Diagnosis: Schizophrenia Suspect intellectual disability Recommendations: 1. Continue increased dose of Prolixin, 5 mg every morning and 15 mg daily at bedtime. 2. Continue trazodone 100 mg daily at bedtime. 3. Continue Ativan as needed for anxiety. 4. Patient is improving medically, she will return to the [facility] on her involuntary commitment once ambulating independently and off O2.
--- NOTE | 2016-07-28 12:07 | Pharmacy Progress Note ---
Glycemic Control: Progress Nt Date of Service Jul 28, 2016. Scope Glycemic Pharmacist consulted by Dr Lazo on 07/19/16 for glycemic control and to write orders per [facility] inpatient glycemic control protocol. Objective Accuchecks BSG (last 24hrs): Test 07/27/16 16:02 07/27/16 20:12 07/28/16 05:15 Bedside Glucose 136 mg/dl (70-90) 160 mg/dl (70-90) Random Glucose 149 mg/dl (70-99) Laboratory Data (last 24hrs) Test 07/28/16 05:15 Anion Gap 9.0 mmol/L BUN/Creatinine Ratio 25.8 Blood Urea Nitrogen 15 mg/dl Creatinine 0.60 mg/dl Potassium Level 4.2 mmol/L Sodium Level 139 mmol/L White Blood Count 12.18 K/uL HbA1c: Test 07/20/16 05:54 Hemoglobin A1c 6.8 % (4.5-5.6) H Recent Pertinent Medications Outpatient Anti-diabetic Regimen: * Metformin 1gm PO BID * A1c = 6.8% 07/20/16 The patient is currently receiving: * Basal insulin: none * Correctional Insulin: Novolog Correction per scale ACHS Goal Range: Low 120 mg/dL - High 160 mg/dL Correction Factor: 25 mg/dL/unit * Prandial insulin: 1 unit for 15gm CHO consumed w/ meals * Oral Agents: Metformin 1gm PO BID w/meals Risk Factors for Insulin Resistance: * Diet: ordered T2DM diet; patient appears to be tolerating PO intake well Assessment & Plan ASSESSMENT: 07/24/16 * Glycemic control adequate over the last 24 hours * Glycemic control has improved since steroids have been weaned down to current dose * Will continue with correctional and prandial insulin in the current doses * No basal insulin required 07/25/16 * Glycemic control acceptable over last 24 hrs, evening BSGs in the 180's however pt was anxious and self extubated at that time - this could explain hyperglycemia * Fasting BSG 135 this AM with no basal on board - refrain from ordering basal * Type 2 DM diet has been ordered and per RN pt has been tolerating fluids by mouth; will adjust Novolog CF and CR now that tube feeds off 07/26/16 * 2 of 3 post-prandial BSGs elevated yesterday; may have been due to lack of carb coverage w/ breakfast and dinner. When CR was used with lunch the following pre-dinner BSG was at goal. Will make a small increase in prandial insulin dose given uncertainty * Fasting BSG higher today than prior days. She has no basal insulin on board. Will continue to monitor, however if elevated tomorrow might consider adding basal insulin. 07/27/16 * Patient continues to improve clinically each day * Glycemic control remains quite good, only 1 BSG above goal yesterday ( prelunch BSG 206) * Fasting BSG a little lower today (FBS 154) with no basal on board * Will restart the patient's home metformin as there are no contraindications to restarting at this time. Hopefully in a few days we can eliminate carb coverage w/ meals and continue correctional insulin alone. 07/28/16 * Glycemic control remains good, BSGs 136-160 over the last 24 hours * Home metformin is now on board, renal fxn stable, tolerating diet * Continue current orders and monitor BSG trend. May be able to d/c the carb ratio in the near future and possibly reduce BSG frequency to BID PLAN FOR INPATIENT GLYCEMIC CONTROL: * No basal at this time - reeval tomorrow AM * Continue correction factor of 25 mg/dl/unit * Continue carb ratio of 1 unit per 15gm CHO consumed for time being * Change goal range to Low 110 mg/dL - High 140 mg/dL * Continue metformin 1gm PO BID w/ meals * Please note that the plan above was derived based on current level of insulin resistance and hospital stress. These recommendations are appropriate for inpatient admission only. Plan of care upon discharge will need to be reassessed to avoid potential outpatient hypo/hyperglycemia. Thank you.
--- NOTE | 2016-07-28 12:19 | Hospitalist Progress Note ---
Hospitalist Progress Note Date of Service Jul 28, 2016. (Rosalie Ritchie PA-C) Subjective Pt evaluation today including: conversation w/ patient, physical exam, chart review, lab review, review of inpatient medication list Patient feeling sleepy this morning. Did not sleep well last night. Does complain of a cough. Sometimes productive. Denies any fever or chills. Denies any shortness of breath. Reports breathing is "good." Denies any abdominal pain or nausea. Does admit to poor appetite. Additional Comments: 6 system review negative. Please see pertinent positives in the history of present illness section. (Rosalie Ritchie PA-C) Objective Vital Signs Date Time Temp Pulse Resp B/P Pulse Ox O2 Delivery O2 Flow Rate FiO2 07/28/16 08:07 91 Nasal Cannula 1.5 07/28/16 07:26 105 18 96 Nasal Cannula 2.0 07/28/16 07:21 37.5 112 22 126/88 92 Nasal Cannula 2.0 07/28/16 01:53 95 18 92 Nasal Cannula 2.0 07/28/16 00:00 91 Nasal Cannula 1.5 07/27/16 23:09 36.9 89 20 122/78 93 Nasal Cannula 2.0 07/27/16 16:00 93 Nasal Cannula 1.5 07/27/16 15:06 36.6 85 18 122/75 92 Nasal Cannula 2.0 07/27/16 14:10 99 18 94 Nasal Cannula 2.0 (Rosalie Ritchie PA-C) Physical Exam General Appearance: no apparent distress Eyes: EOMI ENT: + pertinent finding (no plaques noted on the tongue or palate) Neck: no JVD Respiratory/Chest: + pertinent finding (decreased breath sounds at the bases right greater than left.) Cardiovascular: + tachycardia (mildly tachycardic. No murmur.) Abdomen: normal bowel sounds, non tender, soft Extremities: non-tender, no pedal edema Neurologic/Psychiatric: alert (alert and answering questions appropriately. Improvement in anxiety. No paranoia noted) Skin: warm/dry (Rosalie Ritchie PA-C) Laboratory Results 07/28/16 05:15 07/28/16 05:15 Test 07/27/16 20:12 07/28/16 05:15 Bedside Glucose 160 mg/dl (70-90) Red Blood Count 3.88 M/uL (4.2-5.4) Mean Corpuscular Volume 90.5 fL (80-100) Mean Corpuscular Hemoglobin 29.9 pg (25-34) Mean Corpuscular Hemoglobin Concent 33.0 g/dl (32-36) RDW Standard Deviation 47.1 fL (36.4-46.3) RDW Coefficient of Variation 14.3 % (11.5-14.5) Mean Platelet Volume 10.1 fL (7.4-10.4) Anion Gap 9.0 mmol/L (3-11) Est Creatinine Clear Calc Drug Dose 131.7 ml/min Estimated GFR () 133.1 Estimated GFR (Non- 114.8 BUN/Creatinine Ratio 25.8 (10-20) Calcium Level 9.5 mg/dl (8.5-10.1) Magnesium Level 1.4 mg/dl (1.8-2.4) Last 24 Hours Test 07/27/16 16:02 07/27/16 20:12 07/28/16 05:15 Bedside Glucose 136 mg/dl 160 mg/dl White Blood Count 12.18 K/uL Red Blood Count 3.88 M/uL Hemoglobin 11.6 g/dL Hematocrit 35.1 % Mean Corpuscular Volume 90.5 fL Mean Corpuscular Hemoglobin 29.9 pg Mean Corpuscular Hemoglobin Concent 33.0 g/dl RDW Standard Deviation 47.1 fL RDW Coefficient of Variation 14.3 % Platelet Count 364 K/uL Mean Platelet Volume 10.1 fL Sodium Level 139 mmol/L Potassium Level 4.2 mmol/L Chloride Level 101 mmol/L Carbon Dioxide Level 29 mmol/L Anion Gap 9.0 mmol/L Blood Urea Nitrogen 15 mg/dl Creatinine 0.60 mg/dl Est Creatinine Clear Calc Drug Dose 131.7 ml/min Estimated GFR () 133.1 Estimated GFR (Non- 114.8 BUN/Creatinine Ratio 25.8 Random Glucose 149 mg/dl Calcium Level 9.5 mg/dl Magnesium Level 1.4 mg/dl (Rosalie Ritchie, PA-C) Assessment and Plan 41 F Severe sepsis, septic shock related to pneumonia, developed acute hypoxic respiratory failure and was intubated on and mechanically ventilated 07/19-self extubated 07/25 Severe sepsis/acute respiratory failure with hypoxia from pneumonia-self extubated on 07/25. -was monitored in ICU-->self extubated. Remained stable. Subsequently transferred to telemetry and then medical floor -put on broad spectrum ABX-course completed -Initially on Solu-Medrol IV--> weaned off steroids -May continue Xopenex/Atrovent nebs every 6 hours as needed -Decreased breath sounds on exam today--> chest x-ray PA and lateral Sinus Tachycardia-? etiology. Could be anxiety-HR stable -Propranolol increased to 10 mg TID on 07/26 Hypomagnesia-remains low despite repletion -Mag sulfate 2 g IV now -Increase magnesium oxide 400 mg po TID Acute renal failure secondary to shock-resolved schizophrenia with paranoia, suicide attempt in the past-continues to improve from a psych standpoint -continue sitter -psych following -continue valproic acid, trazodone -Prolixin increased per psych to 5 mg QAM 15 mg QHS-improvement in symptoms -Ativan PRN -304 from the [facility] and will return there once improved FEN -Tolerating diet, although poor intake Diabetes-BSGs stable -metformin 1000 mg BID restarted today -Novolog sliding scale -accuchecks with meals, AC, HS Hypothyroidism -Synthroid 50 mcg daily Deep venous thrombosis prophylaxis -Lovenox subQ CODE STATUS -LEVEL I FULL CODE DISPO -needs PT/OT--? stable on feet -may need 2 step to eval need for O2 -discharge unlikely for at least a few days. Concern for returning/worsening respiratory status (Rosalie Ritchie, PAMairaC) Attending Attestation: Pt seen/examined, chart reviewed, care plan d/w TIERA Ritchie. I agree w/ the barton components of her documentation. slept poorly last pm c/o ongoing cough and wheezing VSS afebrile O2 sats acceptable on NC O2 gen - awake, alert, but looks tired neck - no JVD mouth - MMM, no thrush heart - RR, tachy, s1, s2 lungs - continued decreased BS bases, b/l wheezing heard abd - soft ext - no edema A/P: 1. severe sepsis 2nd to pneumonia - resolved; off abx 2. acute hypoxic/hypercarbic resp failure 2nd to #1 s/p intubation/mech vent - resolving; wean O2 as tolerated; repeat cxr today with left basilar infiltrate; no pulmonary edema seen. in light of ongoing cough/wheezing will re-institute steroids. 3. acute kidney injury - resolved 4. hypomagnesemia - ongoing; replete IV/PO; repeat level am 5. schizophrenia at baseline with active psychosis and paranoia - psych following, they are adjusting medications; appreciate their help; continue the sitter in room; dispo - [facility] on [facility] 6. COPD with exacerbation - improved but still with ongoing wheezing; restart steroids 7. hypothyroidism - compensated 8. tinea pedis/xerosis - ketoconazole BID 9. calf discomfort - dopplers neg for DVT PT, OT evals indicate she does NOT need inpatient rehab mother updated by phone hopefully back to the [facility] next couple of days Phuc Lebron MD (Phuc Lebron MD)
--- NOTE | 2016-07-28 12:47 | DIAGNOSTIC IMAGING REPORT ---
TWO VIEW CHEST CLINICAL HISTORY: Decreased breath sounds. FINDINGS: PA and lateral chest radiographs are compared to study dated 07/24/2016 and correlated with chest CT dated 07/21/2016. The PA view is mildly degraded by patient rotation. A right PICC line is unchanged in position. Endotracheal and enteric tubes have been removed. The cardiomediastinal silhouette is unremarkable. There is mild residual left basilar consolidation and a small left pleural effusion. This has significantly cleared from 07/24/2016. There is no pneumothorax. The bony thorax appears intact. IMPRESSION: 1. The endotracheal and enteric tubes have been removed 2. There is mild residual airspace consolidation at the left lung base with a small left pleural effusion. Bibasilar consolidation has significantly cleared from previous. Continued radiographic follow-up to complete resolution is recommended. Electronically signed by: Paul Núñez M.D. 07/28/2016 12:46 PM Dictated Date/Time: 07/28/2016 12:43 PM
[2016-07-28] MEDS: MAGNESIUM SULFATE 1GM / D5W 1 GM in PREMIXED IN D5W 100 ML IV SCH ×2 (13:17→14:33)
--- NOTE | 2016-07-28 13:28 | DIAGNOSTIC IMAGING REPORT ---
MODIFIED BARIUM SWALLOW CLINICAL HISTORY: Coughing with drinking liquids. Pneumonia. Sepsis. COMPARISON STUDY: No previous studies for comparison. Fluoroscopy time: 3.3 minutes. FINDINGS: Swallowing mechanism was intact with thin liquids, nectar thick liquids, pudding and crackers with paste. Minimal residuals were noted within the vallecula. No aspiration was identified on this examination. IMPRESSION: 1. Intact swallowing mechanism. No tracheal aspiration. 2. Full recommendations by speech pathology to follow. Electronically signed by: Fernie Galindo M.D. 07/28/2016 1:26 PM Dictated Date/Time: 07/28/2016 1:24 PM
[2016-07-28] MEDS: METHYLPREDNISOLONE IV 40 MG in SYRINGE 0 ML IV SCH (17:06)
[2016-07-28] MEDS: TRAZODONE HCL 100 MG TAB PO SCH (20:50)
[2016-07-29] VITALS (10 sets, daily range): BP systolic 95–128; BP diastolic 62–77; PULSE 84–111; TEMP 36.5–36.8; O2SAT 88–96
[2016-07-29] MEDS: LEVALBUTEROL 1.25MG/0.5ML NEB INH SCH ×4 (01:39→19:42)
[2016-07-29] MEDS: IPRATROPIUM BROMIDE NEB SOLN 0.02% 2.5 ML VIAL INH SCH ×4 (01:39→19:42)
[2016-07-29] MEDS: METHYLPREDNISOLONE IV 40 MG in SYRINGE 0 ML IV SCH ×2 (06:19→17:41)
[2016-07-29] MEDS: LEVOTHYROXINE 25 MCG TAB PO SCH (06:19)
[2016-07-29 07:09] LABS: BASO % 0.1 %; BASO ABS # 0.01 K/uL (0-0.2); COMPLETE YES; HEMATOCRIT 34.4 % (37-47); IG% 0.7 %; LYMPH % 21.7 %; LYMPH ABS # 3.35 K/uL (1.2-3.4); MEAN CELL VOLUME 90.1 fL (80-100); MEAN CORPUSCULAR HEMOGLOBIN 29.8 pg (25-34); MEAN CORPUSCULAR HGB CONC 33.1 g/dl (32-36); MONO % 3.2 %; NEUT % 73.3 %; PLATELET COUNT 381 K/uL (130-400); RED BLOOD COUNT 3.82 M/uL (4.2-5.4); WHITE BLOOD COUNT 15.43 K/uL (4.8-10.8)
[2016-07-29 07:38] LABS: BUN/CREATININE RATIO 29.1 (10-20); CALCIUM 9.3 mg/dl (8.5-10.1); CREATININE 0.58 mg/dl (0.60-1.20); MAGNESIUM 1.6 mg/dl (1.8-2.4); POTASSIUM 4.2 mmol/L (3.5-5.1)
[2016-07-29] MEDS: KETOCONAZOLE 2% CR 15 GM TUBE EXT SCH ×2 (07:51→21:21)
[2016-07-29] MEDS: VALPROIC ACID SYRUP 250 MG/5 ML PO SCH ×2 (07:52→21:21)
[2016-07-29] MEDS: PROPRANOLOL HCL 10 MG TAB PO SCH ×3 (07:52→21:21)
[2016-07-29] MEDS: METFORMIN HCL 500 MG TAB PO SCH ×2 (07:52→17:41)
[2016-07-29] MEDS: MAGNESIUM OXIDE 400 MG TAB PO SCH ×3 (07:53→21:22)
[2016-07-29] MEDS: MULTIVITAMIN TAB PO SCH (07:53)
[2016-07-29] MEDS: POTASSIUM CHLORIDE 10 MEQ TABCR PO SCH ×4 (07:53→21:22)
[2016-07-29] MEDS: ENOXAPARIN 40 MG/0.4 ML SYR SQ SCH (07:54)
[2016-07-29] MEDS: GUAIFENESIN 600 MG TABCR PO SCH ×2 (07:54→21:23)
[2016-07-29] MEDS: FLUPHENAZINE HCL 2.5 MG TAB PO SCH ×2 (07:54→21:24)
[2016-07-29] MEDS: INSULIN ASPART 100 UNITS/ML 3 ML PEN SC SCH ×4 (09:07→21:17)
[2016-07-29] MEDS: MAGNESIUM SULFATE 1GM / D5W 1 GM in PREMIXED IN D5W 100 ML IV SCH ×2 (10:26→11:54)
[2016-07-29] MEDS ORDERED: FUROSEMIDE 20 MG TAB PO SCH (16:00)
--- NOTE | 2016-07-29 19:52 | Progress Note ---
Subjective Date of Service: Jul 29, 2016. Subjective Pt evaluation today including: conversation w/ patient, physical exam, chart review, lab review, review of studies (cxr, video swallow from 07/28) Pain: denies PO Intake: normal Voiding: no voiding problems pt states "I think I am wheezing" was a previous smoker and has used inhalers in the past staff report they stopped O2 earlier today and rechecked O2 sats - less than 88% denies dyspnea, however denies psychosis - no visual or auditory hallucinations today Problem List Medical Problems: (1) Acute kidney injury Status: Acute (2) Bilateral pneumonia Status: Acute (3) COPD exacerbation Status: Acute (4) Schizophrenia Status: Acute (5) Septic shock Status: Acute Review of Systems Constitutional: No fever Respiratory: + cough, + wheezing, No dyspnea on exertion, No shortness of breath Cardiac: No chest pain, No orthopnea Objective Vital Signs Date Time Temp Pulse Resp B/P Pulse Ox O2 Delivery O2 Flow Rate FiO2 07/29/16 15:03 36.5 95 20 97/65 90 Nasal Cannula 1.0 07/29/16 14:17 84 18 94 Nasal Cannula 1.0 07/29/16 13:58 98 95/62 88 Room Air 07/29/16 09:29 Nasal Cannula 1.5 07/29/16 07:34 109 18 96 Nasal Cannula 2.0 07/29/16 06:40 36.6 111 20 128/77 90 2.0 07/29/16 01:40 85 18 94 Nasal Cannula 2.0 07/29/16 00:00 91 Nasal Cannula 1.5 07/28/16 23:14 36.8 99 18 111/70 90 Nasal Cannula 2.0 07/28/16 19:58 89 18 97 Nasal Cannula 2.0 Physical Exam General Appearance: no apparent distress ENT: pharynx normal Neck: no JVD Respiratory/Chest: no respiratory distress, no accessory muscle use, + decreased breath sounds (bases), + wheezing Cardiovascular: regular rate, rhythm, no gallop, no murmur Abdomen: normal bowel sounds, non tender, soft, no organomegaly Extremities: no pedal edema Neurologic/Psychiatric: alert Laboratory Results Last 24 Hours Test 07/28/16 20:10 07/29/16 06:55 07/29/16 08:08 07/29/16 11:57 Bedside Glucose 137 mg/dl 134 mg/dl 145 mg/dl White Blood Count 15.43 K/uL Red Blood Count 3.82 M/uL Hemoglobin 11.4 g/dL Hematocrit 34.4 % Mean Corpuscular Volume 90.1 fL Mean Corpuscular Hemoglobin 29.8 pg Mean Corpuscular Hemoglobin Concent 33.1 g/dl Platelet Count 381 K/uL Mean Platelet Volume 10.0 fL Neutrophils (%) (Auto) 73.3 % Lymphocytes (%) (Auto) 21.7 % Monocytes (%) (Auto) 3.2 % Eosinophils (%) (Auto) 1.0 % Basophils (%) (Auto) 0.1 % Neutrophils # (Auto) 11.31 K/uL Lymphocytes # (Auto) 3.35 K/uL Monocytes # (Auto) 0.50 K/uL Eosinophils # (Auto) 0.15 K/uL Basophils # (Auto) 0.01 K/uL RDW Standard Deviation 46.3 fL RDW Coefficient of Variation 14.1 % Immature Granulocyte % (Auto) 0.7 % Immature Granulocyte # (Auto) 0.11 K/uL Sodium Level 140 mmol/L Potassium Level 4.2 mmol/L Chloride Level 104 mmol/L Carbon Dioxide Level 27 mmol/L Anion Gap 9.0 mmol/L Blood Urea Nitrogen 17 mg/dl Creatinine 0.58 mg/dl Est Creatinine Clear Calc Drug Dose 133.9 ml/min Estimated GFR () 134.6 Estimated GFR (Non- 116.1 BUN/Creatinine Ratio 29.1 Random Glucose 125 mg/dl Calcium Level 9.3 mg/dl Magnesium Level 1.6 mg/dl Assessment and Plan 41yo female with: 1. severe sepsis 2nd to pneumonia - resolved; off abx. 2. acute hypoxic/hypercarbic resp failure 2nd to #1 s/p intubation/mech vent - resolving; wean O2 as tolerated. Continue IV steroids add advair. cont nebs. lasix 20mg po x 1 as well. 3. acute kidney injury - resolved. 4. hypomagnesemia - repeat mag sulfate 2 grams IV x1; repeat mag level in am. 5. schizophrenia at baseline with psychosis and paranoia - psych following, they are adjusting medications; appreciate their help; continue the sitter in room; dispo - [facility] on [facility]. psychosis much better since admission. 6. COPD with exacerbation - improved but still with ongoing wheezing; cont steroids; add advair. 7. hypothyroidism - compensated. cont synthroid. 8. tinea pedis/xerosis - ketoconazole BID 9. calf discomfort - dopplers neg for DVT 10. T2DM - metformin, novolog sliding scale. 11. DVT proph - lovenox once daily PT, OT evals indicate she does NOT need inpatient rehab hopefully back to the [facility] next couple of days mother updated 07/28/16 Continued [facility] stay due to: multiple IV medications needed, other (O2 requirement) Discharge planning: other (inpatient psych @ the [facility])
[2016-07-29] MEDS: FLUTICASONE/SALMETEROL 250/50 (ADVAIR) 14 PUFF/1 INHALER INH SCH (21:18)
[2016-07-29] MEDS: TRAZODONE HCL 100 MG TAB PO SCH (21:23)
[2016-07-30] VITALS (8 sets, daily range): BP systolic 105–120; BP diastolic 69–79; PULSE 72–94; TEMP 36.2–36.6; O2SAT 91–96
[2016-07-30] MEDS: LEVALBUTEROL 1.25MG/0.5ML NEB INH SCH ×4 (02:33→20:14)
[2016-07-30] MEDS: IPRATROPIUM BROMIDE NEB SOLN 0.02% 2.5 ML VIAL INH SCH ×4 (02:33→20:14)
[2016-07-30] MEDS: LEVOTHYROXINE 25 MCG TAB PO SCH (05:54)
[2016-07-30] MEDS: METHYLPREDNISOLONE IV 40 MG in SYRINGE 0 ML IV SCH (05:54)
[2016-07-30] MEDS: INSULIN ASPART 100 UNITS/ML 3 ML PEN SC SCH ×4 (06:30→21:48)
[2016-07-30 07:19] LABS: BUN/CREATININE RATIO 25.2 (10-20); CALCIUM 9.7 mg/dl (8.5-10.1); CREATININE 0.5 mg/dl (0.60-1.20); MAGNESIUM 1.3 mg/dl (1.8-2.4); POTASSIUM 4.1 mmol/L (3.5-5.1)
[2016-07-30] MEDS: KETOCONAZOLE 2% CR 15 GM TUBE EXT SCH ×2 (08:02→21:38)
[2016-07-30] MEDS: FLUTICASONE/SALMETEROL 250/50 (ADVAIR) 14 PUFF/1 INHALER INH SCH ×2 (08:02→21:39)
[2016-07-30] MEDS: VALPROIC ACID SYRUP 250 MG/5 ML PO SCH ×2 (08:03→21:41)
[2016-07-30] MEDS: GUAIFENESIN 600 MG TABCR PO SCH ×2 (08:03→21:43)
[2016-07-30] MEDS: MULTIVITAMIN TAB PO SCH (08:03)
[2016-07-30] MEDS: METFORMIN HCL 500 MG TAB PO SCH ×2 (08:03→18:05)
[2016-07-30] MEDS: FLUPHENAZINE HCL 2.5 MG TAB PO SCH ×2 (08:03→21:44)
[2016-07-30] MEDS: POTASSIUM CHLORIDE 10 MEQ TABCR PO SCH ×4 (08:04→21:42)
[2016-07-30] MEDS: MAGNESIUM OXIDE 400 MG TAB PO SCH ×3 (08:04→21:42)
[2016-07-30] MEDS: PROPRANOLOL HCL 10 MG TAB PO SCH ×3 (08:04→21:47)
[2016-07-30] MEDS: ENOXAPARIN 40 MG/0.4 ML SYR SQ SCH (08:04)
[2016-07-30 08:40] LABS: BASO % 0.2 %; BASO ABS # 0.02 K/uL (0-0.2); COMPLETE YES; EOS % 0.6 %; HEMATOCRIT 35.7 % (37-47); IG% 1.1 %; LYMPH % 17.9 %; LYMPH ABS # 2.18 K/uL (1.2-3.4); MEAN CORPUSCULAR HEMOGLOBIN 31.2 pg (25-34); MEAN CORPUSCULAR HGB CONC 33.9 g/dl (32-36); MEAN PLATELET VOLUME 10.6 fL (7.4-10.4); MONO % 2.2 %; PLATELET COUNT 361 K/uL (130-400); RED BLOOD COUNT 3.88 M/uL (4.2-5.4); WHITE BLOOD COUNT 12.18 K/uL (4.8-10.8)
[2016-07-30] MEDS: MAGNESIUM SULFATE 1GM / D5W 1 GM in PREMIXED IN D5W 100 ML IV SCH ×3 (09:09→13:31)
--- NOTE | 2016-07-30 11:50 | Pharmacy Progress Note ---
Glycemic Control: Progress Nt Date of Service Jul 30, 2016. Scope Glycemic Pharmacist consulted by Dr. Lazo on 07/19/16 for glycemic control and to write orders per [facility] inpatient glycemic control protocol. Objective Accuchecks BSG (last 24hrs): Test 07/29/16 11:57 07/29/16 16:52 07/29/16 20:14 07/30/16 06:18 Bedside Glucose 145 mg/dl (70-90) 95 mg/dl (70-90) 176 mg/dl (70-90) Random Glucose 109 mg/dl (70-99) Test 07/30/16 07:40 07/30/16 11:22 Bedside Glucose 126 mg/dl (70-90) 163 mg/dl (70-90) Laboratory Data (last 24hrs) Test 07/30/16 06:18 07/30/16 08:25 Anion Gap 12.0 mmol/L BUN/Creatinine Ratio 25.2 Blood Urea Nitrogen 13 mg/dl Creatinine 0.50 mg/dl Potassium Level 4.1 mmol/L Sodium Level 137 mmol/L White Blood Count 12.18 K/uL Red Blood Count 3.88 M/uL Hemoglobin 12.1 g/dL Hematocrit 35.7 % Mean Corpuscular Volume 92.0 fL Mean Corpuscular Hemoglobin 31.2 pg Mean Corpuscular Hemoglobin Concent 33.9 g/dl Platelet Count 361 K/uL Mean Platelet Volume 10.6 fL Neutrophils (%) (Auto) 78.0 % Lymphocytes (%) (Auto) 17.9 % Monocytes (%) (Auto) 2.2 % Eosinophils (%) (Auto) 0.6 % Basophils (%) (Auto) 0.2 % Neutrophils # (Auto) 9.51 K/uL Lymphocytes # (Auto) 2.18 K/uL Monocytes # (Auto) 0.27 K/uL Eosinophils # (Auto) 0.07 K/uL Basophils # (Auto) 0.02 K/uL HbA1c: Test 07/20/16 05:54 Hemoglobin A1c 6.8 % (4.5-5.6) H Recent Pertinent Medications Outpatient Anti-diabetic Regimen: * Metformin 1gm PO BID * A1c = 6.8% 07/20/16 Risk Factors for Insulin Resistance: * Diet: ordered T2DM diet; patient appears to be tolerating PO intake well Assessment & Plan ASSESSMENT: 07/24/16 * Glycemic control adequate over the last 24 hours * Glycemic control has improved since steroids have been weaned down to current dose * Will continue with correctional and prandial insulin in the current doses * No basal insulin required 07/25/16 * Glycemic control acceptable over last 24 hrs, evening BSGs in the 180's however pt was anxious and self extubated at that time - this could explain hyperglycemia * Fasting BSG 135 this AM with no basal on board - refrain from ordering basal * Type 2 DM diet has been ordered and per RN pt has been tolerating fluids by mouth; will adjust Novolog CF and CR now that tube feeds off 07/26/16 * 2 of 3 post-prandial BSGs elevated yesterday; may have been due to lack of carb coverage w/ breakfast and dinner. When CR was used with lunch the following pre-dinner BSG was at goal. Will make a small increase in prandial insulin dose given uncertainty * Fasting BSG higher today than prior days. She has no basal insulin on board. Will continue to monitor, however if elevated tomorrow might consider adding basal insulin. 07/27/16 * Patient continues to improve clinically each day * Glycemic control remains quite good, only 1 BSG above goal yesterday ( prelunch BSG 206) * Fasting BSG a little lower today (FBS 154) with no basal on board * Will restart the patient's home metformin as there are no contraindications to restarting at this time. Hopefully in a few days we can eliminate carb coverage w/ meals and continue correctional insulin alone. 07/28/16 * Glycemic control remains good, BSGs 136-160 over the last 24 hours * Home metformin is now on board, renal fxn stable, tolerating diet * Continue current orders and monitor BSG trend. May be able to d/c the carb ratio in the near future and possibly reduce BSG frequency to BID 07/30/16 * BSGs remain well-controlled, ranging from 95-176 mg/dl during the past 24 hours. * The carb ratio was stopped yesterday evening to avoid overcorrecting prandial BSGs. * Otherwise, BSGs are good even with steroids on board. * Steroids being tapered. * Loosen correction factor and widen goal range slightly. * Will consider signing-off of glycemic consult if BSGs remain stable and no changes to DM regimen anticipated. PLAN FOR INPATIENT GLYCEMIC CONTROL: * No basal insulin * Novolog ACHS * Loosen correction factor to 30 mg/dl/unit * No carb ratio * Widen goal range to Low 110 mg/dL - High 150 mg/dL * Continue metformin 1gm PO BID w/ meals RECOMMENDATIONS FOR DISCHARGE: * Based upon most recent A1c of 6.8% I recommend that this patient resume prior to admission DM regimen of Metformin monotherapy. * Please note that the plan above was derived based on current level of insulin resistance and hospital stress. These recommendations are appropriate for inpatient admission only. Plan of care upon discharge will need to be reassessed to avoid potential outpatient hypo/hyperglycemia. Thank you.
[2016-07-30] MEDS: METHYLPREDNISOLONE IV 20 MG in SYRINGE 0 ML IV SCH (18:04)
[2016-07-30] MEDS ORDERED: FUROSEMIDE 40 MG TAB PO ONE (18:45)
[2016-07-30] MEDS ORDERED: FUROSEMIDE 20 MG TAB PO ONE (18:45)
--- NOTE | 2016-07-30 18:46 | Progress Note ---
Subjective Date of Service: Jul 30, 2016. Subjective Pt evaluation today including: conversation w/ patient, physical exam, chart review, lab review, review of inpatient medication list Pain: denies PO Intake: good/normal Voiding: no voiding problems no issues overnight NC O2 has been weaned to 1 L scant cough denies dyspnea sleeping well no psychosis/hallucinations Problem List Medical Problems: (1) Acute kidney injury Status: Acute (2) Bilateral pneumonia Status: Acute (3) COPD exacerbation Status: Acute (4) Schizophrenia Status: Acute (5) Septic shock Status: Acute Review of Systems Constitutional: No fever Respiratory: No cough, No dyspnea on exertion, No shortness of breath, No sputum, No wheezing Cardiac: No chest pain, No orthopnea Abdomen: No pain Objective Vital Signs Date Time Temp Pulse Resp B/P Pulse Ox O2 Delivery O2 Flow Rate FiO2 07/30/16 13:47 36.2 94 20 113/70 95 Nasal Cannula 1.0 07/30/16 08:00 Nasal Cannula 1.0 07/30/16 07:38 78 18 91 Nasal Cannula 1.0 07/30/16 06:34 36.3 85 24 105/69 91 Nasal Cannula 1.0 07/30/16 00:00 91 Nasal Cannula 1.5 07/29/16 22:55 36.8 86 22 98/65 92 Nasal Cannula 1.0 07/29/16 21:20 87 111/73 Physical Exam General Appearance: no apparent distress, + obese ENT: pharynx normal Neck: no JVD Respiratory/Chest: no respiratory distress, no accessory muscle use, + rales ( LLL only) Cardiovascular: regular rate, rhythm, no gallop, no murmur Abdomen: normal bowel sounds, non tender, soft, no organomegaly Extremities: no pedal edema Neurologic/Psychiatric: alert Laboratory Results Last 24 Hours Test 07/29/16 20:14 07/30/16 06:18 07/30/16 07:40 07/30/16 08:25 Bedside Glucose 176 mg/dl 126 mg/dl Sodium Level 137 mmol/L Potassium Level 4.1 mmol/L Chloride Level 102 mmol/L Carbon Dioxide Level 23 mmol/L Anion Gap 12.0 mmol/L Blood Urea Nitrogen 13 mg/dl Creatinine 0.50 mg/dl Est Creatinine Clear Calc Drug Dose 155.3 ml/min Estimated GFR () 141.3 Estimated GFR (Non- 121.9 BUN/Creatinine Ratio 25.2 Random Glucose 109 mg/dl Calcium Level 9.7 mg/dl Magnesium Level 1.3 mg/dl White Blood Count 12.18 K/uL Red Blood Count 3.88 M/uL Hemoglobin 12.1 g/dL Hematocrit 35.7 % Mean Corpuscular Volume 92.0 fL Mean Corpuscular Hemoglobin 31.2 pg Mean Corpuscular Hemoglobin Concent 33.9 g/dl Platelet Count 361 K/uL Mean Platelet Volume 10.6 fL Neutrophils (%) (Auto) 78.0 % Lymphocytes (%) (Auto) 17.9 % Monocytes (%) (Auto) 2.2 % Eosinophils (%) (Auto) 0.6 % Basophils (%) (Auto) 0.2 % Neutrophils # (Auto) 9.51 K/uL Lymphocytes # (Auto) 2.18 K/uL Monocytes # (Auto) 0.27 K/uL Eosinophils # (Auto) 0.07 K/uL Basophils # (Auto) 0.02 K/uL RDW Standard Deviation 47.7 fL RDW Coefficient of Variation 14.1 % Immature Granulocyte % (Auto) 1.1 % Immature Granulocyte # (Auto) 0.13 K/uL Test 07/30/16 11:22 07/30/16 16:17 Bedside Glucose 163 mg/dl 108 mg/dl Assessment and Plan 41yo female with: 1. severe sepsis 2nd to pneumonia - resolved; off abx. 2. acute hypoxic/hypercarbic resp failure 2nd to #1 s/p intubation/mech vent - resolving; o2 nearly weaned off. Continue IV steroids but cut to 20mg IV q12h. Anticipate we can transition to po prednisone in AM on 07/31. cont advair. cont nebs. lasix 20mg po x 1 again today to keep her negative. if despite supportive care she continues with O2 requirement consider cxr and/ or repeat CT next 1-2 days. previous CTA did NOT show PE previous echo did NOT show pulmonary HTN, etc 3. acute kidney injury - resolved. 4. hypomagnesemia - ongoing. Likely due to diuretic use. repeat mag sulfate 3 grams IV today. mag level in AM. of it continues to be low despite replacement consider renal wasting work-up. 5. schizophrenia at baseline with psychosis and paranoia - psych following, they are adjusting medications; appreciate their help; continue the sitter in room; dispo - [facility] on [facility]. psychosis much better since admission. 6. COPD with exacerbation - markedly improved. wean steroids as noted above. wean O2 off. cont advair, nebs. 7. hypothyroidism - compensated. cont synthroid. 8. tinea pedis/xerosis - ketoconazole BID 9. calf discomfort - dopplers neg for DVT 10. T2DM - metformin, novolog sliding scale. Controlled. 11. DVT proph - lovenox once daily PT, OT evals indicate she does NOT need inpatient rehab hopefully back to the [facility] next couple of days; by social work and psychiatry report they cannot take her on oxygen mother updated 07/28/16 Continued [facility] stay due to: multiple IV medications needed, other (O2 requirement) Discharge planning: other (inpatient psych @ the [facility])
[2016-07-30] MEDS: TRAZODONE HCL 100 MG TAB PO SCH (21:43)
[2016-07-31] VITALS (11 sets, daily range): BP systolic 97–116; BP diastolic 63–87; PULSE 68–93; TEMP 36.3–36.8; O2SAT 91–95
[2016-07-31] MEDS: IPRATROPIUM BROMIDE NEB SOLN 0.02% 2.5 ML VIAL INH SCH ×4 (02:15→19:51)
[2016-07-31] MEDS: LEVALBUTEROL 1.25MG/0.5ML NEB INH SCH ×4 (02:15→19:51)
[2016-07-31] MEDS: METHYLPREDNISOLONE IV 20 MG in SYRINGE 0 ML IV SCH ×2 (06:03→17:38)
[2016-07-31] MEDS: LEVOTHYROXINE 25 MCG TAB PO SCH (06:03)
[2016-07-31 07:29] LABS: BASO % 0.2 %; BASO ABS # 0.02 K/uL (0-0.2); COMPLETE YES; EOS % 0.5 %; HEMATOCRIT 35.2 % (37-47); IG% 1.1 %; LYMPH % 31.5 %; LYMPH ABS # 3.45 K/uL (1.2-3.4); MEAN CELL VOLUME 91.7 fL (80-100); MEAN CORPUSCULAR HEMOGLOBIN 30.2 pg (25-34); MEAN PLATELET VOLUME 10.8 fL (7.4-10.4); MONO % 3.7 %; PLATELET COUNT 345 K/uL (130-400); RED BLOOD COUNT 3.84 M/uL (4.2-5.4); WHITE BLOOD COUNT 10.95 K/uL (4.8-10.8)
[2016-07-31 08:02] LABS: BUN/CREATININE RATIO 26.2 (10-20); CALCIUM 9.8 mg/dl (8.5-10.1); CREATININE 0.58 mg/dl (0.60-1.20); MAGNESIUM 1.4 mg/dl (1.8-2.4); POTASSIUM 4.1 mmol/L (3.5-5.1)
[2016-07-31] MEDS: VALPROIC ACID SYRUP 250 MG/5 ML PO SCH ×2 (08:04→21:09)
[2016-07-31] MEDS: KETOCONAZOLE 2% CR 15 GM TUBE EXT SCH ×2 (08:04→21:09)
[2016-07-31] MEDS: ENOXAPARIN 40 MG/0.4 ML SYR SQ SCH (08:04)
[2016-07-31] MEDS: FLUTICASONE/SALMETEROL 250/50 (ADVAIR) 14 PUFF/1 INHALER INH SCH ×2 (08:04→21:08)
[2016-07-31] MEDS: METFORMIN HCL 500 MG TAB PO SCH ×2 (08:05→17:37)
[2016-07-31] MEDS: FLUPHENAZINE HCL 2.5 MG TAB PO SCH ×2 (08:05→21:12)
[2016-07-31] MEDS: POTASSIUM CHLORIDE 10 MEQ TABCR PO SCH ×4 (08:05→21:11)
[2016-07-31] MEDS: MULTIVITAMIN TAB PO SCH (08:05)
[2016-07-31] MEDS: GUAIFENESIN 600 MG TABCR PO SCH ×2 (08:05→21:11)
[2016-07-31] MEDS: MAGNESIUM OXIDE 400 MG TAB PO SCH ×3 (08:05→21:11)
[2016-07-31] MEDS: PROPRANOLOL HCL 10 MG TAB PO SCH ×3 (08:06→21:13)
[2016-07-31] MEDS: INSULIN ASPART 100 UNITS/ML 3 ML PEN SC SCH ×4 (08:06→21:13)
--- NOTE | 2016-07-31 10:29 | Psychiatric Progress Notes ---
Psychiatric Progress Note Date of Service Jul 31, 2016. Notes 41-year-old female with schizophrenia and intellectual disability who was transferred from the [facility], where she is on an involuntary 304 commitment, to our hospital for treatment of sepsis. Psychiatry is following for psychosis. Chief complaint "I'm feeling a lot better" HPI: still tolerating increased Prolixin, Patient denies paranoia currently. Ambulating and using incentive spirometry. O2 weaned to 1 L. Talking well with mother on phone. Review of systems: still denies anxiety, OCD, HI Overweight white female appearing stated age. Dressed in a hospital gown. O2 nasal cannula in place. Calm and cooperative. Seated in NAD, with improved eye contact and no abnormal movements. Speech is normal in rate and volume. affect is pleasant. Thoughts are linear and concrete. The patient denied suicidal and homicidal ideation. No delusions or hallucinations, and did not appear to be responding to internal stimuli. Diagnosis: Schizophrenia Suspect intellectual disability Recommendations: 1. Continue Prolixin, 5 mg every morning and 15 mg daily at bedtime. 2. Continue trazodone 100 mg daily at bedtime. 3. Continue Ativan as needed for anxiety. 4. Patient is improving medically, she will return to the [facility] on her involuntary commitment pending state hospital plan once off O2.
--- NOTE | 2016-07-31 11:03 | Pharmacy Progress Note ---
Glycemic Control: Progress Nt Date of Service Jul 31, 2016. Scope Glycemic Pharmacist consulted by on 07/19/16 for glycemic control and to write orders per [facility] inpatient glycemic control protocol. Objective Accuchecks BSG (last 24hrs): Test 07/30/16 11:22 07/30/16 16:17 07/30/16 19:46 07/31/16 06:55 Bedside Glucose 163 mg/dl (70-90) 108 mg/dl (70-90) 169 mg/dl (70-90) Random Glucose 102 mg/dl (70-99) Test 07/31/16 07:55 Bedside Glucose 109 mg/dl (70-90) Laboratory Data (last 24hrs) Test 07/31/16 06:55 Anion Gap 10.0 mmol/L BUN/Creatinine Ratio 26.2 Blood Urea Nitrogen 15 mg/dl Creatinine 0.58 mg/dl Potassium Level 4.1 mmol/L Sodium Level 138 mmol/L White Blood Count 10.95 K/uL Red Blood Count 3.84 M/uL Hemoglobin 11.6 g/dL Hematocrit 35.2 % Mean Corpuscular Volume 91.7 fL Mean Corpuscular Hemoglobin 30.2 pg Mean Corpuscular Hemoglobin Concent 33.0 g/dl Platelet Count 345 K/uL Mean Platelet Volume 10.8 fL Neutrophils (%) (Auto) 63.0 % Lymphocytes (%) (Auto) 31.5 % Monocytes (%) (Auto) 3.7 % Eosinophils (%) (Auto) 0.5 % Basophils (%) (Auto) 0.2 % Neutrophils # (Auto) 6.89 K/uL Lymphocytes # (Auto) 3.45 K/uL Monocytes # (Auto) 0.41 K/uL Eosinophils # (Auto) 0.06 K/uL Basophils # (Auto) 0.02 K/uL HbA1c: Test 07/20/16 05:54 Hemoglobin A1c 6.8 % (4.5-5.6) H Recent Pertinent Medications Outpatient Anti-diabetic Regimen: * Metformin 1gm PO BID * A1c = 6.8% 07/20/16 Risk Factors for Insulin Resistance: * Diet: ordered T2DM diet; patient appears to be tolerating PO intake well Assessment & Plan ASSESSMENT: 07/24/16 * Glycemic control adequate over the last 24 hours * Glycemic control has improved since steroids have been weaned down to current dose * Will continue with correctional and prandial insulin in the current doses * No basal insulin required 07/25/16 * Glycemic control acceptable over last 24 hrs, evening BSGs in the 180's however pt was anxious and self extubated at that time - this could explain hyperglycemia * Fasting BSG 135 this AM with no basal on board - refrain from ordering basal * Type 2 DM diet has been ordered and per RN pt has been tolerating fluids by mouth; will adjust Novolog CF and CR now that tube feeds off 07/26/16 * 2 of 3 post-prandial BSGs elevated yesterday; may have been due to lack of carb coverage w/ breakfast and dinner. When CR was used with lunch the following pre-dinner BSG was at goal. Will make a small increase in prandial insulin dose given uncertainty * Fasting BSG higher today than prior days. She has no basal insulin on board. Will continue to monitor, however if elevated tomorrow might consider adding basal insulin. 07/27/16 * Patient continues to improve clinically each day * Glycemic control remains quite good, only 1 BSG above goal yesterday ( prelunch BSG 206) * Fasting BSG a little lower today (FBS 154) with no basal on board * Will restart the patient's home metformin as there are no contraindications to restarting at this time. Hopefully in a few days we can eliminate carb coverage w/ meals and continue correctional insulin alone. 07/28/16 * Glycemic control remains good, BSGs 136-160 over the last 24 hours * Home metformin is now on board, renal fxn stable, tolerating diet * Continue current orders and monitor BSG trend. May be able to d/c the carb ratio in the near future and possibly reduce BSG frequency to BID 07/30/16 * BSGs remain well-controlled, ranging from 95-176 mg/dl during the past 24 hours. * The carb ratio was stopped yesterday evening to avoid overcorrecting prandial BSGs. * Otherwise, BSGs are good even with steroids on board. * Steroids being tapered. * Loosen correction factor and widen goal range slightly. * Will consider signing-off of glycemic consult if BSGs remain stable and no changes to DM regimen anticipated. 07/31/16 * Pt with minimal insulin needs even in presence of steroids. BSGs ranging 102 - 169 mg/dl over the past 24hrs. Steroids being tapered so would expect continued improvement of BSG control. * No basal insulin required. * TDD of insulin during hospital stay is less than 10 units per day of Novolog ( 2 units yesterday). * No anticipated changes will be required to inpatient glycemic regimen. Will sign off of consult today. CONTINUE INPATIENT GLYCEMIC REGIMEN: * No basal insulin * Novolog ACHS * Correction factor of 30 mg/dl/unit * No carb ratio * Goal range of Low 110 mg/dL - High 150 mg/dL * Continue metformin 1gm PO BID w/ meals RECOMMENDATIONS FOR DISCHARGE: * Based upon most recent A1c of 6.8% I recommend that this patient resume prior to admission DM regimen of Metformin monotherapy. Pharmacy will SIGN-OFF OF GLYCEMIC CONSULT. Feel free to contact the pharmacy glycemic service with questions or re-consult our service if necessary. Thanks. * Please note that the plan above was derived based on current level of insulin resistance and hospital stress. These recommendations are appropriate for inpatient admission only. Plan of care upon discharge will need to be reassessed to avoid potential outpatient hypo/hyperglycemia. Thank you.
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
[2016-07-31] MEDS: TRAZODONE HCL 100 MG TAB PO SCH (21:12)
[2016-08-01] VITALS (15 sets, daily range): BP systolic 96–115; BP diastolic 65–80; PULSE 64–88; TEMP 36.5–36.7; O2SAT 90–96
[2016-08-01] MEDS: LEVALBUTEROL 1.25MG/0.5ML NEB INH SCH ×4 (01:52→20:09)
[2016-08-01] MEDS: IPRATROPIUM BROMIDE NEB SOLN 0.02% 2.5 ML VIAL INH SCH ×4 (01:52→20:09)
[2016-08-01] MEDS: LEVOTHYROXINE 25 MCG TAB PO SCH (06:00)
[2016-08-01] MEDS: METHYLPREDNISOLONE IV 20 MG in SYRINGE 0 ML IV SCH ×2 (06:00→17:24)
[2016-08-01] MEDS: PROPRANOLOL HCL 10 MG TAB PO SCH ×3 (08:55→21:02)
[2016-08-01] MEDS: FLUPHENAZINE HCL 2.5 MG TAB PO SCH ×2 (08:56→21:03)
[2016-08-01] MEDS: MULTIVITAMIN TAB PO SCH (08:56)
[2016-08-01] MEDS: POTASSIUM CHLORIDE 10 MEQ TABCR PO SCH ×4 (08:56→21:01)
[2016-08-01] MEDS: ENOXAPARIN 40 MG/0.4 ML SYR SQ SCH (08:56)
[2016-08-01] MEDS: MAGNESIUM OXIDE 400 MG TAB PO SCH ×3 (08:56→21:02)
[2016-08-01] MEDS: GUAIFENESIN 600 MG TABCR PO SCH ×2 (08:56→21:01)
[2016-08-01] MEDS: METFORMIN HCL 500 MG TAB PO SCH ×2 (08:57→17:24)
[2016-08-01] MEDS: VALPROIC ACID SYRUP 250 MG/5 ML PO SCH ×2 (08:57→21:00)
[2016-08-01] MEDS: INSULIN ASPART 100 UNITS/ML 3 ML PEN SC SCH ×4 (08:58→20:12)
[2016-08-01] MEDS: FLUTICASONE/SALMETEROL 250/50 (ADVAIR) 14 PUFF/1 INHALER INH SCH ×2 (08:58→20:59)
[2016-08-01] MEDS: KETOCONAZOLE 2% CR 15 GM TUBE EXT SCH ×2 (08:58→20:59)
--- NOTE | 2016-08-01 17:05 | Hospitalist Progress Note ---
Hospitalist Progress Note Date of Service Aug 01, 2016. Subjective Pt evaluation today including: conversation w/ patient, physical exam, chart review, lab review, review of studies, review of inpatient medication list The patient continues to do well. She did desaturate on room air overnight to 85 %. Therefore she will need to use CPAP. I am told that the [facility] will accommodate patients with CPAP. She was walking in the hallway today. Additional Comments: A 10 system review was performed and all were negative. Positives were placed in the subjective section. Objective Vital Signs Date Time Temp Pulse Resp B/P Pulse Ox O2 Delivery O2 Flow Rate FiO2 08/01/16 15:13 36.7 86 20 96/65 91 Room Air 08/01/16 14:25 67 16 94 Room Air 08/01/16 14:06 86 94 Room Air 08/01/16 12:04 87 94 Room Air 08/01/16 11:10 91 Room Air 08/01/16 10:56 91 Room Air 08/01/16 09:43 80 93 08/01/16 09:09 90 Room Air 08/01/16 07:55 91 Nasal Cannula 1.0 08/01/16 07:24 64 16 96 Room Air 08/01/16 07:22 36.6 69 22 115/77 93 08/01/16 07:00 36.5 67 21 98/65 91 Nasal Cannula 2.0 08/01/16 00:00 Room Air 07/31/16 23:06 36.8 78 20 97/63 94 Nasal Cannula 1.5 07/31/16 21:10 74 115/78 07/31/16 19:51 72 16 93 Room Air Physical Exam Notes: GEN: Awake, alert. Not in acute distress HEENT: Tm's intact, no inflammation, EOMI, PERRLA, MMM Neck: Soft, supple Lungs: CTA b/l, no r/r/w Heart: REG, nrl S1S2 without murmurs, rubs or gallops Abdomen: Soft, NT, ND, + BS EXT: No C/C/E NEURO: CN's II-XII grossly intact, non-focal Skin: warm, dry, no rashes PSYCH: pleasant, cooperative. Laboratory Results Last 24 Hours Test 07/31/16 19:50 08/01/16 07:46 08/01/16 11:18 08/01/16 16:38 Bedside Glucose 150 mg/dl 111 mg/dl 169 mg/dl 79 mg/dl Assessment and Plan 1. Severe sepsis (lung source) - resolved; off abx. 2. Acute hypoxic/hypercarbic resp failure 2nd to #1 s/p intubation/mech vent - appears she will need to have CPAP during times of sleep. 3. Acute kidney injury - resolved. 4. Hypomagnesemia - replace as needed. 5. Schizophrenia with psychosis and paranoia - I feel she is stable at this time without obvious decompensation in her mental health. 6. COPD with exacerbation - improved. 7. hypothyroidism - compensated. cont synthroid. 8. tinea pedis/xerosis - ketoconazole BID 9. Type II DM - metformin, novolog sliding scale. Controlled. 11. DVT proph - lovenox once daily
[2016-08-01] MEDS: TRAZODONE HCL 100 MG TAB PO SCH (21:01)
[2016-08-02] MEDS: IPRATROPIUM BROMIDE NEB SOLN 0.02% 2.5 ML VIAL INH SCH ×2 (01:59→07:00)
[2016-08-02] MEDS: LEVALBUTEROL 1.25MG/0.5ML NEB INH SCH ×2 (01:59→07:00)
[2016-08-02 02:00] VITALS: PULSE 66; O2SAT 97
[2016-08-02] MEDS: LEVOTHYROXINE 25 MCG TAB PO SCH (06:11)
[2016-08-02] MEDS: METHYLPREDNISOLONE IV 20 MG in SYRINGE 0 ML IV SCH (06:11)
[2016-08-02] MEDS: INSULIN ASPART 100 UNITS/ML 3 ML PEN SC SCH ×3 (06:30→16:30)
[2016-08-02 07:00] VITALS: BP 125/84; PULSE 70; PULSE 74; TEMP 36.4; O2SAT 94
[2016-08-02] MEDS: FLUTICASONE/SALMETEROL 250/50 (ADVAIR) 14 PUFF/1 INHALER INH SCH (07:45)
[2016-08-02] MEDS: KETOCONAZOLE 2% CR 15 GM TUBE EXT SCH (07:45)
[2016-08-02] MEDS: VALPROIC ACID SYRUP 250 MG/5 ML PO SCH (07:45)
[2016-08-02] MEDS: PROPRANOLOL HCL 10 MG TAB PO SCH ×2 (07:46→14:27)
[2016-08-02] MEDS: METFORMIN HCL 500 MG TAB PO SCH ×2 (07:46→17:13)
[2016-08-02] MEDS: FLUPHENAZINE HCL 2.5 MG TAB PO SCH (07:46)
[2016-08-02] MEDS: POTASSIUM CHLORIDE 10 MEQ TABCR PO SCH ×3 (07:46→17:14)
[2016-08-02] MEDS: MULTIVITAMIN TAB PO SCH (07:46)
[2016-08-02] MEDS: ENOXAPARIN 40 MG/0.4 ML SYR SQ SCH (07:47)
[2016-08-02] MEDS: MAGNESIUM OXIDE 400 MG TAB PO SCH ×2 (07:47→14:27)
[2016-08-02] MEDS: GUAIFENESIN 600 MG TABCR PO SCH (07:47)
[2016-08-02 13:38] VITALS: BP 108/64; PULSE 89; TEMP 36.6; O2SAT 92
[2016-08-02] MEDS ORDERED: MGNO400 PO (15:12)
[2016-08-02] MEDS ORDERED: MCRK20 PO (15:12)
[2016-08-02] MEDS ORDERED: METH4PAK PO (15:12)
--- NOTE | 2016-08-02 15:14 | Discharge Instructions ---
Discharge Instructions Date of Service Aug 02, 2016. Admission Reason for Admission: Sepsis Discharge Discharge Diagnosis / Problem: Sepsis/acute respiratory failure Discharge Goals Goal(s): Improve function, Improve disease control Activity Recommendations Activity Limitations: resume your previous activity . Instructions / Follow-Up Instructions / Follow-Up PCP 5-7 days Current Hospital Diet Patient's current hospital diet: Diabetes Type 2 Diet Discharge Diet Recommended Diet: Diabetes Type 2 Diet Procedures Procedures Performed: Intubation Pending Studies Studies pending at discharge: no Laboratory Results Last 24 Hours Test 08/01/16 16:38 08/01/16 19:37 08/02/16 06:50 08/02/16 06:56 Bedside Glucose 79 mg/dl 103 mg/dl 94 mg/dl Magnesium Level 1.4 mg/dl Test 08/02/16 11:22 Bedside Glucose 122 mg/dl Hemoglobin A1c Test 07/20/16 05:54 Range/Units Estimated Average Glucose 148 mg/dl Hemoglobin A1c 6.8 H 4.5-5.6 % Medical Emergencies . Who to Call and When: Medical Emergencies: If at any time you feel your situation is an emergency, please call 911 immediately. . Non-Emergent Contact Non-Emergency issues call your: Primary Care Provider . . "Provider Documentation" section prepared by Feliz Gee. VTE Core Measure Inpt VTE Proph given/why not?: Enoxaparin (Lovenox)SQ
[2016-08-02 15:58] VITALS: BP 111/75; PULSE 95; TEMP 36.6; O2SAT 91
[2016-08-02 16:21] VITALS: BP 111/75; PULSE 95; TEMP 36.6; O2SAT 91
--- NOTE | 2016-08-03 17:17 | Discharge Summary ---
Discharge Summary Date of Service Aug 03, 2016. Discharge Summary Admission Date: Jul 18, 2016 at 17:19 Discharge Date: Aug 02, 2016 Discharge Disposition: Acute care mental health Principal Diagnosis: Sepsis Problems/Secondary Diagnoses: Acute respiratory failure, pneumonia,schizophrenia Procedures: endotracheal intubation. Consultations: Dr. Cecilia Lazo - chiller operator Dr. Susu Sullivan, Dr. Elisbaeth Rose, and Dr. Mary Florez - psychiatry Medication Reconciliation New Medications: Methylprednisolone (Medrol Dosepak) 4 Mg Fredy 0 PO DAILY, #1 PKT NS Potassium Chloride (Klor-Con M20) 20 Meq Tabcr 20 MG PO BIDM for 10 Days, #20 0 Refills NS Magnesium Oxide (Magnesium-Oxide) 400 Mg Tab 400 MG PO TID for 10 Days, #30 TAB 0 Refills Continued Medications: Acetaminophen Tab (Tylenol) 325 Mg Tab 650 MG PO Q4H, TAB Alum & Mag Hydrox-Simethicone (Mylanta) 1 Ilzette Lizette 30 ML PO QID PRN for Constipation Atorvastatin (Lipitor) 20 Mg Tab 20 MG PO HS Diphenhydramine Hcl (Diphenhydramine Hcl) 50 Mg/Ml Inj 100 MG IM UD GIVE WITH HALDOL INJECTION PRN FOR RECOVERY MED Docusate Sodium (Docusate Sodium) 100 Mg Cap 100 MG PO HS Emollient (Lubriderm) 1 Lot Lot 1 APPLN TOP BID APPLY TO FEET PRN Fluphenazine Hcl (Prolixin) 5 Mg Tab 15 MG PO HS PT USES X3 5MG TABS FOR 15MG DOSE Fluticasone Propionate (Inhala (Flovent Diskus) 100 Mcg/Blist Aer 1 PUFFS INH BID Furosemide (Lasix) 20 Mg Tab 20 MG PO QAM Haloperidol Lactate (Haldol) 5 Mg/Ml Inj 10 MG IM UD GIVE WITH BENADRYL INJECTION PRN FOR RECOVERY MED Levothyroxine Sodium (Levothyroxine Sodium) 25 Mcg Tab 25 MCG PO QAM Lorazepam (Ativan) 0.5 Mg Tab 0.5 MG PO BID PRN for Anxiety, TAB Magnesium Hydroxide (Milk Of Magnesia) 30 Ml Susp 30 ML PO UD PRN for Constipation, ML Metformin Hcl (Glucophage) 500 Mg Tab 1000 MG PO BID PT USES X2 500MG TABS FOR 1,000MG DOSE Propranolol (Inderal) 10 Mg Tab 10 MG PO BID Trazodone Hcl (Trazodone) 100 Mg Tab 100 MG PO HS Valproic Acid Syrup (Depakene) 250 Mg/5 Ml Syrp 1000 MG PO BID Discontinued Medications: Meloxicam (Mobic) 7.5 Mg Tab 15 MG PO QAM PT USES X2 7.5MG TABS FOR 15MG DOSE Discharge Exam A 10 system review was performed and all were negative. GEN: Awake, alert. Not in acute distress HEENT: Tm's intact, no inflammation, EOMI, PERRLA, MMM Neck: Soft, supple Lungs: CTA b/l, no r/r/w Heart: REG, nrl S1S2 without murmurs, rubs or gallops Abdomen: Soft, NT, ND, + BS EXT: No C/C/E NEURO: CN's II-XII grossly intact, non-focal Skin: warm, dry, no rashes PSYCH: pleasant, cooperative. flat affect. Hospital Course Patient was admitted to the ICU with acute respiratory failure secondary to sepsis from pneumonia. She was treated with IV antibiotics to include Azithromycin and Zosyn. She had a slow but steadily improving course through extubation to BiPAP and supplemental oxygen to finally just requiring oxygen supplementation with times of sleep. Because of known schizophrenia, the patient was seen and followed by psychiatry. She is discharged to an inpatient mental health facility. Other issues during hospitalization: Hypomagnesemia acute kidney failure COPD with exacerbation Type II DM Hypothyroidism DVT prophylaxis was sub-q lovenox. Total Time Spent: Greater than 30 minutes This includes examination of the patient, discharge planning, medication reconciliation, and communication with other providers. Discharge Instructions Please refer to the electronic Patient Visit Report (Discharge Instructions) for additional information. Follow-Up With the mental health facility.
== END 2016-08-02 18:20 | DRG 871 ==
LOC: ENRESERVTM → ENRESERVDT → EDBD 14:07 → C.EDA 14:09 → C.MSICU 17:19 → EDBEDREQ 17:26 → C.MS4W 07-27 10:26
PROVIDERS: ADMIT Family Medicine; ATTEND Hospitalist
PROC: 5A1945Z Respiratory Ventilation, 24-96 Consecutive Hours (ICD-10-PCS; principal; 2016-07-19)
PROC: 0BH17EZ Insertion of Endotracheal Airway into Trachea, Via Natural or Artificial Opening (ICD-10-PCS; 2016-07-19)
DX: A41.9 Sepsis, unspecified organism (principal); J96.01 Acute respiratory failure with hypoxia; J69.0 Pneumonitis due to inhalation of food and vomit; R65.21 Severe sepsis with septic shock; G93.41 Metabolic encephalopathy; J96.02 Acute respiratory failure with hypercapnia; N17.9 Acute kidney failure, unspecified; F20.0 Paranoid schizophrenia; R45.851 Suicidal ideations; J90 Pleural effusion, not elsewhere classified; I10 Essential (primary) hypertension; E03.9 Hypothyroidism, unspecified; E11.65 Type 2 diabetes mellitus with hyperglycemia; I95.9 Hypotension, unspecified; E78.5 Hyperlipidemia, unspecified; D69.6 Thrombocytopenia, unspecified; Z87.891 Personal history of nicotine dependence; E83.42 Hypomagnesemia; E66.9 Obesity, unspecified; B35.3 Tinea pedis; F79 Unspecified intellectual disabilities